=== PATIENT | female | born 1950 | race Caucasian/White ===

== ENCOUNTER 2018-02-05 07:21 | Day surgery (SDC) | payer OTHER ==
[2018-02-03 12:10] LABS: Absolute Lymphocytes (CBC) 3.3 K/uL (0.7-4.9); Absolute Monocytes 0.8 K/uL (0.1-1.3); Basophils % 0.8 % (0-1.3); Eosinophils % 2.4 % (0-4.4); Hematocrit 38.8 % (36.0-45.0); Lymphocytes % 28.8 % (15.3-44.8); MCH 29.3 pg (27.0-35.0); MCV 91.4 fL (80-100); MPV 8.3 fL (7.6-11.3); RBC Red Blood Cell Count 4.25 M/uL (3.86-4.86)
[2018-02-03 12:36] LABS: BUN Blood Urea Nitrogen 12 mg/dL (6-20); Bicarbonate 27 mEq/L (21-31); Glucose Level 182 mg/dL (65-120); Potassium 3.8 mEq/L (3.6-5.0); Sodium Level 139 mEq/L (135-145)
--- OUTSIDE RECORDS SUMMARY | 2018-02-05 07:23 | XMS REPORT | Clinical Summary ---
:1950 Author Organization [facility] Address [address] [place] [address] Care Team Providers Name Role Phone Darek Wilson MD Primary Care Provider Allergies Active Allergy Reactions Severity Noted Date Comments Codeine 01/20/2018 Current Medications No known medications Active Problems No known active problems Encounters Date Type Specialty Care Team Description 01/22/2018 Telephone General Surgery Beti Villa, BRADEN-C 01/20/2018 Office Visit General Surgery Benny Mclain, Malignant neoplasm of ascending colon (Primary Dx); Rectal polyp after 02/04/2017 Family History Medical History Relation Name Comments Diabetes Father Hypertension Father Stroke Father Diabetes Mother Hypertension Mother Relation Name Status Comments Father Mother Social History Tobacco Use Types Packs/Day Years Used Date Never Smoker Smokeless Tobacco: Never Used Alcohol Use Drinks/Week oz/Week Comments No Sex Assigned at Date Recorded Not on file Last Filed Vital Signs Vital Sign Reading Time Taken Blood Pressure 133/79 01/20/2018 1:41 PM CDT Pulse 75 01/20/2018 1:41 PM CDT Temperature - - Respiratory Rate - - Oxygen Saturation - - Inhaled Oxygen Concentration - - Weight 74.8 kg (165 lb) 01/20/2018 1:41 PM CDT Height 154.9 cm (5' 1") 01/20/2018 1:41 PM CDT Body Mass Index 31.18 01/20/2018 1:41 PM CDT Plan of Treatment Health Maintenance Due Date Last Done Comments COLONOSCOPY 2001 MAMMOGRAM 2001 SHINGRIX VACCINE (#1) 2001 ZOSTER VACCINE 2011 PNEUMOCOCCAL POLYSACCHARIDE VACCINE AGE 65 AND OVER 2016 PNEUMOCOCCAL-13 2016 INFLUENZA VACCINE 04/29/2018 Results Not on fileafter 02/04/2017 Insurance Payer Benefit Plan / Group Subscriber ID Type Phone Address MEDICARE MEDICARE PART A AND B xxxxxxxxxx Medicare [place], [place] ANDREW MORALES PPO OPEN CHOICE xxxxxxxxx PPO Home: [address] [place], [place] [phone] [place] [address]
[2018-02-05] MEDS ORDERED: Ringers Lactate 1,000 ML IV ONE (07:39)
[2018-02-05] MEDS ORDERED: LIDOCAINE 1% W/EPI 1:100,000 MDV 50 ML VIAL ONE (07:45)
[2018-02-05] MEDS ORDERED: PROPOFOL 200 MG/20 ML VIAL IV ONE (08:05)
[2018-02-05] MEDS ORDERED: FENTANYL CITR 100 MCG/2 ML ONE (08:05)
[2018-02-05] MEDS ORDERED: LIDOCAINE 2% MPF 5 ML VIAL ONE (08:06)
[2018-02-05] MEDS ORDERED: MIDAZOLAM HCL 2 MG/2 ML INJ ONE (08:07)
[2018-02-05] MEDS ORDERED: EPHEDRINE SULF 50 MG/5 ML SYR ONE (08:47)
[2018-02-05 11:30] VITALS: BP 112/68; TEMP 97; O2SAT 98
--- NOTE | 2018-02-05 20:04 | OP ---
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 The patient with history of colon c ancer. Postoperative Diagnosis: Cervical/vaginal tumor. 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 The patien t with history of colon cancer Procedures Performed: 1.Exam under anesthesia. 2.Cervical, vaginal, and vulvar colposcopy. 3.Biopsies of the cervix at 6 o'clock, 7 o'clock, and 12 o'clock position. 4.Cystourethroscopy. Anesthesia: MAC. Specimen: Cervical biopsy at 6 o'clock, 7 o'clock and 12 o'clock position. Estimated Blood Loss: 50. Complications: None. Drains: None. Condition: Stable. Findings: A 3 cm tumor on the cervix, which appeared to be circumferential. This tumor that I descr ibed as cervix has the appearance of it with an opening in the center that does not seem to be a necr otic area on the tumor. It does have vaginal extension as this is flushed with the vaginal canal all around. However, no gross vaginal tumor seen extending. From the anterior fornix to the external u rethral meatus, the length was only 3 cm, that was the distal-most part of the tumor. On cystoscopy, there was tumor underneath the trigone between the ureteric and both the ureteric orifices all the w ay down. However, there was no bladder mucosal involvement. Both ureters were patent. The right 1 had to be visualized with a 70 degree lens. There was no apparent pelvic sidewall involvement. Lomeli lili, it is very difficult to assess the involvement of the parametrium, due to the post hysterectomy status of the patient in, and due to the sacral colpopexy suspension. Description Of Procedure: After informed consent was verified, the patient was taken back to the OR. She was placed in supine fashion on the operating table. After MAC was given, she was placed in a dorsal lithotomy position using Gal stirrups. Pelvic exam was performed with a bivalve speculum pl aced in the cervix. Colposcopy attempted to be performed. However, once the patient started to blee d, I cleared up the blood with a sponge on a stick, then visualized the cervix quickly. This appeare d to be a circumferential anatomical structure consistent with the cervix; however, I am not positive due to the absence of a pathology report or an operative report from the 2010 surgery that she has h ad for uterine prolapse. After looking at the vaginal canal and vulva, no lesions were visualized here, and colposcope was set aside. We then proceeded with the rest of the procedure. Two Rodriguez speculums were placed, 1 anterio rly narrowing one, and the normal large 1 posteriorly. The width of the tumor on the cervix was jez ured from lvha-km-hbrd in the anterior-posterior diameter and was 3 cm. It was 3 cm from the distal part of this cervical lesion to the external urethral meatus. This measurement was 3 cm. The after visualizing and confirming the tumor, biopsies were taken at 12 o'clock, 6 o'clock, and 7 o 'clock, as this was where the tumor was obvious, and it was easier to take a biopsy with a cervical p unch biopsy forceps. Specimens were labeled and handed off for permanent pathology. Then, the vagina was packed with the help of a long gauze. Then, cystoscopy was performed with a 30-degree lens, to start with the bladder was distended only to 150 mL. This gave us a good opportunity to have good visualization. The entire mucosal wall was vi sualized, paying attention to the base and the trigone. There was an area on the trigone where the t umor appeared to be pretty pushing on it. However, there was no mucosal involvement. The left urete mook orifice was easily visualized with the scope. However, the right 1 was not visualized, so I firs t waited for the ureteral efflux on the left, and there was a strong normal stream of urine and the s cope was changed to 70 degree, and I was able to visualize the ureteric orifice on the right side, an d there was a strong jets of urine from here. The rest of the bladder was quickly looked at and then urethroscopy was performed on the way out with a 30-degree lens. No evidence of any tumors, diverti cula, or ulcerations. The entire trigone was well visualized as well. No evidence of any mucosal ab normalities. After the scope was removed, the bladder was drained through the 17-Welsh sheath and this was remove d. The patient is going to be kept on Bactrim. All the instruments, needles, and sponges were removed a nd counted. Then the vagina was repacked. The patient was recovered from anesthesia and taken to [facility] in stable condition. Ebl: Minimal, 50 mL. She has been given instructions to follow up with me in 1 week. She has an appointment, and then vag inal packing to come out in 2 hours. Restart Bactrim, since she has a bladder infection and then italia l p.r.n. with heavy bleeding. YELENA/KITTY Voice ID: [id number] Report ID: [id number]
== END 2018-02-05 10:24 | disposition home or self-care (01) ==
LOC: OR 07:21
PROVIDERS: ATTEND Obstetrics & Gynecology
PROC: 0UBC8ZX Excision of Cervix, Via Natural or Artificial Opening Endoscopic, Diagnostic (ICD-10-PCS; principal; 2018-02-05 08:30)
DX: C79.82 Secondary malignant neoplasm of genital organs (principal); C18.2 Malignant neoplasm of ascending colon; N30.00 Acute cystitis without hematuria
CPT/HCPCS: 36415; 57421; 80048; 85025; 88305; J2250; J3010

== ENCOUNTER 2018-03-16 09:09 | Day surgery (SDC) | payer OTHER ==
--- NOTE | 2018-03-13 11:27 | RAD REPORT ---
EXAM DESCRIPTION: Veronica Palmer And Renata (2 Views)03/13/2018 10:09 am CLINICAL HISTORY: Colon cancer COMPARISON: December 2017 FINDINGS: Two left upper lobe nodules measure about 7 millimeters. They appear mildly enlarged from the prior CAT scan. The right lung appears clear The heart is normal size
[2018-03-13 11:30] LABS: Absolute Lymphocytes (CBC) 2.4 K/uL (0.7-4.9); Absolute Monocytes 0.7 K/uL (0.1-1.3); Absolute Neutrophil 6.5 K/uL (1.8-8.0); Basophils % 1.2 % (0-1.3); Eosinophils % 3.6 % (0-4.4); Hematocrit 38.1 % (36.0-45.0); Lymphocytes % 24.1 % (15.3-44.8); MCV 90.9 fL (80-100); MPV 8.8 fL (7.6-11.3); Monocytes % 6.6 % (3.3-12.3); RBC Red Blood Cell Count 4.19 M/uL (3.86-4.86)
[2018-03-13 11:49] LABS: BUN Blood Urea Nitrogen 9 mg/dL (6-20); Bicarbonate 28 mEq/L (21-31); Glucose Level 189 mg/dL (65-120); Potassium 4.6 mEq/L (3.6-5.0); Sodium Level 139 mEq/L (135-145)
--- NOTE | 2018-03-13 14:07 | EKG ---
Test Date: 2018-03-13 Test Time: 09:55:31 Claim Approver: ELDA MEASUREMENT RESULTS: Intervals: Rate: 74 NV: 152 QRSD: 86 QT: 386 QTc: 428 Griffin: P: 63 NV: 152 QRS: -6 T: 51 INTERPRETIVE STATEMENTS: Normal sinus rhythm Normal ECG Compared to ECG 06/24/2017 15:32:31 No significant changes Electronically Signed On 03-13-18 14:06:03 CDT by Lance Castillo
--- OUTSIDE RECORDS SUMMARY | 2018-03-16 09:11 | XMS REPORT | Clinical Summary ---
:1950 Author Organization [facility] Address [address] [place] [address] Care Team Providers Name Role Phone Darek [...] ascending colon (Primary Dx); Rectal polyp after 03/15/2017 Family History Medical History Relation Name Comments [...] Health Maintenance Due Date Last Done Comments BREAST CANCER SCREENING 2001 COLON CANCER SCREENING 2001 SHINGRIX VACCINE (#1) 2001 ZOSTER VACCINE 2011 PNEUMOCOCCAL POLYSACCHARIDE VACCINE AGE 65 AND OVER 2016 PNEUMOCOCCAL-13 2016 INFLUENZA VACCINE 04/29/2018 Results Not on fileafter 03/15/2017 Insurance Payer Benefit Plan / Group Subscriber ID Type Phone Address MEDICARE MEDICARE PART A AND B xxxxxxxxxx Medicare [place], [place] ANDREW MORALES PPO OPEN CHOICE xxxxxxxxx PPO Home: [address] [place], [place] [phone] [place] [address]
[2018-03-16] MEDS ORDERED: Ringers Lactate 1,000 ML IV ONE (09:38)
[2018-03-16] MEDS ORDERED: CEFAZOLIN/SWI 1gm 1 GM/10 ML SYR ONE (09:39)
[2018-03-16] MEDS ORDERED: MIDAZOLAM HCL 2 MG/2 ML INJ ONE (10:13)
[2018-03-16] MEDS ORDERED: LIDOCAINE 1% 20 ML MDV ONE (10:16)
[2018-03-16] MEDS ORDERED: NS 0.9% VIAL 10 ML ONE ×2 (10:16→10:17)
[2018-03-16] MEDS ORDERED: PROPOFOL 200 MG/20 ML VIAL IV ONE (10:30)
[2018-03-16] MEDS ORDERED: LIDOCAINE 2% MPF 5 ML VIAL ONE (10:31)
[2018-03-16] MEDS ORDERED: FENTANYL CITR 100 MCG/2 ML ONE (10:31)
[2018-03-16] MEDS ORDERED: ONDANSETRON HCL 40 MG/20 ML VIAL ONE (10:48)
[2018-03-16] MEDS: HEPARIN 5000 UNIT/ML 1 ML VIAL ONE ×2 (11:07→11:25)
--- NOTE | 2018-03-16 11:24 | RAD REPORT ---
EXAM DESCRIPTION: RAD - Chest Single View - 03/16/2018 11:17 am CLINICAL HISTORY: Unsuccessful left-side line placement procedure COMPARISON: March 13 TECHNIQUE: AP portable chest image was obtained with the patient supine and in reverse Trendelenburg positioning . FINDINGS: Lungs are underinflated. Left lung base atelectasis present. No pneumothorax is present. T rachea is midline. Cardiomediastinal silhouette within normal limits for exam limitation. Heart size accentuated by technique and positioning. IMPRESSION: Limited portable intraoperative examination showing no pneumothorax.
--- NOTE | 2018-03-16 11:43 | P.BOP ---
Preoperative diagnosis: colon cancer Postoperative diagnosis: same Primary procedure: 1. Placement of portacath right Secondary procedure: 2. Interpretation of fluoroscopy Estimated blood loss: <10cc Specimen: none Findings: as above Anesthesia: General Complications: None Transferred to: Recovery Room Condition: Good
--- NOTE | 2018-03-16 12:08 | RAD REPORT ---
EXAM DESCRIPTION: RAD - Fluoroscopy <1 Hour - 03/16/2018 11:53 am CLINICAL HISTORY: Venous catheter insertion. PORT-A-CATH PLACEMENT COMPARISON: Fluoroscopy <1 Hour dated 07/12/2016 FINDINGS: Fluoroscopic imaging is submitted from placement of a venous catheter. Details of the pro cedure not available. Fluoroscopy time: 1.0 minutes.
--- NOTE | 2018-03-16 12:10 | RAD REPORT ---
EXAM DESCRIPTION: RAD - Chest Single View - 03/16/2018 12:02 pm CLINICAL HISTORY: s/p port-a-cath placement Chest pain. COMPARISON: Chest Single View dated 03/16/2018; Chest Pa And Lat (2 Views) dated 03/13/2018; Chest Pa And Lat (2 Views) dated 06/24/2017; Chest Pa And Lat (2 Views) dated 06/19/2017 FINDINGS: Portable technique limits examination quality. Right-sided venous catheter has been placed with its tip in the SVC. No postprocedure pneumothorax. M ild atelectasis in left lung base suspected. The heart is normal in size. No displaced fractures. IMPRESSION: No postprocedure pneumothorax.
[2018-03-16] MEDS ORDERED: TRAMADOL 37.5mg/APAP 325mg PER TAB ONE (12:38)
[2018-03-16 12:55] VITALS: BP 125/72; TEMP 97.3; O2SAT 98
--- NOTE | 2018-03-16 23:33 | OP ---
Surgeon: Miguel A Torre MD Car Dumper Operator Helper: None. Preoperative Diagnosis: Colon cancer. Postoperative Diagnosis: Colon cancer. Procedures: 1.Placement of a Port-A-Cath on the right subclavian vein. 2.Interpretation of fluoroscopy. Estimated Blood Loss: Less than 10 cc. Anesthesia: General. Indications: This is the case of a 68-year-old patient in need of chemotherapy, so Port-A-Cath was r equested. The patient had Port-A-Cath in the left and right sides for previous chemotherapies. The benefits, alternatives, and risks of Port-A-Cath placement were fully explained to the patient, which include but are not limited to infection, bleeding, damage to adjacent structures, anesthesia compli cation, pneumothorax, hemothorax, pulmonary emboli, deep vein thrombosis, breakage of the catheter, i nfections, endocarditis, pericarditis, CT, or even . She also understands this may not relieve any symptoms. She might need more than one surgical intervention. She understands the importance of as soon as she finished the chemotherapy and removing of this Port-A-Cath. She also understands if she does not receive chemotherapy within a month, she has to contact the primary doctor or contact us to get a Port-A-Cath ordered to be flushed once a month. She understood the importance of _. She signed a consent. Description Of Procedure: The patient was brought to the operating room, placed in supine position. Anesthesia was done without complication. Chest area was prepped and draped in a sterile fashion. We are going to start with the left side first. Both sides had scar tissues present. We were trying to locate the area that is a little more that we can put this on regardless of the size, so we saw i t on the left side. The patient was placed in Trendelenburg position. A time-out was called. An 18 -gauge needle was placed in the left subclavian vein. Guidewire was guided through under fluoroscopy , but does not pass into the innominate vessel. We did that for the second time. The catheter goes into the vein, but does not pass the innominate vessel. In that case, I just removed the needle, got an x-ray shows no pneumothorax, and then proceeded to the other side since the patient may have scar tissue over the area. The right side was prepped and draped already in the usual sterile fashion. We put an 18-gauge needle in that area. We found the vein at the first attempt only that they got worst pass through nice without assistance. Needle was removed. A small pocket was created in the right upper chest. We proceeded to put the introducer sheath through the guidewire under dir ect visualization of fluoroscopy, removed the guidewire, placed the catheter, removed the introducer sheath. Then, the catheter was tunneled underneath the skin to meet the new incision in the right up per chest, cut to proper size using fluoroscopy guidance. Port-A-Cath connected to the catheter usin g the learning services coordinator's specification and clip. The Port-A-Cath was then secured to the underlying subc utaneous tissue and then after that, was tested. Excellent backflow and inflow. The Port-A-Cath was flushed with heparin. The patient tolerated the procedure well. The subcutaneous tissue was closed with 3-0 chromic after putting local anesthetic and obtaining hemostasis and then Steri-Strips on to p. Sponge count and instrument counts were correct. The patient tolerated the procedure well. The patient was sent to Recovery in stable condition, and a chest x-ray was ordered stat. DELIA/KITTY Voice ID: [id number] Report ID: [id number]
--- NOTE | 2018-03-16 23:33 | DS ---
Date of Discharge: 03/16/2018 Diagnosis: Colon cancer. Procedure: Placement of a Port-A-Cath under fluoroscopy. Disposition: Home. Activity: As tolerated. No heavy lifting. Followup: Follow up in my office in 1 week. Call for appointment at [phone]. Keep area dry for 48 hours, then may shower. Keep Steri-Strips intact. The patient will be discharged after a chest x-r ay's review. Medications: Will include Bactrim DS b.i.d. and Ultracet q.4 hours p.r.n. pain. DELIA/KITTY Voice ID: [id number] Report ID: [id number]
== END 2018-03-16 13:15 | disposition home or self-care (01) ==
LOC: OR 09:09
PROVIDERS: ATTEND Surgery
PROC: 0JH60WZ Insertion of Totally Implantable Vascular Access Device into Chest Subcutaneous Tissue and Fascia, Open Approach (ICD-10-PCS; principal; 2018-03-16 10:45)
DX: C18.9 Malignant neoplasm of colon, unspecified (principal); I10 Essential (primary) hypertension; K21.9 Gastro-esophageal reflux disease without esophagitis; Z88.6 Allergy status to analgesic agent; Z90.49 Acquired absence of other specified parts of digestive tract; Z83.3 Family history of diabetes mellitus; Z82.49 Family history of ischemic heart disease and other diseases of the circulatory system
CPT/HCPCS: 36415; 36561; 71045 ×2; 71046; 80048; 85025; 93005; C1788 ×2; J0690; J1644; J2250; J2405; J3010; 76000

== ENCOUNTER 2018-10-08 11:16 | Inpatient (IN) | payer OTHER ==
--- OUTSIDE RECORDS SUMMARY | 2018-10-08 11:20 | XMS REPORT | Clinical Summary ---
:1950 Author Organization [facility] Address [address] [place] [address] Care Team Providers Name Role Phone Darek Wilson MD Primary Care Provider Allergies Active Allergy Reactions Severity Noted Date Comments Codeine 01/20/2018 Medications No known medications Active Problems No known active problems Encounters Date Type Specialty Care Team Description 01/22/2018 Telephone General Surgery Beti Villa, BRADEN-C 01/20/2018 Office Visit General Surgery Benny Mclain, Malignant neoplasm of ascending colon (Primary Dx); Rectal polyp after 10/07/2017 Family History Medical History Relation Name Comments Diabetes Father Hypertension Father Stroke Father Diabetes Mother Hypertension Mother Relation Name Status Comments Father Mother Social History Tobacco Use Types Packs/Day Years Used Date Never Smoker Smokeless Tobacco: Never Used Alcohol Use Drinks/Week oz/Week Comments No Sex Assigned at Date Recorded Not on file Job Start Date Occupation Industry Not on file Not on file Not on file Travel History Travel Start Travel End No recent travel history available. Last Filed Vital Signs Vital Sign Reading [...] CANCER SCREENING 2001 COLON CANCER SCREENING 2001 SHINGLES VACCINES (1 of 2) 2001 PNEUMOCOCCAL POLYSACCHARIDE VACCINE AGE 65 AND OVER 2016 PNEUMOCOCCAL-13 2016 INFLUENZA VACCINE 04/29/2018 Results Not on fileafter 10/07/2017 Insurance Payer Benefit Plan / Group Subscriber ID Type Phone Address MEDICARE MEDICARE PART A AND B xxxxxxxxxx Medicare [place], [place] [employer] PPO OPEN CHOICE xxxxxxxxx PPO Advance Directives Patient has advance care planning documents on file. For more information, please contact:Ryan Uriarte[address] [place] [address]
--- NOTE | 2018-10-08 12:02 | EKG ---
Test Date: 2018-10-08 Test Time: 11:33:29 Film And Video Graphics Designer: VLADIMIR MEASUREMENT RESULTS: Intervals: Rate: 116 FL: 138 QRSD: 80 QT: 310 QTc: 430 [place]: P: 63 FL: 138 QRS: -19 T: 57 INTERPRETIVE STATEMENTS: Sinus tachycardia ST & T wave abnormality, consider lateral ischemia Abnormal ECG Compared to ECG 06/15/2018 21:53:11 No significant changes Electronically Signed On 10-08-18 12:01:25 LEATHER GRADER by Lance Castillo
[2018-10-08 12:06] LABS: Protime INR 1.25
[2018-10-08 12:08] LABS: Absolute Lymphocytes (CBC) 2.1 K/uL (0.7-4.9); Absolute Monocytes 0.4 K/uL (0.1-1.3); Absolute Neutrophil 5.2 K/uL (1.8-8.0); Hematocrit 39.9 % (36.0-45.0); Lymphocytes % 26.7 % (15.3-44.8); MPV 7.4 fL (7.6-11.3); Monocytes % 4.5 % (3.3-12.3); RBC Red Blood Cell Count 3.88 M/uL (3.86-4.86)
[2018-10-08 12:26] LABS: ALT/SGPT 16 U/L (12-78); AST/SGOT 20 U/L (15-37); Albumin 3.3 g/dL (3.4-5.0); Alkaline Phosphatase 141 U/L (45-117); BUN Blood Urea Nitrogen 14 mg/dL (7-18); Bicarbonate 21 mmol/L (21-32); Bilirubin Direct 0.2 mg/dL (0-0.2); Bilirubin Total 0.6 mg/dL (0.2-1.0); Glucose Level 157 mg/dL (74-106); Magnesium 1.8 mg/dL (1.8-2.4); NT PRO-BNP 197 pg/mL (<125); Potassium 3.1 mmol/L (3.5-5.1); Protein, Total 6.5 g/dL (6.4-8.2); Sodium Level 143 mmol/L (136-145); Troponin (Emerg Dept Use Only) < 0.02 ng/mL (0.0-0.045)
--- NOTE | 2018-10-08 12:28 | RAD REPORT ---
EXAM DESCRIPTION: RAD - Chest Single View - 10/08/2018 12:20 pm CLINICAL HISTORY: DYSPNEA Chest pain. COMPARISON: Chest Single View dated 06/15/2018; Chest Single View dated 03/16/2018; Chest Single View dated 03/16/2018; Chest Pa And Lat (2 Views) dated 03/13/2018 FINDINGS: Portable technique limits examination quality. The lungs are grossly clear. Small left pleural effusion noted. The heart is normal in size. Right-si ded venous catheter has tip in the SVC. IMPRESSION: Small left pleural effusion.
[2018-10-08 12:49] LABS: Blood Morphology Comment NOT SEEN (NOT SEEN); Platelet Estimate ADEQ; Urine White Blood Cell Casts OK
--- NOTE | 2018-10-08 13:18 | RAD REPORT ---
EXAM DESCRIPTION: CT - Chest For Pe Angio - 10/08/2018 1:08 pm CLINICAL HISTORY: Chest pain. DYSPNEA COMPARISON: Chest Angio dated 04/05/2016; Chest Single View dated 10/08/2018; Chest Abdomen Pelvis W Co nt dated 08/25/2018 TECHNIQUE: CT angiogram of the pulmonary arteries was performed with MIP. All CT scans are performed using dose optimization technique as appropriate and may include automated exposure control or mA/KV adjustment according to patient size. FINDINGS: Bilateral pulmonary thromboembolism is present predominately involving the segmental branc hes. No RV strain pattern observed. No acute aortic finding demonstrated. Mild linear atelectasis is present left lung base. Small left pleural effusion is noted. Several pulmonary nodules are again noted, grossly unchanged since 08/25/2018 surveillance study. Pul monary nodule assessment is somewhat limited due to respiratory motion artifact. A collapsed left breast implant is seen. No pericardial fluid. Fatty liver. No lytic or blastic bone lesion. IMPRESSION: Positive for bilateral segmental branch pulmonary thromboemboli. Findings were discussed with BRYCE Pretty in the ER 1:10 p.m. 10/08/2018 by telephone.
[2018-10-08] MEDS ORDERED: HEPARIN 5000 UNIT/ML 1 ML VIAL ONE (13:33)
[2018-10-08] MEDS ORDERED: NA CHLORIDE 0.9% 1,000 ML ONE (13:33)
[2018-10-08] MEDS ORDERED: HEPARIN/D5W 25,000 UNIT/500 ML BAG IV ONE (13:33)
--- NOTE | 2018-10-08 13:46 | EDPHYS ---
Physician Documentation [facility] Name: Nesha Pringle Age: 68 yrs Sex: Female : 1950 Arrival Date: 10/08/2018 Time: 11:19 Bed 8 Private MD: Alina Wilson C ED Physician Benjamin Manzo HPI: 10/08 12:15 This 68 yrs old Female presents to ER via Wheelchair with complaints of jr8 Shortness Of Breath, Dehydration. 12:15 Severity of symptoms: At their worst the symptoms were moderate in the emergency jr8 department the symptoms are unchanged. The patient has experienced a previous episode. The patient has been recently seen by a physician:. Patient with history of PE in 2016 and cleared 6 months later with anticoagulation. Has recurrent metastatic colon cancer and is undergoing chemotherapy. Talked to her Oncologist this morning who is worried that she has another one. Tachypnea, dyspnea on exertion, and tachycardic for past couple of weeks now. One of the chemo drugs has known thromboembolism risks. Historical: - Allergies: 11:36 Codeine; iw 11:22 Codeine; aa5 - Home Meds: 11:36 amlodipine 5 mg tab 1 tab once daily [Active]; Folivane-F Oral [Active]; iw hydrochlorothiazide 12.5 mg Oral tab 1 tab once daily [Active]; levothyroxine 150 mcg tab 1 tab once daily [Active]; metoprolol tartrate 100 mg Oral tab 1 tab 2 times per day [Active]; Multiple Vitamins Oral tab [Active]; omeprazole 20 mg Oral cpDR 1 cap once daily [Active]; ondansetron HCl 8 mg Oral tab [Active]; Percogesic Oral [Active]; pravastatin 40 mg Oral tab 1 tab once daily [Active]; Sleep Aid (diphenhydramine) 25 mg Oral tab [Active]; tramadol-acetaminophen 37.5-325 mg Oral tab [Active]; - PMHx: 11:36 Aneurysm; Hypertension; iw 11:22 colon cancer; GERD; aa5 11:22 PE; aa5 - PSHx: 11:36 BRAIN; BLADDER SLING; Hysterectomy; Lithotripsy; Bowel resection; iw - Social history:: Smoking status: Patient/guardian denies using tobacco. - Ebola Screening: : Patient negative for fever greater than or equal to 101.5 degrees Fahrenheit, and additional compatible Ebola Virus Disease symptoms Patient denies exposure to infectious person Patient denies travel to an Ebola-affected area in the 21 days before illness onset No symptoms or risks identified at this time No symptoms or risks identified at this time. ROS: 12:15 Eyes: Negative for injury, pain, redness, and discharge, ENT: Negative for injury, jr8 pain, and discharge, Neck: Negative for injury, pain, and swelling, Abdomen/GI: Negative for abdominal pain, nausea, vomiting, diarrhea, and constipation, Back: Negative for injury and pain, MS/Extremity: Negative for injury and deformity, Skin: Negative for injury, rash, and discoloration, Neuro: Negative for headache, weakness, numbness, tingling, and seizure. 12:15 Cardiovascular: Negative for chest pain, edema, orthopnea, palpitations, paroxysmal nocturnal dyspnea. 12:15 Respiratory: Positive for dyspnea on exertion, shortness of breath. Exam: 12:15 Eyes: Pupils equal round and reactive to light, extra-ocular motions intact. Lids and jr8 lashes normal. Conjunctiva and sclera are non-icteric and not injected. Cornea within normal limits. Periorbital areas with no swelling, redness, or edema. ENT: Nares patent. No nasal discharge, no septal abnormalities noted. Tympanic membranes are normal and external auditory canals are clear. Oropharynx with no redness, swelling, or masses, exudates, or evidence of obstruction, uvula midline. Mucous membranes moist. Neck: Trachea midline, no thyromegaly or masses palpated, and no cervical lymphadenopathy. Supple, full range of motion without nuchal rigidity, or vertebral point tenderness. No Meningismus. Respiratory: Lungs have equal breath sounds bilaterally, clear to auscultation and percussion. No rales, rhonchi or wheezes noted. No increased work of breathing, no retractions or nasal flaring. Abdomen/GI: Soft, non-tender, with normal bowel sounds. No distension or tympany. No guarding or rebound. No evidence of tenderness throughout. Back: No spinal tenderness. No costovertebral tenderness. Full range of motion. Skin: Warm, dry with normal turgor. Normal color with no rashes, no lesions, and no evidence of cellulitis. MS/ Extremity: Pulses equal, no cyanosis. Neurovascular intact. Full, normal range of motion. Neuro: Awake and alert, GCS 15, oriented to person, place, time, and situation. Cranial nerves II-XII grossly intact. Motor strength 5/5 in all extremities. Sensory grossly intact. Cerebellar exam normal. Normal gait. 12:15 Cardiovascular: Rate: tachycardic, Rhythm: regular, Pulses: Pulses are 2+ in right radial artery and left radial artery. Heart sounds: normal, normal S1and S2, no S3 or S4, no murmur, no rub, no gallop, Edema: is not appreciated, JVD: is not appreciated. Vital Signs: 11:29 BP 124 / 79; Pulse 120; Resp 20 S; Temp 97.5(O); Pulse Ox 100% on R/A; Weight 61.23 kg aa5 (R); Height 5 ft. 1 in. (154.94 cm) (R); 12:00 BP 107 / 79; Pulse 112; Resp 18 S; Pulse Ox 100% on R/A; aa5 12:50 BP 103 / 76; Pulse 103; Resp 18 S; Pulse Ox 99% on R/A; Pain 0/10; aa5 14:30 BP 120 / 84; Pulse 84; Resp 16 S; Pulse Ox 100% on R/A; aa5 18:00 BP 110 / 75; Pulse 86; Resp 16 S; Temp 97.4(O); Pulse Ox 100% on R/A; aa5 11:29 Body Mass Index 25.51 (61.23 kg, 154.94 cm) aa5 MDM: 11:23 Patient medically screened. cp 11:23 Patient medically screened. [facility] 13:45 Data reviewed: vital signs, nurses notes, lab test result(s), EKG, radiologic studies, jr8 CT scan, plain films, ultrasound. Data interpreted: Pulse oximetry: on room air is 100 %. Interpretation: normal. Counseling: I had a detailed discussion with the patient and/or guardian regarding: the historical points, exam findings, and any diagnostic results supporting the discharge/admit diagnosis, lab results, radiology results, the need for further work-up and treatment in the hospital. Physician consultation: A Steve PARKER was called at 13:45, was contacted at 13:45, regarding admission, to the telemetry unit. consult, patient's condition, and will see patient. 10/08 11:24 Order name: Basic Metabolic Panel; Complete Time: 12:10/08 11:24 Order name: CBC with Diff; Complete Time: 12:10/08 11:24 Order name: LFT's; Complete Time: 12:10/08 11:24 Order name: Magnesium; Complete Time: 12:51 10/08 11:24 Order name: NT PRO-BNP; Complete Time: 12:10/08 11:24 Order name: PT-INR; Complete Time: 12:10/08 11:24 Order name: Troponin (emerg Dept Use Only); Complete Time: 12:10/08 11:24 Order name: XRAY Chest (1 view); Complete Time: 12:10/08 12:12 Order name: CBC Smear Scan; Complete Time: 12:51 EDNJ 10/08 12:52 Order name: CT Chest For PE Angio; Complete Time: 13:10/08 13:45 Order name: US Extremity Venous W Compression Valente; Complete Time: 14:42 10/08 11:24 Order name: EKG; Complete Time: 11:25 10/08 11:24 Order name: Cardiac monitoring; Complete Time: 11:40 10/08 11:24 Order name: EKG - Nurse/Tech; Complete Time: 11:40 10/08 11:24 Order name: IV Saline Lock; Complete Time: 11:10/08 11:24 Order name: Labs collected and sent; Complete Time: 11:10/08 11:24 Order name: O2 Per Protocol; Complete Time: 11:40 10/08 11:24 Order name: O2 Sat Monitoring; Complete Time: 11:40 Administered Medications: 13:15 Not Given (Physician Discretion): NS 0.9% 1000 ml IV at 1000 ml once iw 13:54 Drug: Heparin (DVT/PE- Bolus per protocol) - HEParin 80 units/kg {Co-Signature: aa5 iw (Yue Amin RN).} {Note: 5000 units IVP given.} Route: IVP; Site: Port-a-cath; 14:00 Follow up: Response: No adverse reaction aa5 13:55 Drug: Heparin (DVT/PE Drip) 18 units/kg/hr - (HEParin 57586 units, D5W 500 ml) {Co-Signature: aa5 (Yue Amin RN).} {Note: infusing at 1100 units/hr.} Route: IV; Rate: calculated rate; Site: Port-a-cath; 18:15 Follow up: Response: No adverse reaction; IV Status: Infusion continued upon admission aa5 14:00 Drug: NS 0.9% 1000 ml Route: IV; Rate: 100 ml/hr; Site: left antecubital; iw 18:15 Follow up: IV Status: Infusion continued upon admission aa5 15:40 Drug: Potassium Chloride 40 mEq Route: PO; aa5 16:30 Follow up: Response: No adverse reaction aa5 Disposition: 10/09 07:06 Co-signature as Attending Physician, Benjamin Manzo MD I agree with the assessment and kadeem plan of care. Disposition: 10/08/18 13:46 Hospitalization ordered by Alina Wilson for Inpatient Admission. Preliminary diagnosis is Pulmonary embolism. - Bed requested for Telemetry/MedSurg (Inpatient). - Status is Inpatient Admission. aa5 - Condition is Stable. - Problem is new. - Symptoms have improved. UTI on Admission? No Signatures: Dispatcher [employer] EDBenjamin Land MD MD cha Williams, Irene, RN RN iw Calderon, Audri, RN RN aa5 Adalberto Ortega PA PA jr8 Benjamin Eugene PA PA cp Fitzgerald, Diane, RN RN df Audri Calderon RN aa5 Corrections: (The following items were deleted from the chart) 10/08 11:39 11:36 PMHx: colon cancer; 1139 11:36 PMHx: GERD; 39 11:22 PMHx: Aneurysm; aa5 39 11:22 PMHx: Hypertension; aa39 11:22 PSHx: BRAIN; aa5 39 11:22 PSHx: BLADDER SLING; aa5 39 11:22 PSHx: Hysterectomy; aa5 39 11:22 PSHx: Lithotripsy; aa 11:22 PSHx: Bowel resection; aa5 aa5 17:09 13:46 Hospitalization Ordered by A Steve PARKER for Inpatient Admission. Preliminary df diagnosis is Pulmonary embolism. Bed requested for Telemetry/MedSurg (Inpatient). Status is Inpatient Admission. Condition is Stable. Problem is new. Symptoms have improved. UTI on Admission? No. jr8 18:30 17:09 10/08/2018 13:46 Hospitalization Ordered by A Steve PARKER for Inpatient Admission. aa5 Preliminary diagnosis is Pulmonary embolism. Bed requested for Telemetry/MedSurg (Inpatient). Status is Inpatient Admission. Condition is Stable. Problem is new. Symptoms have improved. UTI on Admission? No. df
--- NOTE | 2018-10-08 13:46 | ER ---
Nurse's Notes [facility] Name: Nesha Pringle Age: 68 yrs Sex: Female : 1950 Arrival Date: 10/08/2018 Time: 11:19 Bed 8 Private MD: Alina Wilson C Diagnosis: Pulmonary embolism Presentation: 10/08 11:33 Presenting complaint: Patient states: sent by Dr. Nettles to R/O PE, pt on chemo, iw tachycardic and SOB. Transition of care: patient was not received from another setting of care. Onset of symptoms was October 08, 2018. Risk Assessment: Do you want to hurt yourself or someone else? Patient reports no desire to harm self or others. Initial Sepsis Screen: Does the patient meet any 2 criteria? Does the patient have a suspected source of infection? No. Patient's initial sepsis screen is negative. Care prior to arrival: None. 11:33 Method Of Arrival: Wheelchair iw 11:33 Acuity: JAMES 2 iw Historical: - Allergies: 11:36 Codeine; iw 11:22 Codeine; aa5 - Home Meds: 11:36 amlodipine 5 mg tab 1 tab once daily [Active]; Folivane-F Oral [Active]; iw hydrochlorothiazide 12.5 mg Oral tab 1 tab once daily [Active]; levothyroxine 150 mcg tab 1 tab once daily [Active]; metoprolol tartrate 100 mg Oral tab 1 tab 2 times per day [Active]; Multiple Vitamins Oral tab [Active]; omeprazole 20 mg Oral cpDR 1 cap once daily [Active]; ondansetron HCl 8 mg Oral tab [Active]; Percogesic Oral [Active]; pravastatin 40 mg Oral tab 1 tab once daily [Active]; Sleep Aid (diphenhydramine) 25 mg Oral tab [Active]; tramadol-acetaminophen 37.5-325 mg Oral tab [Active]; - PMHx: 11:36 Aneurysm; Hypertension; iw 11:22 colon cancer; GERD; aa5 11:22 PE; aa5 - PSHx: 11:36 BRAIN; BLADDER SLING; Hysterectomy; Lithotripsy; Bowel resection; iw - Social history:: Smoking status: Patient/guardian denies using tobacco. - Ebola Screening: : Patient negative for fever greater than or equal to 101.5 degrees Fahrenheit, and additional compatible Ebola Virus Disease symptoms Patient denies exposure to infectious person Patient denies travel to an Ebola-affected area in the 21 days before illness onset No symptoms or risks identified at this time No symptoms or risks identified at this time. Screenin:50 Abuse screen: Denies threats or abuse. Nutritional screening: No deficits noted. aa5 Tuberculosis screening: No symptoms or risk factors identified. Fall Risk IV access (20 points). Total Toussaint Fall Scale indicates No Risk (0-24 pts). Assessment: 11:30 General: Appears comfortable. Pain: Complains of pain in left upper quadrant Pain aa5 currently is 0 out of 10 on a pain scale. Quality of pain is described as aching, Is intermittent. Neuro: Level of Consciousness is awake, alert, obeys commands, Oriented to person, place, time, situation. Cardiovascular: Heart tones S1 S2 present Rhythm is regular. Respiratory: Reports shortness of breath on exertion Airway is patent Respiratory effort is even, unlabored, Respiratory pattern is regular, symmetrical, Breath sounds are clear bilaterally. Denies cough. GI: Abdomen is non-distended, Bowel sounds present X 4 quads. Abd is soft and non tender X 4 quads. Patient currently denies nausea, vomiting. : No signs and/or symptoms were reported regarding the genitourinary system. EENT: No signs and/or symptoms were reported regarding the EENT system. Derm: Skin is pink, warm \T\ dry. Musculoskeletal: Range of motion: intact in all extremities. 11:35 Reassessment: Patient was notified of strict bedrest by BRYCE Collins . aa5 12:30 Reassessment: Patient and/or family updated on plan of care and expected duration. Pain aa5 level reassessed. Patient is alert, oriented x 3, equal unlabored respirations, skin warm/dry/pink. Patient denies pain at this time. 13:45 Reassessment: Patient is alert, oriented x 3, equal unlabored respirations, skin aa5 warm/dry/pink. Patient denies pain at this time. Patient was reminded about strict bedrest, pt verbalizes understanding. . 16:00 Reassessment: Patient is alert, oriented x 3, equal unlabored respirations, skin aa5 warm/dry/pink. Pt notified that I spoke to pump house operator about room assignment and she will be assigned to a room shortly per Property Insurance Claims Examiner. . 17:08 Reassessment: Pt assisted with bedpan, clear yellow urine noted, 10cc of urine. . aa5 17:08 Reassessment: Patient is alert, oriented x 3, equal unlabored respirations, skin aa5 warm/dry/pink. 18:15 Reassessment: Patient is alert, oriented x 3, equal unlabored respirations, skin aa5 warm/dry/pink. Vital Signs: 11:29 BP 124 / 79; Pulse 120; Resp 20 S; Temp 97.5(O); Pulse Ox 100% on R/A; Weight 61.23 kg aa5 (R); Height 5 ft. 1 in. (154.94 cm) (R); 12:00 BP 107 / 79; Pulse 112; Resp 18 S; Pulse Ox 100% on R/A; aa5 12:50 BP 103 / 76; Pulse 103; Resp 18 S; Pulse Ox 99% on R/A; Pain 0/10; aa5 14:30 BP 120 / 84; Pulse 84; Resp 16 S; Pulse Ox 100% on R/A; aa5 18:00 BP 110 / 75; Pulse 86; Resp 16 S; Temp 97.4(O); Pulse Ox 100% on R/A; aa5 11:29 Body Mass Index 25.51 (61.23 kg, 154.94 cm) aa5 ED Course: 11:19 Patient arrived in ED. mr 11:20 Alina Wilson MD is Private Physician. mr 11:22 Arm band placed on Patient placed in an exam room, on a stretcher. aa5 11:22 Patient has correct armband on for positive identification. Placed in gown. Bed in low aa5 position. Call light in reach. Side rails up X2. playground monitor on. Pulse ox on. NIBP on. 11:23 Benjamin Eugene PA is PHCP. cp 11:23 Benjamin Manzo MD is Attending Physician. cp 11:23 PHCP role handed off by Benjamin Eugene PA jr8 11:23 Adalberto Ortega PA is PHCP. jr8 11:26 Yue Amin, ANSELMO is Primary Nurse. aa5 11:34 Triage completed. iw 11:45 Initial lab(s) drawn, by me, sent to lab. Inserted saline lock: 20 gauge in left aa5 antecubital area, using aseptic technique. Blood collected. 11:52 EKG done, by missile tracking technician. reviewed by Adalberto WU. at1 12:19 X-ray completed. Portable x-ray completed in exam room. Patient tolerated procedure jb2 well. 12:20 XRAY Chest (1 view) In Process Unspecified. EDMS 13:06 CT completed. Patient tolerated procedure well. Patient moved to CT via stretcher. sj Patient moved back from CT. 13:08 CT Chest For PE Angio In Process Unspecified. EDMS 13:46 Alina Wilson MD is Hospitalizing Provider. jr8 13:53 Accessed Port-a-Cath. using accessed w/ # 20 Pinedo needle, ,sterile technique, per [facility] protocol. Clean \T\ dry. Good blood return. Flushes easily. 14:35 US Extremity Venous W Compression Valente In Process Unspecified. EDMS 18:15 No provider procedures requiring assistance completed. Patient admitted, IV remains in aa5 place. Administered Medications: 13:15 Not Given (Physician Discretion): NS 0.9% 1000 ml IV at 1000 ml once iw 13:54 Drug: Heparin (DVT/PE- Bolus per protocol) - HEParin 80 units/kg {Co-Signature: aa5 iw (Yue Amin RN).} {Note: 5000 units IVP given.} Route: IVP; Site: Port-a-cath; 14:00 Follow up: Response: No adverse reaction aa5 13:55 Drug: Heparin (DVT/PE Drip) 18 units/kg/hr - (HEParin 45098 units, D5W 500 ml) iw {Co-Signature: aa5 (Yue Amin RN).} {Note: infusing at 1100 units/hr.} Route: IV; Rate: calculated rate; Site: Port-a-cath; 18:15 Follow up: Response: No adverse reaction; IV Status: Infusion continued upon admission aa5 14:00 Drug: NS 0.9% 1000 ml Route: IV; Rate: 100 ml/hr; Site: left antecubital; iw 18:15 Follow up: IV Status: Infusion continued upon admission aa5 15:40 Drug: Potassium Chloride 40 mEq Route: PO; aa5 16:30 Follow up: Response: No adverse reaction aa5 Outcome: 13:46 Decision to Hospitalize by Provider. jr8 18:15 Admitted to Tele accompanied by tech, via stretcher, with chart, Report called to aa5 Alessandro Almeida RN 18:15 Condition: stable 18:15 Instructed on the need for admit, Demonstrated understanding of instructions. 18:25 Patient left the ED. aa5 Signatures: Dispatcher [employer] EDMD Nesha Pineda, ErikNancy Hicks Irene, RN RN iw Calderon, ANSELMO Turner RN aa5 Adalberto Ortega PA PA jr8 Radha Rodriguez, service establishment attendant EKG Tat1 Benjamin Eugene PA PA cp Audri Calderon RN aa5 Corrections: (The following items were deleted from the chart) 11:37 11:36 BP 124 / 79; Pulse 115bpm; Pulse Ox 100% RA; 5 11:39 11:36 PMHx: colon cancer; 5 39 11:36 PMHx: GERD; aa5 39 11:22 PMHx: Aneurysm; aa5 aa5 39 11:22 PMHx: Hypertension; aa5 aa5 11:22 PSHx: BRAIN; aa5 aa5 39 11:22 PSHx: BLADDER SLING; aa5 aa5 39 11:22 PSHx: Hysterectomy; aa5 aa5 39 11:22 PSHx: Lithotripsy; 5 aa5 39 11:22 PSHx: Bowel resection; aa5 aa5 18:38 18:30 Patient left the ED. aa5 aa5
--- NOTE | 2018-10-08 14:39 | RAD REPORT ---
EXAM DESCRIPTION: US - Extrem Venous W Compress Valente - 10/08/2018 2:35 pm CLINICAL HISTORY: PE Bilateral leg edema and swelling. COMPARISON: Extrem Venous W Compress Valente dated 09/20/2016 TECHNIQUE: Real-time sonographic interrogation of the left and right lower extremity deep venous sys tems was performed. FINDINGS: Noncompressibility is noted in the right popliteal and posterior tibial vein compatible wi th DVT. No left-sided DVT is present. IMPRESSION: Positive for right-sided DVT.
[2018-10-08] MEDS ORDERED: POTASSIUM CL SA 10 MEQ TAB PO ONE (15:32)
[2018-10-08] MEDS ORDERED: ONDANSETRON 4 MG/2 ML VIAL IV PRN (18:46)
[2018-10-08] MEDS ORDERED: MORPHINE 4 MG/ML SYR IV PRN (18:46)
[2018-10-08] MEDS: NA CHLORIDE 0.9% 1,000 ML IV SCH (19:19)
[2018-10-08] MEDS: HEPARIN/D5W 25,000 UNIT/500 ML BAG IV SCH (19:20)
[2018-10-08 20:32] VITALS: BMI 25.4
[2018-10-09 06:23] LABS: Absolute Lymphocytes (CBC) 2.6 K/uL (0.7-4.9); Absolute Monocytes 0.4 K/uL (0.1-1.3); Basophils % 1.2 % (0-1.3); Eosinophils % 5.2 % (0-4.4); Hematocrit 31.8 % (36.0-45.0); Lymphocytes % 40.6 % (15.3-44.8); MPV 7.3 fL (7.6-11.3); Monocytes % 6.2 % (3.3-12.3); Protime INR 1.5; RBC Red Blood Cell Count 3.08 M/uL (3.86-4.86)
[2018-10-09 06:59] LABS: Potassium 2.6 mmol/L (3.5-5.1)
[2018-10-09] MEDS: KCL 20 MEQ/100 mL IVPB 20 MEQ/100 ML BAG IV SCH ×3 (08:12→13:18)
[2018-10-09] MEDS: NA CHLORIDE 0.9% 1,000 ML IV SCH ×2 (08:12→21:27)
[2018-10-09] MEDS: HEPARIN/D5W 25,000 UNIT/500 ML BAG IV SCH (18:44)
[2018-10-09] MEDS ORDERED: POTASSIUM CL SA 10 MEQ TAB PO ONE (19:21)
[2018-10-09] MEDS: ENSURE CLEAR 200 ML CAN PO SCH (21:00)
[2018-10-10 04:24] LABS: BUN Blood Urea Nitrogen 7 mg/dL (7-18); Bicarbonate 20 mmol/L (21-32); Glucose Level 112 mg/dL (74-106); Sodium Level 146 mmol/L (136-145)
[2018-10-10 04:26] LABS: Potassium 2.8 mmol/L (3.5-5.1); Protime INR 1.28
[2018-10-10] MEDS: KCL 20 MEQ/100 mL IVPB 20 MEQ/100 ML BAG IV SCH ×5 (05:35→19:00)
[2018-10-10] MEDS: ENSURE CLEAR 200 ML CAN PO SCH ×3 (10:12→21:10)
[2018-10-10] MEDS: NA CHLORIDE 0.9% 1,000 ML IV SCH ×2 (10:18→21:15)
[2018-10-10] MEDS ORDERED: PANTOPRAZOLE 40MG TABLET PO ONE (11:18)
[2018-10-10] MEDS: LOPERAMIDE HCL 2 MG CAPSULE PO PRN ×3 (11:30→21:11)
[2018-10-10] MEDS: RIVAROXABAN 15 MG TABLET PO SCH ×2 (11:30→21:11)
[2018-10-10] MEDS: MAGNESIUM OXIDE 400 MG TAB PO SCH ×2 (12:03→21:12)
[2018-10-10] MEDS: POTASSIUM CL SA 10 MEQ TAB PO SCH (21:11)
[2018-10-10] MEDS: ACETAMINOPHEN 500 MG TAB PO PRN (21:11)
[2018-10-10] MEDS: ATORVASTATIN 10 MG TAB PO SCH (21:12)
[2018-10-11] MEDS: LEVOTHYROXINE SOD 0.112 MG TAB PO SCH (05:31)
[2018-10-11] MEDS: LEVOTHYROXINE SOD 0.025 MG TAB PO SCH (05:32)
[2018-10-11] MEDS: PANTOPRAZOLE 40MG TABLET PO SCH (05:32)
[2018-10-11] MEDS: NA CHLORIDE 0.9% 1,000 ML IV SCH (05:36)
[2018-10-11 06:29] LABS: BUN Blood Urea Nitrogen 4 mg/dL (7-18); Bicarbonate 17 mmol/L (21-32); Glucose Level 94 mg/dL (74-106); Potassium 3.4 mmol/L (3.5-5.1); Sodium Level 147 mmol/L (136-145)
[2018-10-11] MEDS ORDERED: LEVOTHYROXINE SOD 0.112 MG TAB PO SCH (06:30)
[2018-10-11] MEDS: KCL 20 MEQ/100 mL IVPB 20 MEQ/100 ML BAG IV SCH ×2 (07:29→09:33)
[2018-10-11] MEDS: LOPERAMIDE HCL 2 MG CAPSULE PO PRN (07:29)
[2018-10-11] MEDS: ENSURE CLEAR 200 ML CAN PO SCH ×3 (09:00→21:00)
[2018-10-11] MEDS: RIVAROXABAN 15 MG TABLET PO SCH ×2 (09:33→16:54)
[2018-10-11] MEDS: POTASSIUM CL SA 10 MEQ TAB PO SCH ×2 (09:33→21:08)
[2018-10-11] MEDS: MAGNESIUM OXIDE 400 MG TAB PO SCH ×2 (09:33→21:08)
[2018-10-11] MEDS: D5 0.45 NS 1,000 ML IV SCH ×2 (09:34→21:18)
[2018-10-11] MEDS ORDERED: KCL 20 MEQ/100 mL IVPB 20 MEQ/100 ML BAG IV SCH (20:00)
[2018-10-11] MEDS: ATORVASTATIN 10 MG TAB PO SCH (21:08)
--- NOTE | 2018-10-12 00:59 | PN ---
Date of Progress Note: 10/09/2018 Subjective: The was seen this morning for followup. No new complaints or problems reported by her. Denies any chest pain, shortness of breath is better today than yesterday. No hemoptysis. Objective: Vital signs: Reviewed. HEENT: Unremarkable. LUNGS: Clear to auscultation. HEART: Heart sounds normal. ABDOMEN: Soft. Bowel sounds normal. No guarding, rigidity, tenderness or distention. EXTREMITIES: No leg edema. Laboratory Data: White count 6.4, hemoglobin 10.8, platelets 259. Sodium 145, potassium 2.6, chlori de 112, bicarb 22, BUN 11, creatinine 0.7, glucose 126. Impression: 1.Pulmonary embolism. 2.Deep venous thrombosis, right leg. 3.Hypokalemia. 4.Anemia. Plan: We will continue current medications, which is heparin drip per protocol. Replace electrolyte , which is potassium per protocol. The patient is tolerating her heparin drip very well without any problem. We will start to ambulate her starting tomorrow. ROBERT/MODL Voice ID: [id number] Report ID: [id number]
--- NOTE | 2018-10-12 01:03 | PN ---
Date of Progress Note: 10/10/2018 Subjective: The patient was seen for followup in the morning. No new complaints or problems reporte d. She is having lot of diarrhea and requesting something for that. No nausea, no vomiting. No foster rtness of breath. Objective: VITAL SIGNS: Reviewed. HEENT: Unremarkable. LUNGS: Clear to auscultation. HEART: Heart sounds normal. ABDOMEN: Soft. Bowel sounds normal. No guarding, rigidity, tenderness or distention. EXTREMITIES: No leg edema. Laboratory Data: Sodium 146, potassium 2.8, chloride 116, bicarb 20, BUN 7, creatinine 0.48, glucose 112. Impression: 1.Pulmonary embolism. 2.Deep venous thrombosis, right leg. 3.Hypokalemia. 4.Diarrhea. 5.Anemia. 6.Colon cancer. Plan: We will discontinue heparin drip. Start the patient on Xarelto 15 mg 2 times a day. Stool fo r C diff and culture ordered. Home medications will be continued. We will continue to replace elect rolytes per protocol. Ambulation was encouraged. I will see her tomorrow for followup. ROBERT/MODL Voice ID: [id number] Report ID: [id number]
--- NOTE | 2018-10-12 01:03 | PN ---
Date of Progress Note: 10/11/2018 Subjective: The patient was seen this morning for followup. Her diarrhea is better. Denies any licha sea, vomiting. Ambulating well. No hemoptysis. No shortness of breath. Objective: VITAL SIGNS: Reviewed. HEENT: Unremarkable. LUNGS: Clear to auscultation. No rhonchi. No rales. HEART: Heart sounds normal. ABDOMEN: Soft. Bowel sounds normal. No guarding, rigidity, tenderness or distention. EXTREMITIES: No leg edema. Laboratory Data: Sodium 147, potassium 3.4, chloride 120, bicarb 17, BUN 4, creatinine 0.61, glucose 94. Her stool C. diff and culture pending. Impression: 1.Pulmonary embolism. 2.Deep venous thrombosis, right leg. 3.Anemia. 4.Hypokalemia. Plan: We will go ahead and change IV fluid from normal saline to D5 half normal saline. The patient has some volume depletion and some metabolic acidosis from excessive diarrhea. So, diarrhea is impr oving. We will give different IV fluid, repeat blood work tomorrow. Continue current anticoagulatio n therapy per order, which is Xarelto and we will repeat blood work tomorrow, replace electrolytes per protocol and possible discharge to go home tomorrow depending on patient's condition . ROBERT/MODL Voice ID: [id number] Report ID: [id number]
--- NOTE | 2018-10-12 04:37 | HP ---
Date of Admission: 10/08/2018 Chief Complaint: Shortness of breath. History Of Present Illness: This is a 68-year-old pleasant female patient who is on chemotherapy for her cancer with oncologist, Dr. Sheffield, came into the emergency room with 2 weeks history of shortness of breath. She was at her oncologist's office today and she was tachypneic, complaining of this shortness of breath, and she was sent to hospital from her office. Further evaluation revealed in emergency room that the patient has pulmonary embolism and deep vein thrombosis of leg. The patient was admitted to the hospital under my service. She denies any fever, chills, nausea or vomiting. She has some chronic diarrhea problem, which has remained unchanged. No hemoptysis. Allergies: TO CODEINE. Medications: Amlodipine 5 mg 2 times a day, levothyroxine 137 mcg p.o. daily, magnesium oxide 400 mg p.o. 2 times a day, metoprolol 100 mg p.o. 2 times a day , omeprazole 20 mg daily, potassium chloride 10 mEq p.o. 2 times a day, pravastatin 40 mg daily. Review of Systems: Respiratory: As mentioned above. All other systems reviewed and negative. Family History: Significant for hypertension, diabetes, coronary artery disease. Social History: Negative for smoking or alcohol use. Past Surgical History: Breast implant surgery, tubal ligation, hysterectomy, repair of cerebral aneurysm in 2008, cystocele surgery, clipping of cerebral aneurysm in 2003. Past Medical History: Hypertension, hyperlipidemia, hypothyroidism, impaired fasting glucose, colon cancer, gastroesophageal reflux disease, cerebral aneurysm, depression. Physical Examination: Vital Signs: Initial temperature 97.5, pulse 120, respiratory rate 20, blood pressure 124/79, oxygen saturation 100%, height 5 feet 1 inch, weight 135 pounds. General: Awake, alert, oriented, not in distress. HEENT: Head atraumatic, normocephalic. Conjunctivae nonerythematous. Sclerae white. Mouth, no thrush or edema noted. Ears/Nose, no mass, lesion, discharge noted. Neck: Supple. No JVD, lymph nodes, bruit, thyromegaly noted. Lungs: Bilateral good equal air entry. Clear to auscultation. No rhonchi. No rales. Heart: Normal heart sounds, no murmur or gallop. Abdomen: Soft, bowel sounds normal. No guarding, rigidity, tenderness, mass, hepatosplenomegaly, distention, or bruit noted. Extremities: No leg edema. No calf tenderness. Skin: No rash, ulcer, cellulitis. Lymphatics: No lymph node enlargement in neck, supraclavicular, infraclavicular region. Neuro: No focal neurological deficit. Chest: Unremarkable. External Genitalia: Deferred. Rectal: Deferred. Laboratory Data: White count 8, hemoglobin 13.4, platelets 287. INR 1.25. Sodium 143, potassium 3.1, chloride 109, bicarb 21, BUN 14, creatinine 0.97, glucose 157. Liver function tests unremarkable. Troponin less than 0.02. Chest x-ray, small left pleural effusion. EKG, sinus tachycardia, ST-T abnormality, consider lateral ischemia. CAT scan of the chest per PE protocol shows positive for bilateral segmental branch pulmonary thromboemboli. Venous Doppler of leg shows presence of DVT in right popliteal and posterior tibial vein. No DVT in the left leg. Impression: 1. Pulmonary embolism. 2. Deep venous thrombosis, right leg popliteal vein and posterior tibial with hypokalemia. 3. Colon cancer. 4. Hyperlipidemia. 5. Hypothyroidism. 6. Hypertension. 7. Gastroesophageal reflux disease, impaired fasting glucose. 8. Hypomagnesemia. Plan: Admit the patient to hospital for further evaluation and management of this problem. The patient is appropriate for inpatient and is expected to spend 2 midnights in hospital. The patient was started on heparin drip per protocol, we will continue that. For treatment of pulmonary embolism and DVT, home medications will be continued per order. We will monitor her electrolytes , blood count, etc. The patient should be at complete bedrest except she may get up to go to the bathroom, otherwise no ambulation at least for the next 24 hours or so. Details and plan of treatment discussed with her. I will see her tomorrow for followup. ROBERT/KITTY Voice ID: [id number] MTDD
[2018-10-12 06:24] LABS: Absolute Lymphocytes (CBC) 2.5 K/uL (0.7-4.9); Absolute Monocytes 0.5 K/uL (0.1-1.3); Absolute Neutrophil 2.7 K/uL (1.8-8.0); Eosinophils % 6.8 % (0-4.4); Hematocrit 31.2 % (36.0-45.0); Lymphocytes % 40.2 % (15.3-44.8); MPV 7.2 fL (7.6-11.3)
[2018-10-12] MEDS: LOPERAMIDE HCL 2 MG CAPSULE PO PRN ×3 (06:26→21:20)
[2018-10-12] MEDS: LEVOTHYROXINE SOD 0.025 MG TAB PO SCH (06:26)
[2018-10-12] MEDS: PANTOPRAZOLE 40MG TABLET PO SCH (06:27)
[2018-10-12] MEDS: ACETAMINOPHEN 500 MG TAB PO PRN (06:27)
[2018-10-12] MEDS: LEVOTHYROXINE SOD 0.112 MG TAB PO SCH (06:27)
[2018-10-12 06:31] LABS: Potassium 3.7 mmol/L (3.5-5.1)
[2018-10-12 06:39] LABS: Magnesium 1.2 mg/dL (1.8-2.4)
[2018-10-12] MEDS ORDERED: Magnesium Sulfate 2gm IVPB 2 G/50 ML BAG IV ONE (08:00)
[2018-10-12] MEDS ORDERED: KCL 20 MEQ/100 mL IVPB 20 MEQ/100 ML BAG IV SCH (08:30)
[2018-10-12] MEDS: ENSURE CLEAR 200 ML CAN PO SCH ×4 (09:00→21:00)
[2018-10-12] MEDS: POTASSIUM CL SA 10 MEQ TAB PO SCH ×2 (09:10→21:21)
[2018-10-12] MEDS: MAGNESIUM OXIDE 400 MG TAB PO SCH ×2 (09:10→21:21)
[2018-10-12] MEDS: RIVAROXABAN 15 MG TABLET PO SCH ×2 (09:10→21:21)
[2018-10-12] MEDS: D5 0.45 NS 1,000 ML IV SCH ×2 (12:10→21:22)
[2018-10-12] MEDS: CHOLESTYRAMINE/ASP 4 GM/PKT PO SCH (17:00)
[2018-10-12 18:26] LABS: Magnesium 2.5 mg/dL (1.8-2.4); Potassium 3.6 mmol/L (3.5-5.1)
[2018-10-12] MEDS ORDERED: POTASSIUM CL SA 10 MEQ TAB PO ONE (21:00)
[2018-10-12] MEDS: ATORVASTATIN 10 MG TAB PO SCH (21:22)
[2018-10-13] MEDS: D5 0.45 NS 1,000 ML IV SCH ×2 (00:57→14:06)
--- NOTE | 2018-10-13 01:56 | PN ---
Date of Progress Note: 10/12/2018 Subjective: The patient was seen this morning for followup. No abdominal pain, nausea, or vomiting, but she continues to have severe diarrhea. She probably had 10 loose watery bowel movement in the l ast 24 hours as she reported. Her appetite is good. Ambulating well. Objective: Vital Signs: Reviewed. HEENT: Unremarkable. Lungs: Clear to auscultation. Heart: Sounds normal. Abdomen: Soft. Bowel sounds normal. No guarding, rigidity, tenderness, or distention. Extremities: No leg edema. Laboratory Data: White count 6.1, hemoglobin 10.6, and a platelet count of 326. Sodium 149, potassi um 3.7, chloride 120, bicarb 21, BUN 3, creatinine 0.67, glucose 88, and magnesium 1.2. Impression: 1.Pulmonary embolism. 2.DVT, right leg. 3.Colon cancer. 4.Hypokalemia. 5.Hypomagnesemia. 6.Diarrhea. 7.Paroxysmal ventricular tachycardia. Plan: We will replace electrolytes per protocol. Continue IV fluid. The patient has some volume de pletion with excessive GI loss of fluid, and we will continue to monitor electrolytes and replace darcie ctrolytes as it becomes necessary. Continue current anticoagulation with Xarelto. This afternoon, t he patient had 1 episode of 10-beat runs of ventricular tachycardia. She was asymptomatic, hemodynam ically stable, and after nurse notified me, repeat blood work was ordered. Cardiology consult and echocardiogram were ordered. I will see her tomorrow for followup. ROBERT/MODL Voice ID: [id number] Report ID: [id number]
[2018-10-13 04:25] LABS: Potassium 3.6 mmol/L (3.5-5.1)
[2018-10-13] MEDS: ACETAMINOPHEN 500 MG TAB PO PRN ×2 (04:41→21:52)
[2018-10-13] MEDS: LOPERAMIDE HCL 2 MG CAPSULE PO PRN ×2 (04:41→14:08)
[2018-10-13] MEDS: LEVOTHYROXINE SOD 0.025 MG TAB PO SCH (06:14)
[2018-10-13] MEDS: PANTOPRAZOLE 40MG TABLET PO SCH (06:14)
[2018-10-13] MEDS: LEVOTHYROXINE SOD 0.112 MG TAB PO SCH (06:14)
[2018-10-13] MEDS: CHOLESTYRAMINE/ASP 4 GM/PKT PO SCH ×2 (09:00→17:10)
[2018-10-13] MEDS: ENSURE CLEAR 200 ML CAN PO SCH ×2 (09:00→14:00)
[2018-10-13] MEDS ORDERED: POTASSIUM 25 MEQ EFFERV TAB PO ONE (09:00)
[2018-10-13] MEDS: MAGNESIUM OXIDE 400 MG TAB PO SCH ×2 (09:40→21:52)
[2018-10-13] MEDS: POTASSIUM CL SA 10 MEQ TAB PO SCH ×2 (09:40→21:52)
[2018-10-13] MEDS: RIVAROXABAN 15 MG TABLET PO SCH ×2 (09:40→21:52)
--- NOTE | 2018-10-13 13:50 | CON ---
The patient admitted to Dr. Wilson on 10/08/2018. I am seeing the patient on 10/13/2018. Reason For Consultation: Ventricular tachycardia. History Of Present Illness: Ms. Pringle is a 68-year-old white woman without any previous cardiac h istory. She has a history of brain aneurysm status post hemorrhage in 2003, status post clipping of another aneurysm in the posterior brain circulation at that time. No issues in that regard since. H as a history of gastroesophageal reflux disease. Came in with pulmonary embolus. She is being treat ed for colon cancer. She also has a history of paroxysmal hypertension and dyslipidemia as well as h ypothyroidism at home. She takes metoprolol and Norvasc as needed. She takes Lipitor, Synthroid, an d Protonix. She came in with a pulmonary embolus and a right DVT and is being treated with Xarelto, but while she was here, she developed ventricular tachycardia. Was having diarrhea, which caused her to have low potassium. Her magnesium was 1.2. Her TSH was 28. She had an 8-beat run of ventricula r tachycardia without any hemodynamic compromise. An echocardiogram is pending. Past Medical History: As stated above. Allergies: SHE IS ALLERGIC TO CODEINE. Review of Systems: Negative. Social History: Negative. Family History: Negative. Medications: Listed earlier. Physical Examination: General: Ms. Pringle was in no acute distress. She was in sinus rhythm. Vital Signs: Stable. Afebrile. HEENT: Negative. Neck: Supple without any bruit, lymphadenopathy, JVD, or thyromegaly. Chest: Clear to auscultation and percussion. Cardiac: Revealed a regular rhythm and rate without any murmurs, gallops, or rubs. Abdomen: Obese, but benign. Extremities: Revealed no clubbing, cyanosis, or edema. Diagnostic Data: As stated earlier. Impression And Plan: 1.Ventricular tachycardia secondary to electrolyte abnormalities including low magnesium, low potass ium, and possibly elevated thyroid-stimulating hormone. These are probably secondary to diarrhea, wh ich may be secondary to her chemotherapy. I would attempt to treat her diarrhea. Obviously suppleme nt have been magnesium, potassium, may be increase her Synthroid dose. I agree with the echocardiogr am. We may want to restart her low-dose beta-jackie that she takes at home if she has tolerate it. I do not recommend any further cardiac workup. We will see what the echo shows. I will discuss the case further with Dr. Wilson. 2.Colon cancer, on chemotherapy, status post recent deep vein thrombosis and pulmonary embolism. We will continue Xarelto for now. 3.Gastroesophageal reflux disease. 4.History of brain aneurysm status post bleeding and clipping 2003. AURELIA/KITTY Voice ID: [id number] Report ID: [id number]
[2018-10-13] MEDS: ENSURE HIGH PROTEIN 237 ML CAN PO SCH (21:00)
[2018-10-13] MEDS: ATORVASTATIN 10 MG TAB PO SCH (21:52)
[2018-10-14 01:19] VITALS: O2SAT 96
--- NOTE | 2018-10-14 01:35 | PN ---
Date of Progress Note: 10/13/2018 Subjective: Patient was seen this morning for followup. No new complaints or problems reported by jasbir costello. Lying in bed, not in distress. She had 3 times diarrhea during nighttime. Objective: Vital Signs: Reviewed. HEENT: Unremarkable. Lungs: Clear to auscultation. Heart: Heart sounds normal. Abdomen: Soft. Bowel sounds normal. No guarding, rigidity, tenderness, or distention. Extremities: No leg edema. Laboratory Data: Sodium 149, potassium 3.6, chloride 117, bicarb 21, BUN 3, creatinine 0.68, glucose 132. Impression: 1.Diarrhea. 2.Pulmonary embolism. 3.Deep venous thrombosis, right leg. 4.Hypokalemia. 5.Hypomagnesemia. Plan: Details were discussed with Dr. Barbour from cardiology service and he has not suggested any f urther intervention necessary at this point except making sure to correct the patient's electrolyte p ricardom as that is the likely the reason for her underlying cardiac arrhythmia. Echocardiogram was or dered. We will follow up on it. We expect that to show normal ejection fraction, but we will defini tely wait for that result. Meanwhile, continue to replace electrolytes per protocol. Continue irvin styramine, and we will continue current anticoagulant therapy. Ambulation was encouraged. We will r epeat blood work tomorrow. Possible discharge to go home tomorrow depending on her overall condition. ROBERT/MODL Voice ID: [id number] Report ID: [id number]
[2018-10-14] MEDS: ACETAMINOPHEN 500 MG TAB PO PRN (03:16)
[2018-10-14] MEDS: D5 0.45 NS 1,000 ML IV SCH (03:16)
[2018-10-14] MEDS: PANTOPRAZOLE 40MG TABLET PO SCH (05:49)
[2018-10-14 06:26] LABS: Absolute Lymphocytes (CBC) 2.4 K/uL (0.7-4.9); Absolute Monocytes 0.8 K/uL (0.1-1.3); Absolute Neutrophil 2.6 K/uL (1.8-8.0); Basophils % 0.9 % (0-1.3); Eosinophils % 4.4 % (0-4.4); Hematocrit 30.8 % (36.0-45.0); Lymphocytes % 39.6 % (15.3-44.8); Monocytes % 12.6 % (3.3-12.3); RBC Red Blood Cell Count 2.93 M/uL (3.86-4.86)
[2018-10-14] MEDS ORDERED: LEVOTHYROXINE SOD 0.1 MG TAB PO SCH (06:30)
[2018-10-14] MEDS ORDERED: LEVOTHYROXINE SOD 0.05 MG TABLET PO SCH (06:30)
[2018-10-14 06:47] LABS: BUN Blood Urea Nitrogen 3 mg/dL (7-18); Bicarbonate 21 mmol/L (21-32); Glucose Level 112 mg/dL (74-106); Potassium 3.9 mmol/L (3.5-5.1); Sodium Level 149 mmol/L (136-145)
[2018-10-14 07:58] LABS: Anisocytosis 1+; Blood Morphology Comment NOTED (NOT SEEN); Platelet Estimate ADEQ; Urine White Blood Cell Casts OK
[2018-10-14 07:59] LABS: Macrocytosis 2+
--- NOTE | 2018-10-14 07:59 | ECHO ---
HEIGHT: 5 ft 1 in WEIGHT: 135 lb 0 oz DATE OF STUDY: 10/14/[address]: Darek Wilson MD 2-DIMENSIONAL: YES M.MODE: YES DOPPLER: YES COLOR FLOW: YES TDS: YES PORTABLE: NO DEFINITY: NO BUBBLE STUDY: NO DIAGNOSIS: VENTRICULAR TACHYCARDIA CARDIAC HISTORY: CATHERIZATION: NO SURGERY: NO PROSTHETIC VALVE: NO PACEMAKER: NO MEASUREMENTS (cm) DIASTOLIC (NORMALS) SYSTOLIC (NORMALS) IVSd 1.1 (0.6-1.2) LA Diam 2.4 (1.9-4.0) LVEF 56% LVIDd 3.1 (3.5-5.7) LVIDs 2.2 (2.0-3.5) %FS 28% LVPWd 1.1 (0.6-1.2) Ao Diam 3.4 (2.0-3.7) 2 DIMENSIONAL ASSESSMENT: RIGHT ATRIUM: NORMAL LEFT ATRIUM: NORMAL RIGHT VENTRICLE: NORMAL LEFT VENTRICLE: NORMAL TRICUSPID VALVE: NORMAL MITRAL VALVE: NORMAL PULMONIC VALVE: NORMAL AORTIC VALVE: NORMAL PERICARDIAL EFFUSION: NONE AORTIC ROOT: NORMAL LEFT VENTRICULAR WALL MOTION: NORMAL. DOPPLER/COLOR FLOW: NORMAL. COMMENTS: NORMAL 2D ECHO WITH DOPPLER. NO WALL MOTION ABNORMALITIES. NO EFFUSION. TECHNOLOGIST: IVANNA SAMAYOA RDCS
[2018-10-14] MEDS ORDERED: POTASSIUM CL SA 10 MEQ TAB PO ONE (08:18)
[2018-10-14] MEDS: ENSURE HIGH PROTEIN 237 ML CAN PO SCH (09:00)
[2018-10-14 09:07] VITALS: BP 129/71; TEMP 97
[2018-10-14] MEDS: CHOLESTYRAMINE/ASP 4 GM/PKT PO SCH (09:26)
[2018-10-14] MEDS: MAGNESIUM OXIDE 400 MG TAB PO SCH (09:26)
[2018-10-14] MEDS: POTASSIUM CL SA 10 MEQ TAB PO SCH (09:27)
[2018-10-14] MEDS: RIVAROXABAN 15 MG TABLET PO SCH (09:28)
[2018-10-14] MEDS ORDERED: HEPARIN 500 UNIT/5 ML SYR IV ONE (10:32)
--- NOTE | 2018-10-15 06:01 | DS ---
Date of Discharge: 10/14/2018 Disposition: Discharged to go home. Physical Examination: HEENT: Unremarkable. Lungs: Clear to auscultation. Heart: Sounds normal. Abdomen: Soft. Bowel sounds normal. No guarding, rigidity, tenderness, distention. Extremities: No leg edema. Laboratory Data: Last chemistry today, sodium 149, potassium 3.9, chloride 119 , bicarb 21, BUN 3, creatinine 0.55, glucose 112, magnesium 2. Her CBC from , white count 6.1, hemoglobin 10.6, and platelet count of 326. Hospital Course: A 68-year-old female patient admitted to the hospital after she came into emergency room with shortness of breath. Please see dictated H and P for more information. Evaluation by the Emergency Room revealed presence of bilateral pulmonary embolism in the subsegmental branches. The patient also had DVT of the right lower extremity involving posterior tibial and popliteal vein. The patient initially was started on IV heparin drip per protocol, and subsequently heparin drip was discontinued and was started on oral anticoagulant medication Xarelto. She tolerated anticoagulation medication very well. Initially, she was on complete bedrest except bathroom privileges and subsequently she was allowed to ambulate as tolerated. She had lot of problem with diarrhea. No vomiting, and stool test for C diff and stool culture came back negative. We started her on cholestyramine and she started to respond very well to this medication and her diarrhea has improved significantly, and instead of watery stool, it is well formed stool. She had only 2 bowel movements yesterday and reported that her stool was soft compared to 10-12 bowel movements watery stool before this medication was started. She had low potassium, low magnesium, and all those electrolytes were corrected using electrolyte replacement protocol. She had 10 beats run of paroxysmal ventricular tachycardia during this hospitalization and Cardiology consultation was requested. Dr. Barbour saw her. Echocardiogram showed normal ejection fraction and this cardiac arrhythmia was thought to be due to electrolyte problems, so no further cardiac intervention was recommended. The patient's condition was stable today for discharge, and upon discharge from the hospital, she came over to office and samples of Xarelto were given to her and I will see her at office in 1 week, and next week on Friday, she will get her blood work done in form of chem 7 and magnesium level. The patient will follow up with her own oncologist for her treatment of colon cancer. Final Diagnoses: 1. Pulmonary embolism. 2. Deep vein thrombosis, right leg popliteal vein and posterior tibial vein. 3. Hypokalemia. 4. Hypomagnesemia. 5. Colon cancer. 6. Hyperlipidemia. 7. Hypothyroidism. 8. Hypertension. 9. Gastroesophageal reflux disease. 10. Impaired fasting glucose. Discharge Medications And Instructions: 1. Continue all prior home medications. 2. Take Xarelto 15 mg p.o. b.i.d., and at appropriate time, we will exchange architect to 20 mg daily dose. 3. Cholestyramine 1 pack 2 times a day. ROBERT/MODL Voice ID: [id number] Report ID: [id number] MTDNimo
== END 2018-10-14 11:00 | disposition home or self-care (01) | DRG 176 ==
LOC: ER 11:16 → ERHOLD 14:44 → 4TH 18:24
PROVIDERS: ADMIT Internal Medicine; ATTEND Internal Medicine
DX: I26.99 Other pulmonary embolism without acute cor pulmonale (principal); I82.431 Acute embolism and thrombosis of right popliteal vein; I82.441 Acute embolism and thrombosis of right tibial vein; C18.9 Malignant neoplasm of colon, unspecified; E87.2 Acidosis; I47.2 Ventricular tachycardia; K52.1 Toxic gastroenteritis and colitis; E87.6 Hypokalemia; E83.42 Hypomagnesemia; E78.5 Hyperlipidemia, unspecified; E03.9 Hypothyroidism, unspecified; I10 Essential (primary) hypertension; K21.9 Gastro-esophageal reflux disease without esophagitis; Z88.5 Allergy status to narcotic agent; D64.9 Anemia, unspecified; E86.9 Volume depletion, unspecified; F32.9 Major depressive disorder, single episode, unspecified; R73.01 Impaired fasting glucose; T45.1X5A Adverse effect of antineoplastic and immunosuppressive drugs, initial encounter; Y92.019 Unspecified place in single-family (private) house as the place of occurrence of the external cause
CPT/HCPCS: 36415; 71045; 71275; 80048; 80053; 80076; 82274; 83735; 83880; 84132; 84439; 84443; 84484; 85025; 85610; 85730; 87045; 87046; 87493; 93005; 93306; 93970; 96365; 96366; 99285; J1642; J1644; J2405; J3475; J7030; Q9967

== ENCOUNTER 2018-10-21 15:44 | Inpatient (IN) | payer OTHER ==
--- OUTSIDE RECORDS SUMMARY | 2018-10-21 15:46 | XMS REPORT | Clinical Summary ---
:1950 Author Organization [facility] Address [address] [place] [id number] Care Team Providers Name Role Phone Darek Wilson MD Primary Care Provider Allergies Active Allergy Reactions Severity Noted Date Comments Codeine 01/20/2018 Medications No known medications Active Problems No known active problems Encounters Date Type Specialty Care Team Description 01/22/2018 Telephone General Surgery Beti Villa, BRADEN-C 01/20/2018 Office Visit General Surgery Benny Mclain, Malignant neoplasm of ascending colon (Primary Dx); Rectal polyp after 10/20/2017 Family History Medical History Relation Name Comments [...] INFLUENZA VACCINE 04/29/2018 Results Not on fileafter 10/20/2017 Insurance Payer Benefit Plan / Group Subscriber ID Type Phone Address MEDICARE MEDICARE PART A AND B xxxxxxxxxx Medicare [place], [place] [employer] PPO OPEN CHOICE xxxxxxxxx PPO Advance Directives Patient has advance care planning documents on file. For more information, please contact:Ryan Uriarte[address] [place] [address]
[2018-10-21] MEDS ORDERED: NA CHLORIDE 0.9% 2,000 ML ONE (16:27)
[2018-10-21 16:40] LABS: Absolute Lymphocytes (CBC) 4.3 K/uL (0.7-4.9); Absolute Neutrophil 5.5 K/uL (1.8-8.0); Basophils % 1.3 % (0-1.3); Hematocrit 29.3 % (36.0-45.0); Lymphocytes % 38.8 % (15.3-44.8); MPV 8.1 fL (7.6-11.3); Monocytes % 9.3 % (3.3-12.3)
[2018-10-21 16:42] LABS: Protime INR 3.25
[2018-10-21 17:06] LABS: Blood Morphology Comment NOTED (NOT SEEN); Platelet Estimate INCR; Platelets, Giant NOTED; Urine White Blood Cell Casts OK
[2018-10-21 17:07] LABS: Anisocytosis 1+; Macrocytosis 1+
[2018-10-21 17:09] LABS: ALT/SGPT 20 U/L (12-78); AST/SGOT 27 U/L (15-37); Albumin 2.8 g/dL (3.4-5.0); Alkaline Phosphatase 127 U/L (45-117); BUN Blood Urea Nitrogen 22 mg/dL (7-18); Bicarbonate 27 mmol/L (21-32); Bilirubin Direct 0.1 mg/dL (0-0.2); Bilirubin Total 0.5 mg/dL (0.2-1.0); Glucose Level 132 mg/dL (74-106); Magnesium 2.4 mg/dL (1.8-2.4); NT PRO-BNP 166 pg/mL (<125); Potassium 3.9 mmol/L (3.5-5.1); Protein, Total 5.8 g/dL (6.4-8.2); Sodium Level 145 mmol/L (136-145); Troponin (Emerg Dept Use Only) < 0.02 ng/mL (0.0-0.045)
[2018-10-21] MEDS ORDERED: DIPHENHYDRAMINE 50 MG/ML VIAL ONE (17:21)
[2018-10-21] MEDS ORDERED: PANTOPRAZOLE 40 MG INJ ONE (17:21)
[2018-10-21] MEDS ORDERED: ACETAMINOPHEN 325 MG TABLET ONE (17:21)
[2018-10-21] MEDS ORDERED: NA CHLORIDE 0.9% 500 ML ONE (17:21)
--- NOTE | 2018-10-21 17:23 | RAD REPORT ---
EXAM DESCRIPTION: RAD - Chest Single View - 10/21/2018 4:34 pm CLINICAL HISTORY: Abdominal pain, rectal bleeding COMPARISON: October 08 TECHNIQUE: AP portable chest image was obtained 1632 hours . FINDINGS: Lungs are clear. Heart and vasculature are normal. No measurable pleural effusion and no p neumothorax. No acute bony abnormality seen. No acute aortic findings suspected. Right-sided Port-A-C ath is in place. IMPRESSION: No acute cardiopulmonary process. No significant change from comparison.
--- NOTE | 2018-10-21 17:47 | RAD REPORT ---
EXAM DESCRIPTION: CT - Abdomen Pelvis W Contrast - 10/21/2018 5:34 pm CLINICAL HISTORY: Abdominal pain, rectal bleeding, bright red blood per rectum COMPARISON: CT study February 2016 TECHNIQUE: Biphasic, helical CT imaging of the abdomen and pelvis was performed following 100 ml non -ionic IV contrast. Oral contrast was given. All CT scans are performed using dose optimization technique as appropriate and may include automated exposure control or mA/KV adjustment according to patient size. FINDINGS: No suspicious findings in the lung bases. Minimal lateral left base scarring. No pericardi al effusion. Diffuse fatty infiltration of the liver is present without a focal liver lesion. Spleen and pancreas show no suspicious findings. No biliary tree dilatation. A large gallstone is present 2.7 cm in size. There is additional echogenic material in the fundus that is believed to be multiple packed gallston es. Echogenic sludge is possible. Mild edema of the gallbladder wall. No biliary tree dilatation. Renal function is symmetric. Both kidneys are lobulated. Left kidney volume loss is present and areas of cortical thinning are present. No pyelonephritis or acute parenchymal process. No bladder abnorma lities. No adrenal abnormalities. No gastric dilatation or wall thickening. No large or small bowel dilatation or acute finding. Right hemicolectomy final is not noted. No abnormality at the anastomotic site. No free air, free fluid or inflammatory stranding. No hernia, mass or bulky lymphadenopathy. Uterus is absent. Ovaries are absent or atrophic. No adnexal abnormality. Disc and bony degenerative changes are present. IMPRESSION: Multiple large gallstones filling much of the gallbladder. Mild gallbladder wall edema i s present. No duct stone or biliary tree dilatation. Diffuse fatty infiltration of the liver. Chronic renal changes matching prior imaging. No acute or GI process identified. No abnormality seen to explain active or acute rectal bleeding.
[2018-10-21] MEDS ORDERED: NA CHLORIDE 0.9% 1,000 ML ONE (18:50)
--- NOTE | 2018-10-21 19:12 | ER ---
Nurse's Notes [facility] Name: Nesha Pringle Age: 68 yrs Sex: Female : 1950 Arrival Date: 10/21/2018 Time: 15:46 Bed 7 Private MD: Alina Wilson C Diagnosis: Gastrointestinal hemorrhage, unspecified;Hypotension;Anemia in chronic diseases classified elsewhere Presentation: 10/21 15:50 Presenting complaint: Patient states: went to bathroom and pooped a bunch of bright red ca1 blood, that is gushy today. But yesterday, it was dark black stools. She is taking Xarelto twice daily for PE. Transition of care: patient was not received from another setting of care. Onset of symptoms was October 20, 2018. Risk Assessment: Do you want to hurt yourself or someone else? Patient reports no desire to harm self or others. Initial Sepsis Screen: Does the patient meet any 2 criteria? HR > 90 bpm. Does the patient have a suspected source of infection? No. Patient's initial sepsis screen is negative. Care prior to arrival: None. 15:50 Method Of Arrival: Wheelchair ca1 15:50 Method Of Arrival: Wheelchair ca1 15:50 Acuity: JAMES 3 ca1 16:09 Acuity: JAMES 2 iw Historical: - Allergies: 15:54 Codeine; ca1 - Home Meds: 17:03 tramadol-acetaminophen 37.5-325 mg Oral tab [Active]; metoprolol tartrate 100 mg Oral tw2 tab 1 tab 2 times per day [Active]; levothyroxine 137 mcg oral tab [Active]; amlodipine 5 mg tab 1 tab once daily [Active]; Multiple Vitamins Oral tab [Active]; omeprazole 20 mg Oral cpDR 1 cap once daily [Active]; Sleep Aid (diphenhydramine) 25 mg Oral tab [Active]; pravastatin 40 mg Oral tab 1 tab once daily [Active]; ondansetron HCl 8 mg Oral tab [Active]; Xarelto 15 mg oral tab 1 tab twice a day [Active]; Cholestyramine Light 4 gram oral pwpk 1 packet 2 times per day [Active]; potassium chloride 10 mEq Oral cpER 1 cap 2 times per day [Active]; valacyclovir 500 mg Oral tab 1 tab once daily [Active]; - PMHx: 15:54 PE; ca1 15:56 Hypertension; Thyroid problem; ca1 15:56 Colon Cancer; ca1 - PSHx: 15:54 BRAIN; BLADDER SLING; Hysterectomy; Lithotripsy; Bowel resection; ca1 - Immunization history:: Adult Immunizations not up to date. - Social history:: Smoking status: Patient/guardian denies using tobacco. - Ebola Screening: : No symptoms or risks identified at this time. Screenin:24 Abuse screen: Denies threats or abuse. Denies injuries from another. Nutritional aj screening: No deficits noted. Tuberculosis screening: No symptoms or risk factors identified. Fall Risk None identified. Assessment: 14:24 General: Appears in no apparent distress. comfortable, Behavior is calm, cooperative, aj appropriate for age. Pain: Denies pain. Neuro: Level of Consciousness is awake, alert, obeys commands, Oriented to person, place, time, situation, Appropriate for age. Neuro: Reports dizziness. Respiratory: Reports shortness of breath Airway is patent Respiratory effort is even, unlabored, Respiratory pattern is regular, symmetrical, Breath sounds are clear bilaterally. GI: Abdomen is flat, non-distended, Reports bloody stool. Derm: Skin is intact, is healthy with good turgor, Skin is pale. 16:49 Reassessment: Dr. Borjas at bedside at this time. tw2 16:55 Reassessment: Patient appears in no apparent distress at this time. Patient and/or tw2 family updated on plan of care and expected duration. Pain level reassessed. Patient is alert, oriented x 3, equal unlabored respirations, skin warm/dry/pink. Reassessment: pt has port o cath to upper right chest, it is not accessed at this time, it is used for chemo. Neuro: Level of Consciousness is awake, alert, obeys commands, Oriented to person, place, time, situation, Reports dizziness, "earlier but it is better now". Cardiovascular: Heart tones S1 S2 Patient's skin is warm and dry. Respiratory: Airway is patent Respiratory effort is even, unlabored, Respiratory pattern is regular, symmetrical, Breath sounds are clear bilaterally. GI: Abdomen is flat, non-distended, Bowel sounds present X 4 quads. Reports bloody stool, "dark tarry". : No signs and/or symptoms were reported regarding the genitourinary system. EENT: No signs and/or symptoms were reported regarding the EENT system. Derm: Skin is intact, is healthy with good turgor, Skin is pink, warm \\T\\ dry. Musculoskeletal: Range of motion: intact in all extremities. 17:51 Reassessment: Patient appears in no apparent distress at this time. No changes from tw2 previously documented assessment. Patient and/or family updated on plan of care and expected duration. Pain level reassessed. Patient is alert, oriented x 3, equal unlabored respirations, skin warm/dry/pink. 18:39 Reassessment: Patient appears in no apparent distress at this time. No changes from tw2 previously documented assessment. Patient and/or family updated on plan of care and expected duration. Pain level reassessed. Patient is alert, oriented x 3, equal unlabored respirations, skin warm/dry/pink. provider BRYCE Duran at bedside at this time. 19:36 Reassessment: Patient appears in no apparent distress at this time. Patient and/or aa1 family updated on plan of care and expected duration. Pain level reassessed. Patient is alert, oriented x 3, equal unlabored respirations, skin warm/dry/pink. 1st unit PRBCs initiated at this time. 20:33 Reassessment: Patient appears in no apparent distress at this time. Patient and/or aa1 family updated on plan of care and expected duration. Pain level reassessed. Patient is alert, oriented x 3, equal unlabored respirations, skin warm/dry/pink. Attempted to admit pt to ICU, nurse states that nurse who will be receiving pt has not arrived yet and will call as soon as she gets here Patient denies pain at this time. 21:15 Reassessment: Patient appears in no apparent distress at this time. Patient and/or aa1 family updated on plan of care and expected duration. Pain level reassessed. Patient is alert, oriented x 3, equal unlabored respirations, skin warm/dry/pink. Report given to ANSELMO Copeland. Vital Signs: 15:56 BP 90 / 64; Pulse 123; Resp 21; Temp 96.0(O); Pulse Ox 100% on R/A; Weight 61.23 kg; ca1 Height 5 ft. 1 in. (154.94 cm); Pain 0/10; 16:24 BP 81 / 60; Pulse 117; Resp 26; Pulse Ox 99% on R/A; aj 16:49 BP 98 / 53; Pulse 109; Resp 14; Pulse Ox 100% on R/A; tw2 16:52 BP 106 / 74; Pulse 106; Resp 20; Pulse Ox 100% on R/A; tw2 17:20 BP 91 / 79; Pulse 99; Resp 17; Pulse Ox 100% on R/A; tw2 17:50 BP 92 / 47; Pulse 95; Resp 20; Temp 97.8(O); Pulse Ox 100% on R/A; Pain 0/10; tw2 18:44 BP 93 / 62; Pulse 102; Resp 22; Pulse Ox 100% on R/A; tw2 19:38 BP 105 / 68; Pulse 103; Resp 18; Temp 98.1; Pulse Ox 100% on R/A; Pain 0/10; aa1 20:35 BP 95 / 62; Pulse 89; Resp 20; Temp 97.7; Pulse Ox 100% on R/A; Pain 0/10; aa1 21:15 BP 102 / 59; Pulse 89; Resp 18; Temp 98.4; Pulse Ox 100% on R/A; Pain 0/10; aa1 15:56 Body Mass Index 25.51 (61.23 kg, 154.94 cm) ca1 ED Course: 15:46 Patient arrived in ED. mr 15:46 Alina Wilson MD is Private Physician. mr 15:53 Triage completed. ca1 15:56 Arm band placed on right wrist. ca1 16:00 Benjamin Eugene PA is PHCP. cp 16:00 Meño Borjas MD is Attending Physician. cp 16:00 Served as a busgirl during rectal exam. 5 16:14 Radha Arteaga, RN is Primary Nurse. aj 16:24 Patient has correct armband on for positive identification. aj 16:24 Inserted saline lock: 22 gauge in right antecubital area, using aseptic technique. aj Blood collected. 16:34 XRAY Chest (1 view) In Process Unspecified. EDMS 16:42 Report given to Marley BRIONES, patient moved to ER bed 7. aj 16:44 Primary Nurse role handed off by Radha Arteaga, RN tw2 16:44 Marley Ng RN is Primary Nurse. tw2 16:44 EKG done, by technical buyer. reviewed by Benjamin WU. sm3 17:[address] via stretcher. nj 17:33 CT completed. Patient tolerated procedure well. nj 17:36 CT Abd/Pelvis - W/Contrast: no oral contrast In Process Unspecified. EDMS 17:50 Inserted saline lock: 22 gauge in left antecubital area, using aseptic technique. tw2 19:00 Report given to ANSELMO Glover. tw2 19:10 Alina Wilson MD is Hospitalizing Provider. cp 19:14 Primary Nurse role handed off by Marley Ng RN tw2 20:36 Patient admitted, IV remains in place. aa1 Administered Medications: 16:31 Drug: NS 0.9% 1000 ml Route: IV; Rate: 1 bolus; Site: right antecubital; aj 16:31 Drug: NS 0.9% 1000 ml Route: IV; Rate: 125 ml/hr; Site: right antecubital; aj 17:00 Follow up: Rate change bolus; bolus per BRYCE Duran tw2 18:37 Follow up: Response: No adverse reaction; IV Status: Completed infusion; IV Intake: tw2 1000ml 16:44 Drug: NS 0.9% 1000 ml Route: IV; Rate: 1 bolus; Site: right antecubital; tw2 18:37 Follow up: Response: No adverse reaction; IV Status: Completed infusion; IV Intake: tw2 1000ml 17:18 Drug: ProTONIX 40 mg Route: IVP; Site: right antecubital; tw2 17:29 Follow up: Response: No adverse reaction tw2 18:50 Drug: NS 0.9% 1000 ml Route: IV; Rate: 100 ml/hr; Site: right antecubital; tw2 19:05 Drug: Benadryl 12.5 mg Route: IVP; Site: right antecubital; tw2 19:09 Follow up: Response: No adverse reaction tw2 19:06 Drug: Tylenol 650 mg Route: PO; tw2 19:09 Follow up: Response: No adverse reaction tw2 19:36 Drug: NS 0.9% 500 ml Route: IV; Rate: bolus; Site: left antecubital; aa1 Intake: 18:37 IV: 1000ml; Total: 1000ml. tw2 18:37 IV: 1000ml; Total: 2000ml. tw2 Outcome: 19:11 Decision to Hospitalize by Provider. cp 21:23 Admitted to ICU accompanied by nurse, accompanied by tech, family with patient, via aa1 stretcher, room 6, on monitor, with chart, Report called to ANSELMO Copeland 21:23 Condition: stable 21:23 Discharge instructions given to patient, significant other, Instructed on the need for admit, Demonstrated understanding of instructions. 21:24 Patient left the ED. aa1 Signatures: Dispatcher [employer] EDMS Belen Rojas RN RN aa1 Radha Arteaga RN RN aj Rivera, Mary mr Williams, Irene RN Benjamin Reza, BRYCE PA cp Marley Ng RN RN tw2 Goivanni Roque [facility] Kylee Schrader 3 Sugar Almeida RN RN ca1 Corrections: (The following items were deleted from the chart) 15:55 15:50 Presenting complaint: Patient states: went to bathroom and pooped a bunch of ca1 bright red blood, that is gushy today. Bur yesterday, it was dark black stools. ca1 16:41 14:24 BP 81 / 60; Pulse 117bpm; Resp 26bpm; Pulse Ox 99% RA; peter green
--- NOTE | 2018-10-21 19:12 | EDPHYS ---
Physician Documentation [facility] Name: Nesha Pringle Age: 68 yrs Sex: Female : 1950 Arrival Date: 10/21/2018 Time: 15:46 Bed 7 Private MD: Alina Wilson C ED Physician Meño Borjas HPI: 10/21 16:03 This 68 yrs old Female presents to ER via Wheelchair with complaints of cp Rectal Bleeding. 16:03 The patient presents to the emergency department with bleeding from the rectum/anus, cp that is moderate. 16:03 Onset: The symptoms/episode began/occurred today. Associate signs and symptoms: cp Pertinent positives: lower GI bleeding, in toilet bowl. Historical: - Allergies: 15:54 Codeine; ca1 - Home Meds: 17:03 tramadol-acetaminophen 37.5-325 mg Oral tab [Active]; metoprolol tartrate 100 mg Oral tw2 tab 1 tab 2 times per day [Active]; levothyroxine 137 mcg oral tab [Active]; amlodipine 5 mg tab 1 tab once daily [Active]; Multiple Vitamins Oral tab [Active]; omeprazole 20 mg Oral cpDR 1 cap once daily [Active]; Sleep Aid (diphenhydramine) 25 mg Oral tab [Active]; pravastatin 40 mg Oral tab 1 tab once daily [Active]; ondansetron HCl 8 mg Oral tab [Active]; Xarelto 15 mg oral tab 1 tab twice a day [Active]; Cholestyramine Light 4 gram oral pwpk 1 packet 2 times per day [Active]; potassium chloride 10 mEq Oral cpER 1 cap 2 times per day [Active]; valacyclovir 500 mg Oral tab 1 tab once daily [Active]; - PMHx: 15:54 PE; ca1 15:56 Hypertension; Thyroid problem; ca1 15:56 Colon Cancer; ca1 - PSHx: 15:54 BRAIN; BLADDER SLING; Hysterectomy; Lithotripsy; Bowel resection; ca1 - Immunization history:: Adult Immunizations not up to date. - Social history:: Smoking status: Patient/guardian denies using tobacco. - Ebola Screening: : No symptoms or risks identified at this time. ROS: 16:10 Constitutional: Negative for body aches, chills, fever, poor PO intake. cp 16:10 Eyes: Negative for injury, pain, redness, and discharge. cp 16:10 ENT: Negative for drainage from ear(s), ear pain, sore throat, difficulty swallowing, difficulty handling secretions. 16:10 Cardiovascular: Negative for chest pain, edema, palpitations. 16:10 Respiratory: Negative for cough, shortness of breath, wheezing. 16:10 Abdomen/GI: Positive for rectal bleeding, Negative for abdominal pain, nausea, vomiting, and diarrhea. 16:10 : Negative for urinary symptoms. 16:10 Skin: Negative for cellulitis, rash. 16:10 Neuro: Positive for dizziness, Negative for altered mental status, headache, syncope, weakness. 16:10 All other systems are negative. Exam: 16:15 Constitutional: The patient appears in no acute distress, alert, awake, cp non-diaphoretic, non-toxic, well developed, well nourished. 16:15 Head/Face: Normocephalic, atraumatic. cp 16:15 Eyes: Periorbital structures: appear normal, Pupils: equal, round, and reactive to light and accomodation, Extraocular movements: intact throughout, Conjunctiva: normal, no exudate, no injection, Sclera: no appreciated abnormality, Lids and lashes: appear normal, bilaterally. 16:15 ENT: External ear(s): are unremarkable, Ear canal(s): are normal, clear, TM's: are normal, no evidence of bulging, no erythema, Nose: is normal, Mouth: Lips: moist, Oral mucosa: pink and intact, moist, Posterior pharynx: is normal, airway is patent, no erythema, no exudate, Voice: is normal. 16:15 Neck: ROM/movement: is normal, is supple, without pain, no range of motions limitations, no nuchal rigidity. 16:15 Chest/axilla: Inspection: normal, Palpation: is normal, no crepitus, no tenderness. 16:15 Cardiovascular: Rate: tachycardic, Rhythm: regular, Edema: is not appreciated, JVD: is not appreciated. 16:15 Respiratory: the patient does not display signs of respiratory distress, Respirations: normal, no use of accessory muscles, no retractions, no splinting, no tachypnea, labored breathing, is not present, Breath sounds: are clear throughout, no decreased breath sounds, no stridor, no wheezing. 16:15 Abdomen/GI: Inspection: abdomen appears normal, Bowel sounds: active, all quadrants, cp Palpation: abdomen is soft and non-tender, in all quadrants, rebound tenderness, is not appreciated, voluntary guarding, is not appreciated, involuntary guarding, is not appreciated. 16:15 Back: pain, is absent, ROM is normal. 16:15 : Rectal exam: Stool: maroon. 16:15 Skin: cellulitis, is not appreciated, no rash present. 16:15 Neuro: Orientation: to person, place \T\ time. Mentation: is normal, Cerebellar function: is grossly normal, Motor: moves all fours, strength is normal, Sensation: is normal. 16:56 ECG was reviewed by the Attending Physician. cp Vital Signs: 15:56 BP 90 / 64; Pulse 123; Resp 21; Temp 96.0(O); Pulse Ox 100% on R/A; Weight 61.23 kg; ca1 Height 5 ft. 1 in. (154.94 cm); Pain 0/10; 16:24 BP 81 / 60; Pulse 117; Resp 26; Pulse Ox 99% on R/A; aj 16:49 BP 98 / 53; Pulse 109; Resp 14; Pulse Ox 100% on R/A; tw2 16:52 BP 106 / 74; Pulse 106; Resp 20; Pulse Ox 100% on R/A; tw2 17:20 BP 91 / 79; Pulse 99; Resp 17; Pulse Ox 100% on R/A; tw2 17:50 BP 92 / 47; Pulse 95; Resp 20; Temp 97.8(O); Pulse Ox 100% on R/A; Pain 0/10; tw2 18:44 BP 93 / 62; Pulse 102; Resp 22; Pulse Ox 100% on R/A; tw2 19:38 BP 105 / 68; Pulse 103; Resp 18; Temp 98.1; Pulse Ox 100% on R/A; Pain 0/10; aa1 20:35 BP 95 / 62; Pulse 89; Resp 20; Temp 97.7; Pulse Ox 100% on R/A; Pain 0/10; aa1 21:15 BP 102 / 59; Pulse 89; Resp 18; Temp 98.4; Pulse Ox 100% on R/A; Pain 0/10; aa1 15:56 Body Mass Index 25.51 (61.23 kg, 154.94 cm) ca1 MDM: 16:00 Patient medically screened. 17:55 Data reviewed: vital signs, nurses notes, lab test result(s), EKG, radiologic studies, cp CT scan, plain films. 17:55 Test interpretation: by ED physician or midlevel provider: ECG, plain radiologic cp studies. Counseling: I had a detailed discussion with the patient and/or guardian regarding: the historical points, exam findings, and any diagnostic results supporting the discharge/admit diagnosis, lab results, radiology results, the need for further work-up and treatment in the hospital. Response to treatment: the patient's symptoms have markedly improved after treatment. 17:59 Physician consultation: Barry Dixon MD was called at 17:59, was contacted at 17:59, regarding admission, to the ICU, patient's condition. 18:00 Physician consultation: Alina Wilson MD was called at 18:00, was contacted at 18:01, will cp call back to discuss patient. 10/21 16:14 Order name: Basic Metabolic Panel; Complete Time: 17:27 cp 10/21 17:27 Interpretation: Normal except: CL 108; GLUC 132; BUN 22; GFR 71. 10/21 16:14 Order name: CBC with Diff; Complete Time: 17:27 10/21 16:58 Interpretation: Normal except: WBC 11.2; RBC 2.80; HGB 9.5; HCT 29.3; MCV 104.4; PLT cp 394; RDW 20.4; MPV 8.1. 10/21 16:14 Order name: LFT's; Complete Time: 17:27 cp 10/21 17:28 Interpretation: Normal except: ALK 127; TP 5.8; ALB 2.8; A/G 0.9. 10/21 16:14 Order name: Magnesium; Complete Time: 17:27 cp 10/21 16:14 Order name: NT PRO-BNP; Complete Time: 17:27 cp 10/21 16:14 Order name: PT-INR; Complete Time: 16:57 10/21 17:03 Interpretation: Abnormal: PT 38.8. 10/21 16:14 Order name: Troponin (emerg Dept Use Only); Complete Time: 17: 10/21 16:14 Order name: Type And Screen cp 10/21 16:42 Order name: CBC Smear Scan; Complete Time: 17:27 EDFL 10/21 18:36 Order name: Packed RBC Leukored -1 [facility] 10/21 20:12 Order name: Basic Metabolic Panel [facility] 10/21 20:12 Order name: Basic Metabolic Panel [facility] 10/21 20:12 Order name: CBC with Automated Diff [facility] 10/21 20:12 Order name: CBC with Automated Diff [facility] 10/21 16:14 Order name: XRAY Chest (1 view); Complete Time: 17:27 cp 10/21 17:02 Order name: CT Abd/Pelvis - W/Contrast: no oral contrast; Complete Time: 17:52 cp 10/21 20:12 Order name: Hematocrit [facility] 10/21 20:12 Order name: Hematocrit [facility] 10/21 20:12 Order name: Hematocrit [facility] 10/21 20:12 Order name: Hematocrit [facility] 10/21 20:12 Order name: Hemoglobin [facility] 10/21 20:12 Order name: Hemoglobin [facility] 10/21 20:12 Order name: Hemoglobin [facility] 10/21 20:12 Order name: Hemoglobin [facility] 10/21 16:14 Order name: EKG; Complete Time: 16:15 cp 10/21 16:14 Order name: Cardiac monitoring; Complete Time: 16:45 cp 10/21 16:14 Order name: EKG - Nurse/Tech; Complete Time: 16:45 cp 10/21 16:14 Order name: IV Saline Lock; Complete Time: 16:37 cp 10/21 16:14 Order name: Labs collected and sent; Complete Time: 17:27 cp 10/21 16:14 Order name: O2 Per Protocol; Complete Time: 17:28 cp 10/21 16:14 Order name: O2 Sat Monitoring; Complete Time: 17:28 cp 10/21 16:14 Order name: IV; Complete Time: 16:45 cp 10/21 17:02 Order name: Transfuse: 1 unit now PRBCs; Complete Time: 20:00 cp 10/21 20:12 Order name: CONS Physician Consult EDFL EC:56 Rate is 112 beats/min. Rhythm is regular. MA interval is normal. QRS interval is cp normal. QT interval is normal. Interpreted by me. Reviewed by me. Administered Medications: 16:31 Drug: NS 0.9% 1000 ml Route: IV; Rate: 1 bolus; Site: right antecubital; aj 16:31 Drug: NS 0.9% 1000 ml Route: IV; Rate: 125 ml/hr; Site: right antecubital; aj 17:00 Follow up: Rate change bolus; bolus per BRYCE Duran tw2 18:37 Follow up: Response: No adverse reaction; IV Status: Completed infusion; IV Intake: tw2 1000ml 16:44 Drug: NS 0.9% 1000 ml Route: IV; Rate: 1 bolus; Site: right antecubital; tw2 18:37 Follow up: Response: No adverse reaction; IV Status: Completed infusion; IV Intake: tw2 1000ml 17:18 Drug: ProTONIX 40 mg Route: IVP; Site: right antecubital; tw2 17:29 Follow up: Response: No adverse reaction tw2 18:50 Drug: NS 0.9% 1000 ml Route: IV; Rate: 100 ml/hr; Site: right antecubital; tw2 19:05 Drug: Benadryl 12.5 mg Route: IVP; Site: right antecubital; tw2 19:09 Follow up: Response: No adverse reaction tw2 19:06 Drug: Tylenol 650 mg Route: PO; tw2 19:09 Follow up: Response: No adverse reaction tw2 19:36 Drug: NS 0.9% 500 ml Route: IV; Rate: bolus; Site: left antecubital; aa1 Disposition: 10/21/18 19:11 Hospitalization ordered by Alina Wilson for Inpatient Admission. Preliminary diagnosis are Gastrointestinal hemorrhage, unspecified, Hypotension, Anemia in chronic diseases classified elsewhere. - Bed requested for Intensive Care Unit. - Status is Inpatient Admission. aa1 - Condition is Stable. - Problem is new. - Symptoms have improved. UTI on Admission? No Addendum: 10/24/2018 07:15 Co-signature as Attending Physician, Meño Borjas MD. r n Signatures: Dispatcher [employer] Belen Menezes RN RN aa1 Radha Arteaga RN Meño Ricks MD MD rn Page, Corey, PA PA cp Garcia, Cindy, RN RN Marley Ng RN RN tw2 Radha Huggins [facility] Sugar Almeida RN RN ca1 Corrections: (The following items were deleted from the chart) 10/21 20:20 19:11 Hospitalization Ordered by A Steve PARKER for Inpatient Admission. Preliminary cg diagnosis is Gastrointestinal hemorrhage, unspecified; Hypotension; Anemia in chronic diseases classified elsewhere. Bed requested for Intensive Care Unit. Status is Inpatient Admission. Condition is Stable. Problem is new. Symptoms have improved. UTI on Admission? No. cp 20:49 20:20 10/21/2018 19:11 Hospitalization Ordered by A Steve PARKER for Inpatient Admission. am2 Preliminary diagnosis is Gastrointestinal hemorrhage, unspecified; Hypotension; Anemia in chronic diseases classified elsewhere. Bed requested for Intensive Care Unit. Status is Inpatient Admission. Condition is Stable. Problem is new. Symptoms have improved. UTI on Admission? No. cg 21:24 20:49 10/21/2018 19:11 Hospitalization Ordered by A Steve PARKER for Inpatient Admission. aa1 Preliminary diagnosis is Gastrointestinal hemorrhage, unspecified; Hypotension; Anemia in chronic diseases classified elsewhere. Bed requested for Intensive Care Unit. Status is Inpatient Admission. Condition is Stable. Problem is new. Symptoms have improved. UTI on Admission? No. am2
--- NOTE | 2018-10-21 19:46 | EKG ---
Test Date: 2018-10-21 Test Time: 16:37:56 Driver License Technician: YAMIL MEASUREMENT RESULTS: Intervals: Rate: 112 CO: 130 QRSD: 74 QT: 334 QTc: 455 [place]: P: 74 CO: 130 QRS: 14 T: 78 INTERPRETIVE STATEMENTS: Sinus tachycardia Otherwise normal ECG Compared to ECG 10/08/2018 11:33:29 ST (T wave) deviation no longer present Possible ischemia no longer present Electronically Signed On 10-21-18 19:45:23 PROPERTY CLAIMS ADJUSTER by Dany Barbour
[2018-10-21] MEDS ORDERED: SODIUM CHLORIDE 0.9% 10ML INJ IV PRN (20:08)
[2018-10-21] MEDS ORDERED: NA CHLORIDE 0.9% 250 ML IV SCH (21:00)
[2018-10-21 23:25] LABS: Urine Appearance CLOUDY; Urine Bilirubin NEGATIVE (NEG); Urine Blood NEGATIVE (NEG); Urine Color YELLOW; Urine Glucose NEGATIVE (NEG); Urine Microscopic Reflex ORDER UMIC; Urine Protein NEGATIVE (NEG); Urine Specific Gravity >=1.030 (1.005-1.030); Urine Urobilinogen 0.2 mg/dL (0.2-1.0)
[2018-10-21 23:53] LABS: Urine Bacteria LOADED /HPF (<20); Urine RBC NONE SEEN /HPF (NONE SEEN)
[2018-10-21 23:54] LABS: Urine Culture Reflex Order REFLEXED
--- NOTE | 2018-10-22 05:23 | HP ---
Date of Admission: 10/21/2018 Chief Complaint: Blood in stool. History Of Present Illness: A 68-year-old female patient who was admitted to the hospital from 10/08 to 10/14/2018 and that particular admission was because of bilateral pulmonary embolism and DVT of right lower extremity. During that hospital admission, the patient was treated with IV heparin d rip in the beginning, and then subsequently, it was changed to Xarelto. The patient was discharged t o go home on 10/14/2018 with instruction to take Xarelto 15 mg 2 times a day that she was taking as p rescribed, and today, she contacted my office and informed us that she was having blood in stool and she was advised to come to emergency room. After she was evaluated in the ER, she was admitted to [facility] and I saw her in the emergency room. The patient reports that she started to have some bl ack-colored stool day before yesterday, and yesterday, she also had black stool. Today, she noted at she had bright red blood per rectum. She had some nausea, but no vomiting, no hematemesis, and no abdominal pain. No fever. No chills. I saw her in the emergency room. She was lying in bed, not in distress. She feels little weaker than usual. Allergies: TO CODEINE. Medications: Amlodipine 5 mg 2 times a day, levothyroxine 137 mcg daily, magnesium oxide 400 mg 2 ti mes a day, metoprolol 100 mg 2 times a day, omeprazole 20 mg daily, potassium chloride 10 mEq 2 times a day, pravastatin 40 mg daily, Xarelto 15 mg 2 times a day. Review of Systems: GI: As mentioned above. Constitutional: As mentioned above. All other systems reviewed and negative. Family History: Significant for hypertension, diabetes, coronary artery disease. Social History: Negative for smoking, alcohol use. Past Surgical History: Breast implant, tubal ligation, hysterectomy, repair of cerebral aneurysm in 2008, cystocele repair, and clipping of cerebral aneurysm in 2003. Past Medical History: Hypertension, hyperlipidemia, hypothyroidism, impaired fasting glucose, colon cancer, gastroesophageal reflux disease, cerebral aneurysm, depression, and recent problem with right leg DVT and bilateral pulmonary embolism diagnosed this month. Physical Examination: Vital Signs: When she first came into emergency room, blood pressure 90/64, pulse 123, respiratory r ate 21, temperature 96, pulse ox 100%, weight 61.23 kg, height 5 feet 1 inch. General: Awake, alert, oriented, not in distress. HEENT: Head atraumatic, normocephalic. Conjunctivae nonerythematous. Sclerae white. Mouth, no thr ush or edema noted. Ears/Nose, no mass, lesion, discharge noted. Neck: Supple. No JVD, lymph nodes, bruit, thyromegaly noted. Lungs: Bilateral good equal air entry. Clear to auscultation. No rhonchi. No rales. Heart: Normal heart sounds, no murmur or gallop. Abdomen: Soft, bowel sounds normal. No guarding, rigidity, tenderness, mass, hepatosplenomegaly, dis tention, or bruit noted. Extremities: No leg edema. No calf tenderness. Skin: No rash, ulcer, cellulitis. Lymphatics: No lymph node enlargement in neck, supraclavicular, infraclavicular region. Neuro: No focal neurological deficit. Chest: Unremarkable. External Genitalia: Deferred. Rectal: Deferred. Laboratory Data: CAT scan of abdomen shows multiple large gallstone feeling much of the gallbladder. Mild gallbladder wall edema present. No duct stone or biliary tree dilatation. Diffuse fatty infi ltration of the liver. Chest x-ray; no acute cardiopulmonary changes. EKG; normal sinus rhythm. No acute ST-T changes. White count 11.2, hemoglobin 9.5, platelets 394. INR 3.25. Sodium 145, potass ium 3.9, chloride 108, bicarb 27, BUN 22, creatinine 0.8, glucose 132. Liver function tests unremark able. Troponin less than 0.02. Impression: 1.Acute gastrointestinal bleeding. 2.Acute blood loss anemia. 3.Colon cancer. 4.Pulmonary embolism. 5.Right leg deep vein thrombosis. 6.Hyperlipidemia. 7.Hypothyroidism. 8.Hypertension. 9.Gastroesophageal reflux disease. 10.Impaired fasting glucose. 11.Hypokalemia. 12.Hypomagnesemia. Plan: Admit the patient to hospital for further evaluation and management of this problem. The danica ent is appropriate for inpatient and is expected to spend 2 midnights in hospital. When physician's patient services assistant from ER contacted, he informed me that the patient's last hemoglobin was 13.2 and today it is 9.5. Two units of PRBC blood transfusion were ordered. The patient was getting her blood transfu anushka when I saw her. I have reviewed her prior hospital records and her hemoglobin was 13.4 when she was admitted on 10/08/2018, but then she had 3 other hemoglobin checked during that particular hospi beni admission and they were ranging from 10.3 to 10.8. The patient has seen fibre cement moulder, Dr. Dixon, in the past and will consider consultation either as an inpatient or outpatient depending o n her condition. Use of anticoagulation therapy is contraindicated in view of this bleeding. After blood transfusion, we will monitor her blood count, and I will communicate with her oncologist regard ing further plan of treatment for this DVT and pulmonary embolism as we will need to consider IVC kayode ter placement, and I did already discuss this with the patient today about risks and benefit of IVC f ilter. I will see her tomorrow for followup. The patient was told that use of anticoagulation thera py is now contraindicated because of this GI bleeding problem. We will go ahead and give IV Protonix . ROBERT/MODL Voice ID: [id number]
[2018-10-22 05:28] LABS: Absolute Lymphocytes (CBC) 2.8 K/uL (0.7-4.9); Absolute Monocytes 0.6 K/uL (0.1-1.3); Absolute Neutrophil 3.8 K/uL (1.8-8.0); Basophils % 2.5 % (0-1.3); Eosinophils % 2.1 % (0-4.4); Hematocrit 30.2 % (36.0-45.0); Lymphocytes % 36.9 % (15.3-44.8); MPV 7.7 fL (7.6-11.3); Monocytes % 8.5 % (3.3-12.3); RBC Red Blood Cell Count 3.27 M/uL (3.86-4.86)
[2018-10-22 05:38] LABS: BUN Blood Urea Nitrogen 22 mg/dL (7-18); Bicarbonate 27 mmol/L (21-32); Glucose Level 94 mg/dL (74-106); Potassium 4.1 mmol/L (3.5-5.1); Sodium Level 148 mmol/L (136-145)
[2018-10-22] MEDS: D5W 1,000 ML IV SCH ×2 (07:19→12:07)
[2018-10-22] MEDS: ACETAMINOPHEN 500 MG TAB PO PRN ×2 (07:31→16:51)
[2018-10-22] MEDS ORDERED: PANTOPRAZOLE 40 MG INJ IVP SCH (09:00)
[2018-10-22] MEDS ORDERED: LIDOCAINE 1% MPF 5 ML VIAL ONE (09:19)
[2018-10-22] MEDS ORDERED: PROPOFOL 200 MG/20 ML VIAL IV ONE (09:19)
--- NOTE | 2018-10-22 10:44 | EKG ---
Test Date: 2018-10-21 Test Time: 21:04:02 Filter Cloth Maker: JOSEPH MEASUREMENT RESULTS: Intervals: Rate: 84 IN: 138 QRSD: 78 QT: 386 QTc: 456 [place]: P: 65 IN: 138 QRS: 10 T: 55 INTERPRETIVE STATEMENTS: Normal sinus rhythm Low voltage QRS Borderline ECG Compared to ECG 10/21/2018 16:37:56 Low QRS voltage now present Sinus tachycardia no longer present Electronically Signed On 10-22-18 10:42:51 MANAGER OF SCHOOL by Dany Barbour
[2018-10-22 11:42] LABS: Hematocrit 35.3 % (36.0-45.0)
[2018-10-22] MEDS: PANTOPRAZOLE INJ 80 MG in NA CHLORIDE 0.9% 250 ML IV SCH ×2 (12:06→20:32)
[2018-10-22] MEDS: SUCRALFATE 1 GM TABLET PO SCH ×3 (12:06→20:31)
[2018-10-22 17:13] LABS: Hematocrit 34.1 % (36.0-45.0)
[2018-10-22 23:33] LABS: Hematocrit 29.4 % (36.0-45.0)
--- NOTE | 2018-10-23 00:34 | PN ---
Date of Progress Note: 10/22/2018 Subjective: The patient was seen this morning for followup. She was lying in bed in ICU. She had 2 bowel movements after she came to ICU. One time, it was miguelangel color and next time it was brown c olor. Hemodynamically, she was stable. Denied any abdominal pain. No shortness of breath. Objective: Vital Signs: Reviewed. HEENT: Unremarkable. Lungs: Clear to auscultation. Heart: Sounds normal. Abdomen: Soft, bowel sounds normal. No guarding, rigidity, tenderness, or distention. Extremities: No leg edema. Laboratory Data: White count 7.5, hemoglobin 10.2 platelets 198. Sodium 148, potassium 4.1, chlorid e 114, bicarb 27, BUN 22, creatinine 0.59, glucose 94. Impression: 1.Acute upper gastrointestinal bleeding. 2.Acute blood loss anemia. 3.Pulmonary embolism. 4.Right leg deep vein thrombosis. 5.Colon cancer. Plan: This morning from ICU, I did talk to Dr. Dixon, sprinkler driver, and details were discus sed with him regarding the patient's recent hospital admission with DVT, pulmonary embolism, and on X arelto for this blood clot problem, and this admission. He did EGD on her and called and informed me about EGD findings, and the patient has multiple superficial gastric erosions with bleeding and he d id cauterize those areas. He has informed me that use of anticoagulation therapy in her case is rela tively contraindicated but not absolute contraindication. So, what we will do is, after EGD, the pat ient was brought back to floor. She is medically stable for medical floor instead of ICU and continu e IV fluid. We will go ahead and continue Protonix per order, monitor hemoglobin every 6 hours, and give 1 unit of PRBC blood transfusion if hemoglobin 9 or less, 2 units if hemoglobin 8 or less. I wi ll see her tomorrow for followup and I will communicate with her oncologist regarding further plan of treatment for this blood clot problem. Details were discussed with the patient. ROBERT/MODL Voice ID: [id number] Report ID: [id number]
[2018-10-23] MEDS: D5W 1,000 ML IV SCH ×2 (03:03→20:40)
[2018-10-23] MEDS: PANTOPRAZOLE INJ 80 MG in NA CHLORIDE 0.9% 250 ML IV SCH ×2 (06:20→17:06)
[2018-10-23 06:21] VITALS: BMI 21.6
[2018-10-23] MEDS: SUCRALFATE 1 GM TABLET PO SCH ×4 (08:45→20:39)
[2018-10-23] MEDS: ACETAMINOPHEN 500 MG TAB PO PRN ×2 (08:50→16:59)
[2018-10-23 11:26] LABS: Absolute Lymphocytes (CBC) 2.2 K/uL (0.7-4.9); Absolute Monocytes 0.6 K/uL (0.1-1.3); Absolute Neutrophil 6.3 K/uL (1.8-8.0); Basophils % 2.7 % (0-1.3); Eosinophils % 1.4 % (0-4.4); Hematocrit 33.5 % (36.0-45.0); Lymphocytes % 23.4 % (15.3-44.8); MPV 8.1 fL (7.6-11.3); Monocytes % 6.7 % (3.3-12.3); RBC Red Blood Cell Count 3.59 M/uL (3.86-4.86)
[2018-10-23 11:57] LABS: Magnesium 2.1 mg/dL (1.8-2.4); Potassium 3.7 mmol/L (3.5-5.1)
--- NOTE | 2018-10-23 22:53 | PN ---
Date of Progress Note: 10/23/2018 Subjective: The patient was seen for followup this morning. She was lying in bed, not in any distre ss. No bleeding problem reported. Was complaining of some upper abdominal pain in the right upper q uadrant area. No nausea. No vomiting. Objective: Vital Signs: Reviewed. HEENT: Examination unremarkable. Lungs: Clear to auscultation. Heart: Sounds normal. Abdomen: Soft. Bowel sounds normal. No guarding, rigidity, tenderness, or distention. Extremities: No leg edema. Laboratory Data: White count 9.6, hemoglobin 11.1, and platelets 229. Sodium 143, potassium 3.7, ch loride 112, bicarb 23, BUN 10, creatinine 0.81, and glucose 125. Impression: 1.Acute upper gastrointestinal bleeding. 2.Acute blood loss anemia. 3.Colon cancer. 4.Hypertension. Plan: We will go ahead and continue diet as per order from Dr. Dixon. Continue IV Protonix and I V fluid. The patient is also on sucralfate. Hemodynamically, she is stable. We will repeat blood w ork tomorrow morning. Ambulation was encouraged. I will see her tomorrow. Possible discharge to go home over the weekend. ROBERT/MODL Voice ID: [id number] Report ID: [id number]
[2018-10-24] MEDS: PANTOPRAZOLE INJ 80 MG in NA CHLORIDE 0.9% 250 ML IV SCH ×3 (03:32→23:04)
[2018-10-24] MEDS: SUCRALFATE 1 GM TABLET PO SCH ×4 (08:19→20:29)
[2018-10-24] MEDS: ACETAMINOPHEN 500 MG TAB PO PRN (08:21)
[2018-10-24] MEDS: AMOX/K CLAV 875 MG TAB PO SCH ×2 (10:14→20:29)
[2018-10-24 11:30] LABS: Hematocrit 32.8 % (36.0-45.0)
[2018-10-24] MEDS: D5W 1,000 ML IV SCH (19:00)
--- NOTE | 2018-10-24 22:52 | PN ---
Date of Progress Note: 10/24/2018 Subjective: The patient was seen this morning for followup. She was sitting at bedside. Her husban d was with her at bedside. Denies any abdominal pain, nausea, vomiting. Had 2 bowel movements and t hey were normal color. No blood in stool. No nausea or vomiting. She is tolerating diet very well. Objective: Vital Signs: Reviewed. HEENT: Unremarkable. Lungs: Clear to auscultation. Heart: Sounds normal. Abdomen: Soft, bowel sounds normal. No guarding, rigidity, tenderness, or distention. Extremities: No leg edema. Laboratory Data: Hemoglobin today 10.9, yesterday evening was 9.6, yesterday morning was 11.1. Impression: 1.Acute blood loss anemia. 2.Upper gastrointestinal bleeding. 3.Deep vein thrombosis, right leg. 4.Pulmonary embolism. 5.Colon cancer. Plan: We will go ahead and continue current medications. The patient has urinary tract infection, l ow-grade fever of 99.1. Urine culture grew E coli and we will start her on Augmentin. We will yonathan nue IV Protonix drip and oral sucralfate. We will repeat blood work tomorrow morning and I did talk to Dr. Sheffield, patient's clinical audiologist/oncologist, and details were discussed about the patient's hospital admission with this GI bleeding this time and last admission with pulmonary embolism and DVT , and she has recommended for patient to get temporary IVC filter placement since we will not be able to start oral anticoagulation therapy right away and she is at high risk of having DVT and pulmonary embolism, and at a later date, we will consider to restart her on anticoagulation therapy using Love nox as she recommends, and if she tolerates that, then will we can continue that, but obviously we wi ll continue to follow her recommendation for this on outpatient basis, but meanwhile depending on how her condition is tomorrow, we will decide if we can go ahead and initiate the arrangements for her t o go to [place] for temporary IVC filter placement as we cannot place such filter at our facility. ROBERT/MODL Voice ID: [id number] Report ID: [id number]
[2018-10-24 23:22] VITALS: O2SAT 96
[2018-10-24 23:42] LABS: Hematocrit 28.7 % (36.0-45.0)
[2018-10-25] MEDS: AMOX/K CLAV 875 MG TAB PO SCH (09:15)
[2018-10-25] MEDS: PANTOPRAZOLE INJ 80 MG in NA CHLORIDE 0.9% 250 ML IV SCH (09:15)
[2018-10-25] MEDS: SUCRALFATE 1 GM TABLET PO SCH ×3 (09:16→15:49)
[2018-10-25 11:34] LABS: Hematocrit 33.1 % (36.0-45.0)
[2018-10-25 13:17] VITALS: TEMP 97.9
[2018-10-25] MEDS: D5W 1,000 ML IV SCH (14:08)
[2018-10-25] MEDS ORDERED: PANTOPRAZOLE 40MG TABLET PO SCH (16:30)
[2018-10-25 17:11] VITALS: BP 130/65
--- NOTE | 2018-11-19 23:21 | OP ---
Surgeon: Barry Dixon MD Procedure To Be Performed: Esophagogastroduodenoscopy. Performing Physician: Barry Dixon MD. Indication For Procedure: Suspected upper GI bleed. Plan For Anesthesia: Monitored anesthesia care. Complexity: High due to patient's comorbidities. Technique: After obtaining informed consent from the patient, explaining risks and complications whi ch include but are not limited to bleeding, infection, perforation, anesthesia complications, patient was placed in the left lateral position and sedation was given. Subsequently, the scope was advance d into the mouth and carefully guided up till the second portion of the duodenum. There was evidence of active bleeding that was seen in the stomach. This was treated. After the completion of examina tion, scope and equipment were withdrawn and procedure terminated in a safe manner. Findings: Esophagus: No gross lesion seen in the entire esophagus. Stomach: In the body, mild patchy erythema seen. However, in the antrum, several sites of oozing w ere seen. Multiple washings were done to identify the underlying source. It appeared to be multiple erosions, possible mucositis related to chemotherapy along with the anticoagulation that may have be en the result of this bleeding. APC was used for ablation. Multiple spots were ablated with the ble eding being stopped. Duodenum: The bulb and second portion were normal. Complications: None. Tolerance To Anesthesia: Excellent. Postoperative Diagnoses: Gastric erosions with bleeding, possibly related to chemotherapy-related mu cositis and anticoagulation. Plan: Continue current management. IV PPI for now. We will advance diet from tomorrow. We will ne ed to re-evaluate after restarting anticoagulation in a few days to see if there is any further bleed ing. Also, will need oncology followup. US/MODL Voice ID: [id number] Report ID: [id number]
--- NOTE | 2018-11-23 03:29 | DS ---
Date of Discharge: 10/25/2018 Disposition: Discharged to go home. Discharge Medications And Instructions: See copy of discharge order for more details. Physical Examination: HEENT: Unremarkable. Lungs: Clear to auscultation. Heart: Sounds normal. Abdomen: Soft. Bowel sounds normal. No guarding, rigidity, tenderness, or distention. Extremities: No leg edema. Hospital Course: This is a 68-year-old very pleasant female patient, came into emergency room with c omplaints of blood in stool. Please see dictated H and P for more information. The patient was rece ntly in the hospital with bilateral pulmonary embolism and DVT of the right lower extremity, hence du ring that hospital admission, she was treated with IV heparin drip and then subsequently was changed to oral anticoagulation medication Xarelto and she was discharged to go home with Xarelto. She was t aking Xarelto 15 mg 2 times a day as prescribed and came into emergency room now with blood in stool. She was evaluated in the ER and admitted to hospital with acute GI bleeding and acute blood loss an emia. Her anticoagulation therapy was discontinued. CAT scan of the abdomen showed multiple large g allstones, mild gallbladder wall edema, no stone in the common bile duct, diffuse fatty infiltration of the liver. Chest x-ray was unremarkable. White count 11.2, hemoglobin 9.5, platelets 394. Blood transfusion was given to her per order. Last hemoglobin was 10.8. GI consultation was obtained fro angel Dixon and details were discussed with the patient's executive candidate developer/oncologist. EGD performed by Dr. Dixon showed multiple superficial gastric erosions with bleeding and he did cauterize those areas. Dr. Sheffield suggested temporary IVC filter placement for her considering this acute GI bl eeding problem with anticoagulation therapy, so we do not provide such kind of treatment at our [facility], so arrangements were completed for [facility] to [facility] [place] where she will moore ve temporary IVC filter placement and then she will come home and on an outpatient basis, Dr. Magdy yin will initiate anticoagulation therapy at appropriate time. The patient was discharged from our ospital to go to [place] in stable condition via ground ambulance. Final Diagnoses: 1.Acute gastrointestinal bleeding. 2.Acute blood loss anemia. 3.Colon cancer. 4.Pulmonary embolism. 5.Right leg deep venous thrombosis. 6.Hyperlipidemia. 7.Hypothyroidism. 8.Hypertension. 9.Gastroesophageal reflux disease. 10.Impaired fasting glucose. 11.Hypokalemia. 12.Hypomagnesemia. ROBERT/MODL Voice ID: [id number] Report ID: [id number]
== END 2018-10-25 17:23 | disposition short-term general hospital (02) | DRG 378 ==
LOC: ER 15:44 → ERHOLD 20:05 → 3RD-ICU 21:15 → 2ND 10-22 09:25
PROVIDERS: ADMIT Internal Medicine; ATTEND Internal Medicine
PROC: 30233N1 Transfusion of Nonautologous Red Blood Cells into Peripheral Vein, Percutaneous Approach (ICD-10-PCS; principal; 2018-10-21)
PROC: 0W3P8ZZ Control Bleeding in Gastrointestinal Tract, Via Natural or Artificial Opening Endoscopic (ICD-10-PCS; 2018-10-22)
DX: K92.2 Gastrointestinal hemorrhage, unspecified (principal); D62 Acute posthemorrhagic anemia; N39.0 Urinary tract infection, site not specified; K92.81 Gastrointestinal mucositis (ulcerative); Z88.5 Allergy status to narcotic agent; E03.9 Hypothyroidism, unspecified; E78.5 Hyperlipidemia, unspecified; R73.01 Impaired fasting glucose; Z85.038 Personal history of other malignant neoplasm of large intestine; K21.9 Gastro-esophageal reflux disease without esophagitis; F32.9 Major depressive disorder, single episode, unspecified; Z86.718 Personal history of other venous thrombosis and embolism; Z79.01 Long term (current) use of anticoagulants; Z86.711 Personal history of pulmonary embolism; I10 Essential (primary) hypertension; E87.6 Hypokalemia; E83.42 Hypomagnesemia; B96.20 Unspecified Escherichia coli [E. coli] as the cause of diseases classified elsewhere
CPT/HCPCS: 36415; 71045; 74177; 80048; 80076; 81003; 81015; 82274; 83735; 83880; 84484; 85014; 85018; 85025; 85610; 86850; 86900; 86901; 87077; 87086; 87088; 87186; 93005; 96361; 96374; 96375; 99285; C9113; J2704; J7030; P9016; Q9967

== ENCOUNTER 2019-08-09 11:12 | Inpatient (IN) | payer OTHER ==
--- OUTSIDE RECORDS SUMMARY | 2019-08-09 11:16 | XMS REPORT ---
:1950 Author Organization [facility] Address [address] [place] [address] [address]. [address] [place] [address] Care Team Providers Name Role Phone ROSETTA HEBER Dudley Unavailable Unavailable LOIDA QUESADA Unavailable Unavailable Problems This patient has no known problems. Allergies, Adverse Reactions, Alerts This patient has no known allergies or adverse reactions. Medications This patient has no known medications. Results Test Description Test Time Test Comments Text Results Atomic Results Result Comments FADY CAVAL FILTER 2019-01-18 18:03:00 Reason for FINAL REPORT PATIENT REMOVAL Exam:->[id number] ID: [id number] IVC filter removal. History: Filter no longer required Modality: Ultrasound and fluoroscopy. Sedation: Moderate sedation was administered. 3 mg of Versed and 200 mcg of fentanyl IV was used for moderate sedation monitored under my direction. Total intra-service time of sedation was 90 minutes. The patient's vital signs were monitored throughout the procedure and recorded in the patient's medical record by the nurse. Adoption Manager: Blake Bay MD. Malt House Kiln Operator: Jennifer Vines (fellow). Approach: Right internal jugular vein. Estimated blood loss: < 5 cc. Specimen: None. Fluoroscopy Time: 32.4 min.Reference Air Kerma (Ka, r): 641 mGy. Technique: Informed written consent was obtained. Discussion of risks, benefits, and alternatives were made with the patient. The patient expressed understanding and agreed to proceed. A universal timeout was performed prior to starting the procedure. All elements maximal sterile barrier technique was utilized for this procedure, including utilization of sterile scrub solution for skin prep, a large sterile sheet to cover the areas of the patient that were not prepped, and hand hygiene, mask, head covering, and sterile gown for performing radiologist and scrub technologist. The skin was anesthetized with 2 % lidocaine. The right internal jugular vein was accessed using a 21-gauge micropuncture needle and sheath. The needle was removed and a 5 Marshallese straight multi-sidehole catheter was advanced to the distal IVC for a DSA cavagram. A 10 Marshallese angled tip Flexor sheath was advanced into the suprarenal IVC. Attempts were made to snare the filter without success given documented within the caval wall. Subsequently, the 10 Marshallese sheath was exchanged for a 16 Marshallese sheath. Endobronchial forceps were then used to dislodge the filter from the caval wall. A 12 Marshallese sheath was placed through the 16 Marshallese sheath. A 15 mm Amplatz gooseneck snare was advanced through the sheath and used to capture the hook at the tip of the filter. The sheath was then advanced over the filter to collapse the legs of the filter, which was then removed intact. Post removal venogram demonstrates no evidence of extravasation. The sheath was removed and hemostasis was obtained with compression. Vital signs were monitored throughout the procedure by a nurse, and remained stable. The patient tolerated the procedure and left the department in the same condition. FINDINGS: Preremoval cavogram demonstrates leftward tilt of the filter with token dated within the left caval wall. The filter was successfully repositioned using endobronchial forceps and subsequently removed using a gooseneck smear. Post removal, the cava is patent without evidence of contrast extravasation. IMPRESSION: Cavagram and IVC filter removal performed without complication. Signed: Blake Bayeport Verified Date/Time: 01/18/2019 18:03:40 Reading Location: [place] [id number] Angio Body Reading Room W/PLT COUNT & AUTO DIFFERENTIAL 2019-01-18 15:00:00 Test Item Value Reference Range Comments WHITE BLOOD CELL COUNT (BEAKER) (test jbjh=233) 13.3 K/ L 3.5-10.5 RED BLOOD CELL COUNT (BEAKER) (test doem=717) 3.25 M/ L 3.93-5.22 HEMOGLOBIN (BEAKER) (test ltls=143) 10.2 GM/DL 11.2-15.7 HEMATOCRIT (BEAKER) (test stdc=434) 31.9 % 34.1-44.9 MEAN CORPUSCULAR VOLUME (BEAKER) (test xooy=954) 98.2 fL 79.4-94.8 MEAN CORPUSCULAR HEMOGLOBIN (BEAKER) (test tdmh=632) 31.4 pg 25.6-32.2 MEAN CORPUSCULAR HEMOGLOBIN CONC (BEAKER) (test nhoo=626) 32.0 GM/DL 32.2- 35.5 RED CELL DISTRIBUTION WIDTH (BEAKER) (test jgal=527) 17.0 % 11.7-14.4 PLATELET COUNT (BEAKER) (test zvtw=799) 79 K/CU MM 150-450 MEAN PLATELET VOLUME (BEAKER) (test yggt=703) 10.9 fL 9.4-12.3 NUCLEATED RED BLOOD CELLS (BEAKER) (test xdyw=363) 0 /100 WBC 0-0 (CELLAVISION MANUAL DIFF)2019-01-18 15:00:00 Test Item Value Reference Range Comments NEUTROPHILS - REL (CELLAVISION)(BEAKER) (test 77 % zhzl=9363) LYMPHOCYTES - REL (CELLAVISION)(BEAKER) (test 21 % dpfv=1614) BANDS - REL (CELLAVISION)(BEAKER) (test 2 % 0-10 gqhs=6429) NEUTROPHILS - ABS (CELLAVISION)(BEAKER) (test 10.24 K/ul 1.56-6.13 ifli=9111) LYMPHOCYTES - ABS (CELLAVISION)(BEAKER) (test 2.79 K/ul 1.18-3.74 rahg=4321) BANDS - ABS (CELLAVISION)(BEAKER) (test 0.27 K/uL 0.00-0.80 fxte=9237) TOTAL COUNTED (BEAKER) (test xykq=0034) 100 SMUDGE CELLS (BEAKER) (test fjmm=9008) Present GIANT PLATELETS (BEAKER) (test woie=395) Present ANISOCYTOSIS (BEAKER) (test naov=102) 1+ few MICROCYTES (BEAKER) (test ebns=520) 1+ few ARTIFACT (CELLAVISION)(BEAKER) (test uyop=4922) Present PLATELET CONCENTRATION (CELLAVISION)(BEAKER) Decreased (test emfw=8568) Received comment: User comments: Slide comments:BASIC METABOLIC [id number] 13:07:00 Test Item Value Reference Range Comments SODIUM (BEAKER) (test 143 meq/L 136-145 pcvy=049) POTASSIUM (BEAKER) (test 3.8 meq/L 3.5-5.1 yiob=199) CHLORIDE (BEAKER) (test 109 meq/L 98-107 ewes=895) CO2 (BEAKER) (test 25 meq/L 22-29 pbzc=766) BLOOD UREA NITROGEN 15 mg/dL 7-21 (BEAKER) (test opvc=130) CREATININE (BEAKER) (test 0.65 mg/dL 0.57-1.25 mxll=333) GLUCOSE RANDOM (BEAKER) 101 mg/dL 70-105 (test cfry=061) CALCIUM (BEAKER) (test 8.8 mg/dL 8.4-10.2 gpux=444) EGFR (BEAKER) (test 91 mL/min/1.73 sq m ESTIMATED GFR IS NOT qmey=4926) ACCURATE CREATININE CLEARANCE IN PREDICTING GLOMERULAR FILTRATION RATE. ESTIMATED GFR IS NOT APPLICABLE FOR DIALYSIS PATIENTS. PROTHROMBIN [id number] 13:01:00 Test Item Value Reference Range Comments PROTIME (BEAKER) (test tdny=821) 13.7 seconds 11.7-14.7 INR (BEAKER) (test yokd=813) 1.0 <=5.9 RECOMMENDED COUMADIN/WARFARIN INR THERAPY RANGESSTANDARD DOSE: 2.0 - 3.0 Includes: PROPHYLAXIS forvenous thrombosis, systemic embolization; TREATMENT for venous thrombosis and/or pulmonary embolus.HIGH RISK: Target INR is 2.5-3.5 for patients with mechanical heart valves.FADY CAVAL FILTER [id number] 13:44:00Reason for exam:->IVC filter placementFINAL REPORT Inferior Vena Cava Filter Placement: Pertinent clinical information: IVC filter placement Modality: Sonography and fluoroscopy Conscious Sedation and Physician patient face to face intraservice time: Versed 0.5 mg and fentanyl 25 mcg intravenously. Physician patient face to face to intraservice time measured 20 minutes During the procedure with conscious sedation,the patient was monitored continuously with pulse oximetry and electrocardiography by the attending physician and registered nurse. Anesthesia: Two percent Lidocaine injected subcutaneously at the insertion site. Fluoro time in minutes : 2.1 minutes.19 images. Approach: Right common femoral vein Formaximum sterile barrier protection a mask, cap, sterile gloves, sterile drape, sterile gown, and a cutaneous antiseptic was utilized. Technique: After informed written consent was obtained, the patient was prepped and draped in the usual sterile manner. Access was obtained using sonographic guidance. Ultrasound was utilized to decrease the risk of hematoma and the number of punctures. The right common femoral vein was catheterized. A guide wire was advanced centrally. A 4 Marshallese catheter was advanced to evaluate the inferior vena cava. Once the inferior vena cava was evaluated a retrievable inferior vena cava filter was placed below the level of the renal veins. Vital signs were monitored throughout the procedure by a nurse, and remained stable. The patient tolerated the procedure well and left the department in the same condition. Results: An inferior vena cavagram documentedthe inferior vena cava to measure 2.1 cm. There was no evidence of thrombus within the cava. Therewas no evidence of tate cava or congenital anomaly. The renal veins were identified. Spot radiograph of the abdomen demonstrates the new vena cava filter at the L2-L3 level Impression: Successful, uncomplicated placement of a retrievable inferior vena cava filter below the renal veins. Signed: Lorna Quintanilla MDReport Verified Date/Time: 10/26/2018 13:44:07 Reading Location: [facility] [address] Angio BodyReading Room [facility] METABOLIC [id number] 21:43:00 Test Item Value Reference Range Comments SODIUM (BEAKER) (test 143 meq/L 136-145 aaln=777) POTASSIUM (BEAKER) (test 3.1 meq/L 3.5-5.1 ybhw=361) CHLORIDE (BEAKER) (test 112 meq/L 98-107 ejjb=516) CO2 (BEAKER) (test 21 meq/L 22-29 yxdp=067) BLOOD UREA NITROGEN 5 mg/dL 7-21 (BEAKER) (test ipye=666) CREATININE (BEAKER) (test 0.86 mg/dL 0.57-1.25 vfdt=102) GLUCOSE RANDOM (BEAKER) 97 mg/dL 70-105 (test dzta=598) CALCIUM (BEAKER) (test 8.8 mg/dL 8.4-10.2 dkvz=642) EGFR (BEAKER) (test 66 mL/min/1.73 sq m ESTIMATED GFR IS NOT vhhi=9768) ACCURATE CREATININE CLEARANCE IN PREDICTING GLOMERULAR FILTRATION RATE. ESTIMATED GFR IS NOT APPLICABLE FOR DIALYSIS PATIENTS. [id number] 21:41:00 Test Item Value Reference Range Comments PROTIME (BEAKER) (test zref=030) 14.3 seconds 11.7-14.7 INR (BEAKER) (test dnle=855) 1.1 <=5.9 PARTIAL THROMBOPLASTIN TIME (BEAKER) (test 23.7 seconds 22.5-36.0 vyhi=749) RECOMMENDED COUMADIN/WARFARIN INR THERAPY RANGESSTANDARD DOSE: 2.0 - 3.0 Includes: PROPHYLAXIS forvenous thrombosis, systemic embolization; TREATMENT for venous thrombosis and/or pulmonary embolus.HIGH RISK: Target INR is 2.5-3.5 for patients with mechanical heart valves.CBC W/PLT COUNT & AUTO [id number] 21:30:00 Test Item Value Reference Range Comments WHITE BLOOD CELL COUNT (BEAKER) (test gftf=929) 10.0 K/ L 3.5-10.5 RED BLOOD CELL COUNT (BEAKER) (test btps=505) 2.98 M/ L 3.93-5.22 HEMOGLOBIN (BEAKER) (test wimq=902) 9.4 GM/DL 11.2-15.7 HEMATOCRIT (BEAKER) (test uhnq=262) 29.9 % 34.1-44.9 MEAN CORPUSCULAR VOLUME (BEAKER) (test qvku=870) 100.3 fL 79.4-94.8 MEAN CORPUSCULAR HEMOGLOBIN (BEAKER) (test 31.5 pg 25.6-32.2 hajv=339) MEAN CORPUSCULAR HEMOGLOBIN CONC (BEAKER) (test 31.4 GM/DL 32.2-35.5 gowh=703) RED CELL DISTRIBUTION WIDTH (BEAKER) (test 21.6 % 11.7-14.4 ozxy=117) PLATELET COUNT (BEAKER) (test amoo=394) 181 K/CU MM 150-450 MEAN PLATELET VOLUME (BEAKER) (test zjld=374) 10.1 fL 9.4-12.3 NUCLEATED RED BLOOD CELLS (BEAKER) (test 0 /100 WBC 0-0 pjqt=821) NEUTROPHILS RELATIVE PERCENT (BEAKER) (test 64 % mpxk=379) LYMPHOCYTES RELATIVE PERCENT (BEAKER) (test 24 % kbwx=020) MONOCYTES RELATIVE PERCENT (BEAKER) (test 8 % dayq=080) EOSINOPHILS RELATIVE PERCENT (BEAKER) (test 3 % yrqk=492) BASOPHILS RELATIVE PERCENT (BEAKER) (test 1 % glnu=654) NEUTROPHILS ABSOLUTE COUNT (BEAKER) (test 6.37 K/ L 1.56-6.13 qfyx=324) LYMPHOCYTES ABSOLUTE COUNT (BEAKER) (test 2.42 K/ L 1.18-3.74 yrvz=119) MONOCYTES ABSOLUTE COUNT (BEAKER) (test 0.76 K/ L 0.24-0.36 tfgh=961) EOSINOPHILS ABSOLUTE COUNT (BEAKER) (test 0.27 K/ L 0.04-0.36 bana=363) BASOPHILS ABSOLUTE COUNT (BEAKER) (test 0.10 K/ L 0.01-0.08 hrxy=667) IMMATURE GRANULOCYTES-RELATIVE PERCENT (BEAKER) 1 % 0-1 (test wtaw=5701)
[2019-08-09] MEDS ORDERED: NA CHLORIDE 0.9% 1,000 ML ONE (12:01)
[2019-08-09] MEDS ORDERED: Ringers Lactate 1,000 ML IV ONE (12:01)
[2019-08-09] MEDS ORDERED: ONDANSETRON 4 MG/2 ML VIAL ONE (12:01)
[2019-08-09 12:48] LABS: Absolute Lymphocytes (CBC) 0.6 K/uL (0.7-4.9); Basophils % 0.2 % (0-1.3); Hematocrit 24.7 % (36.0-45.0); Lymphocytes % 9.8 % (15.3-44.8); MPV 9.5 fL (7.6-11.3); RBC Red Blood Cell Count 2.46 M/uL (3.86-4.86)
[2019-08-09 13:08] LABS: Bilirubin Direct 0.2 mg/dL (0-0.2); Bilirubin Total 0.7 mg/dL (0.2-1.0); Potassium 4.4 mmol/L (3.5-5.1); Protein, Total 5.5 g/dL (6.4-8.2)
[2019-08-09 13:34] LABS: Anisocytosis 1+; Blood Morphology Comment NOTED (NOT SEEN); Macrocytosis 1+; Platelet Estimate DECR; Urine White Blood Cell Casts OK
--- NOTE | 2019-08-09 13:55 | RAD REPORT ---
EXAM DESCRIPTION: CTAbdomen Pelvis W Contrast - 08/09/2019 1:36 pm CLINICAL HISTORY: Abdominal pain. hypotension, diarrhea, colon cancer COMPARISON: Abdomen Pelvis W Contrast dated 10/21/2018; Abdomen Pelvis W Contrast dated 03/25/2016 ; CT ABD PELVIS W CONTRAST dated 06/30/2013; Chest Abdomen Pelvis W Cont dated 07/12/2019; Chest Abdom en Pelvis W Cont dated 04/12/2019; Chest For Pe Angio dated 04/29/2019 TECHNIQUE: Biphasic CT imaging of the abdomen and pelvis was performed with 100 ml non-ionic IV cont rast. All CT scans are performed using dose optimization technique as appropriate and may include automated exposure control or mA/KV adjustment according to patient size. FINDINGS: The lung bases are clear. Mild fatty liver. Several gallstones are present in the gallbladder. The spleen, pancreas, adrenal gl ands are normal. Small stones are present in the inferior calyx left kidney. Multiple defects in the cortex of both kidneys is compatible with scarring. No hydronephrosis. Rectosigmoid mucosal thickening and mild distention with fluid is seen suggesting rectosigmoid coliti s. Air is also present in the urinary bladder pain in the inferior fat shoulder planes of the pelvis. Pelvic adenopathy is again seen along the left iliac chain and left para-aortic region, unchanged s yue recent study dated 07/12/2019. No lytic or blastic bone lesion. IMPRESSION: Mild to moderate rectosigmoid colitis. Air in the urinary bladder is seen which may be related to cystitis or recent instrumentation. Mild a ir is also seen in the fascia planes of the inferior pelvis of unclear etiology. Cholelithiasis.
[2019-08-09] MEDS ORDERED: CIPROFLOXACIN 400mg IV 0 MG/0 ML BAG IV ONE (14:21)
[2019-08-09] MEDS ORDERED: METRONIDAZOLE 500mg IVPB 500 MG/100 ML BAG IV ONE (14:21)
--- NOTE | 2019-08-09 14:35 | EDPHYS ---
Physician Documentation [facility] Name: Nesha Pringle Age: 69 yrs Sex: Female : 1950 Arrival Date: 08/09/2019 Time: 11:15 Bed 18 Private MD: Alina Wilson C ED Physician Meño Borjas HPI: 08/09 11:52 This 69 yrs old Female presents to ER via Ambulatory with complaints of rn Dehydration. 11:52 The patient presents to the emergency department with nausea, diarrhea. Onset: The rn symptoms/episode began/occurred 3 day(s) ago. Possible causes: unknown. Severity of symptoms: At their worst the symptoms were moderate in the emergency department the symptoms are unchanged. The patient has experienced similar episodes in the past. Reports last chemo last week, since Friday, a lot of diarrhea, non-bloody, + nausea, no vomiting. Reports last time chemo increased this happened and got dehydrated. Reports abd cramping, but not severe pain. Feels like has UTI. . Historical: - Allergies: 11:20 Codeine; aa5 - PMHx: 11:20 colon cancer; Hypertension; PE; Thyroid problem; aa5 - PSHx: 11:20 BRAIN; Hysterectomy; BLADDER SLING; Lithotripsy; Bowel resection; aa5 - Immunization history:: Adult Immunizations up to date. - Social history:: Smoking status: Patient/guardian denies using tobacco. - Ebola Screening: : No symptoms or risks identified at this time. - Family history:: not pertinent. - Hospitalizations: : No recent hospitalization is reported. ROS: 11:52 Constitutional: Negative for fever, chills, and weight loss, Eyes: Negative for injury, rn pain, redness, and discharge, Neck: Negative for injury, pain, and swelling, Cardiovascular: Negative for chest pain, palpitations, and edema, Respiratory: Negative for shortness of breath, cough, wheezing, and pleuritic chest pain, Abdomen/GI: + nausea and diarrhea MS/Extremity: Negative for injury and deformity, Skin: Negative for injury, rash, and discoloration, Neuro: Negative for headache, numbness, tingling, and seizure. Exam: 11:53 Constitutional: This is a well developed, well nourished patient who is awake, alert, rn seems fatigued. Head/Face: Normocephalic, atraumatic. ENT: dry MM Cardiovascular: Tachycardic, regular, no murmur Respiratory: No increased work of breathing, no retractions or nasal flaring. Abdomen/GI: soft, mild diffuse tenderness, no rebound or masses MS/ Extremity: Pulses equal, no cyanosis. Neurovascular intact. Full, normal range of motion. Equal circumference. Neuro: Awake and alert, GCS 15, oriented to person, place, time, and situation. Vital Signs: 11:21 BP 95 / 60; Pulse 107; Resp 16 S; Temp 97.3(TE); Pulse Ox 100% on R/A; Weight 58.97 kg aa5 (R); Height 5 ft. 1 in. (154.94 cm) (R); 12:30 BP 100 / 64; Pulse 90; Resp 16; Pulse Ox 100% ; bp 13:46 BP 117 / 39; Pulse 81; Resp 16; Pulse Ox 100% ; bp 15:42 BP 101 / 63; Pulse 78; Resp 16; Pulse Ox 98% ; bp 16:33 BP 92 / 67; Pulse 77; Resp 16; Pulse Ox 100% ; bp 11:21 Body Mass Index 24.56 (58.97 kg, 154.94 cm) aa5 MDM: 11:30 Patient medically screened. rn 14:33 Differential diagnosis: Nonspecific abd pain, gastritis, pancreatitis, viral rn gastroenteritis, gastroenteritis, colitis. Data reviewed: vital signs, nurses notes, lab test result(s), radiologic studies, CT scan, and as a result, I will admit patient. Counseling: I had a detailed discussion with the patient and/or guardian regarding: the historical points, exam findings, and any diagnostic results supporting the discharge/admit diagnosis, lab results, radiology results, the need for further work-up and treatment in the hospital. Response to treatment: the patient's symptoms have mildly improved after treatment, and as a result, I will admit patient. Admission orders: after a detailed discussion of the patient's condition and case, the admit orders are written by me. ED course: Will admit to Dr. Wilson for weakness, dehydration, colitis. . 08/09 11:39 Order name: Basic Metabolic Panel; Complete Time: 13:24 rn 08/09 11:39 Order name: CBC with Diff; Complete Time: 14:13 rn 08/09 11:39 Order name: Hepatic Function; Complete Time: 13:24 rn 08/09 11:39 Order name: Lipase; Complete Time: 13:24 rn 08/09 12:57 Order name: CBC Smear Scan; Complete Time: 14:13 EDMS 08/09 14:14 Order name: Urine Microscopic Only; Complete Time: 16:33 rn 08/09 11:41 Order name: CT Abd/Pelvis - IV Contrast Only; Complete Time: 14:13 rn 08/09 14:14 Order name: Urine Culture rn 08/09 14:58 Order name: Urine Dipstick--Ancillary (enter results); Complete Time: 16:33 iw 08/09 11:39 Order name: IV Saline Lock; Complete Time: 12:38 rn 08/09 11:39 Order name: Labs collected and sent; Complete Time: 12:38 rn 08/09 14:14 Order name: Urine Dipstick-Ancillary (obtain specimen); Complete Time: 14:58 rn Administered Medications: 12:00 Drug: NS 0.9% 1000 ml Route: IV; Rate: 1000 ml; Site: Port-a-cath; bp 16:31 Follow up: IV Status: Completed infusion; IV Intake: 1000ml bp 12:00 Drug: Lactated Ringers Solution 1000 ml Route: IV; Rate: 150 ml/hr; Site: Port-a-cath; bp 16:31 Follow up: IV Status: Completed infusion; IV Intake: 700ml bp 12:00 Drug: Zofran 4 mg Route: IVP; Site: Port-a-cath; bp 16:30 Follow up: Response: No adverse reaction; Nausea is decreased bp 15:00 Drug: Rocephin - (cefTRIAXone) 1 grams Route: IVPB; Infused Over: 30 mins; Site: right bp antecubital; 16:30 Follow up: IV Status: Completed infusion; IV Intake: 50ml bp 15:00 Drug: Flagyl 500 mg Volume: 100 ml; Route: IVPB; Rate: 200 ml/hr; Infused Over: 30 bp mins; Site: right antecubital; 16:29 Follow up: IV Status: Completed infusion; IV Intake: 100ml bp Disposition: 08/09/19 14:34 Hospitalization ordered by Alina Wilson for Inpatient Admission. Preliminary diagnosis are Dehydration, Left sided colitis, Weakness, Urinary tract infection, site not specified. - Bed requested for Telemetry/MedSurg (Inpatient). - Status is Inpatient Admission. bp - Condition is Stable. - Problem is new. - Symptoms have improved. UTI on Admission? Yes Signatures: Dispatcher [employer] EDMonserrat Knowles, RN RN dw Meño Borjas MD MD rn Calderon, Audri, RN RN aa5 Bhanu Irvin, RN RN bp Corrections: (The following items were deleted from the chart) 15:05 14:34 Hospitalization Ordered by A Steve PARKER for Inpatient Admission. Preliminary rn diagnosis is Dehydration; Left sided colitis; Weakness. Bed requested for Telemetry/MedSurg (Inpatient). Status is Inpatient Admission. Condition is Stable. Problem is new. Symptoms have improved. UTI on Admission? No. rn 16:00 15:05 08/09/2019 14:34 Hospitalization Ordered by A Steve PARKER for Inpatient Admission. dw Preliminary diagnosis is Dehydration; Left sided colitis; Weakness; Urinary tract infection, site not specified. Bed requested for Telemetry/MedSurg (Inpatient). Status is Inpatient Admission. Condition is Stable. Problem is new. Symptoms have improved. UTI on Admission? Yes. rn 16:54 16:00 08/09/2019 14:34 Hospitalization Ordered by A Steve PARKER for Inpatient Admission. bp Preliminary diagnosis is Dehydration; Left sided colitis; Weakness; Urinary tract infection, site not specified. Bed requested for Telemetry/MedSurg (Inpatient). Status is Inpatient Admission. Condition is Stable. Problem is new. Symptoms have improved. UTI on Admission? Yes. dw
--- NOTE | 2019-08-09 14:35 | ER ---
Nurse's Notes [facility] Name: Nesha Pringle Age: 69 yrs Sex: Female : 1950 Arrival Date: 08/09/2019 Time: 11:15 Bed 18 Private MD: Alina Wilson C Diagnosis: Dehydration;Left sided colitis;Weakness;Urinary tract infection, site not specified Presentation: 08/09 11:19 Presenting complaint: Significant other states: "they increased her chemo dosage and it aa5 gave her diarrhea bad". Pt reports diarrhea, denies vomiting. Pt reports last chemo was last Friday. Transition of care: patient was not received from another setting of care. Onset of symptoms was July 2019. Risk Assessment: Do you want to hurt yourself or someone else? Patient reports no desire to harm self or others. Initial Sepsis Screen: Does the patient meet any 2 criteria? No. Patient's initial sepsis screen is negative. Does the patient have a suspected source of infection? No. Patient's initial sepsis screen is negative. Care prior to arrival: None. 11:19 Acuity: JAMES 3 aa5 11:19 Method Of Arrival: Ambulatory aa5 Triage Assessment: 11:20 General: Appears in no apparent distress. comfortable, Behavior is cooperative, bp appropriate for age. Pain: Denies pain. EENT: No deficits noted. Neuro: No deficits noted. Cardiovascular: No deficits noted. Respiratory: No deficits noted. GI: Reports diarrhea. : No signs and/or symptoms were reported regarding the genitourinary system. Derm: No deficits noted. Musculoskeletal: No deficits noted. Historical: - Allergies: 11:20 Codeine; aa5 - PMHx: 11:20 colon cancer; Hypertension; PE; Thyroid problem; aa5 - PSHx: 11:20 BRAIN; Hysterectomy; BLADDER SLING; Lithotripsy; Bowel resection; aa5 - Immunization history:: Adult Immunizations up to date. - Social history:: Smoking status: Patient/guardian denies using tobacco. - Ebola Screening: : No symptoms or risks identified at this time. - Family history:: not pertinent. - Hospitalizations: : No recent hospitalization is reported. Screenin:27 Abuse screen: Denies threats or abuse. Denies injuries from another. Nutritional bp screening: No deficits noted. Tuberculosis screening: No symptoms or risk factors identified. Fall Risk None identified. Assessment: 11:20 General: SEE TRIAGE NOTE. bp 12:30 Reassessment: PORT ACCESSED, PER MD. CT PENDING. bp 13:45 Reassessment: PT RETURNED FROM CT. bp 15:41 Reassessment: ADMIT IN PROCESS. bp Vital Signs: 11:21 BP 95 / 60; Pulse 107; Resp 16 S; Temp 97.3(TE); Pulse Ox 100% on R/A; Weight 58.97 kg aa5 (R); Height 5 ft. 1 in. (154.94 cm) (R); 12:30 BP 100 / 64; Pulse 90; Resp 16; Pulse Ox 100% ; bp 13:46 BP 117 / 39; Pulse 81; Resp 16; Pulse Ox 100% ; bp 15:42 BP 101 / 63; Pulse 78; Resp 16; Pulse Ox 98% ; bp 16:33 BP 92 / 67; Pulse 77; Resp 16; Pulse Ox 100% ; bp 11:21 Body Mass Index 24.56 (58.97 kg, 154.94 cm) aa5 ED Course: 11:15 Patient arrived in ED. rg4 11:16 Alina Wilson MD is Private Physician. rg4 11:19 Arm band placed on. aa5 11:20 Triage completed. aa5 11:26 Bhanu Irvin, RN is Primary Nurse. bp 11:27 Patient has correct armband on for positive identification. Bed in low position. Call bp light in reach. Side rails up X2. Adult w/ patient. 11:30 Meño Borjas MD is Attending Physician. rn 12:00 Accessed Port-a-Cath. using accessed w/ #19 Pinedo needle, ,sterile technique, per hospital protocol. Clean \\T\\ dry. Dressing intact. Good blood return. Flushes easily. 13:[address] via wheelchair. md1 13:37 CT Abd/Pelvis - IV Contrast Only In Process Unspecified. EDMS 14:34 Alina Wilson MD is Hospitalizing Provider. rn 16:32 No provider procedures requiring assistance completed. Patient admitted, IV remains in bp place. Administered Medications: 12:00 Drug: NS 0.9% 1000 ml Route: IV; Rate: 1000 ml; Site: Port-a-cath; bp 16:31 Follow up: IV Status: Completed infusion; IV Intake: 1000ml bp 12:00 Drug: Lactated Ringers Solution 1000 ml Route: IV; Rate: 150 ml/hr; Site: Port-a-cath; bp 16:31 Follow up: IV Status: Completed infusion; IV Intake: 700ml bp 12:00 Drug: Zofran 4 mg Route: IVP; Site: Port-a-cath; bp 16:30 Follow up: Response: No adverse reaction; Nausea is decreased bp 15:00 Drug: Rocephin - (cefTRIAXone) 1 grams Route: IVPB; Infused Over: 30 mins; Site: right bp antecubital; 16:30 Follow up: IV Status: Completed infusion; IV Intake: 50ml bp 15:00 Drug: Flagyl 500 mg Volume: 100 ml; Route: IVPB; Rate: 200 ml/hr; Infused Over: 30 bp mins; Site: right antecubital; 16:29 Follow up: IV Status: Completed infusion; IV Intake: 100ml bp Intake: 16:29 IV: 100ml; Total: 100ml. bp 16:30 IV: 50ml; Total: 150ml. bp 16:31 IV: 700ml; Total: 850ml. bp 16:31 IV: 1000ml; Total: 1850ml. bp Outcome: 14:34 Decision to Hospitalize by Provider. rn 16:32 Admitted to Med/surg accompanied by tech, family with patient, via wheelchair, room bp 228, with chart, Report called to FABBY BRIONES 16:32 Condition: stable 16:32 Instructed on the need for admit. 16:54 Patient left the ED. bp Signatures: Dispatcher [employer] EDMS Meño Borjas MD MD rn Calderon, Audri, RN RN [id number] Maureen Ames4 Bhanu Irvin RN RN bp [place], Mikaela md1
[2019-08-09] MEDS ORDERED: CEFTRIAXONE/SWI 1gm 1 GM/10 ML SYR ONE (15:36)
[2019-08-09 15:45] LABS: Urine Bacteria 20-50 /HPF (<20); Urine Culture Reflex Order NOT NEEDED; Urine Mucus 2+ /HPF (NONE SEEN)
[2019-08-09 15:45] LABS: Urine Blood TRACE (NEG); Urine Glucose NEGATIVE (NEG); Urine Protein 1+ (NEG); Urine pH 5.5 (5.0-7.0)
[2019-08-09] MEDS ORDERED: ONDANSETRON 4 MG/2 ML VIAL IV PRN (16:44)
[2019-08-09] MEDS ORDERED: CEFTRIAXONE/SWI 1gm 1 GM/10 ML SYR IVP SCH (17:00)
[2019-08-09] MEDS: METRONIDAZOLE 500mg IVPB 500 MG/100 ML BAG IV SCH (17:00)
[2019-08-09 17:32] VITALS: BMI 24.1
[2019-08-09] MEDS: NA CHLORIDE 0.9% 1,000 ML IV SCH (17:44)
[2019-08-09] MEDS ORDERED: CEFTRIAXONE 1 GM/NS 50 ML 1 GM/50 ML BAG IV SCH (23:00)
[2019-08-10] MEDS: METRONIDAZOLE 500mg IVPB 500 MG/100 ML BAG IV SCH ×4 (01:09→17:54)
[2019-08-10] MEDS: NA CHLORIDE 0.9% 1,000 ML IV SCH ×2 (04:39→12:16)
--- NOTE | 2019-08-10 05:32 | HP ---
Date of Admission: 08/09/2019 Chief Complaint: Diarrhea. History Of Present Illness: This is a 69-year-old female patient, who is undergoing chemotherapy for her colon cancer and sees Dr. Sheffield regularly. Her last chemotherapy was 1 week ago. As of Fr vasile of last week, she started to have diarrhea. She has diarrhea from time to time, but this time h er diarrhea was lot worse than usual and in 24 hours her diarrhea frequency is about 15 times a day a s she reported. Her symptoms did not improve, so today she came into the emergency room and after sh alicia was evaluated she was admitted to the hospital. Patient denies any blood in stool. No nausea. No vomiting. No fever, chills. No abdominal pain. Allergies: CODEINE. Medications: List reviewed. Review of Systems: GI: As mentioned above. All other systems reviewed and negative. Social History: Negative for smoking, alcohol use. Family History: Significant for hypertension, diabetes, coronary artery disease. Social History: Negative for smoking or alcohol use. Past Surgical History: Breast implant, tubal ligation, hysterectomy, repair of cerebral aneurysm in 2008, cystocele repair, clipping of cerebral aneurysm in 2003. 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 Physical Examination: Vital Signs: Temperature 97.9, pulse 82, respiratory rate 18, blood pressure 112/76, oxygen saturati on 100%. Height 5 feet, 11.5 inches, weight 130 pounds. General: Awake, alert, oriented, not in distress. HEENT: Head atraumatic, normocephalic. Conjunctivae nonerythematous. Sclerae white. Mouth, no thr ush or edema noted. Ears/Nose, no mass, lesion, discharge noted. Neck: Supple. No JVD, lymph nodes, bruit, thyromegaly noted. Lungs: Bilateral good equal air entry. Clear to auscultation. No rhonchi. No rales. Heart: Normal heart sounds, no murmur or gallop. Abdomen: Soft, bowel sounds normal. No guarding, rigidity, tenderness, mass, hepatosplenomegaly, dis tention, or bruit noted. Extremities: No leg edema. No calf tenderness. Skin: No rash, ulcer, cellulitis. Lymphatics: No lymph node enlargement in neck, supraclavicular, infraclavicular region. Neuro: No focal neurological deficit. Chest: Unremarkable. External Genitalia: Deferred. Rectal: Deferred. Laboratory Data: White count 6.3, hemoglobin 8.3, platelets 33. Sodium 146, potassium 4.4, chloride 117, bicarb 22, BUN 16, creatinine 0.66, BUN 16, creatinine 0.66, glucose 138, SGOT 40. Rest of the liver function test normal. Alkaline phosphatase 244, lipase 74. Urinalysis positive for nitrite, esterase, trace. WBC 10-20, bacteria 20-50. CAT scan of abdomen shows presence of gallstone and mil [id number] rectosigmoid colitis and urinary bladder may be due to recent instrumentation or cystit is. Impression: 1.Colitis, infectious. 2.Thrombocytopenia. 3.Anemia. 4.Colon cancer. 5.History of pulmonary embolism. 6.History of deep vein thrombosis of leg. 7.Chronic anticoagulation therapy. 8.Hypertension. 9.Hyperlipidemia. 10.Hypothyroidism. 11.Gastroesophageal reflux disease. 12.Impaired fasting glucose. Plan: Admit the patient to hospital for further evaluation and management of this problem. We will go ahead patient is appropriate for inpatient and is expected to spend 2 midnights in hosp ital. Home medications will be continued per order, but we will not give any anticoagulation therapy at this point and we will consult oncologist Dr. Sheffield for this thrombocytopenia pro blem. We will go ahead and give her IV fluid . Details and plan of treatment discussed wi th the patient. ROBERT/MODL Voice ID: [id number]
[2019-08-10 07:14] LABS: Absolute Lymphocytes (CBC) 0.8 K/uL (0.7-4.9); Basophils % 0.8 % (0-1.3); Hematocrit 19.4 % (36.0-45.0); Lymphocytes % 27.9 % (15.3-44.8)
[2019-08-10 07:19] LABS: BUN Blood Urea Nitrogen 10 mg/dL (7-18); Bicarbonate 21 mmol/L (21-32); Glucose Level 97 mg/dL (74-106); Potassium 3.5 mmol/L (3.5-5.1); Sodium Level 146 mmol/L (136-145)
[2019-08-10 08:58] LABS: RBC Red Blood Cell Count 2.09 M/uL (3.86-4.86)
[2019-08-10 09:05] LABS: Protime INR 1.26
[2019-08-10] MEDS: CIPROFLOXACIN 400mg IV 400 MG/200 ML BAG IV SCH ×2 (09:28→23:03)
[2019-08-10 09:32] LABS: Ferritin 1955.7 ng/mL (8-388)
[2019-08-10 10:06] LABS: Anisocytosis 1+; Blood Morphology Comment NOTED (NOT SEEN); Platelet Estimate DECR; Teardrop Cell 1+
[2019-08-10] MEDS ORDERED: NA CHLORIDE 0.9% 250 ML ONE ×3 (10:13→22:29)
[2019-08-11] MEDS: METRONIDAZOLE 500mg IVPB 500 MG/100 ML BAG IV SCH ×4 (00:07→17:35)
[2019-08-11 00:19] LABS: Absolute Lymphocytes (CBC) 0.9 K/uL (0.7-4.9); Hematocrit 32.1 % (36.0-45.0); Lymphocytes % 32.6 % (15.3-44.8); MPV 10.7 fL (7.6-11.3); RBC Red Blood Cell Count 3.48 M/uL (3.86-4.86)
--- NOTE | 2019-08-11 00:34 | PN ---
Date of Progress Note: 08/10/2019 Subjective: Patient was seen this morning for followup. She was lying in bed, not in any distress. No new complaints or problems reported by her. Denies any hemoptysis, nosebleed. No blood in urine . No blood in stool. She does have some bruises on her skin. She has been getting those bruises la tely. Objective: Vital Signs: Reviewed. HEENT: Unremarkable. Lungs: Clear to auscultation. Heart: Sounds normal. Abdomen: Soft. Bowel sounds normal. No guarding, rigidity, tenderness, or distention. Extremities: No leg edema. Laboratory Data: White count 2.8, hemoglobin 6.4, platelets 19. Sodium 146, potassium 3.5, chloride 118, bicarb 21, BUN 10, creatinine 0.46, glucose 97. Impression: 1.Colitis, infectious. 2.Thrombocytopenia secondary to chemotherapy. 3.Anemia secondary to chemotherapy. 4.Colon cancer. Plan: We will go ahead and continue antibiotic, which is Cipro, metronidazole. Follow up with hemat ologist/oncologist. We will give 3 units of PRBC blood transfusion and 1 unit of single donor platel et, and follow up on CBC after the blood transfusion is completed. I will see her tomorrow for suyapa lim. ROBERT/MODL Voice ID: [id number] Report ID: [id number]
[2019-08-11] MEDS: NA CHLORIDE 0.9% 1,000 ML IV SCH ×2 (05:43→08:00)
[2019-08-11] MEDS: CIPROFLOXACIN 400mg IV 400 MG/200 ML BAG IV SCH ×2 (08:35→21:16)
[2019-08-11] MEDS: MAGNESIUM OXIDE 400 MG TAB PO SCH ×2 (08:36→21:00)
[2019-08-11] MEDS: PANTOPRAZOLE 40MG TABLET PO SCH (08:36)
[2019-08-11 09:08] LABS: Basophils % 0.7 % (0-1.3); Hematocrit 38.2 % (36.0-45.0); MPV 9.9 fL (7.6-11.3)
[2019-08-11 09:18] LABS: BUN Blood Urea Nitrogen 4 mg/dL (7-18); Bicarbonate 22 mmol/L (21-32); Glucose Level 113 mg/dL (74-106); Sodium Level 145 mmol/L (136-145)
[2019-08-11 13:49] LABS: C.diff Antigen/Toxin Ag neg : Tox neg (NEG : NEG)
[2019-08-11] MEDS ORDERED: POTASSIUM CL SA 10 MEQ TAB PO ONE ×2 (17:00→23:44)
[2019-08-11] MEDS: ACETAMINOPHEN 500 MG TAB PO PRN (17:34)
[2019-08-11] MEDS: ATORVASTATIN 10 MG TAB PO SCH (21:13)
[2019-08-11] MEDS: ENSURE HIGH PROTEIN 237 ML CAN PO SCH (21:20)
--- NOTE | 2019-08-12 00:12 | PN ---
Date of Progress Note: 08/11/2019 Subjective: Patient was seen this morning for followup. No new complaints or problems reported by h er. Lying in bed, not in distress. Her diarrhea is a little bit better compared to what it was when she first came in. Denies nausea, vomiting. Objective: Vital Signs: Reviewed. HEENT: Unremarkable. Lungs: Clear to auscultation. Heart: Sounds normal. Abdomen: Soft. Bowel sounds normal. No guarding, rigidity, tenderness, distention. Extremities: No leg edema. Laboratory Data: Today's blood work results reviewed. Impression: 1.Colitis. 2.Anemia. 3.Thrombocytopenia. 4.Colon cancer. 5.Hypokalemia. Plan: We will replace potassium per protocol. No need for any blood transfusion or platelet transfu anushka. Details were discussed with Dr. Sheffield and she suggested to restart her anticoagulation th erapy once platelet count gets higher than 50,000. We will repeat blood work tomorrow. I will see h er tomorrow for followup. Depending on her condition, we will make a decision about possible dischar ge in the next day or 2 days. Stool test result pending. ROBERT/MODL Voice ID: [id number] Report ID: [id number]
[2019-08-12] MEDS: METRONIDAZOLE 500mg IVPB 500 MG/100 ML BAG IV SCH ×4 (00:15→17:41)
[2019-08-12] MEDS: NA CHLORIDE 0.9% 1,000 ML IV SCH (04:06)
[2019-08-12] MEDS: LEVOTHYROXINE SOD 0.075 MG TAB PO SCH (05:50)
[2019-08-12 06:10] LABS: Absolute Lymphocytes (CBC) 1.4 K/uL (0.7-4.9); Hematocrit 37.4 % (36.0-45.0); Lymphocytes % 56.8 % (15.3-44.8); MPV 9.2 fL (7.6-11.3); RBC Red Blood Cell Count 4.06 M/uL (3.86-4.86)
[2019-08-12 06:26] LABS: BUN Blood Urea Nitrogen 3 mg/dL (7-18); Bicarbonate 23 mmol/L (21-32); Glucose Level 102 mg/dL (74-106); Magnesium 1.7 mg/dL (1.8-2.4); Potassium 3.7 mmol/L (3.5-5.1); Sodium Level 147 mmol/L (136-145)
[2019-08-12] MEDS: PANTOPRAZOLE 40MG TABLET PO SCH (08:55)
[2019-08-12] MEDS: CIPROFLOXACIN 400mg IV 400 MG/200 ML BAG IV SCH ×2 (08:55→20:56)
[2019-08-12] MEDS: MAGNESIUM OXIDE 400 MG TAB PO SCH ×2 (08:57→20:55)
[2019-08-12] MEDS ORDERED: MAGNESIUM SULFATE 1 gm IVPB 1 GM/100 ML BAG IV ONE (09:00)
[2019-08-12] MEDS ORDERED: POTASSIUM CL SA 10 MEQ TAB PO ONE (09:00)
[2019-08-12] MEDS: ENSURE HIGH PROTEIN 237 ML CAN PO SCH ×2 (09:02→20:57)
[2019-08-12] MEDS: ATORVASTATIN 10 MG TAB PO SCH (20:56)
--- NOTE | 2019-08-12 22:37 | PN ---
Date of Progress Note: 08/12/2019 Subjective: Patient was seen this morning for followup. No new complaints or problems reported by jasbir costello. Lying in bed, not in distress. She continues to have diarrhea and frequency, got little bit better, but reports about 7 bowel movements during daytime and some more during night. Her stool is still loose to watery. No abdominal pain. No nausea. No vomiting. Objective: Vital Signs: Reviewed. HEENT: Unremarkable. Lungs: Clear to auscultation. Heart: Sounds normal. Abdomen: Soft. Bowel sounds normal. No guarding, rigidity, tenderness, or distention. Extremities: No leg edema. Laboratory Data: White count 2.4, hemoglobin 12.8, platelets 46. Sodium 147, potassium 3.7, chlorid e 117, bicarb 23, BUN 3, creatinine 0.63, glucose 102, magnesium 1.7. Impression: 1.Colitis. 2.Anemia. 3.Thrombocytopenia. 4.Hypokalemia. 5.Hypomagnesemia. Plan: We will go ahead and continue current antibiotics. Follow up on stool test once the result is available. No need for blood product transfusion anymore. We will continue to monitor electrolytes , renal function, and blood count; and at appropriate time, we will resume her anticoagulation therapy. Details and plan of treatment discussed with her. ROBERT/MODL Voice ID: [id number] Report ID: [id number]
[2019-08-13] MEDS: NA CHLORIDE 0.9% 1,000 ML IV SCH (00:19)
[2019-08-13] MEDS: METRONIDAZOLE 500mg IVPB 500 MG/100 ML BAG IV SCH ×4 (00:20→17:51)
[2019-08-13] MEDS: ACETAMINOPHEN 500 MG TAB PO PRN (00:21)
[2019-08-13 05:29] LABS: BUN Blood Urea Nitrogen 2 mg/dL (7-18); Bicarbonate 19 mmol/L (21-32); Glucose Level 106 mg/dL (74-106); Magnesium 1.9 mg/dL (1.8-2.4); Potassium 2.7 mmol/L (3.5-5.1); Sodium Level 145 mmol/L (136-145)
[2019-08-13] MEDS: LEVOTHYROXINE SOD 0.075 MG TAB PO SCH (05:45)
[2019-08-13 06:09] LABS: Absolute Lymphocytes (CBC) 1.5 K/uL (0.7-4.9); Basophils % 1.2 % (0-1.3); Hematocrit 37.9 % (36.0-45.0); MPV 9.1 fL (7.6-11.3); RBC Red Blood Cell Count 4.07 M/uL (3.86-4.86)
[2019-08-13] MEDS: KCL 20 MEQ/100 mL IVPB 20 MEQ/100 ML BAG IV SCH ×3 (06:54→11:21)
[2019-08-13] MEDS: MAGNESIUM OXIDE 400 MG TAB PO SCH ×2 (09:00→20:34)
[2019-08-13] MEDS: CIPROFLOXACIN 400mg IV 400 MG/200 ML BAG IV SCH ×2 (09:17→20:32)
[2019-08-13] MEDS: PANTOPRAZOLE 40MG TABLET PO SCH (09:20)
[2019-08-13] MEDS: ENSURE HIGH PROTEIN 237 ML CAN PO SCH ×2 (09:21→20:34)
[2019-08-13 14:17] LABS: C.diff Antigen/Toxin Ag neg : Tox neg (NEG : NEG)
--- NOTE | 2019-08-13 16:38 | PN ---
Date of Progress Note: 08/13/2019 Subjective: Patient was seen this morning for followup. No new complaints or problems reported by jasbir costello. She was sitting at bedside, eating breakfast. Her appetite is improving. Diarrhea is vance r. She probably had about 6 to 7 times diarrhea stool in last 24 hours, which is better than previou s 24 hours. No nausea, no vomiting. No abdominal pain. Objective: Vital Signs: Reviewed. HEENT: Unremarkable. Lungs: Clear to auscultation. Heart: Sounds normal. Abdomen: Soft. Bowel sounds normal. No guarding, rigidity, tenderness, or distention. Extremities: No leg edema. Laboratory Data: White count 3.1, hemoglobin 12.9, platelets 46. Sodium 145, potassium 2.7, chlorid e 115, bicarb 19, BUN 2, creatinine 0.59, glucose 106. Impression: 1.Colitis. 2.Hypokalemia. 3.Thrombocytopenia. 4.Colon cancer. 5.Hypomagnesemia. Plan: Patient's cortisol level today was 21.47. We will replace electrolytes per protocol. Continu e current antibiotics and we will go ahead and continue to hold her anticoagulant medication consider ing thrombocytopenia at this point. I will see her tomorrow for followup. Stool test is pending. ROBERT/MODL Voice ID: [id number] Report ID: [id number]
[2019-08-13] MEDS ORDERED: POTASSIUM CL SA 10 MEQ TAB PO ONE (17:38)
[2019-08-13] MEDS: ATORVASTATIN 10 MG TAB PO SCH (20:32)
[2019-08-14] MEDS: METRONIDAZOLE 500mg IVPB 500 MG/100 ML BAG IV SCH ×4 (01:28→17:12)
[2019-08-14] MEDS ORDERED: POTASSIUM CL SA 10 MEQ TAB PO ONE ×2 (06:22→18:37)
[2019-08-14] MEDS: LEVOTHYROXINE SOD 0.075 MG TAB PO SCH (06:41)
[2019-08-14] MEDS: NA CHLORIDE 0.9% 1,000 ML IV SCH ×2 (06:45→16:00)
[2019-08-14] MEDS: CIPROFLOXACIN 400mg IV 400 MG/200 ML BAG IV SCH ×2 (08:29→20:50)
[2019-08-14] MEDS: ENSURE HIGH PROTEIN 237 ML CAN PO SCH ×2 (08:29→20:50)
[2019-08-14] MEDS: PANTOPRAZOLE 40MG TABLET PO SCH (08:30)
[2019-08-14] MEDS: MAGNESIUM OXIDE 400 MG TAB PO SCH ×2 (08:36→20:51)
[2019-08-14] MEDS: CHOLESTYRAMINE/ASP 4 GM/PKT PO SCH ×2 (11:37→17:12)
--- NOTE | 2019-08-14 18:21 | PN ---
Date of Progress Note: 08/14/2019 Subjective: Patient was seen this morning for followup. No new complaints or problems reported by jasbir costello. She was lying in bed, not in distress. Diarrhea still continues. She has about 3-4 bowel m ovements during daytime and about 4 bowel movements during nighttime. No nausea or vomiting. No abd ominal pain. Objective: HEENT: Unremarkable. Lungs: Clear to auscultation. Cardiac: Heart sounds normal. Abdomen: Soft. Bowel sounds normal. No guarding, rigidity, tenderness, or distention. Extremities: No leg edema. Laboratory Data: Potassium 3.3. Impression: 1.Colitis. 2.Hypokalemia. 3.Hypomagnesemia. 4.Anemia. 5.Thrombocytopenia. 6.Colon cancer. Plan: We will go ahead and replace electrolytes per protocol. Continue current antibiotics. Stool C diff negative. Stool culture result pending. We will start the patient on cholestyramine that she was prescribed in the past, and it actually did help her diarrhea in the past. She has diarrhea fro m time to time, which is nothing new for her. I will see her tomorrow for followup and we will repea t blood work tomorrow. Possible discharge tomorrow depending on her condition. ROBERT/MODL Voice ID: [id number] Report ID: [id number]
[2019-08-14] MEDS: ATORVASTATIN 10 MG TAB PO SCH (20:49)
[2019-08-15] MEDS: METRONIDAZOLE 500mg IVPB 500 MG/100 ML BAG IV SCH ×2 (00:19→06:20)
[2019-08-15] MEDS ORDERED: POTASSIUM CL SA 10 MEQ TAB PO ONE ×4 (01:33→23:56)
[2019-08-15 05:36] LABS: Basophils % 0.7 % (0-1.3); Hematocrit 35.7 % (36.0-45.0); Lymphocytes % 25.2 % (15.3-44.8); MPV 8.6 fL (7.6-11.3)
[2019-08-15 05:46] LABS: BUN Blood Urea Nitrogen 2 mg/dL (7-18); Bicarbonate 19 mmol/L (21-32); Glucose Level 120 mg/dL (74-106); Magnesium 1.5 mg/dL (1.8-2.4); Potassium 3.3 mmol/L (3.5-5.1); Sodium Level 148 mmol/L (136-145)
[2019-08-15] MEDS: LEVOTHYROXINE SOD 0.075 MG TAB PO SCH (06:21)
[2019-08-15] MEDS: NA CHLORIDE 0.9% 1,000 ML IV SCH (07:10)
[2019-08-15] MEDS: PANTOPRAZOLE 40MG TABLET PO SCH (08:28)
[2019-08-15] MEDS: ENSURE HIGH PROTEIN 237 ML CAN PO SCH ×2 (08:29→21:29)
[2019-08-15] MEDS: MAGNESIUM OXIDE 400 MG TAB PO SCH ×2 (08:29→21:00)
[2019-08-15] MEDS: CHOLESTYRAMINE/ASP 4 GM/PKT PO SCH ×2 (08:29→16:29)
[2019-08-15] MEDS: CIPROFLOXACIN 400mg IV 400 MG/200 ML BAG IV SCH ×2 (08:30→21:28)
[2019-08-15] MEDS ORDERED: MAGNESIUM SULFATE 1 gm IVPB 1 GM/100 ML BAG IV ONE (09:00)
[2019-08-15] MEDS ORDERED: VANCOMYCIN/NS 1 gm 1 GM/250 ML BAG IVPB SCH (09:00)
[2019-08-15] MEDS: D5W 1,000 ML IV SCH ×2 (09:22→21:30)
[2019-08-15] MEDS: VANCOMYCIN/NS 1 gm 1 GM/250 ML BAG IVPB SCH (09:23)
[2019-08-15 09:39] LABS: Anisocytosis 1+; Blood Morphology Comment NOTED (NOT SEEN); Platelet Estimate DECR; Teardrop Cell 1+
--- NOTE | 2019-08-15 14:43 | PN ---
Date of Progress Note: 08/15/2019 Subjective: Patient was seen this morning for followup. She was sitting at bedside, overall reporte d that she is feeling much better. Had only 2 to 3 bowel movements during nighttime and 2 to 3 times during day yesterday. No nausea. No vomiting. Appetite is better. Objective: Vital Signs: Reviewed. HEENT: Unremarkable. Lungs: Clear to auscultation. Heart: Sounds normal. Abdomen: Soft. . No guarding, rigidity, tenderness, or distention. Extremities: No leg edema. Laboratory Data: White count 7.9, hemoglobin 12.1, platelets 69. Sodium 148, potassium 3.3, chlorid e 121, bicarb 19, BUN 2, creatinine 0.57, glucose 120, magnesium 1.5. Stool C diff came back negativ e. Stool culture growing MRSA. Urine culture growing klebsiella. Impression: 1.Colitis, organism methicillin-resistant Staphylococcus aureus. 2.Urinary tract infection, organism klebsiella. 3.Hypokalemia. 4.Hypomagnesemia. 5.Anemia. 6.Thrombocytopenia. 7.Hypotension. 8.Patient's systolic blood pressure was 87, diastolic 52 this morning vital signs taken b y nurse's aide and nurse actually checked manual blood pressure after I saw the vital signs this morn ing and it was 102 systolic. We will go ahead and change her IV fluid to D5W at 100 cc/hour. Discon tinue metronidazole and we will start her on vancomycin per order. Replace electrolyte per protocol. We will repeat blood work tomorrow morning. Her platelet count is more than 50 and if we see anoth er blood work tomorrow also showing similar results of platelet count more than 50, then we will star t her Eliquis starting tomorrow. Depending on how she does, overall, our plan is to discharge her po tentially to go home on Friday or Friday of this coming week with oral antibiotics. We will cont inue current Cipro for urinary tract infection. Upon discharge, plan is to discharge her to go home with oral Bactrim. ROBERT/MODL Voice ID: [id number] Report ID: [id number]
[2019-08-15] MEDS: ATORVASTATIN 10 MG TAB PO SCH (21:29)
[2019-08-15] MEDS: POTASSIUM 25 MEQ EFFERV TAB PO ONE ×2 (23:29→23:53)
[2019-08-16] MEDS: VANCOMYCIN/NS 1 gm 1 GM/250 ML BAG IVPB SCH ×2 (02:18→21:08)
[2019-08-16 05:12] LABS: Absolute Lymphocytes (CBC) 2.5 K/uL (0.7-4.9); Basophils % 1.4 % (0-1.3); Hematocrit 34.3 % (36.0-45.0); Lymphocytes % 22.6 % (15.3-44.8); MPV 8.5 fL (7.6-11.3); RBC Red Blood Cell Count 3.65 M/uL (3.86-4.86)
[2019-08-16 05:32] LABS: BUN Blood Urea Nitrogen 2 mg/dL (7-18); Bicarbonate 20 mmol/L (21-32); Glucose Level 143 mg/dL (74-106); Magnesium 1.9 mg/dL (1.8-2.4); Potassium 3.8 mmol/L (3.5-5.1); Sodium Level 146 mmol/L (136-145)
[2019-08-16] MEDS: LEVOTHYROXINE SOD 0.075 MG TAB PO SCH (06:15)
[2019-08-16] MEDS: D5W 1,000 ML IV SCH ×2 (06:16→17:02)
[2019-08-16 06:43] LABS: Blood Morphology Comment NOT SEEN (NOT SEEN); Platelet Estimate DECR
[2019-08-16] MEDS ORDERED: POTASSIUM CL SA 10 MEQ TAB PO ONE (09:00)
[2019-08-16] MEDS: MAGNESIUM OXIDE 400 MG TAB PO SCH ×2 (09:00→21:10)
[2019-08-16] MEDS: CIPROFLOXACIN 400mg IV 400 MG/200 ML BAG IV SCH ×2 (09:09→21:09)
[2019-08-16] MEDS: APIXABAN 5 MG TABLET PO SCH ×2 (09:10→21:10)
[2019-08-16] MEDS: CHOLESTYRAMINE/ASP 4 GM/PKT PO SCH ×2 (09:10→17:00)
[2019-08-16] MEDS: PANTOPRAZOLE 40MG TABLET PO SCH (09:11)
[2019-08-16] MEDS: ENSURE HIGH PROTEIN 237 ML CAN PO SCH ×2 (09:12→21:14)
[2019-08-16] MEDS: ACETAMINOPHEN 500 MG TAB PO PRN (17:03)
[2019-08-16] MEDS: ATORVASTATIN 10 MG TAB PO SCH (21:10)
--- NOTE | 2019-08-17 01:15 | PN ---
Date of Progress Note: 08/16/2019 Subjective: Patient was seen this morning for followup. Overall, she feels better compared to befor e. Diarrhea is better. She had 2 to 3 bowel movements during daytime and nighttime. No nausea, no vomiting. Objective: Vital Signs: Reviewed. HEENT: Unremarkable. Lungs: Clear to auscultation. Heart: Sounds normal. Abdomen: Soft. Bowel sounds normal. No guarding, rigidity, tenderness, or distention. Extremities: No leg edema. Laboratory Data: White count 11.1, hemoglobin 11.9, platelets 85. Sodium 146, potassium 3.8, chlori de 119, bicarb 20, BUN 2, creatinine 0.60, glucose 143, magnesium 1.9. Impression: 1.Colitis, organism methicillin-resistant Staphylococcus aureus. 2.Thrombocytopenia. 3.Anemia. 4.Hypokalemia. 5.Volume depletion. Plan: We will go ahead and continue current IV fluid to D5W and continue current antibiotics per ord er. We will see her tomorrow for followup. WBC count has slightly gone up. We will repeat blood wo rk tomorrow morning. Depending on her blood work and overall condition, we will decide if she is sta ble for discharge tomorrow or not with oral antibiotics. I will see her tomorrow morning for followu p. As of today, we will restart her Eliquis since platelet count is stable and more than 50,000 for 2 days in a row. ROBERT/MODL Voice ID: [id number] Report ID: [id number]
[2019-08-17] MEDS: D5W 1,000 ML IV SCH (03:30)
[2019-08-17 05:17] LABS: Absolute Lymphocytes (CBC) 3.2 K/uL (0.7-4.9); Basophils % 0.5 % (0-1.3); Hematocrit 36.6 % (36.0-45.0); Lymphocytes % 26.7 % (15.3-44.8); MPV 8.5 fL (7.6-11.3); RBC Red Blood Cell Count 3.88 M/uL (3.86-4.86)
[2019-08-17] MEDS: LEVOTHYROXINE SOD 0.075 MG TAB PO SCH (05:27)
[2019-08-17 05:45] LABS: BUN Blood Urea Nitrogen 3 mg/dL (7-18); Bicarbonate 22 mmol/L (21-32); Glucose Level 112 mg/dL (74-106); Magnesium 1.9 mg/dL (1.8-2.4); Potassium 3.7 mmol/L (3.5-5.1); Sodium Level 145 mmol/L (136-145)
[2019-08-17] MEDS ORDERED: POTASSIUM CL SA 10 MEQ TAB PO ONE (05:57)
[2019-08-17] MEDS: CHOLESTYRAMINE/ASP 4 GM/PKT PO SCH (08:32)
[2019-08-17] MEDS: PANTOPRAZOLE 40MG TABLET PO SCH (08:33)
[2019-08-17] MEDS: MAGNESIUM OXIDE 400 MG TAB PO SCH (08:33)
[2019-08-17] MEDS: APIXABAN 5 MG TABLET PO SCH (08:33)
[2019-08-17] MEDS: ENSURE HIGH PROTEIN 237 ML CAN PO SCH (08:34)
[2019-08-17] MEDS: CIPROFLOXACIN 400mg IV 400 MG/200 ML BAG IV SCH (08:36)
[2019-08-17 08:40] VITALS: BP 113/62; TEMP 97.6
[2019-08-17] MEDS ORDERED: HEPARIN 500 UNIT/5 ML SYR IV PRN (08:49)
[2019-08-17 09:50] VITALS: O2SAT 95
== END 2019-08-17 09:56 | disposition home or self-care (01) | DRG 372 ==
LOC: ER 11:12 → ERHOLD 15:02 → 2ND 16:31
PROVIDERS: ADMIT Internal Medicine; ATTEND Internal Medicine
PROC: 30233R1 Transfusion of Nonautologous Platelets into Peripheral Vein, Percutaneous Approach (ICD-10-PCS; principal; 2019-08-10)
PROC: 30233N1 Transfusion of Nonautologous Red Blood Cells into Peripheral Vein, Percutaneous Approach (ICD-10-PCS; 2019-08-10)
PROC: 30233N1 Transfusion of Nonautologous Red Blood Cells into Peripheral Vein, Percutaneous Approach (ICD-10-PCS; 2019-08-10)
PROC: 30233N1 Transfusion of Nonautologous Red Blood Cells into Peripheral Vein, Percutaneous Approach (ICD-10-PCS; 2019-08-10)
DX: A04.8 Other specified bacterial intestinal infections (principal); N39.0 Urinary tract infection, site not specified; C18.9 Malignant neoplasm of colon, unspecified; D69.6 Thrombocytopenia, unspecified; D64.9 Anemia, unspecified; I10 Essential (primary) hypertension; E78.5 Hyperlipidemia, unspecified; E03.9 Hypothyroidism, unspecified; K21.9 Gastro-esophageal reflux disease without esophagitis; E87.6 Hypokalemia; E83.42 Hypomagnesemia; R73.01 Impaired fasting glucose; B95.62 Methicillin resistant Staphylococcus aureus infection as the cause of diseases classified elsewhere; B96.1 Klebsiella pneumoniae [K. pneumoniae] as the cause of diseases classified elsewhere; Z86.711 Personal history of pulmonary embolism; Z86.718 Personal history of other venous thrombosis and embolism; Z79.01 Long term (current) use of anticoagulants
CPT/HCPCS: 36415; 36430; 74177; 80048; 80076; 81003; 81015; 82533; 82728; 83540; 83615; 83690; 83735; 84132; 85025; 85044; 85610; 85730; 86850; 86900; 86901; 87045; 87046; 87077; 87086; 87088; 87186; 87324; 87449; 96361; 96365; 96368; 96375; 97116; 97161; 99285; J0696; J0744; J1642; J2405; J3370; J3475; J7030; J7120; P9016; P9035; Q9967

== ENCOUNTER 2019-12-20 10:27 | Inpatient (IN) | payer OTHER ==
--- OUTSIDE RECORDS SUMMARY | 2019-12-20 10:29 | XMS REPORT ---
:1950 [facility] [address] [place] [address] Care Team Providers Name Role Phone HEBER SARGENT Octavia Unavailable Unavailable LOIDA QUESADA Unavailable Unavailable Problems This patient has no known problems. Allergies, Adverse Reactions, Alerts This patient has no known allergies or adverse reactions. Medications This patient has no known medications. Results Test Description Test Time Test Comments Text Results Atomic Results Result Comments PRAVIN SHRESTHAL FILTER 2019-01-18 18:03:00 Reason for FINAL REPORT PATIENT REMOVAL Exam:->[id number] ID: [id number] IVC filter removal. History: Filter no longer required Modality: Ultrasound and fluoroscopy. Sedation: Moderate sedation was administered. 3 mg of Versed and 200 mcg of fentanyl IV was used for moderate sedation monitored under my direction. Total intra-service time of sedation was 90 minutes. The patient's vital signs were monitored throughout the procedure and recorded in the patient's medical record by the nurse. Grocery Cashier: Blake Bay MD. Applications Processor: Jennifer Vines (fellow). Approach: Right internal jugular [...] The needle was removed and a 5 Kuwaiti straight multi-sidehole catheter was advanced to the distal IVC for a DSA cavagram. A 10 Kuwaiti angled tip Flexor sheath was advanced into the suprarenal IVC. Attempts were made to snare the filter without success given documented within the caval wall. Subsequently, the 10 Kuwaiti sheath was exchanged for a 16 Kuwaiti sheath. Endobronchial forceps were then used to dislodge the filter from the caval wall. A 12 Kuwaiti sheath was placed through the 16 Kuwaiti sheath. A 15 mm Amplatz gooseneck snare [...] filter removal performed without complication. Signed: Blake Bay MDReport Verified Date/Time: 01/18/2019 18:03:40 Reading Location: [place] [address] Angio Body Reading Room W/PLT COUNT & AUTO DIFFERENTIAL 2019-01-18 15:00:00 Test Item Value Reference Range Comments WHITE BLOOD CELL COUNT (BEAKER) (test naba=105) 13.3 K/ L 3.5-10.5 RED BLOOD CELL COUNT (BEAKER) (test dvfp=971) 3.25 M/ L 3.93-5.22 HEMOGLOBIN (BEAKER) (test ecop=932) 10.2 GM/DL 11.2-15.7 HEMATOCRIT (BEAKER) (test onbg=028) 31.9 % 34.1-44.9 MEAN CORPUSCULAR VOLUME (BEAKER) (test nikw=751) 98.2 fL 79.4-94.8 MEAN CORPUSCULAR HEMOGLOBIN (BEAKER) (test qkjf=828) 31.4 pg 25.6-32.2 MEAN CORPUSCULAR HEMOGLOBIN CONC (BEAKER) (test elju=106) 32.0 GM/DL 32.2- 35.5 RED CELL DISTRIBUTION WIDTH (BEAKER) (test knwv=771) 17.0 % 11.7-14.4 PLATELET COUNT (BEAKER) (test sntw=971) 79 K/CU MM 150-450 MEAN PLATELET VOLUME (BEAKER) (test eacr=762) 10.9 fL 9.4-12.3 NUCLEATED RED BLOOD CELLS (BEAKER) (test jqua=710) 0 /100 WBC 0-0 (CELLAVISION MANUAL DIFF)2019-01-18 15:00:00 Test Item Value Reference Range Comments NEUTROPHILS - REL (CELLAVISION)(BEAKER) (test 77 % mzlz=5061) LYMPHOCYTES - REL (CELLAVISION)(BEAKER) (test 21 % xaep=4511) BANDS - REL (CELLAVISION)(BEAKER) (test 2 % 0-10 vwau=4484) NEUTROPHILS - ABS (CELLAVISION)(BEAKER) (test 10.24 K/ul 1.56-6.13 ejaa=9909) LYMPHOCYTES - ABS (CELLAVISION)(BEAKER) (test 2.79 K/ul 1.18-3.74 ubtr=9617) BANDS - ABS (CELLAVISION)(BEAKER) (test 0.27 K/uL 0.00-0.80 hidl=5126) TOTAL COUNTED (BEAKER) (test filf=6225) 100 SMUDGE CELLS (BEAKER) (test souo=1280) Present GIANT PLATELETS (BEAKER) (test fvtn=665) Present ANISOCYTOSIS (BEAKER) (test lecm=999) 1+ few MICROCYTES (BEAKER) (test cqxx=726) 1+ few ARTIFACT (CELLAVISION)(BEAKER) (test ealp=6128) Present PLATELET CONCENTRATION (CELLAVISION)(BEAKER) Decreased (test gctk=8796) Received comment: User comments: Slide comments:BASIC METABOLIC [id number] 13:07:00 Test Item Value Reference Range Comments SODIUM (BEAKER) (test 143 meq/L 136-145 wwie=054) POTASSIUM (BEAKER) (test 3.8 meq/L 3.5-5.1 psnw=297) CHLORIDE (BEAKER) (test 109 meq/L 98-107 norh=757) CO2 (BEAKER) (test 25 meq/L 22-29 tuuh=303) BLOOD UREA NITROGEN 15 mg/dL 7-21 (BEAKER) (test tpae=860) CREATININE (BEAKER) (test 0.65 mg/dL 0.57-1.25 tucu=749) GLUCOSE RANDOM (BEAKER) 101 mg/dL 70-105 (test xluc=840) CALCIUM (BEAKER) (test 8.8 mg/dL 8.4-10.2 cozd=508) EGFR (BEAKER) (test 91 mL/min/1.73 sq m ESTIMATED GFR IS NOT hjax=7426) ACCURATE CREATININE CLEARANCE IN PREDICTING GLOMERULAR FILTRATION RATE. ESTIMATED GFR IS NOT APPLICABLE FOR DIALYSIS PATIENTS. PROTHROMBIN [id number] 13:01:00 Test Item Value Reference Range Comments PROTIME (BEAKER) (test rlvb=207) 13.7 seconds 11.7-14.7 INR (BEAKER) (test tbvr=082) 1.0 <=5.9 RECOMMENDED COUMADIN/WARFARIN INR THERAPY RANGESSTANDARD DOSE: 2.0 - 3.0 Includes: PROPHYLAXIS forvenous thrombosis, systemic embolization; TREATMENT for venous thrombosis and/or pulmonary embolus.HIGH RISK: Target INR is 2.5-3.5 for patients with mechanical heart valves.FADY, CAVAL FILTER [id number] 13:44:00Reason for exam:->IVC filter placementFINAL REPORT Inferior [...] guide wire was advanced centrally. A 4 Kuwaiti catheter was advanced to evaluate the inferior [...] MDReport Verified Date/Time: 10/26/2018 13:44:07 Reading Location: [facility] [address] Angio BodyReading Room BASI METABOLIC [id number] 21:43:00 Test Item Value Reference Range Comments SODIUM (BEAKER) (test 143 meq/L 136-145 xzxt=835) POTASSIUM (BEAKER) (test 3.1 meq/L 3.5-5.1 unsd=567) CHLORIDE (BEAKER) (test 112 meq/L 98-107 zkmb=702) CO2 (BEAKER) (test 21 meq/L 22-29 dovf=841) BLOOD UREA NITROGEN 5 mg/dL 7-21 (BEAKER) (test modz=243) CREATININE (BEAKER) (test 0.86 mg/dL 0.57-1.25 bzki=252) GLUCOSE RANDOM (BEAKER) 97 mg/dL 70-105 (test iato=860) CALCIUM (BEAKER) (test 8.8 mg/dL 8.4-10.2 byov=464) EGFR (BEAKER) (test 66 mL/min/1.73 sq m ESTIMATED GFR IS NOT ieki=3171) ACCURATE CREATININE CLEARANCE IN PREDICTING GLOMERULAR FILTRATION RATE. ESTIMATED GFR IS NOT APPLICABLE FOR DIALYSIS PATIENTS. [id number] 21:41:00 Test Item Value Reference Range Comments PROTIME (BEAKER) (test yusw=642) 14.3 seconds 11.7-14.7 INR (BEAKER) (test itrn=843) 1.1 <=5.9 PARTIAL THROMBOPLASTIN TIME (BEAKER) (test 23.7 seconds 22.5-36.0 otii=621) RECOMMENDED COUMADIN/WARFARIN INR THERAPY RANGESSTANDARD DOSE: 2.0 - 3.0 Includes: PROPHYLAXIS forvenous thrombosis, systemic embolization; TREATMENT for venous thrombosis and/or pulmonary embolus.HIGH RISK: Target INR is 2.5-3.5 for patients with mechanical heart valves.CBC W/PLT COUNT & AUTO [id number] 21:30:00 Test Item Value Reference Range Comments WHITE BLOOD CELL COUNT (BEAKER) (test ydtu=541) 10.0 K/ L 3.5-10.5 RED BLOOD CELL COUNT (BEAKER) (test asih=743) 2.98 M/ L 3.93-5.22 HEMOGLOBIN (BEAKER) (test ucqu=283) 9.4 GM/DL 11.2-15.7 HEMATOCRIT (BEAKER) (test dpdp=314) 29.9 % 34.1-44.9 MEAN CORPUSCULAR VOLUME (BEAKER) (test qbgg=232) 100.3 fL 79.4-94.8 MEAN CORPUSCULAR HEMOGLOBIN (BEAKER) (test 31.5 pg 25.6-32.2 aioa=665) MEAN CORPUSCULAR HEMOGLOBIN CONC (BEAKER) (test 31.4 GM/DL 32.2-35.5 trim=410) RED CELL DISTRIBUTION WIDTH (BEAKER) (test 21.6 % 11.7-14.4 dcrw=800) PLATELET COUNT (BEAKER) (test mxtl=573) 181 K/CU MM 150-450 MEAN PLATELET VOLUME (BEAKER) (test ayat=360) 10.1 fL 9.4-12.3 NUCLEATED RED BLOOD CELLS (BEAKER) (test 0 /100 WBC 0-0 hdyy=735) NEUTROPHILS RELATIVE PERCENT (BEAKER) (test 64 % fjol=209) LYMPHOCYTES RELATIVE PERCENT (BEAKER) (test 24 % zdwl=896) MONOCYTES RELATIVE PERCENT (BEAKER) (test 8 % gksu=237) EOSINOPHILS RELATIVE PERCENT (BEAKER) (test 3 % htpv=982) BASOPHILS RELATIVE PERCENT (BEAKER) (test 1 % ifwy=853) NEUTROPHILS ABSOLUTE COUNT (BEAKER) (test 6.37 K/ L 1.56-6.13 loun=648) LYMPHOCYTES ABSOLUTE COUNT (BEAKER) (test 2.42 K/ L 1.18-3.74 qmfj=265) MONOCYTES ABSOLUTE COUNT (BEAKER) (test 0.76 K/ L 0.24-0.36 ccpo=185) EOSINOPHILS ABSOLUTE COUNT (BEAKER) (test 0.27 K/ L 0.04-0.36 shtq=317) BASOPHILS ABSOLUTE COUNT (BEAKER) (test 0.10 K/ L 0.01-0.08 jufz=538) IMMATURE GRANULOCYTES-RELATIVE PERCENT (BEAKER) 1 % 0-1 (test fyyf=8426)
[2019-12-20] MEDS ORDERED: NA CHLORIDE 0.9% 1,000 ML ONE ×2 (11:09→14:33)
[2019-12-20] MEDS ORDERED: MEPERIDINE HCL 25 MG/0.5 ML ONE (11:15)
[2019-12-20 11:21] LABS: Absolute Lymphocytes (CBC) 1.2 K/uL (0.7-4.9); Basophils % 0.2 % (0-1.3); Hematocrit 32.2 % (36.0-45.0); Lymphocytes % 7.9 % (15.3-44.8); MPV 7.9 fL (7.6-11.3); RBC Red Blood Cell Count 3.24 M/uL (3.86-4.86)
[2019-12-20 11:36] LABS: Albumin 3.4 g/dL (3.4-5.0); Bilirubin Direct 0.4 mg/dL (0-0.2); Bilirubin Total 1.1 mg/dL (0.2-1.0); Potassium 4.1 mmol/L (3.5-5.1)
[2019-12-20] MEDS ORDERED: ACETAMINOPHEN 325 MG TABLET ONE (11:49)
[2019-12-20 11:53] LABS: Anisocytosis 1+; Blood Morphology Comment NOTED (NOT SEEN); Platelet Estimate ADEQ; Toxic Granulation NOTED
[2019-12-20] MEDS ORDERED: CEFTRIAXONE/SWI 1gm 1 GM/10 ML SYR ONE (12:23)
[2019-12-20 13:13] LABS: Urine Bacteria 20-50 /HPF (<20)
[2019-12-20 13:14] LABS: Urine Culture Reflex Order NOT NEEDED
--- NOTE | 2019-12-20 13:53 | RAD REPORT ---
EXAM DESCRIPTION: CT - Abdomen Pelvis W Contrast - 12/20/2019 1:25 pm CLINICAL HISTORY: ABD PAIN, lower back and lower abdominal pain, dysuria, history of colon cancer un dergoing chemotherapy, prior hysterectomy, lithotripsy, bowel resection and bladder sling COMPARISON: Abdomen Pelvis W Contrast dated 08/09/2019; Chest Abdomen Pelvis W Cont dated 0 TECHNIQUE: Biphasic, helical CT imaging of the abdomen and pelvis was performed following 100 ml non -ionic IV contrast. Oral contrast was given. All CT scans are performed using dose optimization technique as appropriate and may include automated exposure control or mA/KV adjustment according to patient size. FINDINGS: No suspicious findings in the lung bases. Liver is fatty infiltrated with no focal liver lesions identifiable. No biliary tree dilatation. Gall bladder is distended by multiple large gallstones. No wall thickening or edema identifiable. No bilia ry tree dilatation. Pancreas and spleen show no suspicious findings. Renal function is symmetric. No pyelonephritis. Both kidneys show a lobulated capsular contour. There are volume loss changes in the left kidney matching comparison. No active renal process identifiable . No pyelonephritis or acute parenchymal process. Urinary bladder is mostly contracted limiting asses sment. Uterus is absent. Ovaries are absent or atrophic. No adrenal abnormalities. No gastric dilatation or wall thickening. No dilated large or small bowel loops. No acute colon findi ng seen. Right hemicolectomy surgical changes are noted. The colon small bowel anastomosis in the lef t mid abdomen shows no acute process. No free air, free fluid or pneumatosis. Right periaortic lymph node at the renal vascular level (image 32/88) measures 2.2 cm AP x 2.6 cm TR. This is a decrease from the July study. Large left periaortic lymphadenopathy (image 45/88) jez ures 3.7 cm AP x 3.3 cm TR. This is an increased over comparison. At the left common iliac chain lymp hadenopathy is present measuring 3.8 cm AP x 3.5 cm TR (image 52/88). Left external iliac chain lymph adenopathy (image 63/80) measures 2.8 cm AP x 2.6 cm TR. The aortic and left common iliac lymphadenop athy shows congestion and edema in the surrounding fat. Lymphadenopathy is more heterogeneous with ar eas of diminished attenuation within the lymphadenopathy. No omental thickening. No suspicious bony findings. IMPRESSION: No bowel obstruction, free air or surgically emergent findings identifiable. The left periaortic and left common iliac lymphadenopathy has enlarged since September CT imaging. The heterogeneity of the tissue and adjacent edema could indicate that the growth is due to the blooming affects seen with chemotherapy and subsequent tumor necrosis. Correlation is needed with the timing of the treatment protocol. The upper abdominal periaortic lymphadenopathy measures smaller than September and the left external il iac lymphadenopathy has not changed. Fatty infiltration of the liver. No focal liver lesion. No omental thickening, ascites or other findi ngs of carcinomatosis. Additional findings detailed in the report are stable from September.
--- NOTE | 2019-12-20 14:25 | ER ---
[facility] Name: Nesha Pringle Age: 69 yrs Sex: Female : 1950 Arrival Date: 12/20/2019 Time: 10:29 Bed 17 Private MD: Alina Wilson C Diagnosis: Urinary tract infection, site not specified;Sepsis, unspecified organism;Dehydration Presentation: 12/19 10:32 Chief complaint: Patient states: Lower back and lower abdominal pain since midnight. ca1 Reports urinary urgency and frequency, urinary incontinence. Denies fever, N/V, diarrhea. Pt has colon cancer and undergoing chemotherapy. Last session was 2 weeks ago. Coronavirus screen: Patient denies fever greater than 100.4F, cough, shortness of breath, or difficulty breathing. Proceed with normal triage process. Ebola Screen: Patient negative for fever greater than or equal to 101.5 degrees Fahrenheit, and additional compatible Ebola Virus Disease symptoms Patient denies exposure to infectious person. Patient denies travel to an Ebola-affected area in the 21 days before illness onset. No symptoms or risks identified at this time. Risk Assessment: Do you want to hurt yourself or someone else? Patient reports no desire to harm self or others. 10:32 Method Of Arrival: Wheelchair ca1 10:32 Acuity: [place]AMES 2 ca1 10:50 Initial Sepsis Screen: Does the patient meet any 2 criteria? RR > 20 per min. Systolic aa5 BP < 90 mmHg. Yes Does the patient have a suspected source of infection? Yes: Acute abdominal pain If YES to both, name of provider notified: Meño Borjas MD. Historical: - Allergies: 10:37 Codeine; ca1 - Home Meds: 11:00 amlodipine 5 mg tab 1 tab twice a day if needed [Active]; metoprolol tartrate 100 mg aa5 Oral tab 1 tab 2 times per day [Active]; levothyroxine 137 mcg tab once daily [Active]; pantoprazole 40 mg oral TbEC once daily [Active]; pravastatin 40 mg oral tab 1 tab once daily [Active]; Integra oral oral once daily [Active]; potassium chloride 10 mEq Oral cpER 1 cap 2 times per day [Active]; magnesium oxide 400 mg Oral cap daily [Active]; Eliquis 5 mg oral tab 2 times per day [Active]; cholestyramine (bulk) miscellaneous [Active]; gabapentin 300 mg oral cap twice a day [Active]; oxybutynin chloride 5 mg Oral tr24 three times a day [Active]; valacyclovir 500 mg Oral tab once daily [Active]; nitrofurantoin macrocrystal 100 mg Oral cap once daily for to prevent UTI [Active]; - PMHx: 10:37 colon cancer; Hypertension; PE; Thyroid problem; ca1 - PSHx: 10:37 BRAIN; Hysterectomy; BLADDER SLING; Lithotripsy; Bowel resection; ca1 - Immunization history:: Adult Immunizations up to date, Pneumococcal vaccine is not up to date, Flu vaccine is not up to date. - Social history:: Smoking status: Patient denies any tobacco usage or history of. - Family history:: not pertinent. Screenin:00 Abuse screen: Denies threats or abuse. Nutritional screening: No deficits noted. aa5 Tuberculosis screening: No symptoms or risk factors identified. Fall Risk IV access (20 points). Assessment: 10:40 General: Appears uncomfortable, Behavior is calm, cooperative. Pain: Complains of pain aa5 in right lower quadrant and left lower quadrant and low back Pain does not radiate. Pain currently is 7 out of 10 on a pain scale. Quality of pain is described as crampy, Is continuous. Neuro: Level of Consciousness is awake, alert, obeys commands, Oriented to person, place, time, situation. Cardiovascular: Heart tones S1 S2 present Rhythm is regular. Respiratory: Airway is patent Respiratory effort is even, unlabored, Respiratory pattern is regular, symmetrical, Breath sounds are clear bilaterally. Denies cough, shortness of breath. GI: Abdomen is round non-distended, Bowel sounds present X 4 quads. Abd is soft and non tender X 4 quads. Reports lower abdominal pain, Patient currently denies nausea, vomiting. : Reports urinary incontinence. EENT: No signs and/or symptoms were reported regarding the EENT system. Derm: Skin is pink, warm \\T\\ dry. Musculoskeletal: Range of motion: intact in all extremities. 11:13 Reassessment: Patient is alert, oriented x 3, equal unlabored respirations, skin aa5 warm/dry/pink. 11:47 Reassessment: Patient is alert, oriented x 3, equal unlabored respirations, skin aa5 warm/dry/pink. Patient states feeling better. Patient states symptoms have improved. 12:15 Reassessment: Patient is alert, oriented x 3, equal unlabored respirations, skin aa5 warm/dry/pink. PT states "the pain is okay". Pt sitting up in bed using cellphone. . 13:30 Reassessment: Patient is alert, oriented x 3, equal unlabored respirations, skin aa5 warm/dry/pink. Pt back from CT scan. 13:30 Pain: Pain currently is 2 out of 10 on a pain scale. aa5 15:01 Reassessment: Patient is alert, oriented x 3, equal unlabored respirations, skin aa5 warm/dry/pink. Repeat lactate drawn and sent to lab. Awaiting room assignment, pt notified of wait time. . 16:00 Reassessment: Unsuccessful attempts to call report to admitting nurse. . aa5 16:30 Reassessment: Report given to ANSELMO drew (2nd floor). Pt currently eating and will aa5 transfer pt to Room 207 when finished, viki notified. . 16:30 Reassessment: Patient is alert, oriented x 3, equal unlabored respirations, skin aa5 warm/dry/pink. 17:20 Reassessment: Patient is alert, oriented x 3, equal unlabored respirations, skin aa5 warm/dry/pink. Vital Signs: 10:32 BP 87 / 54; Pulse 96; Resp 19 S; Temp 98(O); Pulse Ox 96% on R/A; Weight 59.87 kg (R); ca1 Height 5 ft. 1 in. (154.94 cm) (R); Pain 2/10; 10:45 BP 111 / 64; Pulse 91; Resp 24 S; Pulse Ox 99% on R/A; aa5 11:15 BP 109 / 61; Pulse 87; Resp 22 S; Pulse Ox 98% on R/A; aa5 11:30 BP 118 / 64; Pulse 95; Resp 22 S; Pulse Ox 98% on R/A; aa5 11:45 BP 121 / 59; Pulse 87; Resp 20 S; Pulse Ox 98% on R/A; aa5 11:46 Temp 99.1(O); aa5 12:00 BP 124 / 69; Pulse 89; Resp 18 S; Pulse Ox 97% on R/A; aa5 13:30 BP 105 / 69; Pulse 85; Resp 16 S; Temp 99.2(O); Pulse Ox 95% on R/A; aa5 14:15 BP 98 / 58; Pulse 89; Resp 18 S; Pulse Ox 96% on R/A; aa5 14:45 BP 114 / 61; Pulse 82; Resp 20 S; Pulse Ox 96% on R/A; aa5 15:05 BP 103 / 63; Pulse 84; Resp 16 S; Temp 98.4(O); Pulse Ox 99% on R/A; aa5 10:32 Body Mass Index 24.94 (59.87 kg, 154.94 cm) ca1 11:46 Dr. Borjas notified aa5 ED Course: 10:29 Patient arrived in ED. mr 10:30 Alina Wilson MD is Private Physician. mr 10:36 Triage completed. ca1 10:37 Arm band placed on right wrist. ca1 10:40 Meño Borjas MD is Attending Physician. rn 10:40 Patient has correct armband on for positive identification. Placed in gown. Bed in low aa5 position. Call light in reach. Side rails up X2. quality assurance monitor on. Pulse ox on. NIBP on. 10:42 Yue Amin, ANSELMO is Primary Nurse. aa5 10:55 Initial lab(s) drawn, by agriculture laboratory technician, sent to lab. First set of blood cultures drawn by ga.aa5 10:58 Inserted saline lock: 20 gauge in left antecubital area, using aseptic technique. Blood aa5 collected. 10:58 Second set of blood cultures drawn by ga. aa5 11:40 Lab(s) recollected, by ga, sent to lab. aa5 11:55 Urine collected: clean catch specimen. aa5 13:29 CT Abd/Pelvis - IV Contrast Only In Process Unspecified. EDMS 14:23 Alina Wilson MD is Hospitalizing Provider. rn 16:35 Diet tray given. jp3 17:19 No provider procedures requiring assistance completed. Patient admitted, IV remains in aa5 place. Administered Medications: 11:00 Drug: NS 0.9% 1000 ml Route: IV; Rate: 1000 ml; Site: left antecubital; aa5 11:45 Follow up: IV Intake: 600ml aa5 12:15 Follow up: IV Status: Completed infusion; IV Intake: 400ml aa5 11:13 Drug: Demerol - Meperidine 12.5 mg Route: IVP; Site: left antecubital; aa5 11:47 Follow up: Response: No adverse reaction; Marked relief of symptoms; Pain is decreased aa5 11:47 Drug: Tylenol 650 mg Route: PO; aa5 15:12 Follow up: Response: No adverse reaction; Temperature is decreased aa5 12:15 Drug: Rocephin 1 grams Route: IV; Rate: calculated rate; Site: left antecubital; aa5 12:20 Follow up: Response: No adverse reaction aa5 14:33 Drug: NS 0.9% 1000 ml Route: IV; Rate: 1000 ml; Site: left antecubital; aa5 15:12 Follow up: IV Status: Completed infusion; IV Intake: 1000ml aa5 Intake: 11:45 IV: 600ml; Total: 600ml. aa5 12:15 IV: 400ml; Total: 1000ml. aa5 15:12 IV: 1000ml; Total: 2000ml. aa5 Outcome: 14:23 Decision to Hospitalize by Provider. rn 17:20 Admitted to Med/surg accompanied by tech, via wheelchair, with chart, Other with mask aa5 Report called to ANSELMO Drew 17:20 Condition: stable 17:20 Instructed on the need for admit, Demonstrated understanding of instructions. 17:21 Patient left the ED. aa5 Signatures: Dispatcher [employer] [facility] Edwin Nesha SuadMeño MD MD rn Calderon, Audri, RN RN aa5 Emanuel Millan jp3 Sugar Almeida RN RN ca1 Corrections: (The following items were deleted from the chart) 12:13 10:45 BP 111 / 64; Pulse 91bpm; Resp 20bpm; Spontaneous; Pulse Ox 99% RA; aa5 aa5 13:50 13:30 Pulse 85bpm; Resp 16bpm; Spontaneous; Pulse Ox 95% RA; Temp 99.2F Oral; aa5 aa5 17:23 16:00 Reassessment: Unsuccessful attempt to call report to admitting nurse. . aa5 aa5
--- NOTE | 2019-12-20 14:25 | EDPHYS ---
Physician Documentation [facility] Name: Nesha Pringle Age: 69 yrs Sex: Female : 1950 Arrival Date: 12/20/2019 Time: 10:29 Bed 17 Private MD: Alina Wilson C ED Physician Meño Borjas HPI: 12/19 10:50 This 69 yrs old Female presents to ER via Wheelchair with complaints of rn Abdominal Pain, Back Pain. 10:50 The patient presents with pain that is acute, with no known mechanism of injury. The rn symptoms are located in the low back. 10:50 Onset: The symptoms/episode began/occurred last night. The pain does not radiate. rn Associated signs and symptoms: Pertinent positives: abdominal pain, Pertinent negatives: constipation, dysuria, fever, vomiting. Modifying factors: The patient symptoms are alleviated by nothing, the patient symptoms are aggravated by any movement. Severity of symptoms: At their worst the symptoms were mild, in the emergency department the symptoms are unchanged. The patient has experienced similar episodes in the past. Reports feels like may have urine infection, reports low back pain and lower abd pain, constant since last night, no fever, last chemo 2 weeks ago per patient, no trauma, no blood in stool. . Historical: - Allergies: 10:37 Codeine; ca1 - Home Meds: 11:00 amlodipine 5 mg tab 1 tab twice a day if needed [Active]; metoprolol tartrate 100 mg aa5 Oral tab 1 tab 2 times per day [Active]; levothyroxine 137 mcg tab once daily [Active]; pantoprazole 40 mg oral TbEC once daily [Active]; pravastatin 40 mg oral tab 1 tab once daily [Active]; Integra oral oral once daily [Active]; potassium chloride 10 mEq Oral cpER 1 cap 2 times per day [Active]; magnesium oxide 400 mg Oral cap daily [Active]; Eliquis 5 mg oral tab 2 times per day [Active]; cholestyramine (bulk) miscellaneous [Active]; gabapentin 300 mg oral cap twice a day [Active]; oxybutynin chloride 5 mg Oral tr24 three times a day [Active]; valacyclovir 500 mg Oral tab once daily [Active]; nitrofurantoin macrocrystal 100 mg Oral cap once daily for to prevent UTI [Active]; - PMHx: 10:37 colon cancer; Hypertension; PE; Thyroid problem; ca1 - PSHx: 10:37 BRAIN; Hysterectomy; BLADDER SLING; Lithotripsy; Bowel resection; ca1 - Immunization history:: Adult Immunizations up to date, Pneumococcal vaccine is not up to date, Flu vaccine is not up to date. - Social history:: Smoking status: Patient denies any tobacco usage or history of. - Family history:: not pertinent. ROS: 10:50 Constitutional: Negative for fever, chills, and weight loss, Eyes: Negative for injury, rn pain, redness, and discharge, Neck: Negative for injury, pain, and swelling, Cardiovascular: Negative for chest pain, palpitations, and edema, Respiratory: Negative for shortness of breath, cough, wheezing, and pleuritic chest pain, Abdomen/GI: + abdominal pain Back: + lower back pain MS/Extremity: Negative for injury and deformity, Skin: Negative for injury, rash, and discoloration, Neuro: Negative for headache, numbness, tingling, and seizure. Exam: 10:50 Constitutional: This is a well developed, well nourished patient who is awake, alert rn Head/Face: Normocephalic, atraumatic. ENT: dry MM Cardiovascular: Regular rate and rhythm. No pulse deficits. Respiratory: Mild tachypnea, speaking full sentences Abdomen/GI: soft, mild suprapubic tenderness, no rebound or masses Skin: Warm, dry MS/ Extremity: Pulses equal, no cyanosis. Neuro: Awake and alert, GCS 15, oriented to person, place, time, and situation. Cranial nerves II-XII grossly intact. Motor strength 5/5 in all extremities. Sensory grossly intact. Vital Signs: 10:32 BP 87 / 54; Pulse 96; Resp 19 S; Temp 98(O); Pulse Ox 96% on R/A; Weight 59.87 kg (R); ca1 Height 5 ft. 1 in. (154.94 cm) (R); Pain 2/10; 10:45 BP 111 / 64; Pulse 91; Resp 24 S; Pulse Ox 99% on R/A; aa5 11:15 BP 109 / 61; Pulse 87; Resp 22 S; Pulse Ox 98% on R/A; aa5 11:30 BP 118 / 64; Pulse 95; Resp 22 S; Pulse Ox 98% on R/A; aa5 11:45 BP 121 / 59; Pulse 87; Resp 20 S; Pulse Ox 98% on R/A; aa5 11:46 Temp 99.1(O); aa5 12:00 BP 124 / 69; Pulse 89; Resp 18 S; Pulse Ox 97% on R/A; aa5 13:30 BP 105 / 69; Pulse 85; Resp 16 S; Temp 99.2(O); Pulse Ox 95% on R/A; aa5 14:15 BP 98 / 58; Pulse 89; Resp 18 S; Pulse Ox 96% on R/A; aa5 14:45 BP 114 / 61; Pulse 82; Resp 20 S; Pulse Ox 96% on R/A; aa5 15:05 BP 103 / 63; Pulse 84; Resp 16 S; Temp 98.4(O); Pulse Ox 99% on R/A; aa5 10:32 Body Mass Index 24.94 (59.87 kg, 154.94 cm) ca1 11:46 Dr. Borjas notified aa5 MDM: 10:40 Patient medically screened. rn 14:21 Differential diagnosis: UTI, viral syndrome, dehydration, pyelonephritis. Data rn reviewed: vital signs, nurses notes, lab test result(s), EKG, radiologic studies, CT scan, and as a result, I will admit patient. Counseling: I had a detailed discussion with the patient and/or guardian regarding: the historical points, exam findings, and any diagnostic results supporting the discharge/admit diagnosis, lab results, radiology results, the need for further work-up and treatment in the hospital. Response to treatment: the patient's symptoms have mildly improved after treatment, and as a result, I will admit patient. Admission orders: after a detailed discussion of the patient's condition and case, the admit orders are written by me. ED course: Pt with most likely UTI, but elevated procal and lactate, will admit for UTI and possible early sepsis. + hypotensive upon presentation and has improved with fluids. . 12/19 10:50 Order name: Hepatic Function; Complete Time: 12:03 rn 12/19 10:50 Order name: Basic Metabolic Panel; Complete Time: 12:03 rn 12/19 10:50 Order name: CBC with Diff; Complete Time: 12:03 rn 12/19 10:50 Order name: Creatinine for Radiology; Complete Time: 12:03 rn 12/19 10:50 Order name: Lipase; Complete Time: 12:03 rn 12/19 10:50 Order name: Blood Culture Adult (2) rn 12/19 10:50 Order name: Procalcitonin; Complete Time: 12:12 rn 12/19 10:50 Order name: Lactate; Complete Time: 12:41 rn 12/19 10:50 Order name: Urine Culture rn 12/19 10:50 Order name: Urine Microscopic Only; Complete Time: 13:20 rn 12/19 11:54 Order name: Manual Differential; Complete Time: 12:03 EDND 12/19 12:46 Order name: CT Abd/Pelvis - IV Contrast Only rn 12/19 15:30 Order name: Lactate Sepsis 2 HR Follow-up EDND 12/19 10:50 Order name: IV Saline Lock; Complete Time: 11:54 rn 12/19 10:50 Order name: Labs collected and sent; Complete Time: 11:54 rn 12/19 10:50 Order name: Urine Dipstick-Ancillary (obtain specimen); Complete Time: 11:54 rn 12/19 11:14 Order name: Labs - recollect needed: recollect lactate (specimen to old); Complete bd Time: 11:45 12/19 15:16 Order name: Diet Regular; Complete Time: 15:16 aa5 Administered Medications: 11:00 Drug: NS 0.9% 1000 ml Route: IV; Rate: 1000 ml; Site: left antecubital; aa5 11:45 Follow up: IV Intake: 600ml aa5 12:15 Follow up: IV Status: Completed infusion; IV Intake: 400ml aa5 11:13 Drug: Demerol - Meperidine 12.5 mg Route: IVP; Site: left antecubital; aa5 11:47 Follow up: Response: No adverse reaction; Marked relief of symptoms; Pain is decreased aa5 11:47 Drug: Tylenol 650 mg Route: PO; aa5 15:12 Follow up: Response: No adverse reaction; Temperature is decreased aa5 12:15 Drug: Rocephin 1 grams Route: IV; Rate: calculated rate; Site: left antecubital; aa5 12:20 Follow up: Response: No adverse reaction aa5 14:33 Drug: NS 0.9% 1000 ml Route: IV; Rate: 1000 ml; Site: left antecubital; aa5 15:12 Follow up: IV Status: Completed infusion; IV Intake: 1000ml aa5 Disposition: 12/20/19 14:23 Hospitalization ordered by Alina Wilson for Inpatient Admission. Preliminary diagnosis are Urinary tract infection, site not specified, Sepsis, unspecified organism, Dehydration. - Bed requested for Telemetry/MedSurg (Inpatient). - Status is Inpatient Admission. aa5 - Condition is Stable. - Problem is new. - Symptoms have improved. Signatures: Dispatcher [employer] EDMS Corina Mccray Roman, MD MD rn Calderon, Audri, RN RN aa5 Sugar Almeida RN RN ca1 Corrections: (The following items were deleted from the chart) 15:12 14:23 Hospitalization Ordered by A Steve PARKER for Inpatient Admission. Preliminary bd diagnosis is Urinary tract infection, site not specified; Sepsis, unspecified organism; Dehydration. Bed requested for Telemetry/MedSurg (Inpatient). Status is Inpatient Admission. Condition is Stable. Problem is new. Symptoms have improved. rn 17:21 15:12 12/20/2019 14:23 Hospitalization Ordered by A Steve PARKER for Inpatient Admission. aa5 Preliminary diagnosis is Urinary tract infection, site not specified; Sepsis, unspecified organism; Dehydration. Bed requested for Telemetry/MedSurg (Inpatient). Status is Inpatient Admission. Condition is Stable. Problem is new. Symptoms have improved. bd
[2019-12-20] MEDS ORDERED: ONDANSETRON 4 MG/2 ML VIAL IV PRN ×2 (17:32→20:55)
[2019-12-20] MEDS: NA CHLORIDE 0.9% 1,000 ML IV SCH (18:10)
[2019-12-20] MEDS ORDERED: ENOXAPARIN 40 MG/0.4 ML SQ ONE (18:30)
[2019-12-20 19:30] VITALS: BMI 24.9
[2019-12-20] MEDS: CEFTRIAXONE/SWI 1gm 1 GM/10 ML SYR IVP SCH (20:10)
--- NOTE | 2019-12-20 20:29 | HP ---
Date of Admission: 12/20/2019 Chief Complaint: Back pain and stomach pain. History Of Present Illness: This is a 69-year-old female patient who started to have bilateral poste rior flank pain and lower abdominal pain and anterior flank pain. This started yesterday. Pain has been more or less continuous and she was having chills with this. No nausea, vomiting, diarrhea. Efraín vargas did not have any fever at home, but when she came into emergency room, she was noted to have low-gr codey fever of 99 degrees Fahrenheit. When she first arrived to emergency room, her blood pressure was low 87/54 and appropriate test was done in the emergency room. 1 L of IV fluid bolus was given and subsequently IV fluid continued and she was diagnosed as having urinary tract infection and I was con tacted by ER physician with all these details and patient was admitted to the hospital. Patient rece ived ceftriaxone. I saw her this evening and she was hemodynamically stable. Blood pressure was bet ter than before. She was not in any respiratory distress. No confusion. No recent travel out of to . No exposure to any known case of COVID-19. Allergies: TO CODEINE. Medications: List reviewed. Review of Systems: GI: As mentioned above. Constitutional: As mentioned above. All other systems reviewed and negativ e. Social History: Negative for smoking, alcohol use. Family History: Significant for hypertension, diabetes mellitus, coronary artery disease. Past Surgical History: Breast implant, tubal ligation, hysterectomy, repair of cerebral aneurysm in 2008, cystocele repair, clipping of cerebral aneurysm in 2003. Past Medical History: Significant for hypertension, hyperlipidemia, hypothyroidism, hypokalemia, hyp omagnesemia, impaired fasting glucose, colon cancer, gastroesophageal reflux disease, aneurysm, depre ssion, DVT of right leg with bilateral pulmonary embolism diagnosed in September of 2018. Physical Examination: Vital Signs: When she first came into emergency room, temperature 98, pulse 96, respiratory rate 19, blood pressure 87/54, oxygen saturation 96%, height 5 feet 1 inch, weight 132 pounds. General: Awake, alert, oriented, not in distress. HEENT: Head atraumatic, normocephalic. Conjunctivae nonerythematous. Sclerae white. Mouth, no thr ush or edema noted. Ears/Nose, no mass, lesion, discharge noted. Neck: Supple. No JVD, lymph nodes, bruit, thyromegaly noted. Lungs: Bilateral good equal air entry. Clear to auscultation. No rhonchi. No rales. Heart: Normal heart sounds, no murmur or gallop. Abdomen: Bilateral posterior flank tenderness, otherwise abdomen soft. Bowel sounds normoactive. N o guarding, rigidity. No hepatosplenomegaly. No bruit. Extremities: No leg edema. No calf tenderness. Skin: No rash, ulcer, cellulitis. Lymphatics: No lymph node enlargement in neck, supraclavicular, infraclavicular region. Neuro: No focal neurological deficit. Chest: Unremarkable. External Genitalia: Deferred. Rectal: Deferred. Laboratory Data: White count 14.7, hemoglobin 10.7, platelets 132. Sodium 138, potassium 4.1, chlor marlon 101, bicarb 27, BUN 21, creatinine 0.89, glucose 151, total bilirubin 1.1, SGOT 52, SGPT 58, proc alcitonin 1.04. Initial serum lactate 5.1, and repeat serum lactate 2.5. Urinalysis; 20-50 bacteria , 5-10 rbc's, 5-10 wbc's. CAT scan of abdomen and pelvis with contrast done in emergency room shows no evidence of bowel obstruction or free air or surgically emergent finding. Left periaortic and lef t common iliac lymphadenopathy has enlarged since September CAT scan findings. Upper abdominal periaor tic lymphadenopathy measures smaller than Marie and left external iliac lymphadenopathy has not kadeem nged. Fatty infiltration of liver. No focal liver mass. Impression: 1.Acute pyelonephritis. 2.Anemia. 3.Thrombocytopenia. 4.Colon cancer. 5.Hypothyroidism. 6.Hypertension. 7.Hyperlipidemia. 8.Impaired fasting glucose. 9.Gastroesophageal reflux disease. Plan: Admit the patient to hospital for further evaluation of this problem. Patient is appropriate for inpatient and is expected to spend 2 midnights in hospital. We will go ahead and continue home m edications per order. We will give 1 dose of Lovenox 40 mg subcu x1 tonight. IV fluid will be yonathan nued, IV antibiotic ceftriaxone will be continued. We will follow up on urine culture results. Depe nding on the final culture results, we will decide about culture specific antibiotic that she can go home with. Details and plan of treatment discussed with patient. Possible discharge to go home day after tomorrow depending on her condition. I will see her tomorrow for followup. ROBERT/KITTY Voice ID: [id number]
[2019-12-20] MEDS ORDERED: MEPERIDINE HCL 25 MG/0.5 ML IV PRN (20:55)
[2019-12-21] MEDS: NA CHLORIDE 0.9% 1,000 ML IV SCH ×4 (02:55→23:32)
[2019-12-21 05:36] LABS: Absolute Lymphocytes (CBC) 1.4 K/uL (0.7-4.9); Basophils % 0.1 % (0-1.3); Hematocrit 24.1 % (36.0-45.0); Lymphocytes % 10.6 % (15.3-44.8); MPV 7.7 fL (7.6-11.3); RBC Red Blood Cell Count 2.48 M/uL (3.86-4.86)
[2019-12-21 05:46] LABS: BUN Blood Urea Nitrogen 12 mg/dL (7-18); Bicarbonate 25 mmol/L (21-32); Glucose Level 130 mg/dL (74-106); Potassium 3.7 mmol/L (3.5-5.1); Sodium Level 143 mmol/L (136-145)
[2019-12-21] MEDS ORDERED: DIPHENHYDRAMINE 25 MG TAB/CAP PO PRN (07:26)
[2019-12-21] MEDS: POTASSIUM CL SA 10 MEQ TAB PO SCH ×3 (08:34→21:10)
[2019-12-21] MEDS: OXYBUTYNIN CHLORIDE 5 MG TAB PO SCH ×3 (08:34→21:09)
[2019-12-21] MEDS: CEFTRIAXONE/SWI 1gm 1 GM/10 ML SYR IVP SCH ×2 (08:34→21:11)
[2019-12-21] MEDS: PANTOPRAZOLE 40MG TABLET PO SCH (08:34)
[2019-12-21] MEDS: VALACYCLOVIR 500 MG TAB PO SCH (08:35)
[2019-12-21] MEDS: APIXABAN 5 MG TABLET PO SCH ×2 (08:35→21:09)
[2019-12-21] MEDS: GABAPENTIN 300 MG CAP PO SCH ×2 (08:35→21:10)
[2019-12-21] MEDS: FE SULF/FA/VIT B COMP & C TAB PO SCH (08:35)
[2019-12-21] MEDS: ACETAMINOPHEN 500 MG TAB PO PRN ×2 (09:05→21:15)
[2019-12-21] MEDS: MAGNESIUM OXIDE 400 MG TAB PO SCH ×2 (09:06→21:11)
[2019-12-21] MEDS: LEVOTHYROXINE SOD 0.112 MG TAB PO SCH (09:06)
[2019-12-21] MEDS: LEVOTHYROXINE SOD 0.025 MG TAB PO SCH (09:06)
[2019-12-21] MEDS ORDERED: CHOLESTYRAMINE/ASP 4 GM/PKT PO PRN ×2 (09:07→10:00)
[2019-12-21] MEDS ORDERED: ENOXAPARIN 40 MG/0.4 ML SQ SCH (17:00)
--- NOTE | 2019-12-21 18:45 | PN ---
Date of Progress Note: 12/21/2019 Subjective: Patient was seen this morning for followup. No new complaints or problems reported. Objective: General: Lying in bed, not in any distress. Vital Signs: Reviewed. Abdomen: Abdominal and flank pain is better. HEENT: Unremarkable. Lungs: Clear to auscultation. Heart: Sounds normal. Abdomen: Soft. No guarding, rigidity, tenderness, or distention. Mild tenderness in the posterior flank region, better today than yesterday. Bowel sounds normal. Extremities: No leg edema. Laboratory Data: White count 13.4, hemoglobin 7.9, platelets 99. Sodium 143, potassium 3.7, chlorid e 111, bicarb 25, BUN 12, creatinine 0.53, glucose 136. Urine culture result pending. Impression: 1.Acute pyelonephritis. 2.Anemia. 3.Thrombocytopenia. 4.Colon cancer. Plan: We will continue current medications. Continue current antibiotic, IV fluids. Culture result is pending. I will see her tomorrow for followup. Once culture result is available, then we will p ari to discharge her. We will repeat blood work tomorrow. No need for blood transfusion at this time. We will make that decision tomorrow depending on blood work. ROBERT/MODL Voice ID: [id number] Report ID: [id number]
[2019-12-21] MEDS ORDERED: ATORVASTATIN 10 MG TAB PO SCH (21:00)
[2019-12-22 01:02] VITALS: BP 111/54
[2019-12-22] MEDS: LEVOTHYROXINE SOD 0.112 MG TAB PO SCH (05:46)
[2019-12-22] MEDS: LEVOTHYROXINE SOD 0.025 MG TAB PO SCH (05:46)
[2019-12-22] MEDS: NA CHLORIDE 0.9% 1,000 ML IV SCH (05:48)
[2019-12-22 05:59] LABS: Absolute Lymphocytes (CBC) 1.5 K/uL (0.7-4.9); Basophils % 0.2 % (0-1.3); Hematocrit 23.8 % (36.0-45.0); Lymphocytes % 10.9 % (15.3-44.8); MPV 8.1 fL (7.6-11.3)
[2019-12-22] MEDS ORDERED: HOME MED 1 EA UNK (Levothyroxine Sodium [Levothyroxine Sodium] 137 MCG) PO SCH (06:00)
[2019-12-22 06:10] LABS: BUN Blood Urea Nitrogen 8 mg/dL (7-18); Bicarbonate 25 mmol/L (21-32); Glucose Level 113 mg/dL (74-106); Potassium 3.9 mmol/L (3.5-5.1); Sodium Level 146 mmol/L (136-145)
[2019-12-22 06:21] VITALS: TEMP 98
[2019-12-22] MEDS: CEFTRIAXONE/SWI 1gm 1 GM/10 ML SYR IVP SCH (07:58)
[2019-12-22] MEDS: FE SULF/FA/VIT B COMP & C TAB PO SCH (07:58)
[2019-12-22] MEDS: PANTOPRAZOLE 40MG TABLET PO SCH (07:59)
[2019-12-22] MEDS: VALACYCLOVIR 500 MG TAB PO SCH (07:59)
[2019-12-22] MEDS: POTASSIUM CL SA 10 MEQ TAB PO SCH (07:59)
[2019-12-22] MEDS: OXYBUTYNIN CHLORIDE 5 MG TAB PO SCH (07:59)
[2019-12-22] MEDS: APIXABAN 5 MG TABLET PO SCH (07:59)
[2019-12-22] MEDS: MAGNESIUM OXIDE 400 MG TAB PO SCH (07:59)
[2019-12-22] MEDS: GABAPENTIN 300 MG CAP PO SCH (08:00)
[2019-12-22 08:47] VITALS: O2SAT 96
--- NOTE | 2019-12-22 22:07 | DS ---
Date of Discharge: 12/22/2019 Subjective: Patient was seen this morning for followup. No new complaints or problems reported by jasbir costello. She was sitting at bedside. Denied any complaints. No flank pain. No abdominal pain, naus ea, vomiting. Overall, feels a lot better. Objective: Vital Signs: Reviewed. HEENT: Unremarkable. Lungs: Clear to auscultation. Heart: Sounds normal. Abdomen: Soft. Bowel sounds are normal. No guarding, rigidity, tenderness, or distention. Extremities: No leg edema. Laboratory Data: Initial white count 14.7, hemoglobin 10.7, platelets 132. Last white count today 1 3.8, hemoglobin 7.6, platelets 116. Yesterday, white count 13.4, hemoglobin 7.9, platelets 99. Chem istry today; sodium 146, potassium 3.9, chloride 116, bicarb 25, BUN 8, creatinine 0.62, glucose 113. Urine culture growing E coli and Klebsiella and it is sensitive to multiple different antibiotics i ncluding Bactrim. Both of this bacteria are sensitive to ceftriaxone, which patient received during this hospitalization. Hospital Course: This is a 69-year-old pleasant female patient, admitted to the hospital with back p ain and abdominal pain. Please see dictated H and P for more information. After patient was evaluat ed in the ER, she was admitted to the hospital with acute pyelonephritis and she was started on IV fl uid, IV antibiotics. DVT prophylaxis was given using Lovenox and her home medication and subsequentl y was started, which was Eliquis and Lovenox was discontinued at that time. She has chronic anemia p roblem. She takes iron supplement once a day and upon discharge, I have advised her to take iron sup plement twice a day. There was no evidence of any acute blood loss. Her abdominal pain and flank pa in have completely resolved. Overall, she is feeling much better, has good appetite, ambulating well and today, she was discharged to go home in stable condition. Discharge Diagnoses: 1.Acute pyelonephritis. 2.Anemia. 3.Thrombocytopenia. 4.Colon cancer. 5.Hypothyroidism. 6.Hypertension. 7.Hyperlipidemia. 8.Impaired fasting glucose. 9.Gastroesophageal reflux disease. Discharge Medications And Instructions: 1.Continue all prior home medications. 2.Bactrim DS 1 tablet by mouth 2 times a day for 10 days. 3.Follow up at my office next week. ROBERT/MODL Voice ID: [id number] Report ID: [id number]
== END 2019-12-22 09:20 | disposition home or self-care (01) | DRG 690 ==
LOC: ER 10:27 → ERHOLD 14:47 → 2ND 16:33
PROVIDERS: ADMIT Internal Medicine; ATTEND Internal Medicine
DX: N10 Acute pyelonephritis (principal); C18.9 Malignant neoplasm of colon, unspecified; E03.9 Hypothyroidism, unspecified; K21.9 Gastro-esophageal reflux disease without esophagitis; D69.6 Thrombocytopenia, unspecified; I10 Essential (primary) hypertension; E78.5 Hyperlipidemia, unspecified; R73.01 Impaired fasting glucose; D64.9 Anemia, unspecified; B96.20 Unspecified Escherichia coli [E. coli] as the cause of diseases classified elsewhere; B96.1 Klebsiella pneumoniae [K. pneumoniae] as the cause of diseases classified elsewhere; Z79.899 Other long term (current) drug therapy; Z79.890 Hormone replacement therapy; Z86.711 Personal history of pulmonary embolism; Z90.710 Acquired absence of both cervix and uterus; Z86.718 Personal history of other venous thrombosis and embolism; Z88.5 Allergy status to narcotic agent; Z98.51 Tubal ligation status; Z79.01 Long term (current) use of anticoagulants
CPT/HCPCS: 36415; 74177; 80048; 80076; 81015; 83605; 83690; 83735; 84145; 85025; 87040; 87077; 87086; 87088; 87186; 96361; 96374; 96375; 99285; J0696; J1650; J2175; J7030; Q9967

== ENCOUNTER 2020-03-14 16:52 | Inpatient (IN) | payer OTHER ==
--- OUTSIDE RECORDS SUMMARY | 2020-03-14 17:27 | XMS REPORT | Clinical Summary ---
:1950 Author Organization [facility] Address [address] [place] [id number] Care Team Providers Name Role Phone Unavailable Primary Care Provider Unavailable Allergies Active Allergy Reactions Severity Noted Date Comments Codeine 10/25/2018 Medications Medication Sig Dispensed Refills Start Date End Date Status cholestyramine Take 4 g by 0 10/14/2018 Ac tive (QUESTRAN) 4 gram PwPk mouth 2 (two) packet times daily. levothyroxine Take 137 mcg by 0 10/05/2018 Active (SYNTHROID, LEVOTHROID) mouth daily. 137 MCG tablet potassium chloride SA Take 10 mEq by 0 10/05/2018 Active (K-DUR,KLOR-CON) 10 MEQ mouth daily. tablet pravastatin (PRAVACHOL) Take 40 mg by 0 10/01/2018 Active 40 MG tablet mouth daily. omeprazole (PRILOSEC) 20 Take 20 mg by 0 Active MG capsule mouth daily. metoprolol (LOPRESSOR) Take 100 mg by 0 Active 100 MG tablet mouth 2 (two) times daily as needed (hypertension). amLODIPine (NORVASC) 5 Take 5 mg by 0 Active MG tablet mouth 2 (two) times daily as needed (hypertension). valACYclovir (VALTREX) Take 500 mg by 0 Active 500 MG tablet mouth daily. magnesium oxide (MAG-OX) Take 400 mg by 0 Active 400 mg (241.3 mg mouth 2 (two) magnesium) tablet times daily. Active Problems Problem Noted Date Pulmonary embolism 10/25/2018 Family History Medical History Relation Name Comments Cancer Brother Stroke Father Stroke Sister Relation Name Status Comments Brother Father Sister Social History Tobacco Use Types Packs/Day Years Used Date Former Smoker Quit: 2003 Smokeless Tobacco: Never Used Alcohol Use Drinks/Week oz/Week Comments Yes social use Sex Assigned at Date Recorded Not on file Job Start Date Occupation Industry Not on file Not on file Not on file Travel History Travel Start Travel End No recent travel history available. Last Filed Vital Signs Not on file Plan of Treatment Not on file Results Not on fileafter 03/14/2019 Insurance Payer Benefit Plan / Group Subscriber ID Type Phone A ddress MEDICARE MEDICARE A B xxxxxxxxxxx Medicare AETNA - MGD CARE AETNA INDEMNITY NON CONTR xxxxxxxxx Comm Advance Directives For more information, please contact:[place] [id number] [place] [place], [place] [phone] Code Status Date Activated Date Inactivated Comments Full Code 01/18/2019 5:45 PM 01/18/2019 11:41 PM This code status was determined by: Patient Full Code 10/25/2018 7:49 PM 01/18/2019 7:33 AM This code status was determined by: Patient
--- OUTSIDE RECORDS SUMMARY | 2020-03-14 17:27 | XMS REPORT | Clinical Summary ---
:1950 Author Organization [facility] Address [address] [place] [address] Care Team Providers Name Role Phone Octavia Wilson MD Primary Care Provider Allergies Active Allergy Reactions Severity Noted Date Comments Codeine 01/20/2018 Medications No known medications Active Problems No known active problems Family History Medical History Relation Name Comments [...] Signs Not on file Plan of Treatment Health Maintenance Due Date Last Done Comments BREAST CANCER SCREENING 2001 COLONOSCOPY SCREENING 2001 SHINGLES VACCINES (#1) 2001 65+ PNEUMOCOCCAL VACCINE (1 of 2 - PCV13) 2016 INFLUENZA VACCINE 04/29/2020 Results Not on fileafter 03/14/2019 Insurance Payer Benefit Plan / Subscriber ID Effective Dates Phone Addre ss Type Group MEDICARE MEDICARE PART A xxxxxxxxxx 2008-Present [place], [place] Medicare AND B AETNA AETNA PPO OPEN xxxxxxxxx 2000-Present PPO CHOICE Advance Directives For more information, please contact: [phone] Type Date Recorded Patient [employer] Explanati on Advance Directives, Living Will and Medical Power 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
--- OUTSIDE RECORDS SUMMARY | 2020-03-14 17:27 | XMS REPORT | Continuity of Care Document ---
:1950 Author Organization [facility] Address [address] [place] [address] Care Team Providers Name Role Phone Octavia Sargent MD Primary Care Physician Octavia SARGENT Attending Clinician Unavailable SANGITA Attending Clinician Unavailable RAMONA QUINTANILLA Admitting Clinician Unavailable SANGITA Admitting Clinician Unavailable Problems Condition Condition Condition Status Onset Resolution Last Treating Co mments Source Name Details Category Date Date Treatment Clinician Date Pulmonary Pulmonary Disease Active [facility] St embolism embolism 10-25 [facility]: [facility] 00 Center Allergies, Adverse Reactions, Alerts Allergy Allergy Status Severity Reaction(s) Onset Inactive Treating Comm ents Source Name Type Date Date Clinician Codeine Propensi Active [facility] St ty to 10-25 [facility] - adverse 00:00: Medical reaction 00 Center s Codeine Propensi Active [facility] ty to 01-20 [facility] adverse 00:[facility]: st reaction 00 s to drug Family History Family Member Diagnosis Comments Start Date Stop Date Source Natural father Diabetes [facility] Natural father Hypertension [facility] Natural father Stroke [facility] Natural father Stroke [facility] Natural mother Diabetes [facility] Natural mother Hypertension [facility] Natural brother Cancer [facility] Natural sister Stroke [facility] Social History Social Habit Start Date Stop Date Quantity Comments Source History of Current smoker [facility] use [facility] r Sex Assigned At [facility] Alcohol Comment 2018-10-25 2018-10-[address] [facility] - 00:[facility]00 00:00:00 [facility] Center Alcohol intake 2018-01-20 2018-01-20 Current [facility] 00:00:00 00:00:00 non-drinker of alcohol (finding) Smoking Status Start Date Stop Date Source Former smoker 2019-01-18 00:00:00 2019-01-18 00:00:[address] [facility] Never smoker [facility] Medications Ordered Filled Start Stop Current Ordering Indication Dosage Frequency Signature Comments Components Source Medication Medication Date Date Medication? Clinician (SIG) Name Name magnesium Yes 400mg Q.5D Take [address] oxide 1-27 mg by [facility] - (MAG-OX) 21:18: mouth 2 Medica l 400 mg 56 (two) Center (241.3 mg times magnesium) daily. tablet omeprazole Yes 20mg QD Take [address] (PRILOSEC) 1-27 by mouth [facility] - 20 MG 19:44: daily. Medical capsule 36 Center metoprolol Yes 100mg Take [address] (LOPRESSOR) 1-27 mg by [facility] - 100 MG 19:44: mouth 2 Medical tablet 36 (two) Center times daily as needed (hypertens ion). amLODIPine Yes 5mg Take [address] [facility] [address] [facility] (NORVASC) 5 1-27 by mouth [facility] - MG tablet 19:44: (two) Medical 36 times Center daily as needed (hypertens ion). valACYclovi Yes 500mg QD Take [address] (VALTREX) 1-27 mg by [facility] - 500 MG 19:44: mouth Medical tablet 36 daily. Center cholestyram Yes 4g Q.5D Take [address] ine 1-16 by mouth 2 [facility] - (QUESTRAN) 00:00: (two) Medica l 4 gram PwPk 00 times Center packet daily. levothyroxi Yes 137ug QD Take [address] ne 1-07 mcg by [facility] - (SYNTHROID, 00:00: mouth Medic al LEVOTHROID) 00 daily. [place] 137 MCG tablet potassium 2018- Yes 10meq QD Take [address] chloride SA 1-07 mEq by [facility] - (K-DUR,KLOR 00:00: mouth Medic al -CON) 10 00 daily. [place] MEQ tablet pravastatin 2019- Yes 40mg QD Take [address] (PRAVACHOL) 1-03 by mouth [facility] - 40 MG 00:00: daily. Medical tablet 00 Center Procedures This patient has no known procedures. Plan of Care Planned Activity Planned Date Details Comments Source Future Scheduled 2020-04-29 INFLUENZA VACCINE [facility] 00:00:00 [code = INFLUENZA VACCINE] Future Scheduled 2016 65+ PNEUMOCOCCAL [facility] 00:00:00 VACCINE (1 of 2 - PCV13) [code = 65+ PNEUMOCOCCAL VACCINE (1 of 2 - PCV13)] Future Scheduled 2001 BREAST CANCER [facility] Test 00:00:00 SCREENING [code = BREAST CANCER SCREENING] Future Scheduled 2001 COLONOSCOPY SCREENING [facility] 00:00:00 [code = COLONOSCOPY SCREENING] Future Scheduled 2001 SHINGLES VACCINES (#1) [facility] Test 00:00:00 [code = SHINGLES VACCINES (#1)] Results Test Description Test Time Test Comments Results Result [facility] e Comments ANG, CAVAL FILTER 2019-01-18 Reason for FINAL REPORT PATIENT REMOVAL 18:03:00 Exam:->[id number] ID: [id number] IVC filter removal. History: Filter no longer required Modality: Ultrasound and fluoroscopy. Sedation: Moderate sedation was administered. 3 mg of Versed and 200 mcg of fentanyl IV was used for moderate sedation monitored under my direction. Total intra-service time of sedation was 90 minutes. The patient's vital signs were monitored throughout the procedure and recorded in the patient's medical record by the nurse. Polygraph Technician: Blake Bay MD. Vision Therapist: Jennifer Vines (fellow). Approach: Right internal jugular [...] The needle was removed and a 5 Swiss straight multi-sidehole catheter was advanced to the distal IVC for a DSA cavagram. A 10 Swiss angled tip Flexor sheath was advanced into the suprarenal IVC. Attempts were made to snare the filter without success given documented within the caval wall. Subsequently, the 10 Swiss sheath was exchanged for a 16 Swiss sheath. Endobronchial forceps were then used to dislodge the filter from the caval wall. A 12 Swiss sheath was placed through the 16 Swiss sheath. A 15 mm Amplatz gooseneck snare [...] MDReport Verified Date/Time: 01/18/2019 18:03:40 Reading Location: [place] [address] Angio Body Reading Room W/PLT COUNT & AUTO DIFFERENTIAL 2019-01-18 15:00:00 Test Item Value Reference Range Interpretation Comme nts WHITE BLOOD CELL COUNT (BEAKER) (test code = 775) 13.3 K/ L 3.5- 10.5 H RED BLOOD CELL COUNT (BEAKER) (test code = 761) 3.25 M/ L 3.93-5 .22 L HEMOGLOBIN (BEAKER) (test code = 410) 10.2 GM/DL 11.2-15.7 L HEMATOCRIT (BEAKER) (test code = 411) 31.9 % 34.1-44.9 L MEAN CORPUSCULAR VOLUME (BEAKER) (test code = 753) 98.2 fL 79. 4-94.8 H MEAN CORPUSCULAR HEMOGLOBIN (BEAKER) (test code = 751) 31.4 pg 25.6-32.2 MEAN CORPUSCULAR HEMOGLOBIN CONC (BEAKER) (test code = 752) 32.0 GM/DL 32.2-35.5 L RED CELL DISTRIBUTION WIDTH (BEAKER) (test code = 412) 17.0 % 11.7-14.4 H PLATELET COUNT (BEAKER) (test code = 756) 79 K/CU MM 150-450 L MEAN PLATELET VOLUME (BEAKER) (test code = 754) 10.9 fL 9.4-12 .3 NUCLEATED RED BLOOD CELLS (BEAKER) (test code = 413) 0 /100 WBC 0 -0 (CELLAVISION MANUAL DIFF)2019-01-18 15:00:00 Test Item Value Reference Range Interpretation Comments NEUTROPHILS - REL 77 % (CELLAVISION)(BEAKER) (test code = 2816) LYMPHOCYTES - REL 21 % (CELLAVISION)(BEAKER) (test code = 2817) BANDS - REL (CELLAVISION)(BEAKER) 2 % 0-10 (test code = 2826) NEUTROPHILS - ABS 10.24 K/ul 1.56-6.13 H (CELLAVISION)(BEAKER) (test code = 2830) LYMPHOCYTES - ABS 2.79 K/ul 1.18-3.74 (CELLAVISION)(BEAKER) (test code = 2831) BANDS - ABS (CELLAVISION)(BEAKER) 0.27 K/uL 0.00-0.80 (test code = 2840) TOTAL COUNTED (BEAKER) (test code 100 = 1351) SMUDGE CELLS (BEAKER) (test code = Present 1371) GIANT PLATELETS (BEAKER) (test Present code = 313) ANISOCYTOSIS (BEAKER) (test code = 1+ few 961) MICROCYTES (BEAKER) (test code = 1+ few 965) ARTIFACT (CELLAVISION)(BEAKER) Present (test code = 6712) PLATELET CONCENTRATION Decreased (CELLAVISION)(BEAKER) (test code = 3438) Received comment: User comments: Slide comments:BASIC METABOLIC [id number] 13:07:00 Test Item Value Reference Range Interpretation Comments SODIUM (BEAKER) 143 meq/L 136-145 (test code = 381) POTASSIUM (BEAKER) 3.8 meq/L 3.5-5.1 (test code = 379) CHLORIDE (BEAKER) 109 meq/L 98-107 H (test code = 382) CO2 (BEAKER) (test 25 meq/L 22-29 code = 355) BLOOD UREA NITROGEN 15 mg/dL 7-21 (BEAKER) (test code = 354) CREATININE (BEAKER) 0.65 mg/dL 0.57-1.25 (test code = 358) GLUCOSE RANDOM 101 mg/dL 70-105 (BEAKER) (test code = 652) CALCIUM (BEAKER) 8.8 mg/dL 8.4-10.2 (test code = 697) EGFR (BEAKER) (test 91 mL/min/1.73 ESTIMA ELISA GFR IS code = 1092) sq m NOT ACCURATE CREATININE CLEARANCE IN PREDICTING GLOMERULAR FILTRATION RATE . ESTIMATED GFR I S NOT APPLICABLE FOR DIALYSIS PATIEN TS. PROTHROMBIN [id number] 13:01:00 Test Item Value Reference Range Interpretation Comments PROTIME (BEAKER) (test code = 13.7 seconds 11.7-14.7 759) INR (BEAKER) (test code = 370) 1.0 <=5.9 RECOMMENDED COUMADIN/WARFARIN INR THERAPY RANGESSTANDARD DOSE: 2.0 - 3.0 Includes: PROPHYLAXIS forvenous thrombosis, systemic embolization; TREATMENT for venous thrombosis and/or pulmonary embolus.HIGH RISK: Target INR is 2.5-3.5 for patients with mechanical heart valves.FADY, CAVAL FILTER [id number] 13:44:00Reason for exam:->IVC filter placementFINAL REPORT Inferior [...] at the insertion site. Fluoro time in minutes: 2.1 minutes.19 images. Approach: Right common femoral [...] guide wire was advanced centrally. A 4 Swiss catheter was advanced to evaluate the inferior [...] filter below the renal veins. Signed: [facility] Verified Date/Time: 10/26/2018 13:44:07 Reading Location: [place] [id number] Angio BodyReading Room C METABOLIC [id number] 21:43:00 Test Item Value Reference Range Interpretation Comments SODIUM (BEAKER) 143 meq/L 136-145 (test code = 381) POTASSIUM (BEAKER) 3.1 meq/L 3.5-5.1 L (test code = 379) CHLORIDE (BEAKER) 112 meq/L 98-107 H (test code = 382) CO2 (BEAKER) (test 21 meq/L 22-29 L code = 355) BLOOD UREA NITROGEN 5 mg/dL 7-21 L (BEAKER) (test code = 354) CREATININE (BEAKER) 0.86 mg/dL 0.57-1.25 (test code = 358) GLUCOSE RANDOM 97 mg/dL 70-105 (BEAKER) (test code = 652) CALCIUM (BEAKER) 8.8 mg/dL 8.4-10.2 (test code = 697) EGFR (BEAKER) (test 66 mL/min/1.73 ESTIMA ELISA GFR IS code = 1092) sq m NOT ACCURATE CREATININE CLEARANCE IN PREDICTING GLOMERULAR FILTRATION RATE . ESTIMATED GFR I S NOT APPLICABLE FOR DIALYSIS PATIEN TS. PT/[id number] 21:41:00 Test Item Value Reference Range Interpretation Comments PROTIME (BEAKER) (test code = 14.3 seconds 11.7-14.7 759) INR (BEAKER) (test code = 370) 1.1 <=5.9 PARTIAL THROMBOPLASTIN TIME 23.7 seconds 22.5-36.0 (BEAKER) (test code = 760) RECOMMENDED COUMADIN/WARFARIN INR THERAPY RANGESSTANDARD DOSE: 2.0 - 3.0 Includes: PROPHYLAXIS forvenous thrombosis, systemic embolization; TREATMENT for venous thrombosis and/or pulmonary embolus.HIGH RISK: Target INR is 2.5-3.5 for patients with mechanical heart valves.CBC W/PLT COUNT & AUTO DIFFERENTIAL 2018-10-25 21:30:00 Test Item Value Reference Range Interpretation Comments WHITE BLOOD CELL COUNT (BEAKER) 10.0 K/ L 3.5-10.5 (test code = 775) RED BLOOD CELL COUNT (BEAKER) 2.98 M/ L 3.93-5.22 L (test code = 761) HEMOGLOBIN (BEAKER) (test code = 9.4 GM/DL 11.2-15.7 L 410) HEMATOCRIT (BEAKER) (test code = 29.9 % 34.1-44.9 L 411) MEAN CORPUSCULAR VOLUME (BEAKER) 100.3 fL 79.4-94.8 H (test code = 753) MEAN CORPUSCULAR HEMOGLOBIN 31.5 pg 25.6-32.2 (BEAKER) (test code = 751) MEAN CORPUSCULAR HEMOGLOBIN CONC 31.4 GM/DL 32.2-35.5 L (BEAKER) (test code = 752) RED CELL DISTRIBUTION WIDTH 21.6 % 11.7-14.4 H (BEAKER) (test code = 412) PLATELET COUNT (BEAKER) (test 181 K/CU MM 150-450 code = 756) MEAN PLATELET VOLUME (BEAKER) 10.1 fL 9.4-12.3 (test code = 754) NUCLEATED RED BLOOD CELLS 0 /100 WBC 0-0 (BEAKER) (test code = 413) NEUTROPHILS RELATIVE PERCENT 64 % (BEAKER) (test code = 429) LYMPHOCYTES RELATIVE PERCENT 24 % (BEAKER) (test code = 430) MONOCYTES RELATIVE PERCENT 8 % (BEAKER) (test code = 431) EOSINOPHILS RELATIVE PERCENT 3 % (BEAKER) (test code = 432) BASOPHILS RELATIVE PERCENT 1 % (BEAKER) (test code = 437) NEUTROPHILS ABSOLUTE COUNT 6.37 K/ L 1.56-6.13 H (BEAKER) (test code = 670) LYMPHOCYTES ABSOLUTE COUNT 2.42 K/ L 1.18-3.74 (BEAKER) (test code = 414) MONOCYTES ABSOLUTE COUNT (BEAKER) 0.76 K/ L 0.24-0.36 H (test code = 415) EOSINOPHILS ABSOLUTE COUNT 0.27 K/ L 0.04-0.36 (BEAKER) (test code = 416) BASOPHILS ABSOLUTE COUNT (BEAKER) 0.10 K/ L 0.01-0.08 H (test code = 417) IMMATURE GRANULOCYTES-RELATIVE 1 % 0-1 PERCENT (BEAKER) (test code = 1850)
[2020-03-14 17:42] LABS: Absolute Lymphocytes (CBC) 1.8 K/uL (0.7-4.9); Basophils % 0.2 % (0-1.3); Hematocrit 30.5 % (36.0-45.0); Lymphocytes % 13.2 % (15.3-44.8); RBC Red Blood Cell Count 2.98 M/uL (3.86-4.86)
[2020-03-14 18:01] LABS: ALT/SGPT 19 U/L (12-78); AST/SGOT 19 U/L (15-37); Albumin 3.1 g/dL (3.4-5.0); Alkaline Phosphatase 248 U/L (45-117); BUN Blood Urea Nitrogen 13 mg/dL (7-18); Bicarbonate 28 mmol/L (21-32); Bilirubin Direct 0.1 mg/dL (0-0.2); Bilirubin Total 0.4 mg/dL (0.2-1.0); Glucose Level 121 mg/dL (74-106); Lipase 101 U/L (73-393); Potassium 3.3 mmol/L (3.5-5.1); Protein, Total 6.1 g/dL (6.4-8.2); Sodium Level 142 mmol/L (136-145)
[2020-03-14] MEDS ORDERED: MORPHINE 2 MG/ML SYR ONE (18:49)
[2020-03-14] MEDS ORDERED: CIPROFLOXACIN 400mg IV 400 MG/200 ML BAG IV ONE (18:49)
[2020-03-14] MEDS ORDERED: NS KCL 20MEQ 1,000 ML IV ONE (18:49)
[2020-03-14] MEDS ORDERED: ONDANSETRON 4 MG/2 ML VIAL ONE ×2 (18:49→20:50)
[2020-03-14] MEDS ORDERED: METRONIDAZOLE 500mg IVPB 500 MG/100 ML BAG IV ONE (18:50)
[2020-03-14] MEDS ORDERED: NA CHLORIDE 0.9% 1,000 ML ONE (18:50)
[2020-03-14 19:11] LABS: Urine Blood 3+ (NEG); Urine Glucose NEGATIVE (NEG); Urine Protein 2+ (NEG)
--- NOTE | 2020-03-14 19:20 | ER ---
Nurse's Notes [facility] Name: Nesha Pringle Age: 70 yrs Sex: Female : 1950 Arrival Date: 03/14/2020 Time: 16:54 Bed 17 Private MD: Alina Wilson C Diagnosis: Abdominal tenderness;Elevated white blood cell count;Diarrhea, unspecified;Anemia, unspecified;Hypokalemia Presentation: 03/14 17:02 Chief complaint: Patient states: Lower abdominal pain with diarrhea for 2 days. ll1 Coronavirus screen: Proceed with normal triage. Patient denies a cough. Patient denies shortness of breath or difficulty breathing. Patient denies measured and/or subjective temperature greater than 100.4F prior to today's visit. Patient denies travel on a cruise ship or to a country the [facility] currently lists as an affected area. Patient denies contact with known and/or suspected case of COVID-19. Ebola Screen: Patient denies travel to an Ebola-affected area in the 21 days before illness onset. Initial Sepsis Screen: Does the patient meet any 2 criteria? HR > 90 bpm. Onset of symptoms was March 13, 2020. 17:02 Method Of Arrival: Wheelchair ll1 17:02 Acuity: JAMES 3 ll1 17:36 Initial Sepsis Screen: Does the patient have a suspected source of infection? No. ph Patient's initial sepsis screen is negative. Risk Assessment: Do you want to hurt yourself or someone else? Patient reports no desire to harm self or others. Historical: - Allergies: 17:04 Codeine; ll1 - PMHx: 17:04 Thyroid problem; Hypertension; PE; colon cancer; ll1 - PSHx: 17:04 BLADDER SLING; Hysterectomy; Lithotripsy; Bowel resection; BRAIN; ll1 - Immunization history:: Adult Immunizations up to date. - Social history:: Smoking status: Patient denies any tobacco usage or history of. Patient/guardian denies using alcohol, street drugs, tobacco products. - Family history:: not pertinent. Screenin:36 Abuse screen: Denies threats or abuse. Denies injuries from another. Nutritional ph screening: No deficits noted. Tuberculosis screening: No symptoms or risk factors identified. Fall Risk None identified. Assessment: 17:35 General: Appears in no apparent distress. comfortable, well groomed, Behavior is calm, ph cooperative, appropriate for age, Denies fever. Pain: Complains of pain in right lower quadrant and left lower quadrant. Neuro: Level of Consciousness is awake, alert, obeys commands, Oriented to person, place, time, situation. Cardiovascular: Capillary refill < 3 seconds in bilateral fingers Patient's skin is warm and dry. Respiratory: Airway is patent Respiratory effort is even, unlabored, Respiratory pattern is regular, symmetrical, Denies shortness of breath. GI: Abdomen is round non-distended, Bowel sounds present X 4 quads. Reports lower abdominal pain, cramping, diarrhea. Derm: Skin is intact, is healthy with good turgor, Skin is pink, warm \T\ dry. Musculoskeletal: Circulation, motion, and sensation intact. Range of motion: intact in all extremities. 18:46 Reassessment: Patient appears in no apparent distress at this time. Patient and/or ph family updated on plan of care and expected duration. Pain level reassessed. Patient is alert, oriented x 3, equal unlabored respirations, skin warm/dry/pink. Pt completed PO contrast, CT notified. 19:02 Reassessment: Patient appears in no apparent distress at this time. Patient and/or ph family updated on plan of care and expected duration. Pain level reassessed. Patient is alert, oriented x 3, equal unlabored respirations, skin warm/dry/pink. 19:30 General: Appears in no apparent distress. comfortable, Behavior is calm, cooperative, jd3 appropriate for age. Pain: Denies pain. Neuro: Level of Consciousness is awake, alert, obeys commands, Oriented to person, place, time, situation. Cardiovascular: Capillary refill < 3 seconds Patient's skin is warm and dry. Respiratory: Airway is patent Respiratory effort is even, unlabored, Respiratory pattern is regular, symmetrical. GI: Abdomen is round non-distended, Reports lower abdominal pain, diarrhea. : No signs and/or symptoms were reported regarding the genitourinary system. EENT: No signs and/or symptoms were reported regarding the EENT system. Derm: Skin is intact, Skin is dry, Skin is normal, Skin temperature is warm. Musculoskeletal: Circulation, motion, and sensation intact. Range of motion: intact in all extremities. 20:39 Reassessment: Patient appears in no apparent distress at this time. Patient and/or jd3 family updated on plan of care and expected duration. Pain level reassessed. Patient is alert, oriented x 3, equal unlabored respirations, skin warm/dry/pink. reporting nausea, provider notified. 21:21 Reassessment: Patient appears in no apparent distress at this time. Patient and/or jd3 family updated on plan of care and expected duration. Pain level reassessed. Patient is alert, oriented x 3, equal unlabored respirations, skin warm/dry/pink. charting continued in [facility]. Vital Signs: 17:02 BP 144 / 116; Pulse 101; Resp 18; Temp 97.8; Pulse Ox 98% ; Pain 3/10; ll1 19:02 BP 119 / 67; Pulse 87; Resp 18; Pulse Ox 98% on R/A; ph 20:38 BP 104 / 67; Pulse 92; Resp 17 S; Pulse Ox 98% on R/A; jd3 21:22 BP 100 / 61; Pulse 82; Resp 16 S; Pulse Ox 95% on R/A; jd3 ED Course: 16:54 Patient arrived in ED. ag5 16:54 Alina Wilson MD is Private Physician. ag5 17:00 Adore Pacheco, ANSELMO is Primary Nurse. ph 17:03 Benjamin Manzo MD is Attending Physician. kadeem 17:03 Triage completed. ll1 17:04 Arm band placed on Patient placed in an exam room, on a stretcher. ll1 17:36 Patient has correct armband on for positive identification. Bed in low position. Call ph light in reach. Side rails up X 1. Pulse ox on. NIBP on. Door closed. Noise minimized. Warm blanket given. 19:17 Alina Wilson MD is Referral Physician. kadeem 19:18 Alina Wilson MD is Hospitalizing Provider. kadeem 19:29 Chest Single View XRAY In Process Unspecified. EDMS 21:22 No provider procedures requiring assistance completed. Patient admitted, IV remains in jd3 place. 23:30 Report given to Krysta for ER-Hold. j Administered Medications: 18:55 Drug: NS 0.9% 1000 ml Route: IV; Rate: 1 bolus; Site: right antecubital; ph 21:21 Follow up: Response: No adverse reaction; IV Status: Infusion continued upon admission j 18:56 Drug: Zofran (Ondansetron) 4 mg Route: IVP; Site: right antecubital; ph 19:11 Follow up: Response: No adverse reaction ph 18:58 Drug: morphine 2 mg Route: IVP; Site: right antecubital; ph 19:11 Follow up: Response: No adverse reaction ph 19:01 Drug: NS 0.9% with KCl 20 mEq/L 1000 ml Route: IV; Rate: 125 ml/min; Site: right ph antecubital; 21:20 Follow up: Response: No adverse reaction; IV Status: Infusion continued upon admission jd3 19:02 Drug: Cipro 400 mg Volume: 200 ml; Route: IVPB; Infused Over: 60 mins; Site: right ph antecubital; 20:20 Follow up: Response: No adverse reaction; IV Status: Completed infusion jd3 20:49 Drug: Zofran (Ondansetron) 4 mg Route: IVP; Site: right antecubital; jd3 21:21 Follow up: Response: No adverse reaction jd3 20:51 Drug: Flagyl 500 mg Volume: 100 ml; Route: IVPB; Rate: 200 ml/hr; Infused Over: 30 jd3 mins; Site: right antecubital; 21:21 Follow up: Response: No adverse reaction; IV Status: Infusion continued upon admission jd3 Outcome: 19:17 Discharge ordered by . [facility] 19:19 Decision to Hospitalize by Provider. [facility] 21:22 Admitted to ER Hold. Please see [facility] for further documentation. jd3 21:22 Condition: stable 21:22 Instructed on the need for admit, Demonstrated understanding of instructions. 03/15 00:28 Patient left the ED. sg Signatures: Dispatcher [employer] Joseph ph D, RN RN sg Anderson, Corey, MD MD cha Hall, Patricia, RN RNavies, Jonathon, RN RN jd3 Gaskin, Ajare ag5 Lewis, Lynsay, RN RN ll1
--- NOTE | 2020-03-14 19:20 | EDPHYS ---
Physician Documentation [facility] Name: Nesha Pringle Age: 70 yrs Sex: Female : 1950 Arrival Date: 03/14/2020 Time: 16:54 Bed 17 Private MD: Alina Wilson C ED Physician Benjamin Manzo HPI: 03/14 18:32 This 70 yrs old Female presents to ER via Wheelchair with complaints of kadeem Abdominal Pain, Diarrhea. 18:32 The patient presents to the emergency department with nausea, diarrhea, abdominal pain, kadeem of the right lower quadrant. Onset: The symptoms/episode began/occurred 3 day(s) ago. Possible causes: unknown. The symptoms are aggravated by nothing. The symptoms are alleviated by nothing. Associated signs and symptoms: The patient has no apparent associated signs or symptoms. Severity of symptoms: At their worst the symptoms were moderate in the emergency department the symptoms are unchanged. The patient has experienced similar episodes in the past, several times. Historical: - Allergies: 17:04 Codeine; ll1 - PMHx: 17:04 Thyroid problem; Hypertension; PE; colon cancer; ll1 - PSHx: 17:04 BLADDER SLING; Hysterectomy; Lithotripsy; Bowel resection; BRAIN; ll1 - Immunization history:: Adult Immunizations up to date. - Social history:: Smoking status: Patient denies any tobacco usage or history of. Patient/guardian denies using alcohol, street drugs, tobacco products. - Family history:: not pertinent. ROS: 18:32 Constitutional: Negative for fever, chills, and weight loss, Eyes: Negative for injury, kadeem pain, redness, and discharge, ENT: Negative for injury, pain, and discharge, Neck: Negative for injury, pain, and swelling, Cardiovascular: Negative for chest pain, palpitations, and edema, Respiratory: Negative for shortness of breath, cough, wheezing, and pleuritic chest pain, Back: Negative for injury and pain, : Negative for injury, bleeding, discharge, and swelling, MS/Extremity: Negative for injury and deformity, Skin: Negative for injury, rash, and discoloration, Neuro: Negative for headache, weakness, numbness, tingling, and seizure, Psych: Negative for depression, anxiety, suicide ideation, homicidal ideation, and hallucinations, Allergy/Immunology: Negative for hives, rash, and allergies, Endocrine: Negative for neck swelling, polydipsia, polyuria, polyphagia, and marked weight changes, Hematologic/Lymphatic: Negative for swollen nodes, abnormal bleeding, and unusual bruising. 18:32 Abdomen/GI: Positive for abdominal pain, of the right lower quadrant. Exam: 18:32 Constitutional: This is a well developed, well nourished patient who is awake, alert, kadeem and in no acute distress. Head/Face: Normocephalic, atraumatic. Eyes: Pupils equal round and reactive to light, extra-ocular motions intact. Lids and lashes normal. Conjunctiva and sclera are non-icteric and not injected. Cornea within normal limits. Periorbital areas with no swelling, redness, or edema. ENT: Nares patent. No nasal discharge, no septal abnormalities noted. Tympanic membranes are normal and external auditory canals are clear. Oropharynx with no redness, swelling, or masses, exudates, or evidence of obstruction, uvula midline. Mucous membranes moist. Neck: Trachea midline, no thyromegaly or masses palpated, and no cervical lymphadenopathy. Supple, full range of motion without nuchal rigidity, or vertebral point tenderness. No Meningismus. Chest/axilla: Normal chest wall appearance and motion. Nontender with no deformity. No lesions are appreciated. Cardiovascular: Regular rate and rhythm with a normal S1 and S2. No gallops, murmurs, or rubs. Normal PMI, no JVD. No pulse deficits. Respiratory: Lungs have equal breath sounds bilaterally, clear to auscultation and percussion. No rales, rhonchi or wheezes noted. No increased work of breathing, no retractions or nasal flaring. Back: No spinal tenderness. No costovertebral tenderness. Full range of motion. Female : Normal external genitalia. Skin: Warm, dry with normal turgor. Normal color with no rashes, no lesions, and no evidence of cellulitis. MS/ Extremity: Pulses equal, no cyanosis. Neurovascular intact. Full, normal range of motion. Neuro: Awake and alert, GCS 15, oriented to person, place, time, and situation. Cranial nerves II-XII grossly intact. Motor strength 5/5 in all extremities. Sensory grossly intact. Cerebellar exam normal. Normal gait. Psych: Awake, alert, with orientation to person, place and time. Behavior, mood, and affect are within normal limits. 18:32 Abdomen/GI: Inspection: distension, Bowel sounds: hyperactive, Palpation: mild abdominal tenderness, moderate abdominal tenderness, in the right lower quadrant and left lower quadrant, Liver: no appreciated palpable abnormalities, Hernia: not appreciated. Vital Signs: 17:02 BP 144 / 116; Pulse 101; Resp 18; Temp 97.8; Pulse Ox 98% ; Pain 3/10; ll1 19:02 BP 119 / 67; Pulse 87; Resp 18; Pulse Ox 98% on R/A; ph 20:38 BP 104 / 67; Pulse 92; Resp 17 S; Pulse Ox 98% on R/A; jd3 21:22 BP 100 / 61; Pulse 82; Resp 16 S; Pulse Ox 95% on R/A; jd3 MDM: 17:03 Patient medically screened. [facility] 18:35 Data reviewed: vital signs, nurses notes, lab test result(s), CBC, electrolytes, [facility] hepatic panel, EKG, radiologic studies, CT scan, plain films. 19:06 Differential diagnosis: Nonspecific abd pain, pancreatitis, appendicitis, kadeem diverticulitis, viral gastroenteritis, gastroenteritis. Data interpreted: ekg monitor tech: rate is 87 beats/min, rhythm is normal sinus rhythm, Pulse oximetry: on room air is 98 %. Test interpretation: by ED physician or midlevel provider: ECG, plain radiologic studies. Counseling: I had a detailed discussion with the patient and/or guardian regarding: the historical points, exam findings, and any diagnostic results supporting the discharge/admit diagnosis, the presence of at least one elevated blood pressure reading (>120/80) during this emergency department visit, lab results, radiology results, the need for further work-up and treatment in the hospital. Medication response: Zofran partially relieved the patient's nausea. 03/14 17:23 Order name: Basic Metabolic Panel; Complete Time: 18:28 ph 03/14 17:23 Order name: CBC with Diff; Complete Time: 18:28 ph 03/14 17:23 Order name: Hepatic Function; Complete Time: 18:28 ph 03/14 17:23 Order name: Lipase; Complete Time: 18:28 ph 03/14 17:46 Order name: Urine Dipstick--Ancillary (enter results); Complete Time: 21:11 eb 03/14 19:16 Order name: Stool Culture [facility] 03/14 18:28 Order name: CT Abd/Pelvis - PO and IV Contrast [facility] 03/14 18:37 Order name: Chest Single View XRAY; Complete Time: 21:11 [facility] 03/14 19:16 Order name: Fecal Leukocyte Stain [facility] 03/14 19:16 Order name: CDIFF [facility] 03/14 20:52 Order name: CT; Complete Time: 21:11 EDMS 03/14 17:23 Order name: IV Saline Lock; Complete Time: 17:35 ph 03/14 17:23 Order name: Labs collected and sent; Complete Time: 17:35 03/14 18:37 Order name: EKG; Complete Time: 18:37 [facility] 03/14 18:37 Order name: EKG - Nurse/Tech; Complete Time: 19:00 [facility] Administered Medications: 18:55 Drug: NS 0.9% 1000 ml Route: IV; Rate: 1 bolus; Site: right antecubital; ph 21:21 Follow up: Response: No adverse reaction; IV Status: Infusion continued upon admission jd3 18:56 Drug: Zofran (Ondansetron) 4 mg Route: IVP; Site: right antecubital; ph 19:11 Follow up: Response: No adverse reaction ph 18:58 Drug: morphine 2 mg Route: IVP; Site: right antecubital; ph 19:11 Follow up: Response: No adverse reaction ph 19:01 Drug: NS 0.9% with KCl 20 mEq/L 1000 ml Route: IV; Rate: 125 ml/min; Site: right ph antecubital; 21:20 Follow up: Response: No adverse reaction; IV Status: Infusion continued upon admission jd3 19:02 Drug: Cipro 400 mg Volume: 200 ml; Route: IVPB; Infused Over: 60 mins; Site: right ph antecubital; 20:20 Follow up: Response: No adverse reaction; IV Status: Completed infusion jd3 20:49 Drug: Zofran (Ondansetron) 4 mg Route: IVP; Site: right antecubital; jd3 21:21 Follow up: Response: No adverse reaction jd3 20:51 Drug: Flagyl 500 mg Volume: 100 ml; Route: IVPB; Rate: 200 ml/hr; Infused Over: 30 jd3 mins; Site: right antecubital; 21:21 Follow up: Response: No adverse reaction; IV Status: Infusion continued upon admission jd3 Disposition: 03/14/20 19:19 Hospitalization ordered by Alina Wilson for Inpatient Admission. Preliminary diagnosis are Abdominal tenderness, Elevated white blood cell count, Diarrhea, unspecified, Anemia, unspecified, Hypokalemia. - Bed requested for Telemetry/MedSurg (Inpatient). - Status is Inpatient Admission. sg - Condition is Fair. - Problem is new. - Symptoms have improved. Signatures: Dispatcher [employer] EDMS Grupo Conti RN Benjamin Le MD MD cha Lasagna, Tonya RN RN tl1 Adore Pacheco RN RN Higinio Davis, ROD MACHINE OPERATOR ROD MACHINE OPERATOR pm1 Josse Vega RN RN jd3 Mickey Cano RN RN ll1 Corrections: (The following items were deleted from the chart) 19:18 19:17 03/14/2020 19:17 Discharged to Home. Impression: Abdominal tenderness; Diarrhea, kadeem unspecified; Elevated white blood cell count. Condition is Stable. Forms are Medication Reconciliation Form, Thank You Letter, Antibiotic Education, Prescription Opioid Use. Follow up: Alina Wilson; When: 2 - 3 days; Reason: Recheck today's complaints, Continuance of care, Re-evaluation by your physician. Problem is new. Symptoms have improved. [facility] 19:28 19:19 Hospitalization Ordered by A Steve PARKER for Inpatient Admission. Preliminary [facility] diagnosis is Abdominal tenderness; Elevated white blood cell count; Diarrhea, unspecified. Bed requested for Telemetry/MedSurg (Inpatient). Status is Inpatient Admission. Condition is Fair. Problem is new. Symptoms have improved. [facility] 20:58 19:28 03/14/2020 19:19 Hospitalization Ordered by A Steve PARKER for Inpatient Admission. tl1 Preliminary diagnosis is Abdominal tenderness; Elevated white blood cell count; Diarrhea, unspecified; Anemia, unspecified; Hypokalemia. Bed requested for Telemetry/MedSurg (Inpatient). Status is Inpatient Admission. Condition is Fair. Problem is new. Symptoms have improved. [facility] 03/15 00:05 03/14 20:58 03/14/2020 19:19 Hospitalization Ordered by Alina Wilson MD for Inpatient tl1 Admission. Preliminary diagnosis is Abdominal tenderness; Elevated white blood cell count; Diarrhea, unspecified; Anemia, unspecified; Hypokalemia. Bed requested for [facility] ER HOLD. Status is Inpatient Admission. Condition is Fair. Problem is new. Symptoms have improved. tl1 03/15 00:28 00:05 03/14/2020 19:19 Hospitalization Ordered by A Steve PARKER for Inpatient Admission. sg Preliminary diagnosis is Abdominal tenderness; Elevated white blood cell count; Diarrhea, unspecified; Anemia, unspecified; Hypokalemia. Bed requested for Telemetry/MedSurg (Inpatient). Status is Inpatient Admission. Condition is Fair. Problem is new. Symptoms have improved. tl1
--- NOTE | 2020-03-14 19:36 | RAD REPORT ---
EXAM DESCRIPTION: RAD - Chest Single View - 03/14/2020 7:29 pm CLINICAL HISTORY: ABDOMINAL DISTENTION Chest pain. COMPARISON: Chest Pa And Lat (2 Views) dated 03/17/2019; Chest Pa And Lat (2 Views) dated 01/21/2019; Chest Single View dated 10/21/2018; Chest Single View dated 10/08/2018; Chest Abdomen Pelvis W Cont chela ed 02/15/2020 FINDINGS: Portable technique limits examination quality. The lungs are grossly clear. The heart is normal in size. Right-sided venous catheter tip in the SVC. IMPRESSION: No acute intrathoracic process suspected.
--- NOTE | 2020-03-14 20:50 | RAD REPORT ---
EXAM DESCRIPTION: CTAbdomen Pelvis W Contrast - 03/14/2020 8:31 pm CLINICAL HISTORY: Abdominal pain. ABD PAIN COMPARISON: Abdomen Pelvis W Contrast dated 12/20/2019; Abdomen Pelvis W Contrast dated 9; Abdomen Pelvis W Contrast dated 10/21/2018; Abdomen Pelvis W Contrast dated 03/25/2016; Chest Ab domen Pelvis W Cont dated 02/15/2020 TECHNIQUE: Biphasic CT imaging of the abdomen and pelvis was performed with 100 ml non-ionic IV cont rast. All CT scans are performed using dose optimization technique as appropriate and may include automated exposure control or mA/KV adjustment according to patient size. FINDINGS: Linear atelectasis is present in both lung bases. Mild diffuse fatty liver. Cholelithiasis. The spleen, pancreas, adrenal glands are normal. Significan t atrophy of the left kidney is seen with small stones in the inferior calyx left kidney. Several are as of scarring are present in the right kidney without hydronephrosis. Postsurgical changes of a hemicolectomy. No bowel obstruction, free air or abscess. Adenopathy is pr esent anterior to the aorta measuring 16 mm, left para-aortic region measuring 3.5 x 3.1 cm, adjacent to the left common iliac artery measures 3.6 x 2.2 cm, left hemipelvis measuring 3.2 x 3.0 cm. This appears stable to fractionally larger than on the comparative study. No lytic or blastic bone lesion. Asymmetric thickening of the sigmoid colon is seen measuring up to 1 3 mm. IMPRESSION: Asymmetric thickening of the sigmoid colon is seen up to 13 mm. Suggest followup colonos copy if not recently performed. Bulky retroperitoneal adenopathy again noted, stable or fractionally enlarged since comparative study . Cholelithiasis.
[2020-03-14] MEDS: FAMOTIDINE 20 MG/2 ML VIAL IV SCH (21:18)
[2020-03-14] MEDS ORDERED: MORPHINE 4 MG/ML SYR IV PRN (21:18)
[2020-03-14] MEDS: NS KCL 20MEQ 20 MEQ/1,000 ML BAG IV SCH (21:18)
[2020-03-14] MEDS: CIPROFLOXACIN 400mg IV 400 MG/200 ML BAG IV SCH (21:18)
[2020-03-14 21:42] VITALS: BMI 24.9
[2020-03-15] MEDS: METRONIDAZOLE 500mg IVPB 500 MG/100 ML BAG IV SCH ×3 (00:45→16:58)
[2020-03-15] MEDS: ONDANSETRON 4 MG/2 ML VIAL IV PRN ×3 (01:00→14:11)
[2020-03-15 04:15] LABS: Basophils % 0.4 % (0-1.3); Hematocrit 25.4 % (36.0-45.0); Lymphocytes % 10.6 % (15.3-44.8); MPV 8.9 fL (7.6-11.3); RBC Red Blood Cell Count 2.45 M/uL (3.86-4.86)
[2020-03-15 04:33] LABS: ALT/SGPT 16 U/L (12-78); AST/SGOT 16 U/L (15-37); Albumin 2.6 g/dL (3.4-5.0); Alkaline Phosphatase 204 U/L (45-117); BUN Blood Urea Nitrogen 10 mg/dL (7-18); Bicarbonate 24 mmol/L (21-32); Bilirubin Direct < 0.1 mg/dL (0-0.2); Bilirubin Total 0.3 mg/dL (0.2-1.0); Glucose Level 154 mg/dL (74-106); Lipase 35 U/L (73-393); Potassium 4.4 mmol/L (3.5-5.1); Protein, Total 5.2 g/dL (6.4-8.2); Sodium Level 141 mmol/L (136-145)
[2020-03-15] MEDS: NS KCL 20MEQ 20 MEQ/1,000 ML BAG IV SCH (05:09)
[2020-03-15 05:23] LABS: Blood Morphology Comment NOT SEEN (NOT SEEN); Platelet Estimate DECR
[2020-03-15] MEDS: CIPROFLOXACIN 400mg IV 400 MG/200 ML BAG IV SCH ×2 (08:31→21:00)
[2020-03-15] MEDS: FAMOTIDINE 20 MG/2 ML VIAL IV SCH ×2 (08:31→21:56)
--- NOTE | 2020-03-15 10:56 | EKG ---
Test Date: 2020-03-14 Test Time: 18:57:50 Lead Man Over All Dies In [employer]: [facility]ANA MEASUREMENT RESULTS: Intervals: Rate: 81 NH: 148 QRSD: 84 QT: 380 QTc: 441 [place]: P: 72 NH: 148 QRS: 8 T: 96 INTERPRETIVE STATEMENTS: Normal sinus rhythm Low voltage QRS RSR' or QR pattern in V1 suggests right ventricular conduction delay Abnormal QRS-T angle, consider primary T wave abnormality Abnormal ECG Compared to ECG 10/21/2018 21:04:02 RSR' in V1 or V2 now present T-wave abnormality now present Electronically Signed On 03-15-20 10:55:58 CDT by Dany Barbour
[2020-03-15] MEDS ORDERED: ALPRAZOLAM 0.25 MG TABLET PO PRN (11:52)
[2020-03-15] MEDS ORDERED: CHOLESTYRAMINE/ASP 4 GM/PKT PO PRN (11:52)
[2020-03-15 11:58] LABS: C.diff Antigen/Toxin Ag pos : Tox neg (NEG : NEG)
[2020-03-15] MEDS: OXYBUTYNIN CHLORIDE 5 MG TAB PO SCH ×2 (14:08→21:56)
[2020-03-15] MEDS: NA CHLORIDE 0.9% 1,000 ML IV SCH (14:08)
[2020-03-15] MEDS: POTASSIUM CL SA 10 MEQ TAB PO SCH ×2 (14:08→21:56)
[2020-03-15] MEDS ORDERED: HOME MED 1 EA UNK (Pravastatin Sodium [Pravastatin Sodium] 40 MG) PO SCH (21:00)
[2020-03-15] MEDS ORDERED: ATORVASTATIN 10 MG TAB PO SCH (21:00)
[2020-03-15] MEDS: MAGNESIUM OXIDE 400 MG TAB PO SCH (21:00)
[2020-03-15] MEDS: GABAPENTIN 300 MG CAP PO SCH (21:56)
[2020-03-15] MEDS: APIXABAN 5 MG TABLET PO SCH (21:57)
[2020-03-15] MEDS: ACETAMINOPHEN 325 MG TABLET PO PRN (22:02)
[2020-03-16] MEDS: METRONIDAZOLE 500mg IVPB 500 MG/100 ML BAG IV SCH ×2 (00:40→09:21)
--- NOTE | 2020-03-16 04:46 | HP ---
Date of Admission: 03/15/2020 Chief Complaint: Diarrhea and pain. History Of Present Illness: This is 70-year-old female patient, who called my office yesterday with above-mentioned complaints and she was advised to come to the emergency room. Patient denies any blood in stool. Denies any vomiting except had some nausea after she came to emergency room. She describes her diarrhea as watery stool. Denies any recent travel and she lives at home with her , who does not have any such complaints. Denies any exposure to COVID-19 patient. Patient came into emergency room, she was admitted to the hospital. Allergies: TO CODEINE. Medications: List reviewed. Review of Systems: GI: As mentioned above. All other systems reviewed and negative. Social History: Negative for smoking, alcohol use. Family History: Significant for hypertension, diabetes mellitus, coronary artery disease. Past Surgical History: Breast implant, tubal ligation, hysterectomy, repair of cerebral aneurysm in 2008, cystocele repair, clipping of cerebral aneurysm in 2003. Past Medical History: Significant for hypertension, hyperlipidemia, hypothyroidism, hypokalemia, hypomagnesemia, impaired fasting glucose, colon cancer, gastroesophageal reflux disease, aneurysm, depression, DVT of right leg with bilateral pulmonary embolism diagnosed in September of 2018. Physical Examination: Vital Signs: Height 5 feet 1 inch, weight 132 pounds, temperature 97.2, pulse 73, respiratory rate 19, blood pressure 99/54, oxygen saturation 97%. General: Awake, alert, oriented, not in distress. HEENT: Head atraumatic, normocephalic. Conjunctivae nonerythematous. Sclerae white. Mouth, no thrush or edema noted. Ears/Nose, no mass, lesion, discharge noted. Neck: Supple. No JVD, lymph nodes, bruit, thyromegaly noted. Lungs: Bilateral good equal air entry. Clear to auscultation. No rhonchi. No rales. Heart: Normal heart sounds, no murmur or gallop. Abdomen: Patient has significant tenderness in the right lower quadrant and suprapubic region. No rebound tenderness. There is some tenderness in left lower quadrant as well. Abdomen is not distended. Bowel sounds normoactive. No hepatosplenomegaly. Extremities: No leg edema. No calf tenderness. Skin: No rash, ulcer, cellulitis. Lymphatics: No lymph node enlargement in neck, supraclavicular, infraclavicular region. Neuro: No focal neurological deficit. Chest: Unremarkable. External Genitalia: Deferred. Rectal: Deferred. Laboratory Data: Yesterday, white count 13.3, hemoglobin 9.8, platelets 129. This morning, white count 9.3, hemoglobin 8.3, platelets 99, and 17% bands. Yesterday, sodium 142, potassium 3.3, chloride 106, bicarb 28, BUN 13, creatinine 0.63, glucose 121. Liver function tests unremarkable. Lipase 101. Today, sodium 141, potassium 4.4, chloride 110, bicarb 24, BUN 10, creatinine 0.57, . Liver function tests unremarkable. Urinalysis: 3+ blood, 2+ leuko. CAT scan of abdomen shows asymmetric thickening of sigmoid colon. Chest x-ray, no acute cardiopulmonary changes. Impression: 1. Acute colitis. 2. Anemia. 3. Thrombocytopenia. 4. Hypokalemia. 5. Hypomagnesemia. 6. Hypertension. 7. Hyperlipidemia. 8. Impaired fasting glucose. 9. Hypothyroidism. 10. Colon cancer. 11. Gastroesophageal reflux disease. Plan: Admit patient to hospital for further evaluation management of this problem. Patient is appropriate for inpatient and is expected to spend 2 midnights in hospital. We will start her on clear liquid diet today. We will continue home medications per order. We will go ahead and give empiric antibiotics per order. IV fluid will be continued per order. I will see her tomorrow for followup. Depending on her condition tomorrow, we will decide if we can advance diet or not. I will also communicate with her about colonoscopy depending on when her last colonoscopy was. We will have to make a decision whether she needs repeat colonoscopy or not, but obviously not at present time, but if she does it will be on an elective basis 6-8 weeks later on. I will see her tomorrow for followup. ROBERT/KITTY Voice ID: [id number] MTDD
[2020-03-16] MEDS: NA CHLORIDE 0.9% 1,000 ML IV SCH (06:14)
[2020-03-16] MEDS: ACETAMINOPHEN 325 MG TABLET PO PRN ×2 (06:19→13:29)
[2020-03-16] MEDS ORDERED: LEVOTHYROXINE SOD 0.075 MG TAB PO SCH (06:30)
[2020-03-16] MEDS ORDERED: SERTRALINE HCL 50 MG TAB PO SCH (09:00)
[2020-03-16] MEDS ORDERED: PANTOPRAZOLE 40MG TABLET PO SCH (09:00)
[2020-03-16] MEDS: APIXABAN 5 MG TABLET PO SCH (09:20)
[2020-03-16] MEDS: FAMOTIDINE 20 MG/2 ML VIAL IV SCH (09:20)
[2020-03-16] MEDS: GABAPENTIN 300 MG CAP PO SCH (09:21)
[2020-03-16] MEDS: POTASSIUM CL SA 10 MEQ TAB PO SCH ×2 (09:21→13:30)
[2020-03-16] MEDS: OXYBUTYNIN CHLORIDE 5 MG TAB PO SCH ×2 (09:21→13:30)
[2020-03-16] MEDS: CIPROFLOXACIN 400mg IV 400 MG/200 ML BAG IV SCH (09:22)
[2020-03-16] MEDS: MAGNESIUM OXIDE 400 MG TAB PO SCH (10:09)
[2020-03-16 11:12] VITALS: O2SAT 99
[2020-03-16] MEDS ORDERED: metroNIDAZOLE 500 MG TABLET PO SCH (14:00)
[2020-03-16 15:35] VITALS: BP 117/77; TEMP 97.5
--- NOTE | 2020-03-16 22:55 | DS ---
Date of Discharge: 03/16/2020 Disposition: Discharged to go home. Physical Examination: HEENT: Unremarkable. Lungs: Clear to auscultation. Cardiac: Heart sounds normal. Abdomen: Soft, bowel sounds normal. No guarding, rigidity, tenderness, or distention. Extremities: No leg edema. Discharge Medications And Instructions: 1. Metronidazole 500 mg p.o. 3 times a day for 10 days. 2. Follow up at my office in 1 week. Discharge Diagnoses: 1. Clostridium difficile colitis. 2. Anemia. 3. Thrombocytopenia. 4. Hypokalemia. 5. Hypomagnesemia. 6. Hypertension. 7. Hyperlipidemia. 8. Impaired fasting glucose. 9. Hypothyroidism. 10. Colon cancer. 11. Gastroesophageal reflux disease. 12. Volume depletion. Hospital Course: Ms. Pringle is a pleasant 70-year-old female patient who came into emergency room with complaints of diarrhea and abdominal pain. Please see dictated H and P for more information. After patient was evaluated in the emergency room, she was admitted to the hospital. Her CAT scan had shown evidence of colitis involving sigmoid colon. Denies any blood in stool. Her diarrhea problem resolved after her admission to the hospital. She was started on empiric antibiotic which was Cipro and Flagyl. Stool for C diff was added and today her stool C diff test came back positive, so we discontinued Cipro and Flagyl was continued. Initially, she was kept n.p.o., subsequently we started her on diet and her abdominal pain problem has completely resolved. Patient is feeling much better and she is anxious to go home medically. She is stable for discharge. ROBERT/MODL Voice ID: [id number] Report ID: [id number] TROY
== END 2020-03-16 15:36 | disposition home or self-care (01) | DRG 373 ==
LOC: ER 16:52 → ERHOLD 19:20 → 2ND 03-15 00:13
PROVIDERS: ADMIT Internal Medicine; ATTEND Internal Medicine
DX: A04.72 Enterocolitis due to Clostridium difficile, not specified as recurrent (principal); E78.5 Hyperlipidemia, unspecified; D64.9 Anemia, unspecified; E03.9 Hypothyroidism, unspecified; E83.42 Hypomagnesemia; E87.6 Hypokalemia; D69.6 Thrombocytopenia, unspecified; K21.9 Gastro-esophageal reflux disease without esophagitis; I10 Essential (primary) hypertension; R73.01 Impaired fasting glucose; Z98.51 Tubal ligation status; Z90.710 Acquired absence of both cervix and uterus; Z98.82 Breast implant status; Z85.038 Personal history of other malignant neoplasm of large intestine; Z86.711 Personal history of pulmonary embolism; Z20.828 Contact with and (suspected) exposure to other viral communicable diseases; Z86.718 Personal history of other venous thrombosis and embolism; Z88.5 Allergy status to narcotic agent
CPT/HCPCS: 36415; 71045; 74177; 80048; 80076; 81003; 83690; 85025; 87045; 87046; 87324; 87449; 87493; 89055; 93005; 96361; 96365; 96367; 96375; 99285; J0744; J2270; J2405; J7030; Q9967; U0002

== ENCOUNTER 2020-04-11 11:21 | Emergency (ER) | payer OTHER ==
[2020-04-11 14:21] LABS: Absolute Lymphocytes (CBC) 1.6 K/uL (0.7-4.9); Basophils % 1.2 % (0-1.3); Hematocrit 36.2 % (36.0-45.0); Lymphocytes % 19.4 % (15.3-44.8); RBC Red Blood Cell Count 3.52 M/uL (3.86-4.86)
[2020-04-11 14:33] LABS: Potassium 5.1 mmol/L (3.5-5.1)
[2020-04-11 14:47] LABS: Urine Bacteria LOADED /HPF (<20); Urine Culture Reflex Order REFLEXED; Urine RBC LOADED /HPF (NONE SEEN)
--- NOTE | 2020-04-11 14:52 | RAD REPORT ---
EXAM DESCRIPTION: CT - Abdomen Pelvis W Contrast - 04/11/2020 2:24 pm CLINICAL HISTORY: Abdominal pain COMPARISON: February 2020 TECHNIQUE: Computed axial tomography of the abdomen pelvis was obtained. 100 cc Isovue-300 was admin istered intravenously. Oral contrast was not requested which limits evaluation of bowel. All CT scans are performed using dose optimization technique as appropriate and may include automated exposure control or mA/KV adjustment according to patient size. FINDINGS: Fatty liver Spleen, pancreas and adrenals unremarkable. Bilateral renal cortical thinning. Left kidney is small. Nonobstructing bilateral renal calculi. Cholelithiasis. Mild gallbladder distention Ectatic abdominal aorta Right linda colectomy. No diverticulitis. Progression para-aortic/left iliac lymphadenopathy. The largest conglomerate of lymph nodes measures 4.4 centimeters. No ascites IMPRESSION: Progression in the para-aortic/ left iliac lymphadenopathy. Right hemicolectomy without obstruction. Cholelithiasis. Mild gallbladder distention
[2020-04-11] MEDS ORDERED: CEFTRIAXONE/SWI 1gm 1 GM/10 ML SYR ONE (15:27)
--- OUTSIDE RECORDS SUMMARY | 2020-04-11 15:50 | XMS REPORT | Clinical Summary ---
:1950 Author Organization [facility] Address [address] [place] [id number] Care Team Providers Name Role Phone Unavailable [...] Not on file Results Not on fileafter 04/11/2019 Insurance Payer Benefit Plan / Group Subscriber ID Type Phone A ddress MEDICARE MEDICARE A B xxxxxxxxxxx Medicare AETNA - MGD CARE AETNA INDEMNITY NON CONTR xxxxxxxxx Comm Advance Directives For more information, please contact:[place] [id number] [place], [place] [phone] Code Status Date Activated Date Inactivated Comments Full Code 01/18/2019 5:45 PM 01/18/2019 11:41 PM This code status was determined by: Patient Full Code 10/25/2018 7:49 PM 01/18/2019 7:33 AM This code status was determined by: Patient
--- OUTSIDE RECORDS SUMMARY | 2020-04-11 15:50 | XMS REPORT | Continuity of Care Document ---
:1950 Author Organization [facility] t Address [address] [place] [address] Care Team Providers Name Role Phone Octavia Sargent MD Primary Care Physician Octavia SARGENT Attending Clinician Unavailable SANGITA Attending Clinician Unavailable RAMONA QUINTANILLA Admitting Clinician Unavailable SANGITA Admitting Clinician Unavailable Problems Condition Condition Condition Status Onset Resolution Last Treating Co mments Source Name Details Category Date Date Treatment Clinician Date Pulmonary Pulmonary Disease Active [facility] St embolism embolism 10-25 [facility] Allergies, Adverse Reactions, Alerts Allergy Allergy Status Severity Reaction(s) Onset Inactive Treating Comm ents Source Name Type Date Date Clinician Codeine Propensi Active [facility] St ty to 10-25 [facility] - adverse 00:00: Medical reaction 00 Center s Codeine Propensi Active [facility] ty to 01-20 [facility] adverse 00:00: st reaction 00 s to drug Family History Family Member Diagnosis Comments Start Date Stop Date Source Natural father Diabetes [facility] Natural father Hypertension [facility] Natural father Stroke [facility] Natural father Stroke [facility] Natural mother Diabetes [facility] Natural [facility] Natural brother Cancer [facility] Natural sister Stroke [facility] Social History Social Habit Start Date Stop Date Quantity Comments Source History of Current smoker [facility] tobacco use Medical Cent[facility] r Sex Assigned At [facility] Alcohol Comment 2018-10-25 2018-10-[address] [facility] - 00:[facility]:00 00:[facility]:00 Medical Center Alcohol intake 2018-01-20 2018-01-20 Current [facility]odist 00:00:00 00:00:00 non-drinker of alcohol (finding) Smoking Status Start Date Stop Date Source Former smoker 2019-01-18 00:00:00 2019-01-18 00:00:[address] [facility] Never smoker [facility] Medications Ordered Filled Start Stop [...] 00:00: mouth Medic al LEVOTHROID) 00 daily. Center 137 MCG tablet potassium 2018- Yes 10meq QD Take [address] [facility] [address] chloride SA 1-07 mEq by [facility] - (K-DUR,KLOR 00:00: mouth Medic al -CON) 10 00 daily. Center MEQ tablet pravastatin 2018 Yes 40mg QD Take [address] [facility] [address] (PRAVACHOL) 1-03 by mouth [facility] s - 40 MG 00:00: daily. Medical tablet 00 Center Procedures This patient has no known procedures. Plan of Care Planned Activity Planned Date Details Comments Source Future Scheduled 2020-04-29 INFLUENZA VACCINE [facility] Test 00:00:00 [code = INFLUENZA VACCINE] Future Scheduled 2016 65+ PNEUMOCOCCAL [facility] Test 00:00:00 VACCINE (1 of 2 - PCV13) [code = 65+ PNEUMOCOCCAL VACCINE (1 of 2 - PCV13)] Future Scheduled 2001 BREAST CANCER [facility] Test 00:00:00 SCREENING [code = BREAST CANCER SCREENING] Future Scheduled 2001 COLONOSCOPY SCREENING Ho olayinka Mandaen Test 00:00:00 [code = COLONOSCOPY SCREENING] Future Scheduled 2001 SHINGLES VACCINES (#1) H marilu Mandaen Test 00:00:00 [code = SHINGLES VACCINES (#1)] Results Test Description Test Time Test Comments Results Result [facility] e Comments ANG, CAVAL FILTER 2019-01-18 Reason for FINAL REPORT PATIENT REMOVAL 18:03:00 Exam:->[id number] ID: [id number] IVC filter removal. History: Filter no longer required Modality: Ultrasound and fluoroscopy. Sedation: Moderate sedation was administered. 3 mg of Versed and 200 mcg of fentanyl IV was used for moderate sedation monitored under my direction. Total intra-service time of sedation was 90 minutes. The patient's vital signs were monitored throughout the procedure and recorded in the patient's medical record by the nurse. Ink Jet Operator: Blake Bay MD. Seaming Machine Operator: Jennifer Vines (fellow). Approach: Right internal [...] The needle was removed and a 5 Bulgarian straight multi-sidehole catheter was advanced to the distal IVC for a DSA cavagram. A 10 Bulgarian angled tip Flexor sheath was advanced into the suprarenal IVC. Attempts were made to snare the filter without success given documented within the caval wall. Subsequently, the 10 Bulgarian sheath was exchanged for a 16 Bulgarian sheath. Endobronchial forceps were then used to dislodge the filter from the caval wall. A 12 Bulgarian sheath was placed through the 16 Bulgarian sheath. A 15 mm Amplatz gooseneck snare [...] MDReport Verified Date/Time: 01/18/2019 18:03:40 Reading Location: [place] [address] Angio Body Reading Room W/PLT COUNT & [...] 965) ARTIFACT (CELLAVISION)(BEAKER) Present (test code = 3432) PLATELET CONCENTRATION Decreased (CELLAVISION)(BEAKER) (test code = 3438) Received comment: User comments: Slide comments:BASIC METABOLIC [id number] 13:07:00 Test Item Value Reference Range Interpretation [...] NOT APPLICABLE FOR DIALYSIS PATIEN TS. PROTHROMBIN [id number] 13:01:00 Test Item Value Reference Range Interpretation Comments PROTIME (BEAKER) (test code = 13.7 seconds 11.7-14.7 759) INR (BEAKER) (test code = 370) 1.0 <=5.9 RECOMMENDED COUMADIN/WARFARIN INR THERAPY RANGESSTANDARD DOSE: 2.0 - 3.0 Includes: PROPHYLAXIS forvenous thrombosis, systemic embolization; TREATMENT for venous thrombosis and/or pulmonary embolus.HIGH RISK: Target INR is 2.5-3.5 for patients with mechanical heart valves.FADY, CAVAL FILTER [id number] 13:44:00Reason for exam:->IVC filter placementFINAL REPORT Inferior [...] guide wire was advanced centrally. A 4 Bulgarian catheter was advanced to evaluate the inferior [...] filter below the renal veins. Signed: L[facility] Verified Date/Time: 10/26/2018 13:44:07 Reading Location: [facility] P048 Angio BodyReading Room C METABOLIC [id number] 21:43:00 Test Item Value Reference Range Interpretation [...] S NOT APPLICABLE FOR DIALYSIS PATIEN TS. [id number] 21:41:00 Test Item Value Reference Range Interpretation [...] % 0-1 PERCENT (BEAKER) (test code = 1585)
--- OUTSIDE RECORDS SUMMARY | 2020-04-11 15:50 | XMS REPORT | Clinical Summary ---
:1950 Author Organization [facility] Address [address] [place] [address] Care Team Providers Name Role Phone Octavia [...] INFLUENZA VACCINE 04/29/2020 Results Not on fileafter 04/11/2019 Insurance Payer Benefit Plan / Subscriber ID Effective Dates Phone Addre ss Type Group MEDICARE MEDICARE PART A xxxxxxxxxx 2008-Present [place], [place] Medicare AND B AETNA AETNA PPO OPEN xxxxxxxxx 2000-Present PPO CHOICE Advance Directives For more information, please contact: [phone] Type Date Recorded Patient [place] Explanati on Advance Directives, Living Will and Medical Power of Tape Librarian
--- NOTE | 2020-04-11 15:52 | ER ---
Nurse's Notes [facility] Name: Nesha Pringle Age: 70 yrs Sex: Female : 1950 Arrival Date: 04/11/2020 Time: 11:25 Bed 15 Private MD: Alina Wilson C Diagnosis: Hematuria, unspecified;Urinary tract infection, site not specified Presentation: 04/11 11:54 Chief complaint: Patient states: Lower abd pain for a couple days. Noticed blood in ll1 urine this morning. No fever. Coronavirus screen: Proceed with normal triage. Patient denies a cough. Patient denies shortness of breath or difficulty breathing. Patient denies measured and/or subjective temperature greater than 100.4F prior to today's visit. Patient denies travel on a cruise ship or to a country the [facility] currently lists as an affected area. Patient denies contact with known and/or suspected case of COVID-19. Ebola Screen: Patient denies travel to an Ebola-affected area in the 21 days before illness onset. Initial Sepsis Screen: Does the patient meet any 2 criteria? HR > 90 bpm. Risk Assessment: Do you want to hurt yourself or someone else? Patient reports no desire to harm self or others. Onset of symptoms was April 09, 2020. 11:54 Method Of Arrival: Ambulatory 1 11:54 Acuity: JAMES 3 ll1 Historical: - Allergies: 11:54 Codeine; ll1 - PMHx: 11:54 Hypertension; colon cancer; Thyroid problem; PE; ll1 - PSHx: 11:54 Bowel resection; BLADDER SLING; Hysterectomy; Lithotripsy; BRAIN; ll1 - Immunization history:: Adult Immunizations up to date. - Social history:: Smoking status: Patient denies any tobacco usage or history of. Patient/guardian denies using alcohol, street drugs. Screenin:58 Abuse screen: Denies threats or abuse. Denies injuries from another. Nutritional ph screening: No deficits noted. Tuberculosis screening: No symptoms or risk factors identified. Fall Risk None identified. Assessment: 14:56 General: Appears in no apparent distress. comfortable, slender, well groomed, Behavior ph is calm, cooperative, appropriate for age, Denies fever. Pain: Complains of pain in suprapubic area. Neuro: Level of Consciousness is awake, alert, obeys commands, Oriented to person, place, time, situation. Cardiovascular: Capillary refill < 3 seconds in bilateral fingers Patient's skin is warm and dry. Respiratory: Airway is patent Respiratory effort is even, unlabored, Respiratory pattern is regular, symmetrical. GI: Abdomen is flat, non-distended, Bowel sounds present X 4 quads. Abd is soft and non tender X 4 quads. Reports lower abdominal pain. 14:57 : Reports pain in suprapubic area hematuria. Derm: Skin is intact, Skin is pink, warm ph \T\ dry. Musculoskeletal: Circulation, motion, and sensation intact. Range of motion: intact in all extremities. 16:23 Reassessment: Patient appears in no apparent distress at this time. Patient and/or ph family updated on plan of care and expected duration. Pain level reassessed. Patient is alert, oriented x 3, equal unlabored respirations, skin warm/dry/pink. D/C papers signd by pt, awaiting ride home. Vital Signs: 11:54 BP 129 / 69; Pulse 100; Resp 17; Temp 98.3; Pulse Ox 98% ; Pain 2/10; ll1 14:00 BP 119 / 85; Pulse 91; Resp 18; Pulse Ox 98% on R/A; ph 15:00 BP 134 / 74; Pulse 97; Resp 18; Temp 98.0; Pulse Ox 99% on R/A; ph 16:20 BP 127 / 80; Pulse 91; Resp 16; Temp 97.8; Pulse Ox 99% on R/A; ph ED Course: 11:25 Patient arrived in ED. am2 11:26 Alina Wilson MD is Private Physician. am2 11:56 Triage completed. ll1 11:56 Arm band placed on Patient notified of wait time. ll1 13:28 Adore Pacheco RN is Primary Nurse. ph 13:30 Idania Randall FNP-C is PHCP. kb 13:31 Benjamin Manzo MD is Attending Physician. kb 14:26 CT Abd/Pelvis - IV Contrast Only In Process Unspecified. EDMS 14:58 Patient has correct armband on for positive identification. Bed in low position. Call ph light in reach. Side rails up X 1. Pulse ox on. NIBP on. Door closed. Noise minimized. Warm blanket given. 15:51 Alina Wilson MD is Referral Physician. 15:51 Jarrell Merida MD is Referral Physician. kb 16:21 No provider procedures requiring assistance completed. IV discontinued, intact, ph bleeding controlled, No redness/swelling at site. Pressure dressing applied. Administered Medications: 15:46 Drug: Rocephin 1 grams Route: IV; Rate: calculated rate; Infused Over: 3 mins; Site: ph right antecubital; 16:21 Follow up: Response: No adverse reaction; IV Status: Completed infusion ph Outcome: 15:52 Discharge ordered by MD. kb 16:21 Discharged to home ambulatory, with family. ph 16:21 Condition: good 16:21 Discharge instructions given to patient, Instructed on discharge instructions, follow up and referral plans. medication usage, Demonstrated understanding of instructions, follow-up care, medications, Prescriptions given X 1. 16:39 Patient left the ED. ph Signatures: Dispatcher [employer] EDMS Idania Randall, JOHANNA-Octavia SPENCER-Adore Ray RN RN aRdha Huggins 2 Mickey Cano RN RN ll1 Corrections: (The following items were deleted from the chart) 14:58 14:56 GI: Abdomen is flat, non-distended, Bowel sounds present X 4 quads. Abd is soft ph and non tender X 4 quads. Reports ph
--- NOTE | 2020-04-11 15:52 | EDPHYS ---
Physician Documentation [facility] Name: Nesha Pringle Age: 70 yrs Sex: Female : 1950 Arrival Date: 04/11/2020 Time: 11:25 Bed 15 Private MD: Alina Wilson C ED Physician Benjamin Manzo HPI: 04/11 15:50 This 70 yrs old Female presents to ER via Ambulatory with complaints of kb Abdominal Pain, blood in urine. 15:50 The patient presents with abdominal pain suprapubic. Onset: The symptoms/episode kb began/occurred last night. The symptoms do not radiate. Associated signs and symptoms: Pertinent positives: hematuria. The symptoms are described as constant. Modifying factors: The symptoms are alleviated by nothing, the symptoms are aggravated by nothing. Severity of pain: At its worst the pain was moderate in the emergency department the pain is unchanged. The patient has not experienced similar symptoms in the past. The patient has not recently seen a physician. Pt reports some suprapubic pain prior to arrival and hematuria that started this morning. . Historical: - Allergies: 11:54 Codeine; ll1 - PMHx: 11:54 Hypertension; colon cancer; Thyroid problem; PE; ll1 - PSHx: 11:54 Bowel resection; BLADDER SLING; Hysterectomy; Lithotripsy; BRAIN; ll1 - Immunization history:: Adult Immunizations up to date. - Social history:: Smoking status: Patient denies any tobacco usage or history of. Patient/guardian denies using alcohol, street drugs. ROS: 15:48 Constitutional: Negative for fever, chills, and weight loss, Cardiovascular: Negative kb for chest pain, palpitations, and edema, Respiratory: Negative for shortness of breath, cough, wheezing, and pleuritic chest pain, Back: Negative for injury and pain, MS/Extremity: Negative for injury and deformity, Skin: Negative for injury, rash, and discoloration, Neuro: Negative for headache, weakness, numbness, tingling, and seizure. 15:48 Abdomen/GI: Positive for abdominal pain, of the suprapubic area. 15:48 : Positive for hematuria. Exam: 15:50 Constitutional: This is a well developed, well nourished patient who is awake, alert, kb and in no acute distress. Head/Face: Normocephalic, atraumatic. Chest/axilla: Normal chest wall appearance and motion. Nontender with no deformity. No lesions are appreciated. Cardiovascular: Regular rate and rhythm with a normal S1 and S2. No gallops, murmurs, or rubs. Normal PMI, no JVD. No pulse deficits. Respiratory: Lungs have equal breath sounds bilaterally, clear to auscultation and percussion. No rales, rhonchi or wheezes noted. No increased work of breathing, no retractions or nasal flaring. Abdomen/GI: Soft, non-tender, with normal bowel sounds. No distension or tympany. No guarding or rebound. No evidence of tenderness throughout. Back: No spinal tenderness. No costovertebral tenderness. Full range of motion. Skin: Warm, dry with normal turgor. Normal color with no rashes, no lesions, and no evidence of cellulitis. MS/ Extremity: Pulses equal, no cyanosis. Neurovascular intact. Full, normal range of motion. Neuro: Awake and alert, GCS 15, oriented to person, place, time, and situation. Cranial nerves II-XII grossly intact. Motor strength 5/5 in all extremities. Sensory grossly intact. Cerebellar exam normal. Normal gait. Vital Signs: 11:54 BP 129 / 69; Pulse 100; Resp 17; Temp 98.3; Pulse Ox 98% ; Pain 2/10; ll1 14:00 BP 119 / 85; Pulse 91; Resp 18; Pulse Ox 98% on R/A; ph 15:00 BP 134 / 74; Pulse 97; Resp 18; Temp 98.0; Pulse Ox 99% on R/A; ph 16:20 BP 127 / 80; Pulse 91; Resp 16; Temp 97.8; Pulse Ox 99% on R/A; ph MDM: 13:31 Patient medically screened. kb 15:49 Data reviewed: vital signs, nurses notes. Data interpreted: Pulse oximetry: on room air kb is 98 %. Interpretation: normal. Counseling: I had a detailed discussion with the patient and/or guardian regarding: the historical points, exam findings, and any diagnostic results supporting the discharge/admit diagnosis, lab results, radiology results, the need for outpatient follow up, a urologist, to return to the emergency department if symptoms worsen or persist or if there are any questions or concerns that arise at home. ED course: Pt will make a follow up appt with Yecenia Mckeon, whom she has seen before. 04/11 13:53 Order name: Basic Metabolic Panel; Complete Time: 14:41 kb 04/11 13:53 Order name: CBC with Diff; Complete Time: 14:24 kb 04/11 13:53 Order name: Urine Microscopic Only; Complete Time: 14:50 kb 04/11 14:30 Order name: Urine Dipstick--Ancillary (enter results) em1 04/11 14:44 Order name: CREATININE WHOLE BLOOD; Complete Time: 14:50 EDMS 04/11 14:48 Order name: Urine Culture EDMS 04/11 11:59 Order name: Urine Dipstick-Ancillary (obtain specimen); Complete Time: 14:29 kb 04/11 13:53 Order name: IV Saline Lock; Complete Time: 14:53 kb 04/11 13:53 Order name: Labs collected and sent; Complete Time: 14:53 kb 04/11 13:53 Order name: CT Abd/Pelvis - IV Contrast Only; Complete Time: 14:54 kb Administered Medications: 15:46 Drug: Rocephin 1 grams Route: IV; Rate: calculated rate; Infused Over: 3 mins; Site: ph right antecubital; 16:21 Follow up: Response: No adverse reaction; IV Status: Completed infusion ph Disposition: 20:35 Co-signature as Attending Physician, Benjamin Manzo MD I agree with the assessment and kadeem plan of care. Disposition: 04/11/20 15:52 Discharged to Home. Impression: Hematuria, unspecified, Urinary tract infection, site not specified. - Condition is Stable. - Discharge Instructions: Hematuria, Adult, Urinary Tract Infection, Adult, [id number]. - Prescriptions for Cipro 500 mg Oral Tablet - take 1 tablet by ORAL route every 12 hours for 10 days; 20 tablet. - Medication Reconciliation Form, Thank You Letter, Antibiotic Education, Prescription Opioid Use form. - Follow up: Emergency Department; When: As needed; Reason: Worsening of condition. Follow up: Alina Wilson MD; When: 2 - 3 days; Reason: Recheck today's complaints, Continuance of care, Re-evaluation by your physician. Follow up: Jarrell Merida MD; When: 1 - 2 days; Reason: Recheck today's complaints. Signatures: Dispatcher [employer] EDMS Idania Randall, SUBSTITUTE TEACHER-C SUBSTITUTE TEACHER-Ckb Benjamin Manzo MD MD cha Hall, Patricia, RN RN Mickey Dale RN RN ll1 Corrections: (The following items were deleted from the chart) 16:39 15:52 04/11/2020 15:52 Discharged to Home. Impression: Hematuria, unspecified; Urinary ph tract infection, site not specified. Condition is Stable. Forms are Medication Reconciliation Form, Thank You Letter, Antibiotic Education, Prescription Opioid Use. Follow up: Emergency Department; When: As needed; Reason: Worsening of condition. Follow up: Alina Wilson; When: 2 - 3 days; Reason: Recheck today's complaints, Continuance of care, Re-evaluation by your physician. Follow up: Jarrell Merida; When: 1 - 2 days; Reason: Recheck today's complaints. kb
[2020-04-11 16:48] VITALS: O2SAT 99
[2020-04-11 16:50] VITALS: BP 127/80; TEMP 97.8
[2020-04-11 20:32] LABS: Urine Blood 3+ (NEG); Urine Glucose TRACE (NEG); Urine Protein 3+ (NEG); Urine Specific Gravity 1.025 (1.005-1.030); Urine pH 5.5 (5.0-7.0)
== END 2020-04-11 16:39 | disposition home or self-care (01) ==
LOC: ER 11:21
DX: N39.0 Urinary tract infection, site not specified (principal); I10 Essential (primary) hypertension; Z85.038 Personal history of other malignant neoplasm of large intestine; Z88.5 Allergy status to narcotic agent
CPT/HCPCS: 96365; 87088; 85025; 87086; 80048; 36415; 82565; 74177; 99284; Q9967; J0696; 81003; 81015

== ENCOUNTER 2020-05-16 06:55 | Day surgery (SDC) | payer OTHER ==
[2020-05-11 14:02] LABS: Protime INR 1.44
[2020-05-11 14:03] LABS: Basophils % 0.7 % (0-1.3); Hematocrit 26.2 % (36.0-45.0); Lymphocytes % 18.9 % (15.3-44.8); MPV 7.4 fL (7.6-11.3); RBC Red Blood Cell Count 2.65 M/uL (3.86-4.86)
[2020-05-11 14:17] LABS: Albumin 3.9 g/dL (3.4-5.0); Bilirubin Total 0.4 mg/dL (0.2-1.0); Potassium 4.2 mmol/L (3.5-5.1); Protein, Total 9.2 g/dL (6.4-8.2)
--- OUTSIDE RECORDS SUMMARY | 2020-05-16 06:58 | XMS REPORT | Clinical Summary ---
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
--- OUTSIDE RECORDS SUMMARY | 2020-05-16 06:58 | XMS REPORT | Clinical Summary ---
:1950 Author Organization [facility] Address [address] [place] [id number] Care Team Providers Name Role Phone Unavailable [...] Not on file Results Not on fileafter 05/16/2019 Insurance Payer Benefit Plan / Group Subscriber ID Type Phone A ddress MEDICARE MEDICARE A B xxxxxxxxxxx Medicare AETNA - [place] CARE AETNA INDEMNITY NON CONTR xxxxxxxxx Comm Advance Directives For more information, please contact:[place] [id number] [place], [place] [phone] Code Status Date Activated Date Inactivated Comments Full Code 01/18/2019 5:45 PM 01/18/2019 11:41 PM This code status was determined by: Patient Full Code 10/25/2018 7:49 PM 01/18/2019 7:33 AM This code status was determined by: Patient
--- OUTSIDE RECORDS SUMMARY | 2020-05-16 06:58 | XMS REPORT | Continuity of Care Document ---
:1950 Author Organization [facility] Address [address] [place] [address] Care Team Providers Name Role Phone Octavia Sargent MD Primary Care Physician Octavia SARGENT Attending Clinician Unavailable SANGITA Attending Clinician Unavailable RAMONA QUINTANILLA Admitting Clinician Unavailable SANGITA Admitting Clinician Unavailable Problems Condition Condition Condition Status Onset Resolution Last Treating Co mments Source Name Details Category Date Date Treatment Clinician Date Pulmonary Pulmonary Disease Active [facility] St embolism embolism 10-25 [facility] Center Allergies, Adverse Reactions, Alerts Allergy Allergy Status Severity Reaction(s) Onset Inactive Treating Comm ents Source Name Type Date Date Clinician Codeine Propensi Active [facility] St ty to 10-25 [facility] - adverse 00:00: Medical reaction 00 Center s Codeine Propensi Active [facility] ty to 01-20 [facility] adverse 00:00: st reaction 00 s to drug Family History Family Member Diagnosis Comments Start Date Stop Date Source Natural father [facility] Natural father Hypertension [facility] Natural father Stroke [facility] Natural father Stroke [facility] Natural mother Diabetes [facility] Natural mother Hypertension [facility] Natural brother [facility] Natural sister Stroke [facility] Social History Social Habit Start Date Stop Date Quantity Comments Source History of Current smoker [facility] tobacco use Medical Cente r Sex Assigned At [facility] Alcohol Comment 2018-10-25 2018-10-[address] [facility] Center Alcohol intake 2018-01-20 2018-01-20 Current [facility] 00:00:00 00:00:00 non-drinker of alcohol (finding) Smoking Status Start Date Stop Date Source Former smoker 2019-01-18 00:00:00 2019-01-18 00:00:[address] [facility] Never smoker [facility] Medications Ordered Filled Start Stop [...] 00:00: mouth Medic al LEVOTHROID) 00 daily. Dana 137 MCG tablet potassium 2018- Yes 10meq QD Take [address] chloride SA 1-07 mEq by [facility] - (K-DUR,KLOR 00:00: mouth Medic al -CON) 10 00 daily. [facility] MEQ tablet pravastatin 2019- Yes 40mg QD Take [address] (PRAVACHOL) 1-03 by mouth Luke s - 40 MG 00:00: daily. Medical tablet 00 Center Procedures This patient has no known procedures. Plan of Care Planned Activity Planned Date Details Comments Source Future Scheduled 2020-05-30 INFLUENZA VACCINE [facility] Test 00:00:00 [code = INFLUENZA VACCINE] Future Scheduled 2016 65+ PNEUMOCOCCAL [facility] Test 00:00:00 VACCINE (1 of 2 - PCV13) [code = 65+ PNEUMOCOCCAL VACCINE (1 of 2 - PCV13)] Future Scheduled 2001 BREAST CANCER [facility]ist Test 00:00:00 SCREENING [code = BREAST CANCER SCREENING] Future Scheduled 2001 COLONOSCOPY SCREENING [facility] Test 00:00:00 [code = COLONOSCOPY SCREENING] Future Scheduled 2001 SHINGLES VACCINES (#1) H [facility] Test 00:00:00 [code = SHINGLES VACCINES (#1)] Results Test Description Test Time Test Comments Results Result [facility] e Comments ANG, CAVAL FILTER 2019-01-18 Reason for FINAL REPORT PATIENT REMOVAL 18:03:00 Exam:->i26.99 ID: [id number] IVC filter removal. History: Filter no longer required Modality: Ultrasound and fluoroscopy. Sedation: Moderate sedation was administered. 3 mg of Versed and 200 mcg of fentanyl IV was used for moderate sedation monitored under my direction. Total intra-service time of sedation was 90 minutes. The patient's vital signs were monitored throughout the procedure and recorded in the patient's medical record by the nurse. Sandstone Inspector Repairer: Blake Bay MD. Gas Operations Analyst: Jennifer Vines (fellow). Approach: Right internal jugular [...] The needle was removed and a 5 Yemeni straight multi-sidehole catheter was advanced to the distal IVC for a DSA cavagram. A 10 Yemeni angled tip Flexor sheath was advanced into the suprarenal IVC. Attempts were made to snare the filter without success given documented within the caval wall. Subsequently, the 10 Yemeni sheath was exchanged for a 16 Yemeni sheath. Endobronchial forceps were then used to dislodge the filter from the caval wall. A 12 Yemeni sheath was placed through the 16 Yemeni sheath. A 15 mm Amplatz gooseneck snare [...] MDReport Verified Date/Time: 01/18/2019 18:03:40 Reading Location: [place] [address] Angio Body Reading Room W/PLT COUNT & [...] 965) ARTIFACT (CELLAVISION)(BEAKER) Present (test code = 5002) PLATELET CONCENTRATION Decreased (CELLAVISION)(BEAKER) (test code = 3438) Received comment: User comments: Slide comments:BASIC METABOLIC [id number] 13:07:00 Test Item Value Reference Range Interpretation [...] NOT APPLICABLE FOR DIALYSIS PATIEN TS. PROTHROMBIN [id number] 13:01:00 Test Item Value Reference Range Interpretation Comments PROTIME (BEAKER) (test code = 13.7 seconds 11.7-14.7 759) INR (BEAKER) (test code = 370) 1.0 <=5.9 RECOMMENDED COUMADIN/WARFARIN INR THERAPY RANGESSTANDARD DOSE: 2.0 - 3.0 Includes: PROPHYLAXIS forvenous thrombosis, systemic embolization; TREATMENT for venous thrombosis and/or pulmonary embolus.HIGH RISK: Target INR is 2.5-3.5 for patients with mechanical heart valves.FADY, CAVAL FILTER [id number] 13:44:00Reason for exam:->IVC filter placementFINAL REPORT Inferior [...] guide wire was advanced centrally. A 4 Yemeni catheter was advanced to evaluate the inferior [...] filter below the renal veins. Signed: [facility] Verified Date/Time: 10/26/2018 13:44:07 Reading Location: [place] [id number] Angio BodyReading Room C METABOLIC [id number] 21:43:00 Test Item Value Reference Range Interpretation [...] S NOT APPLICABLE FOR DIALYSIS PATIEN TS. PT/[id number] 21:41:00 Test Item Value Reference Range Interpretation [...] % 0-1 PERCENT (BEAKER) (test code = 1665)
[2020-05-16] MEDS ORDERED: Ringers Lactate 1,000 ML IV ONE (07:24)
[2020-05-16] MEDS ORDERED: propofoL 200 MG/20 ML VIAL IV ONE (07:30)
[2020-05-16] MEDS ORDERED: CEFTRIAXONE/SWI 1gm 1 GM/10 ML SYR IV ONE (07:30)
[2020-05-16] MEDS ORDERED: dexAMETHasone 10 MG/ML VIAL ONE (07:30)
[2020-05-16] MEDS ORDERED: ONDANSETRON 4 MG/2 ML VIAL ONE (07:30)
[2020-05-16] MEDS ORDERED: LIDOCAINE 1% MPF 5 ML VIAL ONE (07:30)
[2020-05-16] MEDS ORDERED: KETOROLAC 30 MG/ML INJ ONE (07:30)
[2020-05-16] MEDS ORDERED: MIDAZOLAM HCL 2 MG/2 ML INJ ONE (07:30)
[2020-05-16] MEDS ORDERED: FENTANYL CITR 100 MCG/2 ML ONE (07:30)
[2020-05-16] MEDS ORDERED: LIDOCAINE 1% MPF 30 ML VIAL ONE (07:48)
[2020-05-16] MEDS ORDERED: BUPIVACAINE 0.25% PF 30 ML VIAL ONE (07:48)
[2020-05-16] MEDS ORDERED: LIDOCAINE 1% W/EPI 1:100,000 MDV 20 ML VIAL ONE (07:59)
[2020-05-16] MEDS ORDERED: NS 0.9% VIAL 10 ML ONE (08:59)
--- NOTE | 2020-05-16 09:34 | OP ---
Date of Procedure: 05/16/2020 Surgeon: Carol Humphrey MD Deputy Insurance Commissioner: No assistants. Preoperative Diagnoses: Recurrent colon cancer, vaginal mass, gross hematuria and vaginal bleeding. Postoperative Diagnoses: Recurrent colon cancer, vaginal mass, gross hematuria and vaginal bleeding. Procedures Performed: By me exam under anesthesia and vaginal tumor biopsies using a cervical punch. Anesthesia: General with LMA. Complications: No complications. Drains: No drains. After my procedure, vaginal packing was placed. Specimens: Vaginal mass biopsy. Condition: Still intubated and still anesthetized on the operating table as I turned the case over t o Dr. Jarrell Merida to proceed with his cystoscopy and cystoscopic biopsies. Description Of Procedure: After informed consent was verified, patient was taken back to OR, placed in a supine fashion on the operating table. General anesthesia was given, placed in a dorsal lithoto my position. Then, a speculum was placed to expose the vaginal tumor. This was very difficult as th ere was tumor in the anterior wall. Rectovaginal exam was performed and confirmed that there was no tumor in the rectum. So, after changing the gloves and getting sterile gloves, the vaginal mass was biopsied using a small Rodriguez speculum in the posterior wall and then anteriorly with a cervical punch through the vaginal canal into the trunk of the tumor. Once all the biopsies were retrieved that wer e done by the cervical punch and placed in a specimen cup. This would be sent in formalin to Patholo gy. The vagina was hemostatic. Vaginal packing was placed. This would be replaced at the end of Dr. Brooklyn swan's case so that it can be left in place to prevent bleeding for at least 24 hours before we remove it. The patient will be given instructions to remove her packing in 24 hours. She has a followup a ppointment with our office and she will make an appointment for followup with us in the office in 1 w [place]. The goal is to study the pathology to differentiate the current vaginal tumor, which also has b een biopsied in the past whether this is a recurrent colon cancer or vaginal bladder tumor. Estimated Blood Loss: Minimal. SK/MODL Voice ID: [id number] Report ID: [id number]
[2020-05-16 09:36] VITALS: O2SAT 100
[2020-05-16 10:54] VITALS: BP 123/54; TEMP 96.7
--- NOTE | 2020-07-11 08:58 | OP ---
Date of Procedure: 05/16/2020 Surgeon: ALETA HUDSON Occupational Health Manager: Nurse practitioner, Mike. Preoperative Diagnosis: Pelvic mass with bladder base mass. Postoperative Diagnosis: Pelvic mass with bladder base mass. Procedures Performed: Examination under anesthesia, cystoscopy, bladder mass biopsy, evacuation of c lots, transurethral resection of bladder tumor with fulguration, Martin catheter insertion. Anesthesia: General. Procedure In Detail: With the patient in modified dorsal lithotomy position on the cystoscopy table after the induction of anesthesia, the lower abdomen and genitalia were prepped and draped in the usu al sterile fashion. Bimanual examination revealed a firm fixed mass involving the upper vaginal johanna l and other pelvic structures. The cystoscope was inserted revealing a large ulcerated mass of the b ladder base in the trigonal area. The cystoscope was exchanged for the resectoscope and used to perf orm bladder biopsies, evacuation of clots, and transurethral resection of the bladder mass with fulgu ration to a degree sufficient to provide viable tumor. There was no effort made to resect the entire tumor as this would have involved resecting down into the vagina and potentially into the pelvic cav ity, and this was felt to be unnecessary and unsafe. Our goal was to establish a tissue diagnosis an d control the bleeding. The area was thoroughly fulgurated and tissue fragments were removed and sen t to pathology. Hemostasis was complete at the end of the procedure. A Martin catheter was inserted and attached to a drainage bag yielding light pink efflux and then the patient was returned to the burns pine position where she was awakened and extubated, and transferred by stretcher to the recovery room in satisfactory condition. There were no complications. Blood loss was less than 20 cc. Counts we re correct. She tolerated the procedure well. Specimen was as noted above. ANNIA/KITTY Voice ID: [id number] Report ID: [id number]
== END 2020-05-16 10:35 | disposition home or self-care (01) ==
LOC: OR 06:55
PROVIDERS: ATTEND Obstetrics & Gynecology
PROC: 0TCB8ZZ Extirpation of Matter from Bladder, Via Natural or Artificial Opening Endoscopic (ICD-10-PCS; 2020-05-16)
PROC: 0UBG7ZX Excision of Vagina, Via Natural or Artificial Opening, Diagnostic (ICD-10-PCS; principal; 2020-05-16 07:30)
PROC: 0TBB8ZX Excision of Bladder, Via Natural or Artificial Opening Endoscopic, Diagnostic (ICD-10-PCS; 2020-05-16 07:30)
DX: C79.82 Secondary malignant neoplasm of genital organs (principal); C79.11 Secondary malignant neoplasm of bladder; C18.4 Malignant neoplasm of transverse colon; N39.3 Stress incontinence (female) (male); I10 Essential (primary) hypertension; E03.9 Hypothyroidism, unspecified; E78.00 Pure hypercholesterolemia, unspecified; K21.9 Gastro-esophageal reflux disease without esophagitis; Z79.899 Other long term (current) drug therapy; Z86.73 Personal history of transient ischemic attack (TIA), and cerebral infarction without residual deficits; Z20.828 Contact with and (suspected) exposure to other viral communicable diseases
CPT/HCPCS: 57100; 85025; 36415; 86900; 86850; 85610; 86901; 88305 ×2; 80053; 52204; 52001; 52235; U0002; J2704; J2250; J3010; J1100; J0696; J7120; J2405; 88304

== ENCOUNTER 2020-06-23 11:09 | Emergency (ER) | payer OTHER ==
--- OUTSIDE RECORDS SUMMARY | 2020-06-23 11:11 | XMS REPORT | Clinical Summary ---
:1950 Author Organization [facility] Address [address] [place] [id number] Care Team Providers Name Role Phone Octavia [...] Not on file Last Filed Vital Signs Not on file Plan of Treatment Health Maintenance Due Date Last Done Comments BREAST CANCER SCREENING 2001 COLONOSCOPY SCREENING 2001 SHINGLES VACCINES (#1) 2001 65+ PNEUMOCOCCAL VACCINE (1 of 1 - PPSV23) 2016 INFLUENZA VACCINE 04/29/2020 Results Not on fileafter 06/23/2019 Insurance Payer Benefit Plan / Subscriber ID Effective Dates Phone Addre ss Type Group MEDICARE MEDICARE PART A [id number] 2008-Present [facility] [place] [place] [facility] AND B AETNA AETNA PPO OPEN [id number] 2000-Present PPO CHOICE Advance Directives For more information, please contact: [phone] Type Date Recorded Patient 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
--- OUTSIDE RECORDS SUMMARY | 2020-06-23 11:11 | XMS REPORT | Clinical Summary ---
:1950 Author Organization [facility] Address [address] [place] [id number] Care Team Providers Name Role Phone Unavailable [...] Not on file Results Not on fileafter 06/23/2019 Insurance Payer Benefit Plan / Group Subscriber ID Type Phone A ddress MEDICARE MEDICARE A B xxxxxxxxxxx Medicare AETNA - MGD CARE AETNA INDEMNITY NON CONTR xxxxxxxxx Comm Advance Directives For more information, please contact:[place] [id number] [place], [place] [phone] Code Status Date Activated Date Inactivated Comments Full Code 01/18/2019 5:45 PM 01/18/2019 11:41 PM This code status was determined by: Patient Full Code 10/25/2018 7:49 PM 01/18/2019 7:33 AM This code status was determined by: Patient
--- OUTSIDE RECORDS SUMMARY | 2020-06-23 11:12 | XMS REPORT | Continuity of Care Document ---
:1950 Author Organization [facility] Address [address] [place] [address] Care Team Providers Name Role Phone Octavia Sargent MD Primary Care Physician Octavia SARGENT Attending Clinician Unavailable SANGITA Attending Clinician Unavailable RAMONA QUINTANILLA Admitting Clinician Unavailable SANGITA Admitting Clinician Unavailable Problems Condition Condition Condition Status Onset Resolution Last Treating Co mments Source Name Details Category Date Date Treatment Clinician Date Pulmonary Pulmonary Disease Active [facility] St embolism embolism 10-25 [facility] 00 Center Allergies, Adverse Reactions, Alerts Allergy Allergy Status Severity Reaction(s) Onset Inactive Treating Comm ents Source Name Type Date Date Clinician Codeine Propensi Active [facility] St ty to 1 [facility] - adverse 00:00: Medical reaction 00 Center s Codeine Propensi Active [facility] ty to 01-20 [facility] adverse 00:00: st reaction 00 s to drug Family History Family Member Diagnosis Comments Start Date Stop Date Source Natural father Diabetes [facility] Natural father Hypertension [place] [facility] Natural father Stroke [facility] Natural father Stroke [facility] Natural mother Diabetes [facility] Natural mother Hypertension [place] [facility] Natural brother Cancer [facility] Natural sister Stroke [facility] Social History Social Habit Start Date Stop Date Quantity Comments Source History of Current smoker [facility] tobacco use Medical Cente r Sex Assigned At [facility] Alcohol Comment 2018-10-25 2018-10-[address] [facility] - 00[facility]00 [facility]00 Medical Center Tobacco use and 2018-01-20 2018-01-20 Never used [facility] Alfaro ethodist exposure 00:00:00 00:00:00 Alcohol intake 2018-01-20 2018-01-20 Current [facility] 00:00:00 00:00:00 non-drinker of alcohol (finding) Smoking Status Start Date Stop Date Source Former smoker 2019-01-18 00:00:00 2019-01-18 00:00:[address] [facility] Never smoker [place] [facility] Medications Ordered Filled Start Stop [...] mouth Medical tablet 36 daily. Center cholestyram 2018-0 Yes 4g Q.5D Take [address] ine 1-16 by mouth 2 [facility] - (QUESTRAN) 00:00: (two) Medica l 4 gram PwPk 00 times Center packet daily. levothyroxi Yes 137ug QD Take [address] ne 1-07 mcg by [facility] - (SYNTHROID, 00:00: mouth Medic al LEVOTHROID) 00 daily. Center 137 MCG tablet potassium 2018-0 Yes 10meq QD Take [address] chloride SA 1-07 mEq by [facility] - (K-DUR,KLOR 00:00: mouth Medic al -CON) 10 00 daily. Center MEQ tablet pravastatin Yes 40mg QD Take [address] (PRAVACHOL) 1-03 by mouth Luke s - 40 MG 00:00: daily. Medical tablet 00 Center Procedures This patient has no known procedures. Plan of Care Planned Activity Planned Date Details Comments Source Future Scheduled 2020-04-29 INFLUENZA VACCINE [place] [facility] Test 00:00:00 [code = INFLUENZA VACCINE] Future Scheduled 2016 65+ PNEUMOCOCCAL [facility] Test 00:00:00 VACCINE (1 of 1 - PPSV23) [code = 65+ PNEUMOCOCCAL VACCINE (1 of 1 - PPSV23)] Future Scheduled 2001 BREAST CANCER [facility] thodist Test 00:00:00 SCREENING [code = BREAST CANCER SCREENING] Future Scheduled 2001 COLONOSCOPY SCREENING [facility] Test 00:00:00 [code = COLONOSCOPY SCREENING] Future Scheduled 2001 SHINGLES VACCINES (#1) [place] [facility] Test 00:00:00 [code = SHINGLES VACCINES (#1)] Results Test Description Test Time Test Comments Results Result [facility] e Comments FADY, CAVAL FILTER 2019-01-18 Reason for FINAL REPORT PATIENT REMOVAL 18:03:00 Exam:->i26.99 ID: [id number] IVC filter removal. History: Filter no longer required Modality: Ultrasound and fluoroscopy. Sedation: Moderate sedation was administered. 3 mg of Versed and 200 mcg of fentanyl IV was used for moderate sedation monitored under my direction. Total intra-service time of sedation was 90 minutes. The patient's vital signs were monitored throughout the procedure and recorded in the patient's medical record by the nurse. Senior Credit Officer: Blake Bay MD. Char Conveyor Tender Cellar: Jennifer Viens (fellow). Approach: Right internal jugular vein. Estimated [...] MDReport Verified Date/Time: 01/18/2019 18:03:40 Reading Location: [place] [address] Angio Body Reading Room W/PLT COUNT & [...] Received comment: User comments: Slide comments:BASIC METABOLIC [id number] 13:07:00 Test Item Value Reference Range Interpretation [...] NOT APPLICABLE FOR DIALYSIS PATIEN TS. PROTHROMBIN [id number] 13:01:00 Test Item Value Reference Range Interpretation Comments PROTIME (BEAKER) (test code = 13.7 seconds 11.7-14.7 759) INR (BEAKER) (test code = 370) 1.0 <=5.9 RECOMMENDED COUMADIN/WARFARIN INR THERAPY RANGESSTANDARD DOSE: 2.0 - 3.0 Includes: PROPHYLAXIS forvenous thrombosis, systemic embolization; TREATMENT for venous thrombosis and/or pulmonary embolus.HIGH RISK: Target INR is 2.5-3.5 for patients with mechanical heart valves.FADY, CAVAL FILTER [id number] 13:44:00Reason for exam:->IVC filter placementFINAL REPORT Inferior [...] MDReport Verified Date/Time: 10/26/2018 13:44:07 Reading Location: [place] [address] Angio BodyReading Room C METABOLIC [id number] 21:43:00 Test Item Value Reference Range Interpretation [...] S NOT APPLICABLE FOR DIALYSIS PATIEN TS. [id number] 21:41:00 Test Item Value Reference Range Interpretation [...] % 0-1 PERCENT (BEAKER) (test code = 0742)
[2020-06-23] MEDS ORDERED: FAMOTIDINE 20 MG/2 ML VIAL IV ONE (11:57)
[2020-06-23] MEDS ORDERED: ONDANSETRON 4 MG/2 ML VIAL ONE (11:57)
[2020-06-23] MEDS ORDERED: NA CHLORIDE 0.9% 1,000 ML ONE (11:57)
[2020-06-23] MEDS ORDERED: KETOROLAC 30 MG/ML INJ ONE (11:57)
[2020-06-23 12:03] LABS: Absolute Lymphocytes (CBC) 1.2 K/uL (0.7-4.9); Basophils % 0.7 % (0-1.3); Hematocrit 35.6 % (36.0-45.0); Lymphocytes % 11.9 % (15.3-44.8); MPV 7.6 fL (7.6-11.3); RBC Red Blood Cell Count 3.95 M/uL (3.86-4.86)
[2020-06-23 12:27] LABS: Albumin 3.8 g/dL (3.4-5.0); Bilirubin Direct 0.1 mg/dL (0-0.2); Bilirubin Total 0.4 mg/dL (0.2-1.0); Potassium 3.4 mmol/L (3.5-5.1); Protein, Total 9.3 g/dL (6.4-8.2)
--- NOTE | 2020-06-23 12:54 | RAD REPORT ---
EXAM DESCRIPTION: CT - Abdomen Pelvis W Contrast - 06/23/2020 12:15 pm CLINICAL HISTORY: Abdominal pain COMPARISON: none. TECHNIQUE: Computed axial tomography of the abdomen pelvis was obtained. 100 cc Isovue-300 was admin istered intravenously. Oral contrast was not requested which limits evaluation of bowel. All CT scans are performed using dose optimization technique as appropriate and may include automated exposure control or mA/KV adjustment according to patient size. FINDINGS: Fatty liver Spleen, pancreas and adrenals unremarkable. Moderate to marked right hydronephrosis has developed. The right ureter is dilated. The vaginal mass has increased in size measuring 5.5 centimeters. It extends into the posterior aspect of the bladder obstructing the right UVJ. An air bubble is present within the bladder. Bilateral renal cortical thinning. Left kidney is small. Nonobstructing bilateral renal calculi. Cholelithiasis. Mild gallbladder distention Ectatic abdominal aorta Right linda colectomy. No diverticulitis. 4.6 x 2.7 centimeter lymph nodes anterior to the aorta at the level of the kidneys has increased in s ize. This previously measured 3 x 1.5 centimeters Left iliac chain lymphadenopathy without significant change. . IMPRESSION: Mild enlargement of a vaginal mass. The mass invades the bladder and obstructs the right UVJ resulting in moderate to marked right hydronephrosis Air bubble within the bladder may indicate a vesicovaginal fistula or be related to recent instrument ation. Enlargement of conglomerate of lymph nodes within the mid abdomen. Additional lymphadenopathy without significant change
--- NOTE | 2020-06-23 15:47 | ER ---
Nurse's Notes [facility] Name: Nesha Pringle Age: 70 yrs Sex: Female : 1950 Arrival Date: 06/23/2020 Time: 11:14 Bed 15 Private MD: Diagnosis: Abdominal and pelvic pain;Hydroureter;Hydronephrosis with ureteral stricture, not elsewhere classified Presentation: 06/23 11:25 Chief complaint: Patient states: diffuse abd pain, vomiting, back pain, feels sv dehydrated after radiation yesterday. Report radiation is for Colon cancer. Coronavirus screen: Client denies travel out of the [place] in the last 14 days. The client reports previous COVID testing was negative. Date of collection: May 2020. Ebola Screen: No symptoms or risks identified at this time. Initial Sepsis Screen: Does the patient meet any 2 criteria? HR > 90 bpm. No. Patient's initial sepsis screen is negative. Does the patient have a suspected source of infection? No. Patient's initial sepsis screen is negative. Risk Assessment: Do you want to hurt yourself or someone else? Patient reports no desire to harm self or others. Onset of symptoms was June 22, 2020. 11:25 Method Of Arrival: Wheelchair sv 11:25 Acuity: JAMES 2 sv Triage Assessment: 14:00 General: Behavior is calm, cooperative. iw 15:00 General: Appears in no apparent distress. iw Historical: - Allergies: 11:28 Codeine; sv - PMHx: 11:28 colon cancer; Thyroid problem; Hypertension; PE; sv - PSHx: 11:28 Hysterectomy; Bowel resection; BLADDER SLING; Lithotripsy; BRAIN; sv - Immunization history:: Adult Immunizations unknown. - Social history:: Smoking status: Patient denies any tobacco usage or history of. Screenin:00 Fall Risk None identified. iw 13:05 Abuse screen: Denies threats or abuse. Denies injuries from another. Nutritional iw screening: No deficits noted. Tuberculosis screening: No symptoms or risk factors identified. Assessment: 12:00 General: Appears in no apparent distress. Behavior is calm, cooperative. Pain: iw Complains of pain in right lower quadrant and left lower quadrant. Neuro: Level of Consciousness is awake, alert, obeys commands, Oriented to person, place, time, situation, Moves all extremities. Full function. Cardiovascular: Patient's skin is warm and dry. Respiratory: Respiratory effort is even, unlabored, Respiratory pattern is regular, symmetrical. GI: Bowel sounds present X 4 quads. Abd is soft X 4 quads Abdomen is tender to palpation in right lower quadrant and left lower quadrant. Derm: Skin is intact, is healthy with good turgor. Musculoskeletal: Range of motion: intact in all extremities. 13:05 Reassessment: Patient appears in no apparent distress at this time. Patient and/or iw family updated on plan of care and expected duration. Pain level reassessed. Patient is alert, oriented x 3, equal unlabored respirations, skin warm/dry/pink. Patient states feeling better. Patient states symptoms have improved. 14:17 Reassessment: Patient appears in no apparent distress at this time. Patient and/or iw family updated on plan of care and expected duration. Pain level reassessed. Patient is alert, oriented x 3, equal unlabored respirations, skin warm/dry/pink. 15:09 Reassessment: Patient appears in no apparent distress at this time. Patient and/or iw family updated on plan of care and expected duration. Pain level reassessed. Patient is alert, oriented x 3, equal unlabored respirations, skin warm/dry/pink. pt feeling better, up to bathroom with assistance, a little dizzy upon standing. Vital Signs: 11:25 BP 87 / 45; Pulse 63; Resp 18; Temp 97; Pulse Ox 100% ; Weight 54.88 kg; Height 5 ft. 1 sv in. (154.94 cm); 13:05 BP 110 / 64; Pulse 81; Resp 16; Pulse Ox 100% on R/A; Pain 5/10; iw 13:22 BP 107 / 65; Pulse 76; Resp 16; Pulse Ox 99% on R/A; iw 14:17 BP 127 / 73; Pulse 81; Resp 16; Pulse Ox 100% on R/A; iw 11:25 Body Mass Index 22.86 (54.88 kg, 154.94 cm) sv ED Course: 11:14 Patient arrived in ED. ds1 11:23 Nimesh Cano MD is Attending Physician. kdr 11:26 Silvana Green, ANSELMO is Primary Nurse. iw 11:27 Triage completed. sv 11:27 Arm band placed on. sv 11:30 Inserted saline lock: 22 gauge in left antecubital area, using aseptic technique. iw 12:00 Warm blanket given. mt 12:00 Patient has correct armband on for positive identification. iw 12:14 CT Abd/Pelvis - IV Contrast Only In Process Unspecified. EDMS 15:46 Jarrell Merida MD is Referral Physician. kdr 15:59 No provider procedures requiring assistance completed. IV discontinued, intact, iw bleeding controlled, No redness/swelling at site. Pressure dressing applied. Administered Medications: 11:55 Drug: Zofran (Ondansetron) 4 mg Route: IVP; Site: left antecubital; iw 11:55 Drug: TORadol - Ketorolac 15 mg Route: IVP; Site: left antecubital; iw 11:55 Drug: Pepcid 20 mg Route: IVP; Site: left antecubital; iw 11:56 Drug: NS 0.9% 1000 ml Route: IV; Rate: 1 bolus; Site: left antecubital; iw Outcome: 15:46 Discharge ordered by MD. kdr 15:59 Discharged to home ambulatory, with family. iw 15:59 Condition: good 15:59 Discharge instructions given to patient, family, Instructed on discharge instructions, follow up and referral plans. medication usage, Demonstrated understanding of instructions, follow-up care, medications, Prescriptions given X 2. 16:00 Patient left the ED. iw Signatures: Dispatcher [employer] EDKeely Leon, Nimesh Pastrana RN, MD MD [facility] Kimmie Almodovar ds1 Silvana Green RN RN Kimberly Sanchez az Corrections: (The following items were deleted from the chart) 15:10 13:00 Inserted saline lock: 22 gauge in left antecubital area, using aseptic technique. iw iw
--- NOTE | 2020-06-23 15:47 | EDPHYS ---
Physician Documentation [facility] Name: Nesha Pringle Age: 70 yrs Sex: Female : 1950 Arrival Date: 06/23/2020 Time: 11:14 Bed 15 Private MD: ED Physician Nimesh Cano HPI: 06/23 17:41 This 70 yrs old Female presents to ER via Wheelchair with complaints of kdr Abdominal Pain, Back Pain. 17:41 The patient presents with abdominal pain in the upper abdomen, in the right upper kdr quadrant, that is diffuse. Onset: The symptoms/episode began/occurred gradually, yesterday. The symptoms radiate to the right flank. Associated signs and symptoms: Pertinent positives: nausea and vomiting. The symptoms are described as achy, constant, steady, vague. Severity of pain: At its worst the pain was moderate severe just prior to arrival, in the emergency department the pain is unchanged. The patient has not experienced similar symptoms in the past. The patient has been recently seen by a physician: the patient's primary care provider. Historical: - Allergies: 11:28 Codeine; sv - PMHx: 11:28 colon cancer; Thyroid problem; Hypertension; PE; sv - PSHx: 11:28 Hysterectomy; Bowel resection; BLADDER SLING; Lithotripsy; BRAIN; sv - Immunization history:: Adult Immunizations unknown. - Social history:: Smoking status: Patient denies any tobacco usage or history of. ROS: 17:41 Constitutional: Negative for fever, chills, and weight loss, Eyes: Negative for injury, kdr pain, redness, and discharge, Neck: Negative for injury, pain, and swelling, Cardiovascular: Negative for chest pain, palpitations, and edema, Respiratory: Negative for shortness of breath, cough, wheezing, and pleuritic chest pain, Back: Negative for injury and pain, : Negative for injury, bleeding, discharge, and swelling, MS/Extremity: Negative for injury and deformity, Skin: Negative for injury, rash, and discoloration, Neuro: Negative for headache, weakness, numbness, tingling, and seizure activity. Psych: Negative for depression, anxiety, suicide ideation, homicidal ideation, and hallucinations, Allergy/Immunology: Negative for hives, rash, and allergies, Endocrine: Negative for neck swelling, polydipsia, polyuria, polyphagia, and marked weight changes, Hematologic/Lymphatic: Negative for swollen nodes, abnormal bleeding, and unusual bruising. 17:41 Abdomen/GI: Positive for abdominal pain, nausea and vomiting, Negative for black/tarry stool, rectal pain, rectal bleeding. Exam: 17:41 Constitutional: This is a well developed, well nourished patient who is awake, alert, kdr and in no acute distress. Head/Face: Normocephalic, atraumatic. Eyes: Pupils equal round and reactive to light, extra-ocular motions intact. Lids and lashes normal. Conjunctiva and sclera are non-icteric and not injected. Cornea within normal limits. Periorbital areas with no swelling, redness, or edema. Neck: Trachea midline, no thyromegaly or masses palpated, and no cervical lymphadenopathy. Supple, full range of motion without nuchal rigidity, or vertebral point tenderness. No Meningismus. Chest/axilla: Normal chest wall appearance and motion. Nontender with no deformity. No lesions are appreciated. Cardiovascular: Regular rate and rhythm with a normal S1 and S2. No gallops, murmurs, or rubs. Normal PMI, no JVD. No pulse deficits. Respiratory: Lungs have equal breath sounds bilaterally, clear to auscultation and percussion. No rales, rhonchi or wheezes noted. No increased work of breathing, no retractions or nasal flaring. Back: No spinal tenderness. No costovertebral tenderness. Full range of motion. Skin: Warm, dry with normal turgor. Normal color with no rashes, no lesions, and no evidence of cellulitis. MS/ Extremity: Pulses equal, no cyanosis. Neurovascular intact. Full, normal range of motion. Neuro: Awake and alert, GCS 15, oriented to person, place, time, and situation. Cranial nerves II-XII grossly intact. Motor strength 5/5 in all extremities. Sensory grossly intact. Cerebellar exam normal. Normal gait. Psych: Awake, alert, with orientation to person, place and time. Behavior, mood, and affect are within normal limits. 17:41 Abdomen/GI: Inspection: Bowel sounds: active, diminished, in all quadrants, Palpation: soft, mild abdominal tenderness, in all quadrants. 17:41 Back: pain, CVA tenderness, that is mild, is noted on the right. Vital Signs: 11:25 BP 87 / 45; Pulse 63; Resp 18; Temp 97; Pulse Ox 100% ; Weight 54.88 kg; Height 5 ft. 1 sv in. (154.94 cm); 13:05 BP 110 / 64; Pulse 81; Resp 16; Pulse Ox 100% on R/A; Pain 5/10; iw 13:22 BP 107 / 65; Pulse 76; Resp 16; Pulse Ox 99% on R/A; iw 14:17 BP 127 / 73; Pulse 81; Resp 16; Pulse Ox 100% on R/A; iw 11:25 Body Mass Index 22.86 (54.88 kg, 154.94 cm) sv MDM: 15:46 Patient medically screened. kdr 17:41 Data reviewed: vital signs, nurses notes, lab test result(s), radiologic studies. ED kdr course: I discussed the patient presentation with Dr. Car, Simone, Yecenia Mckeon, Dr. Merida. Dr. Merida felt that the patient could follow-up next week on Friday . 06/23 11:35 Order name: Basic Metabolic Panel; Complete Time: 14: kdr 06/23 11:35 Order name: CBC with Diff; Complete Time: 14: kdr 06/23 11:35 Order name: Hepatic Function; Complete Time: 14: [facility] 06/23 11:35 Order name: Lipase; Complete Time: 14: kdr 06/23 11:37 Order name: CT Abd/Pelvis - IV Contrast Only; Complete Time: 14: [facility] 06/23 12:07 Order name: CREATININE WHOLE BLOOD; Complete Time: 14: [facility] 06/23 11:35 Order name: IV Saline Lock; Complete Time: 11:56 kdr 06/23 11:35 Order name: Labs collected and sent; Complete Time: 11:56 kdr Administered Medications: 11:55 Drug: Zofran (Ondansetron) 4 mg Route: IVP; Site: left antecubital; iw 11:55 Drug: TORadol - Ketorolac 15 mg Route: IVP; Site: left antecubital; iw 11:55 Drug: Pepcid 20 mg Route: IVP; Site: left antecubital; iw 11:56 Drug: NS 0.9% 1000 ml Route: IV; Rate: 1 bolus; Site: left antecubital; iw Disposition: 06/23/20 15:46 Discharged to Home. Impression: Abdominal and pelvic pain, Hydroureter, Hydronephrosis with ureteral stricture, not elsewhere classified. - Condition is Fair. - Discharge Instructions: Nausea and Vomiting, Adult, [id number], Abdominal Pain, Adult, [id number], Hydronephrosis. - Prescriptions for Tramadol 50 mg Oral Tablet - take 1 tablet by ORAL route every 8 hours You may take one or two tabs every six hours as needed for pain; 20 tablet. promethazine 25 mg Oral Tablet - take 1 tablet by ORAL route every 6 hours As needed; 20 tablet. - Medication Reconciliation Form, Thank You Letter, Prescription Opioid Use form. - Follow up: Private Physician; When: 2 - 3 days; Reason: If symptoms return, Further diagnostic work-up, Recheck today's complaints, Continuance of care, Re-evaluation by your physician. Follow up: Jarrell Merida MD; When: 2 - 3 days; Reason: If symptoms return, Further diagnostic work-up, Recheck today's complaints, Continuance of care, Re-evaluation by your physician. - Problem is new. - Symptoms are resolved. Signatures: Dispatcher [employer] EDKeely Leon RN RN sv Nimesh Cano MD MD [facility] Silvana Green RN RN iw Corrections: (The following items were deleted from the chart) 16:00 15:46 06/23/2020 15:46 Discharged to Home. Impression: Abdominal and pelvic pain; iw Hydroureter; Hydronephrosis with ureteral stricture, not elsewhere classified. Condition is Fair. Forms are Medication Reconciliation Form, Thank You Letter, Antibiotic Education, Prescription Opioid Use. Follow up: Private Physician; When: 2 - 3 days; Reason: If symptoms return, Further diagnostic work-up, Recheck today's complaints, Continuance of care, Re-evaluation by your physician. Follow up: Jarrell Merida; When: 2 - 3 days; Reason: If symptoms return, Further diagnostic work-up, Recheck today's complaints, Continuance of care, Re-evaluation by your physician. Problem is new. Symptoms are resolved. kdr
[2020-06-23 16:10] VITALS: TEMP 97
[2020-06-23 16:13] VITALS: BP 127/73; O2SAT 100
== END 2020-06-23 16:00 | disposition home or self-care (01) ==
LOC: ER 11:09
DX: N13.1 Hydronephrosis with ureteral stricture, not elsewhere classified (principal); N13.4 Hydroureter; I10 Essential (primary) hypertension; Z88.5 Allergy status to narcotic agent; Z85.038 Personal history of other malignant neoplasm of large intestine
CPT/HCPCS: 85025; 80048; 36415; 82565; 80076; 83690; 74177; 96375; 96374; 99284; Q9967; J7030; J2405

== ENCOUNTER 2020-07-26 17:53 | Observation (INO) | payer OTHER ==
--- OUTSIDE RECORDS SUMMARY | 2020-07-26 17:54 | XMS REPORT | Clinical Summary ---
:1950 Author Organization [facility] Address [address] [place] [id number] Care Team Providers Name Role Phone Unavailable [...] Not on file Results Not on fileafter 07/26/2019 Insurance Payer Benefit Plan / Subscriber ID Effective Dates Phone Addre ss Type Group MEDICARE MEDICARE A B [id number] 2008-Presen Medicare t AETNA - MGD CARE AETNA INDEMNITY [id number] 2013-Present Comm NON CONTR Advance Directives For more information, please contact: [phone] Code Status Date Activated Date Inactivated Comments Full Code 01/18/2019 5:45 PM 01/18/2019 11:41 PM This code status was determined by: Patient Full Code 10/25/2018 7:49 PM 01/18/2019 7:33 AM This code status was determined by: Patient
--- OUTSIDE RECORDS SUMMARY | 2020-07-26 17:54 | XMS REPORT | Continuity of Care Document ---
:[address] [facility] Information [place] Care Team Providers Name Role Phone [facility] [place] Unavailable Un available Problems Problem Status Onset Classification Date Comments Sourc e Date Reported BLADDER Active [facility] CARCINOMA 0 [place] MALIGNANT Active [facility] NEOPLASM OF [place] COLON, UNSPECIFIED Medications Medication Details Route Status Patient Ordering Order Source Instructions Provider Date Senokot 8.6 mg =, Active [facility] PO, 020 [place] Bedtime, 0 Refill(s) apixaban 2.5 MG 2.5 mg = 1 Active Oral Tablet tab, PO, 020 [place] [Eliquis] BID, 0 Refill(s) tramadol 50 mg = 1 Active hydrochloride 50 tab, PO, 0[address] [place] Oral Tablet Q6H, 0 Refill(s) Allergies, Adverse Reactions, Alerts Substance Category Reaction Severity Reaction Status Date Comments S ource type Reported codeine Assertion Drug Active allergy [place] Immunizations Immunization Date Site Status Last Comments Source Given Updated influenza virus Left completed Elder P earland vaccine, 9 deltoid inactivated Results Order Name Results Value Reference Date Interpretation Comments Sanna rce Range HEMATOLOGY PT 14.1 12.0 - 14.7 2019 [place] HEMATOLOGY INR 1.09 0.85 - 1.17 2019 [place] Pathology Reports No Data Provided for This Section Diagnostic Reports Report Value Date Source Nephrostomy drain perc PROCEDURE INFORMATION: 06/30/2020 Id morial [place]ivo unilateral VR Exam: IR Right Nephroureteral Procedure Exam date and time: 06/30/2020 11:44 AM Age: 70 years old Clinical indication: Maligna nt neoplasm of colon, unspecified; Additional info: /neoplasm of bladder PROCEDURE: 1. Ultrasound and fluoroscopic-guided percutaneo us placement of a right nephrostomy tube 2. Antegrade right nephrostogram 3. Moderate sedation CLINICAL INDICATION: Obstructive right hydroneph rosis COMPARISON: Outside CT CONSENT: The procedure, risks, benefits, and alt ernatives were discussed with the patient and written informed consent was obt ained. A 'timeout' performed per protocol prior to the procedure. TECHNIQUE: burring machine operator: Dr. Hannah Preoperative diagnosis: Obstructive right hydron ephrosis Postoperative diagnosis: same Fluoroscopy time: 188.6 2nd Reference air kerma: 24.84 mGy Estimated blood loss: Less than 10 cc Moderate sedation: I supervised moderate sedatio n during this procedure. Patient was continuously monitored by a nurse us ing automated blood pressure, electrocardiogram, and pulse oximetry. The moder ate sedation record is permanently stored in the hospital [facility] system. The personal supervised moderate sedation time was 3 7 minutes. Medications administered: Versed 3 mg IV and Fentanyl 150 mcg IV. The patient was placed in a prone position on th e fluoroscopy table. Preprocedure ultrasound demonstrated moderate to severe right hydronephrosis and an image stored in the patient's permanent m edical record. The patient's right flank region was prepped and draped using maximal sterile barrier technique. All elements of maximal sterile barri er technique were utilized including: cap, mask, sterile gown, sterile glov es, large sterile sheet, hand hygiene, sterile ultrasound probe cover, sterile ultrasound gel, and 2% chlorhexidine for cutaneous antisepsis. The over lying skin was anesthetized with 1% lidocaine. Under sterile ultrasound guidance, a 21 gauge Ac custick needle was advanced into the inferior calyx of the kidney. A 0.018 in wire was advanced into the kidney followed by placement of a 6 [place] sheath. Small amount of contrast was administered confirming location within the clinton l collecting system. Subsequently, a 0.035 in wire was advanced into the renal collecting system followed by serial dilatation. An 8 [place]ian multi purpose catheter was advanced over the wire into the renal collecting system. The pigtail was formed within the renal pelvis. Antegrade nephrostogram was pe rformed through the catheter confirming adequate position within the renal collecting system and no evidence of flow to the bladder. The catheter was sutured to the skin and connected to a drainage bag. Sterile dressings were applied. The patient tolerated the procedure well without immediate complication. IMPRESSION: Successful percutaneous placement of a right nep hrostomy tube. Estefania Hannah MD On 06/30/2020 16:28:06; [id number] Consultation Notes No Data Provided for This Section Discharge Summaries No Data Provided for This Section History and Physicals No Data Provided for This Section Vital Signs Vital Sign Value Date Comments Source Height 156.21 cm 06/29/2020 [facility] Weight 54.545 06/29/2020 [facility] BMI Calculated 22.35 06/29/2020 [facility] Encounters Location Location Encounter Encounter Reason Attending ADM DC Stat us Source Details Type Number For Provider Date Date Visit [facility] Outpatient [id number] Shabnam 06/30 07/01 Chivo Sheffield /2019 [facility] Procedures No Data Provided for This Section Assessment and Plan No Data Provided for This Section Plan of Care No Data Provided for This Section Social History Social History Date Source Social History TypeResponse 06/29/2020 [facility] Smoking Status Former smoker; Type: Cigarettes; Exposur e to Tobacco Smoke None; Cigarette Smoking Last 365 Days No; Reg Smoking Cessation Counseling No entered on: 06/29/20 Family History No Data Provided for This Section Advance Directives No Data Provided for This Section Functional Status No Data Provided for This Section
--- OUTSIDE RECORDS SUMMARY | 2020-07-26 17:54 | XMS REPORT | Summary of Care ---
:1950 Author Organization [facility] Address [address] [place] [id number]- Encounter [facility](SHALINI) [id number] Date(s): 06/30/20 - 06/30/[address] [phone] Discharge Disposition: Home or Self Care Attending Physician: Shabnam Sheffield MD Admitting Physician: Shabnam Sheffield MD Referring Physician: Shabnam Sheffield MD Vital Signs Most recent to oldest [Reference Range]: 1 Height 156.21 cm (06/29/20 3:44 PM) Weight 54.545 kg (06/29/20 3:44 PM) Body Mass Index 22.35 m2 (06/29/20 3:44 PM) Problem List No data available for this section Allergies, Adverse Reactions, Alerts Substance Reaction Severity Status codeine Active Medications Eliquis 2.5 mg oral tablet 2.5 mg = 1 tab, PO, BID, 0 Refill(s) Start Date: 06/29/20 Status: OrderedSenokot 8.6 mg =, PO, Bedtime, 0 Refill(s) Start Date: 06/29/20 Status: Orderedtramadol 50 mg oral tablet 50 mg = 1 tab, PO, Q6H, 0 Refill(s) Start Date: 06/29/20 Status: Ordered Results Most recent to oldest [Reference Range]: 1 INR [0.85-1.17] 1.09 (06/30/20 10:43 AM) PT [12.0-14.7 seconds] 14.1 seconds (06/30/20 10:43 AM) Immunizations Given and Recorded Vaccine Date Status Refusal Reason influenza virus vaccine, inactivated 06/28/09 Given Procedures No data available for this section Social History Social History Type Response Smoking Status Former smoker; Type: Cigaret lien; Exposure to Tobacco Smoke None; Cigarette Smoking Last 365 Days No; Reg Smoking Cessation Counseling No entered on: 06/29/20 Assessment and Plan No data available for this section
--- OUTSIDE RECORDS SUMMARY | 2020-07-26 17:54 | XMS REPORT | Clinical Summary ---
:1950 Author Organization [facility] Address [address] [place] [address] Care Team Providers Name Role Phone Octavia Wilson MD Primary Care Provider Allergies Active Allergy Reactions Severity Noted Date Comments Codeine 01/20/2018 Medications No known medications Active Problems No known active problems Surgical History Surgery Date Site/Laterality Comments CEREBRAL ANEURYSM REPAIR HYSTERECTOMY COLON SURGERY Medical History Medical History Date Comments Cancer (HCC) GERD (gastroesophageal reflux disease) Family History Medical History Relation Name Comments [...] INFLUENZA VACCINE 04/29/2020 Results Not on fileafter 07/26/2019 Insurance Payer Benefit Plan / Subscriber ID Effective Dates Phone Addre ss Type Group MEDICARE MEDICARE PART A [id number] 2008-Present [place], [place] Medicare AND B AETNA AETNA PPO OPEN [id number] 2000-Present PPO CHOICE Advance Directives For more information, please contact: [phone] Type Date Recorded Patient Blueprint Reproducer Explanati on Advance Directives, Living Will and Medical Power of Manager Retention
--- OUTSIDE RECORDS SUMMARY | 2020-07-26 17:55 | XMS REPORT | Continuity of Care Document ---
:1950 Author Organization [facility] t Address [address] [place] [address] Care Team Providers Name Role Phone Octavia Sargent MD Primary Care Physician Meena Sheffield Attending Clinician Unavailable Octavia SARGENT Attending Clinician Unavailable SANGITA Attending Clinician Unavailable Meena Sheffield Admitting Clinician Unavailable RAMONA QUINTANILLA Admitting Clinician Unavailable SANGITA Admitting Clinician Unavailable Problems Condition Condition Condition Status Onset Resolution Last Treating Co mments Source Name Details Category Date Date Treatment Clinician Date BLADDER Diagnosis Active 2019-092020-06-30 Me moria CARCINOMA 10:04:00 l BLADDER 00:00: Chivo CARCINOMA 00 Active 06/29/2020 [facility] Pulmonary Pulmonary Disease Active [facility] MALIGNANT Diagnosis Active 2020-06-30 Memoria NEOPLASM 10:04:00 l OF COLON, Chivo UNSPECIFIE MALIGNANT D NEOPLASM OF COLON, UNSPECIFIE D Active [facility] Allergies, Adverse Reactions, Alerts Allergy Allergy Status Severity Reaction(s) Onset Inactive Treating Comm ents Source Name Type Date Date Clinician Codeine Propensi Active [facility]25 [facility] - adverse 00:00: Medical reaction 00 Center s Codeine Propensi Active [facility] to 01-20 [facility] adverse 00:00: st reaction 00 s to drug codeine codeine Active [facility] Family History Family Member Diagnosis Comments Start Date Stop Date Source Natural father Diabetes [facility] Natural father Hypertension [place] [facility] Natural father Stroke [facility] Natural father Stroke [facility] Natural mother Diabetes [facility] Natural mother Hypertension [place] [facility] Natural brother Cancer [facility] Natural sister Stroke [facility] Social History Social Habit Start Date Stop Date Quantity Comments Source History of Current smoker [facility] tobacco use [facility] Sex Assigned At [facility] Tobacco use and 2019-01-18 2019-01-18 Never used [facility] - exposure 00:00:00 00:00:00 [facility] Alcohol intake 2019-01-18 2019-01-18 Current drinker [facility] cesilia kes - 00:00:00 00:00:00 of alcohol [facility] Center (finding) Alcohol Comment 2018-10-25 2018-10-25 social use [facility] - 00:00:00 00:00:00 [facility] Smoking Status Start Date Stop Date Source Former smoker 2019-01-18 00:00:00 2019-01-18 00:00:00 [facility] Never smoker [facility] Medications Ordered Filled Start Stop Current Ordering Indication Dosage Frequency Signature Comments Components Source Medication Medication Date Date Medication? Clinician (SIG) Name Name Senokot 2019-09 Yes 8.6 mg =, Memor ia 0-01 PO, l 20:51: Bedtime, 0 Helena 00 Refill(s) apixaban 2019-09 Yes 2.5 mg = 1 Mem oria 2.5 MG Oral 0-01 tab, PO, l Tablet 20:50: BID, 0 Chivo [Eliquis] 00 Refill(s) tramadol 2019-09 Yes 50 mg = 1 Nikko chikis hydrochlori 0-01 tab, PO, l de 50 MG 20:50: Q6H, 0 [place]ena Oral Tablet 00 Refill(s) omeprazole Yes 20mg QD Take [address] (PRILOSEC) 4-22 by mouth [facility] - 20 MG 21:41: daily. Medical capsule 17 Center metoprolol Yes 100mg Take [address] (LOPRESSOR) 4-22 mg by [facility] - 100 MG 21:41: mouth 2 Medical tablet 17 (two) Center times daily as needed (hypertens ion). amLODIPine 2019-0 Yes 5mg Take [address] (NORVASC) 5 4-22 by mouth 2 Phoebe kes - MG tablet 21:41: (two) Medical 17 times Center daily as needed (hypertens ion). valACYclovi 2019-0 Yes 500mg QD Take [address] (VALTREX) 4-22 mg by [facility] - 500 MG 21:41: mouth Medical tablet 17 daily. Center magnesium 2019-0 Yes 400mg Q.5D Take [address] oxide 4-22 mg by [facility] - (MAG-OX) 21:41: mouth 2 Medica l 400 mg 17 (two) Center (241.3 mg times magnesium) daily. tablet cholestyram 2019-0 Yes 4g Q.5D Take [address] ine 1-16 by mouth 2 [facility] - (QUESTRAN) 00:00: (two) Medica l 4 gram PwPk 00 times Center packet daily. levothyroxi 2019-0 Yes 137ug QD Take 137 [facility] [...] MG 00:00: daily. Medical tablet 00 Center Vital Signs Vital Name Observation Time Observation Value Comments Source Height 2020-06-29 20:44:00 156.21 cm [facility] Weight 2020-06-29 20:44:00 [facility] BMI Calculated 2020-06-29 20:44:00 Dada Miller Procedures This patient has no known procedures. Plan of Care Planned Activity Planned Date Details Comments Source Future Scheduled 2020-04-29 INFLUENZA VACCINE Pippa batista [facility] 00:00:00 [code = INFLUENZA VACCINE] Future Scheduled 2016 65+ PNEUMOCOCCAL [facility] Test 00:00:00 VACCINE (1 of 1 - PPSV23) [code = 65+ PNEUMOCOCCAL VACCINE (1 of 1 - PPSV23)] Future Scheduled 2001 [facility] 00:00:00 SCREENING [code = BREAST CANCER SCREENING] Future Scheduled 2001 COLONOSCOPY SCREENING Irwin bhagat [facility] Test 00:00:00 [code = COLONOSCOPY SCREENING] Future Scheduled 2001 SHINGLES VACCINES (#1) Raudel michel [facility] Test 00:00:00 [code = SHINGLES VACCINES (#1)] Encounters Start End Encounter Admission Attending Care Care Encounter Source Date/Time Date/Time Type Type Clinicians Facility Department ID 2020-06-30 2020-06-[address] [facility] [address] [id number] 09:56:00 23:59:00 Shabnam 02 Meena 2020-06-30 2020-06-30 Outpatient [facility] MED [id number] [facility] 09:56:00 09:56:00 Results Test Description Test Time Test Comments Results Result Comments Source HEMATOLOGY 2020-06-30 15:43:00 Test Item Value Reference Range Interpretation Comme nts PT (test code = PT) 14.1 s 12.0-14.[address] [id number] 15:43:00 Test Item Value Reference Range Interpretation Comments INR (test code = INR) 1.09 1 0.85-1.17 [facility], CAVAL FILTER [id number] 18:03:00Reason for Exam:->i26.99FINAL REPORT IVC filter removal. History: Filter no longer required Modality: Ultrasoundand fluoroscopy. Sedation: Moderate sedation was administered. 3 mg of Versed and 200 mcg of fentanyl IV was used for moderate sedation monitored under my direction. Total intra-service time of sedation was 90 minutes. Thepatient's vital signs were monitored throughout the procedure and recorded in the patient's medical record by the nurse. Vice Provost: Blake Bay MD. Almond Grinder: Jennifer Vines (fellow). Approach: Right internal jugular [...] The needle was removed and a 5 Scottish straight multi-sidehole catheter was advanced to the distal IVC for a DSA cavagram. A 10 Scottish angled tip Flexor sheath was advanced into the suprarenal IVC. Attempts weremade to snare the filter without success given documented within the caval wall. Subsequently, the 10 Scottish sheath was exchanged for a 16 Scottish sheath. Endobronchial forceps were then used to dislodge the filter from the caval wall. A 12 Scottish sheath was placed through the 16 Scottish sheath. A 15 mmAmplatz gooseneck snare was advanced through the sheath and used to capture the hook at the tip of the filter. The sheath was then advanced over the filter to collapse the legs of the filter, which wasthen removed intact. Post removal venogram demonstrates no evidence of extravasation. The sheath wasremoved and hemostasis was obtained with compression. Vital signs were monitored throughout the procedure by a nurse, and remained stable. The patient tolerated the procedure and left the department in the same condition. FINDINGS: Preremoval cavogram demonstrates leftward tilt of the filterwith token dated within the left caval wall. The filter was successfully repositioned using endobronchial forceps and subsequently removed using a gooseneck smear. Post removal, the cava is patent without evidence of contrast extravasation. IMPRESSION: Cavagram and IVC filter removal performed without complication. Signed: Blake Bay MDReport Verified Date/Time: 01/18/2019 18:03:40 Reading Location: [place] [address] Angio Body Reading Room W/PLT COUNT & AUTO [id number] 15:00:00 Test Item Value Reference Range Interpretation Comments WHITE BLOOD CELL COUNT (BEAKER) 13.3 K/ L 3.5-10.5 H (test code = 775) RED BLOOD CELL COUNT (BEAKER) 3.25 M/ L 3.93-5.22 L (test code = 761) HEMOGLOBIN (BEAKER) (test code = 10.2 GM/DL 11.2-15.7 L 410) HEMATOCRIT (BEAKER) (test code = 31.9 % 34.1-44.9 L 411) MEAN CORPUSCULAR VOLUME (BEAKER) 98.2 fL 79.4-94.8 H (test code = 753) MEAN CORPUSCULAR HEMOGLOBIN 31.4 pg 25.6-32.2 (BEAKER) (test code = 751) MEAN CORPUSCULAR HEMOGLOBIN CONC 32.0 GM/DL 32.2-35.5 L (BEAKER) (test code = 752) RED CELL DISTRIBUTION WIDTH 17.0 % 11.7-14.4 H (BEAKER) (test code = 412) PLATELET COUNT (BEAKER) (test code 79 K/CU MM 150-450 L = 756) MEAN PLATELET VOLUME (BEAKER) 10.9 fL 9.4-12.3 (test code = 754) NUCLEATED RED BLOOD CELLS (BEAKER) 0 /100 WBC 0-0 (test code = 413) (CELLAVISION MANUAL DIFF)2019-01-18 15:00:00 Test Item Value [...] Received comment: User comments: Slide comments:BASIC METABOLIC [id number] 13:07:00 Test Item Value Reference Range Interpretation [...] NOT APPLICABLE FOR DIALYSIS PATIEN TS. PROTHROMBIN TIME/[id number] 13:01:00 Test Item Value Reference Range Interpretation Comments PROTIME (BEAKER) (test code = 13.7 seconds 11.7-14.7 759) INR (BEAKER) (test code = 370) 1.0 <=5.9 RECOMMENDED COUMADIN/WARFARIN INR THERAPY RANGESSTANDARD DOSE: 2.0 - 3.0 Includes: PROPHYLAXIS forvenous thrombosis, systemic embolization; TREATMENT for venous thrombosis and/or pulmonary embolus.HIGH RISK: Target INR is 2.5-3.5 for patients with mechanical heart valves.FADY, CAVAL FILTER [id number] 13:44:00Reason for exam:->IVC filter placementFINAL REPORT Inferior [...] guide wire was advanced centrally. A 4 Scottish catheter was advanced to evaluate the inferior [...] cava filter below the renal veins. Signed: Nesha Quintanillaeport Verified Date/Time: 10/26/2018 13:44:07 Reading Location: [place] [address] Angio BodyReading Room C METABOLIC [id number] 21:43:00 Test Item Value Reference Range Interpretation [...] S NOT APPLICABLE FOR DIALYSIS PATIEN TS. PT/[id number] 21:41:00 Test Item Value Reference Range Interpretation [...] % 0-1 PERCENT (BEAKER) (test code = 1200)
--- NOTE | 2020-07-26 18:42 | ER ---
Nurse's Notes [facility] Name: Nesha Pringle Age: 70 yrs Sex: Female : 1950 Arrival Date: 07/26/2020 Time: 17:56 Bed 15 Private MD: Alina Wilson C Diagnosis: Hypokalemia;Hypomagnesemia;Abnormal electrocardiogram [ECG] [EKG] Presentation: 07/26 18:05 Chief complaint: Patient states: Called by Dr. Wilson, was told to come to the ED. ll1 Potassium and magnesium levels are low. States this has happened before. Coronavirus screen: Client denies travel out of the [place] in the last 14 days. At this time, the client does not indicate any symptoms associated with coronavirus-19. Ebola Screen: Patient denies travel to an Ebola-affected area in the 21 days before illness onset. Initial Sepsis Screen: Does the patient meet any 2 criteria? No. Patient's initial sepsis screen is negative. Does the patient have a suspected source of infection? No. Patient's initial sepsis screen is negative. Risk Assessment: Do you want to hurt yourself or someone else? Patient reports no desire to harm self or others. Onset of symptoms was July 26, 2020. 18:05 Method Of Arrival: Ambulatory ll1 18:05 Acuity: JAMES 3 ll1 Historical: - Allergies: 18:02 Codeine; ll1 - PMHx: 18:02 Thyroid problem; colon cancer; Hypertension; PE; ll1 - PSHx: 18:02 Hysterectomy; Bowel resection; BLADDER SLING; Lithotripsy; BRAIN; kidney surgery/tumor; ll1 - Immunization history:: Flu vaccine is not up to date. - Social history:: Smoking status: Patient/guardian denies using tobacco, the patient reports quitting approximately 16 years ago. Screenin:06 Abuse screen: Denies threats or abuse. Nutritional screening: No deficits noted. tw2 Tuberculosis screening: No symptoms or risk factors identified. Fall Risk None identified. Assessment: 18:03 General: Appears in no apparent distress. slender, well groomed, Behavior is calm, tw2 cooperative, appropriate for age. Pain: Denies pain. Neuro: Level of Consciousness is awake, alert, obeys commands, Oriented to person, place, time, situation. Cardiovascular: Heart tones S1 S2 Patient's skin is warm and dry. Respiratory: Airway is patent Respiratory effort is even, unlabored, Respiratory pattern is regular, symmetrical, Breath sounds are clear bilaterally. GI: No signs and/or symptoms were reported involving the gastrointestinal system. Abdomen is flat, Bowel sounds present X 4 quads. : No signs and/or symptoms were reported regarding the genitourinary system. EENT: No signs and/or symptoms were reported regarding the EENT system. Derm: No signs and/or symptoms reported regarding the dermatologic system. Musculoskeletal: Range of motion: intact in all extremities. 18:54 Reassessment: Patient appears in no apparent distress at this time. No changes from tw2 previously documented assessment. Patient and/or family updated on plan of care and expected duration. Pain level reassessed. Patient is alert, oriented x 3, equal unlabored respirations, skin warm/dry/pink. 19:00 Reassessment: Patient appears in no apparent distress at this time. Patient and/or jb4 family updated on plan of care and expected duration. Pain level reassessed. Patient is alert, oriented x 3, equal unlabored respirations, skin warm/dry/pink. 20:00 Reassessment: Patient appears in no apparent distress at this time. Patient and/or jb4 family updated on plan of care and expected duration. Pain level reassessed. Patient is alert, oriented x 3, equal unlabored respirations, skin warm/dry/pink. 20:10 Reassessment: accessed [facility]. jb4 21:25 Reassessment: Patient appears in no apparent distress at this time. Patient and/or jb4 family updated on plan of care and expected duration. Pain level reassessed. Patient is alert, oriented x 3, equal unlabored respirations, skin warm/dry/pink. Vital Signs: 18:05 BP 112 / 72; Pulse 88; Resp 17; Temp 98.2; Pulse Ox 97% ; Weight 52.62 kg; Height 5 ft. ll1 1 in. (154.94 cm); Pain 0/10; 18:53 BP 100 / 60; Pulse 74; Resp 14; Pulse Ox 95% on R/A; tw2 20:12 BP 101 / 59; Pulse 64; Resp 23; Pulse Ox 98% on R/A; jb4 21:00 BP 95 / 60; Pulse 65; Resp 20; Pulse Ox 99% on R/A; jb4 18:05 Body Mass Index 21.92 (52.62 kg, 154.94 cm) ll1 ED Course: 17:56 Patient arrived in ED. mr 17:56 Alina Wilson MD is Private Physician. mr 18:03 Arm band placed on Patient placed in an exam room, on a stretcher. ll1 18:03 Placed in gown. Bed in low position. Call light in reach. Adult w/ patient. Cardiac tw2 monitor on. Pulse ox on. NIBP on. Warm blanket given. 18:06 Triage completed. ll1 18:06 Adalberto Ortega PA is PHCP. jr8 18:06 Casi Villasenor MD is Attending Physician. jr8 18:10 Marley Ng RN is Primary Nurse. tw2 18:30 Inserted saline lock: 20 gauge in left antecubital area, using aseptic technique. tw2 ,using aseptic technique. per provider no blood work needed at this time. 18:41 Alina Wilson MD is Hospitalizing Provider. jr8 19:00 Report given to ANSELMO Hung. tw2 21:00 No provider procedures requiring assistance completed. Patient admitted, IV remains in jb4 place. 21:27 Primary Nurse role handed off by Marley Ng RN sg Administered Medications: 18:42 Drug: Magnesium Sulfate 2 grams Route: IVPB; Infused Over: 2 hrs; Site: left tw2 antecubital; 18:42 Drug: Potassium Chloride 20 mEq Route: IV; Rate: calculated rate; Site: left tw2 antecubital; 21:28 Follow up: Response: No adverse reaction; IV Status: Infusion continued upon admission jb4 18:42 Drug: Potassium Chloride 40 mEq Route: PO; tw2 18:59 Follow up: Response: No adverse reaction tw2 Outcome: 18:41 Decision to Hospitalize by Provider. jr8 21:27 Admitted to Med/surg accompanied by tech, via wheelchair, room 211, with chart, Report jb4 called to ANSELMO Chavira 21:27 Condition: stable 21:27 Discharge instructions given to patient, Instructed on the need for admit, Demonstrated understanding of instructions. 21:29 Patient left the ED. jb4 Signatures: Grupo Conti RN RN sg Rivera, Mary mr Adalberto Ortega PA PA jr8 Marley Ng, RN RN tw2 Jeff Carpio RN RN jb4 Mickey Cano, RN RN ll1 Corrections: (The following items were deleted from the chart) : 21:00 Admitted to Med/surg accompanied by tech, via wheelchair, room 211, with chart, jb4 Report called to ANSELMO Chavira : 21:00 Condition: stable jb4 jb4 : 21:00 Discharge instructions given to patient, Instructed on the need for admit, jb4 Demonstrated understanding of instructions, jb4
--- NOTE | 2020-07-26 18:42 | EDPHYS ---
Physician Documentation [facility] Name: Nesha Pringle Age: 70 yrs Sex: Female : 1950 Arrival Date: 07/26/2020 Time: 17:56 Bed 15 Private MD: Alina Wilson C ED Physician Casi Villasenor HPI: 07/26 18:32 This 70 yrs old Female presents to ER via Ambulatory with complaints of jr8 Abnormal Lab Results. 18:32 Patient undergoing chemotherapy for colon cancer. Labs were drawn for routine work up jr8 today and was called because magnesium and potassium were at critical low level. Was told to come to ED for infusion of electrolytes. PCP called and confirmed this as well . Severity of symptoms: At their worst the symptoms were mild in the emergency department the symptoms are unchanged. It is unknown whether or not the patient has had similar symptoms in the past. The patient has been recently seen by a physician:. Historical: - Allergies: 18:02 Codeine; ll1 - PMHx: 18:02 Thyroid problem; colon cancer; Hypertension; PE; ll1 - PSHx: 18:02 Hysterectomy; Bowel resection; BLADDER SLING; Lithotripsy; BRAIN; kidney surgery/tumor; ll1 - Immunization history:: Flu vaccine is not up to date. - Social history:: Smoking status: Patient/guardian denies using tobacco, the patient reports quitting approximately 16 years ago. ROS: 18:32 Eyes: Negative for injury, pain, redness, and discharge, ENT: Negative for injury, jr8 pain, and discharge, Neck: Negative for injury, pain, and swelling, Cardiovascular: Negative for chest pain, palpitations, and edema, Respiratory: Negative for shortness of breath, cough, wheezing, and pleuritic chest pain, Abdomen/GI: Negative for abdominal pain, nausea, vomiting, diarrhea, and constipation, Back: Negative for injury and pain, MS/Extremity: Negative for injury and deformity, Skin: Negative for injury, rash, and discoloration, Neuro: Negative for headache, weakness, numbness, tingling, and seizure. Exam: 18:32 Eyes: Pupils equal round and reactive to light, extra-ocular motions intact. Lids and jr8 lashes normal. Conjunctiva and sclera are non-icteric and not injected. Cornea within normal limits. Periorbital areas with no swelling, redness, or edema. ENT: Nares patent. No nasal discharge, no septal abnormalities noted. Tympanic membranes are normal and external auditory canals are clear. Oropharynx with no redness, swelling, or masses, exudates, or evidence of obstruction, uvula midline. Mucous membranes moist. Neck: Trachea midline, no thyromegaly or masses palpated, and no cervical lymphadenopathy. Supple, full range of motion without nuchal rigidity, or vertebral point tenderness. No Meningismus. Cardiovascular: Regular rate and rhythm with a normal S1 and S2. No gallops, murmurs, or rubs. Normal PMI, no JVD. No pulse deficits. Respiratory: Lungs have equal breath sounds bilaterally, clear to auscultation and percussion. No rales, rhonchi or wheezes noted. No increased work of breathing, no retractions or nasal flaring. Abdomen/GI: Soft, non-tender, with normal bowel sounds. No distension or tympany. No guarding or rebound. No evidence of tenderness throughout. Back: No spinal tenderness. No costovertebral tenderness. Full range of motion. Skin: Warm, dry with normal turgor. Normal color with no rashes, no lesions, and no evidence of cellulitis. MS/ Extremity: Pulses equal, no cyanosis. Neurovascular intact. Full, normal range of motion. Neuro: Awake and alert, GCS 15, oriented to person, place, time, and situation. Cranial nerves II-XII grossly intact. Motor strength 5/5 in all extremities. Sensory grossly intact. Cerebellar exam normal. Normal gait. Vital Signs: 18:05 BP 112 / 72; Pulse 88; Resp 17; Temp 98.2; Pulse Ox 97% ; Weight 52.62 kg; Height 5 ft. ll1 1 in. (154.94 cm); Pain 0/10; 18:53 BP 100 / 60; Pulse 74; Resp 14; Pulse Ox 95% on R/A; tw2 20:12 BP 101 / 59; Pulse 64; Resp 23; Pulse Ox 98% on R/A; jb4 21:00 BP 95 / 60; Pulse 65; Resp 20; Pulse Ox 99% on R/A; jb4 18:05 Body Mass Index 21.92 (52.62 kg, 154.94 cm) ll1 MDM: 18:06 Patient medically screened. jr8 18:32 Data reviewed: vital signs, nurses notes, lab test result(s). Data interpreted: Pulse jr8 oximetry: on room air is 97 %. Interpretation: normal. Counseling: I had a detailed discussion with the patient and/or guardian regarding: the historical points, exam findings, and any diagnostic results supporting the discharge/admit diagnosis, lab results, the need for further work-up and treatment in the hospital. ED course: Dr. Wilson called and accepted patient . 07/26 18:12 Order name: IV; Complete Time: 18:34 jr8 07/26 18:12 Order name: EKG - Nurse/Tech; Complete Time: 18:35 jr8 Administered Medications: 18:42 Drug: Magnesium Sulfate 2 grams Route: IVPB; Infused Over: 2 hrs; Site: left tw2 antecubital; 18:42 Drug: Potassium Chloride 20 mEq Route: IV; Rate: calculated rate; Site: left tw2 antecubital; 21:28 Follow up: Response: No adverse reaction; IV Status: Infusion continued upon admission jb4 18:42 Drug: Potassium Chloride 40 mEq Route: PO; tw2 18:59 Follow up: Response: No adverse reaction tw2 Disposition: 07/26/20 18:41 Hospitalization ordered by Alina Wilson for Observation. Preliminary diagnosis are Hypokalemia, Hypomagnesemia, Abnormal electrocardiogram [ECG] [EKG]. - Bed requested for Telemetry/MedSurg (observation). - Status is Observation. jb4 - Condition is Stable. - Problem is new. - Symptoms are unchanged. Signatures: Dispatcher [employer] EDUT Adalberto Ortega PA PA jr8 Amita Pagan RN RN tl1 Marley Ng RN RN tw2 Jeff Carpio RN RN jb4 Mickey Cano RN RN ll1 Corrections: (The following items were deleted from the chart) 18:42 18:41 Hospitalization Ordered by A Steve PARKER for Observation. Preliminary diagnosis is jr8 Hypokalemia; Hypomagnesemia. Bed requested for Telemetry/MedSurg (observation). Status is Observation. Condition is Stable. Problem is new. Symptoms are unchanged. [facility] [place] 18:50 18:13 CBC+H.LAB.BRZ ordered. EDUT EDUT 18:50 18:13 BASIC METABOLIC PANEL+C.LAB.BRZ ordered. EDMS EDMS 18:50 18:13 MAGNESIUM+C.LAB.BRZ ordered. EDMS EDMS 20:33 18:42 07/26/2020 18:41 Hospitalization Ordered by A Steve PARKER for Observation. tl1 Preliminary diagnosis is Hypokalemia; Hypomagnesemia; Abnormal electrocardiogram [ECG] [EKG]. Bed requested for Telemetry/MedSurg (observation). Status is Observation. Condition is Stable. Problem is new. Symptoms are unchanged. jr8 21:29 20:33 07/26/2020 18:41 Hospitalization Ordered by A Steve PARKER for Observation. jb4 Preliminary diagnosis is Hypokalemia; Hypomagnesemia; Abnormal electrocardiogram [ECG] [EKG]. Bed requested for Telemetry/MedSurg (observation). Status is Observation. Condition is Stable. Problem is new. Symptoms are unchanged. tl1
[2020-07-26] MEDS ORDERED: POTASSIUM CL SA 10 MEQ TAB PO ONE (18:49)
[2020-07-26] MEDS ORDERED: KCL 20 MEQ/100 mL IVPB 20 MEQ/100 ML BAG IV ONE (18:49)
[2020-07-26] MEDS ORDERED: Magnesium Sulfate 2gm IVPB 2 G/50 ML BAG IV ONE ×2 (18:49→22:06)
[2020-07-26] MEDS ORDERED: ONDANSETRON 4 MG/2 ML VIAL IV PRN (22:06)
[2020-07-26] MEDS ORDERED: HYDROCODONE/APAP 5/325 MG TAB PO PRN (22:06)
[2020-07-26] MEDS ORDERED: NA CHLORIDE 0.9% 1,000 ML IV SCH (22:06)
[2020-07-26 22:29] VITALS: BMI 21.8
[2020-07-26] MEDS: KCL 20 MEQ/100 mL IVPB 20 MEQ/100 ML BAG IV SCH (23:14)
[2020-07-27] MEDS: KCL 20 MEQ/100 mL IVPB 20 MEQ/100 ML BAG IV SCH (00:35)
[2020-07-27 05:55] LABS: Potassium 3.1 mmol/L (3.5-5.1)
[2020-07-27 05:58] LABS: Absolute Lymphocytes (CBC) 0.9 K/uL (0.7-4.9); Basophils % 0.5 % (0-1.3); Hematocrit 28.5 % (36.0-45.0); Lymphocytes % 16.6 % (15.3-44.8); MPV 8.8 fL (7.6-11.3); RBC Red Blood Cell Count 3.24 M/uL (3.86-4.86)
[2020-07-27] MEDS ORDERED: POTASSIUM CL SA 10 MEQ TAB PO ONE (07:20)
[2020-07-27 08:16] LABS: Thyroid Stimulating Hormone 71.7 uIU/mL (0.360-3.740)
[2020-07-27 08:20] VITALS: BP 127/66; TEMP 97.2
[2020-07-27 08:24] LABS: Blood Morphology Comment NOT SEEN (NOT SEEN); Platelet Estimate DECR
[2020-07-27 09:18] VITALS: O2SAT 95
[2020-07-27] MEDS ORDERED: HEPARIN 500 UNIT/5 ML SYR IV PRN (11:04)
--- NOTE | 2020-07-29 20:28 | SS ---
Date of Admission: 07/27/2020 Date of Discharge: 07/27/2020 Reason For Admission: Low potassium and low magnesium. History Of Present Illness: This is a 70-year-old pleasant female patient, who had outpatient routine blood work done yesterday on 07/26/2020 and her potassium level and magnesium level was reported to be critically low with potassium level 2.3 and magnesium level 0.8. Once we received this result, the patient was contacted and the patient was advised to come to emergency room. After she was evaluated, she was admitted to the hospital. I did contact the emergency room provider and informed him of this test results. When I saw her this morning, she denies any new complaints. Denies any vomiting or diarrhea. She was taking potassium and magnesium replacement on a daily basis, but recently she stopped taking it. She was also taking her levothyroxine, which she has stopped taking recently. She did not have any side effect with any of this medications. She has advanced cancer and her prognosis is poor and she has seen her oncologist yesterday and she was told that there is nothing else that can be done for her as far as treatment is concerned and at appropriate time in the future, she will consider to go on hospice care. Allergies: CODEINE. Medications: List reviewed. Review of Systems: Genitourinary: Right-sided nephrostomy tube in place. Constitutional: Fatigue. All other systems reviewed and negative. Social History: Negative for smoking and alcohol use. Family History: Significant for hypertension, diabetes mellitus, coronary artery disease. Past Surgical History: Breast implant, tubal ligation, hysterectomy, repair of cerebral aneurysm in 2008, cystocele repair, clipping of cerebral aneurysm in 2003, and right-sided nephrostomy tube placement earlier this month. Past Medical History: Significant for hypertension, hyperlipidemia, hypothyroidism, hypokalemia, hypomagnesemia, impaired fasting glucose, colon cancer, gastroesophageal reflux disease, cerebral aneurysm, depression, DVT of right leg with bilateral pulmonary embolism diagnosed in September 2018. Physical Examination: Vital Signs: Temperature 97.2, pulse 76, respiratory rate 16, blood pressure 127/66, oxygen saturation 98%. Height 5 feet 1 inch, weight 115 pounds. General: Awake, alert, oriented, not in distress. HEENT: Head atraumatic, normocephalic. Conjunctivae nonerythematous. Sclerae white. Mouth, no thrush or edema noted. Ears/Nose, no mass, lesion, discharge noted. Neck: Supple. No JVD, lymph nodes, bruit, thyromegaly noted. Lungs: Bilateral good equal air entry. Clear to auscultation. No rhonchi. No rales. Heart: Normal heart sounds. No murmur or gallop. Abdomen: Soft. Bowel sounds normal. No guarding, rigidity, tenderness, mass, hepatosplenomegaly, distention, or bruit noted. Extremities: No leg edema. No calf tenderness. Skin: No rash, ulcer, cellulitis. Lymphatics: No lymph node enlargement in neck, supraclavicular, infraclavicular region. Neuro: No focal neurological deficit. Chest: Unremarkable. External Genitalia: Deferred. Rectal: Deferred. Back: Presence of right-sided nephrostomy tube in the right posterior flank region. Normal appearing skin around it and clean dressing present over it. Laboratory Data: Yesterday, sodium 139, potassium 2.3, chloride 102, bicarb 27, BUN 13, creatinine 1.23, glucose 207, magnesium 0.8. Liver function tests unremarkable. TSH 104. This morning, sodium 144, potassium 3.1, chloride 110, bicarb 27, BUN 11, creatinine 0.8, glucose 132, magnesium 2.2. Repeat TSH 71. White count this morning 5.5, hemoglobin 9.8, platelets 91. Hospital Course: The patient was evaluated in the emergency room. Her electrolytes were corrected using electrolyte replacement protocol. This morning, potassium was still low, but better than yesterday, magnesium is normal, and replacement dose for potassium was given this morning. The patient is medically stable for discharge and I will go ahead and discharge her. She has her potassium, magnesium, and levothyroxine prescription at home, but she stopped using it recently and I have advised her to restart those medication as per discharge order. The patient was instructed to follow up with me next week at the office and at that time, we will repeat her blood work as well and make any correction on replacement doses if necessary. Final Diagnoses: 1. Hypokalemia. 2. Hypomagnesemia. 3. Anemia. 4. Thrombocytopenia. 5. Hypertension. 6. Hyperlipidemia. 7. Impaired fasting glucose. 8. Hypothyroidism. 9. Colon cancer. 10. Gastroesophageal reflux disease. Discharge Medications And Instructions: 1. Continue prior home medication. 2. The patient to restart taking following medications that she has at home: a. Potassium chloride 10 mEq, take 1 tablet by mouth 3 times a day. b. Magnesium oxide 400 mg, take 1 tablet by mouth 2 times a day. c. Levothyroxine 150 mcg, take 1 tablet by mouth daily. 3. Follow up at my office next week on 08/02/2020 and the patient to get blood tests done on the same day prior to seeing me, so we can follow up on results. ROBERT/KITTY Voice ID: [id number] Report ID: [id number] MTDNimo
== END 2020-07-27 11:40 | disposition home health service (06) ==
LOC: ER 17:53 → ERHOLD 19:04 → 2ND 21:07
PROVIDERS: ADMIT Internal Medicine; ATTEND Internal Medicine
DX: E87.6 Hypokalemia (principal); E83.42 Hypomagnesemia; C18.9 Malignant neoplasm of colon, unspecified; Z20.828 Contact with and (suspected) exposure to other viral communicable diseases; R94.31 Abnormal electrocardiogram [ECG] [EKG]; Z93.6 Other artificial openings of urinary tract status; I10 Essential (primary) hypertension; E78.5 Hyperlipidemia, unspecified; E03.9 Hypothyroidism, unspecified; R73.01 Impaired fasting glucose; K21.9 Gastro-esophageal reflux disease without esophagitis; F32.9 Major depressive disorder, single episode, unspecified; Z86.718 Personal history of other venous thrombosis and embolism; Z86.711 Personal history of pulmonary embolism; D63.0 Anemia in neoplastic disease; D69.6 Thrombocytopenia, unspecified; Z87.891 Personal history of nicotine dependence; Z92.21 Personal history of antineoplastic chemotherapy
CPT/HCPCS: 96365; 93005; 85025; 80048; 36415; 83735; 84443; 84439; 96375; 99285; 96366; U0002; J3480 ×3; J3475 ×2; J1642; J7030; G0378 ×3

== ENCOUNTER 2020-09-06 18:35 | Inpatient (IN) | payer OTHER ==
--- NOTE | 2020-09-06 20:51 | RAD REPORT ---
EXAM DESCRIPTION: RAD - Chest Single View - 09/06/2020 8:35 pm CLINICAL HISTORY: elevated WBC Chest pain. COMPARISON: Abdomen 1 View (KUB) dated 08/30/2020; Chest Single View dated 03/14/2020; Chest Pa And La t (2 Views) dated 03/17/2019; Chest Pa And Lat (2 Views) dated 01/21/2019; Abdomen Pelvis W Contrast dated 06/23/2020; CT-RAD THERAPY FIELD PELVIS dated 06/06/2020; Pelvis W/Wo Cont dated 05/03/2020; Abdomen Pelvis W Contrast dated 04/11/2020 FINDINGS: Portable technique limits examination quality. Multiple small nodules have developed in both lungs since the comparative chest radiograph, which whi ch are suspicious for metastasis. The heart is normal in size. Right-sided port catheter has tip in t he SVC.
[2020-09-06 21:16] LABS: Potassium 4.8 mmol/L (3.5-5.1)
--- OUTSIDE RECORDS SUMMARY | 2020-09-06 21:30 | XMS REPORT | Clinical Summary ---
:1950 Author Organization [facility] Address [address] [place] [id number] Care Team Providers Name Role Phone Unavailable [...] Date Last Done Comments BREAST CANCER SCREENING 1950 COLON CANCER SCREENING COLONOSCOPY 1950 MEDICARE ANNUAL WELLNESS (YEAR 2 or FIRST YEAR if no 08/30/2009 IPPE) PNEUMOCOCCAL 65+ YRS (1 of 1 - [id number] PCV13) 2016 INFLUENZA VACCINE (#1) 2020 Results Not on fileafter 09/06/2019 Insurance Payer Benefit Plan / Subscriber ID Effective Dates Phone Addre ss Type Group MEDICARE MEDICARE A B [id number] 2008-Presen Medicare t AETNA - MGD CARE AETNA INDEMNITY [id number] 2013-Present Comm NON CONTR Advance Directives For more information, please contact: [phone] Code Status Date Activated Date Inactivated Comments Full Code 01/18/2019 5:45 PM 01/18/2019 11:41 PM This code status was determined by: Patient Full Code 10/25/2018 7:49 PM 01/18/2019 7:33 AM This code status was determined by: Patient
--- OUTSIDE RECORDS SUMMARY | 2020-09-06 21:30 | XMS REPORT | Continuity of Care Document ---
:1950 Author Organization [facility] Information [place] Care Team Providers Name Role Phone [facility] Information [place] Unavailable Un available Problems Problem Status Onset Classification Date Comments Sourc e Date Reported BLADDER Active [facility]INOMA 0 [place] MALIGNANT Active [facility] NEOPLASM OF [place] COLON, UNSPECIFIED Medications Medication Details Route Status Patient Ordering Order Source Instructions Provider Date Senokot 8.6 mg =, Active MH PO, 020 [place] Bedtime, 0 Refill(s) apixaban 2.5 MG 2.5 mg = 1 Active Oral Tablet tab, PO, 020 [place] [Eliquis] BID, 0 Refill(s) tramadol 50 mg = 1 Active hydrochloride 50 tab, PO, 0[address] [place] Oral Tablet Q6H, 0 Refill(s) Allergies, Adverse Reactions, Alerts Substance Category Reaction Severity Reaction Status Date Comments S ource type Reported codeine Assertion Drug Active allergy [place] Immunizations Immunization Date Site Status Last Comments Source Given Updated influenza virus Left completed Elder P earland vaccine, 9 deltoid inactivated Results Order Name Results Value Reference Date Interpretation Comments Sanna rce Range HEMATOLOGY PT 14.1 12.0 - 14.7 2019 [place] HEMATOLOGY INR 1.09 0.85 - 1.17 2019 [place] Pathology Reports No Data Provided for This Section Diagnostic Reports Report Value Date Source Nephrostomy drain perc PROCEDURE INFORMATION: 06/30/2020 [place] morial [place] unilateral VR Exam: IR Right [...] per protocol prior to the procedure. 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 Hannah Preoperative diagnosis: Obstructive [...] record is permanently stored in the hospital GB Environmental system. The personal supervised moderate sedation time [...] kidney followed by placement of a 6 Namibian sheath. Small amount of contrast was administered confirming location within the clinton l collecting system. Subsequently, a 0.035 in wire was advanced into the renal collecting system followed by serial dilatation. An 8 Namibian multi purpose catheter was advanced over the [...] Date Comments Source Height 156.21 cm 06/29/2020 [facility] Weight 54.545 06/29/2020 [facility] BMI Calculated 22.35 06/29/2020 [facility] Encounters Location Location Encounter Encounter Reason Attending ADM DC Stat us Source Details Type Number For Provider Date Date Visit [facility] Outpatient [id number] Shabnam 06/30 07/01 [place] /[address] [facility] [place] [place] Procedures No Data Provided for This Section Assessment and Plan No Data Provided for This Section Plan of Care No Data Provided for This Section Social History Social History Date Source Social History TypeResponse 06/29/2020 [facility] Smoking Status Former smoker; Type: Cigarettes; Exposur e to Tobacco Smoke None; Cigarette Smoking Last 365 Days No; Reg Smoking Cessation Counseling No entered on: 06/29/20 Family History No Data Provided for This Section Advance Directives No Data Provided for This Section Functional Status No Data Provided for This Section
--- OUTSIDE RECORDS SUMMARY | 2020-09-06 21:30 | XMS REPORT | Clinical Summary ---
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
--- OUTSIDE RECORDS SUMMARY | 2020-09-06 21:31 | XMS REPORT | Continuity of Care Document ---
:1950 Author Organization [facility] t Address [address] [place] [address] Care Team Providers Name Role Phone Octavia [...] BLADDER Diagnosis Active 2019-092020-06-30 Me moria CARCINOMA 0 10:04:00 l BLADDER 00:00: [place] CARCINOMA 00 Active 06/29/2020 [facility] Pulmonary Pulmonary Disease Active [facility] MALIGNANT Diagnosis Active 2020-06-30 [facility] NEOPLASM 10:04:00 l OF COLON, [place] UNSPECIFIE MALIGNANT D NEOPLASM OF COLON, UNSPECIFIE D Active [facility] Allergies, Adverse Reactions, Alerts Allergy Allergy Status Severity Reaction(s) Onset Inactive Treating Comm ents Source Name Type Date Date Clinician Codeine Propensi Active [facility] - adverse 00:00: Medical reaction 00 Center s Codeine Propensi Active [facility] to 01-20 [facility] adverse 00:00: st reaction 00 s to drug codeine codeine Active [facility] Family History Family Member Diagnosis Comments Start Date Stop Date Source Natural father Diabetes [facility] Natural father Hypertension [facility] Natural father Stroke [facility] Natural father Stroke [facility] Natural mother Diabetes [facility] Natural mother Hypertension [facility] Natural brother Cancer [facility] Natural sister Stroke [facility] Social History Social Habit Start Date Stop Date Quantity Comments Source History of Current smoker [facility] tobacco use [facility] Cent[facility] Sex Assigned [facility] Tobacco use and 2019-01-18 2019-01-18 Never used [facility] - exposure 00:00:00 00:00:00 [facility] Alcohol intake 2019-01-18 2019-01-18 Current drinker [facility] cesilia kes - 00:00:00 00:00:00 of alcohol [facility] (finding) Alcohol Comment 2018-10-25 2018-10-25 social use [facility] - 00:00:00 00:00:00 [facility] Smoking Status Start Date Stop Date Source Former smoker 2019-01-18 00:00:00 2019-01-18 00:00:00 [facility] Never smoker [facility] Medications Ordered Filled Start Stop Current Ordering Indication Dosage Frequency Signature Comments Components Source Medication Medication Date Date Medication? Clinician (SIG) Name Name Senokot 2019-09 Yes 8.6 mg =, Memor [facility] 0-01 PO, l 20:51: Bedtime, 0 [place] 00 Refill(s) apixaban 2019-09 Yes 2.5 mg = 1 Mem oria 2.5 MG Oral 0-01 tab, PO, l Tablet 20:50: BID, 0 [place] [Eliquis] 00 Refill(s) tramadol 2019-09 Yes 50 mg = 1 Nikko chikis hydrochlori 0-01 tab, PO, l de 50 MG 20:50: Q6H, 0 [place] Oral Tablet 00 Refill(s) omeprazole Yes 20mg [...] 10 00 daily. Center MEQ tablet pravastatin 2018- Yes 40mg QD Take [address] (PRAVACHOL) 1-03 by mouth [facility] - 40 MG 00:00: daily. Medical tablet 00 Center Vital Signs Vital Name Observation Time Observation Value Comments Source Height 2020-06-29 20:44:00 156.21 cm [facility] Weight 2020-06-29 20:44:00 [facility] BMI Calculated 2020-06-29 20:44:00 Memori al [place] Procedures This patient has no known procedures. Plan of Care Planned Activity Planned Date Details Comments Source Future Scheduled 2020-05-30 INFLUENZA VACCINE (#1) [facility] Test 00:00:00 [code = INFLUENZA Medical Ce nter VACCINE (#1)] Future Scheduled 2020-04-29 INFLUENZA VACCINE [place] [facility] 00:00:00 [code = INFLUENZA VACCINE] Future Scheduled 2016 65+ PNEUMOCOCCAL [facility] Test 00:00:00 VACCINE (1 of 1 - PPSV23) [code = 65+ PNEUMOCOCCAL VACCINE (1 of 1 - PPSV23)] Future Scheduled 2016 PNEUMOCOCCAL 65+ [facility]RS [facility] - Test 00:00:00 (1 of 1 - Medical Center [id number] PCV13) [code = PNEUMOCOCCAL 65+ YRS (1 of 1 - [id number] PCV13)] Future Scheduled 2009-08-[address] [facility] [facility] - Test 00:00:00 WELLNESS (YEAR 2 or Medical Center FIRST YEAR if no IPPE) [code = MEDICARE ANNUAL WELLNESS (YEAR 2 or FIRST YEAR if no IPPE)] Future Scheduled 2001 BREAST CANCER [facility] 00:00:00 SCREENING [code = BREAST CANCER SCREENING] Future Scheduled 2001 COLONOSCOPY SCREENING [place] [place] [facility] 00:00:00 [code = COLONOSCOPY SCREENING] Future Scheduled 2001 SHINGLES VACCINES (#1) [place] [facility] [facility] 00:00:00 [code = SHINGLES VACCINES (#1)] Future Scheduled [address] 00:[facility]00 [facility] breast (procedure) [code = 371061573] Future Scheduled [address] [facility] Test 00[facility]00:00 [facility] colon (procedure) [code = 819753800] Encounters Start End Encounter Admission Attending Care Care Encounter Source Date/Time Date/Time Type Type Clinicians Facility Department ID 2020-06-30 2020-06-30 Outpatient [facility] [place] [id number] 09:56:00 23:59:00 Shabnam Santi Robledo 2020-06-30 2020-06-30 Outpatient [facility] [id number] 09:56:00 09:56:00 Results Test Description Test Time Test Comments Results Result Comments Source HEMATOLOGY 2020-06-30 15:43:00 Test Item Value Reference Range Interpretation Comme nts PT (test code = PT) 14.1 s 12.0-14.7 [id number] 15:43:00 Test Item Value Reference Range Interpretation Comments INR (test code = INR) 1.09 1 0.85-1.17 SUSAN Monique FILTER [id number] 18:03:00Reason for Exam:->i26.99FINAL REPORT IVC filter removal. [...] the patient's medical record by the nurse. Supervisor [place]: Blake Bay MD. Spring Inspector: Jennifer Vines (fellow). Approach: Right internal jugular [...] The needle was removed and a 5 Malawian straight multi-sidehole catheter was advanced to the distal IVC for a DSA cavagram. A 10 [place] angled tip Flexor sheath was advanced into the suprarenal IVC. Attempts weremade to snare the filter without success given documented within the caval wall. Subsequently, the 10 [place]ian sheath was exchanged for a 16 [place]awian sheath. Endobronchial forceps were then used to dislodge the filter from the caval wall. A 12 [place]awian sheath was placed through the 16 Malawian sheath. A 15 mmAmplatz gooseneck snare was [...] MDReport Verified Date/Time: 01/18/2019 18:03:40 Reading Location: [place] [id number] Angio Body Reading Room W/PLT COUNT & AUTO [id number] 15:00:00 Test Item Value Reference Range Interpretation [...] Received comment: User comments: Slide comments:BASIC METABOLIC [id number] 13:07:00 Test Item Value Reference Range Interpretation [...] NOT APPLICABLE FOR DIALYSIS PATIEN TS. PROTHROMBIN [id number] 13:01:00 Test Item Value Reference Range Interpretation Comments PROTIME (ACE) (test code = 13.7 seconds 11.7-14.7 759) INR (BEAKER) (test code = 370) 1.0 <=5.9 RECOMMENDED COUMADIN/WARFARIN INR THERAPY RANGESSTANDARD DOSE: 2.0 - 3.0 Includes: PROPHYLAXIS forvenous thrombosis, systemic embolization; TREATMENT for venous thrombosis and/or pulmonary embolus.HIGH RISK: Target INR is 2.5-3.5 for patients with mechanical heart valves.FADY, CAVAL FILTER [id number] 13:44:00Reason for exam:->IVC filter placementFINAL REPORT Inferior [...] guide wire was advanced centrally. A 4 Malawian catheter was advanced to evaluate the inferior [...] filter below the renal veins. Signed: Nesha Quintanilla MDReport Verified Date/Time: 10/26/2018 13:44:07 Reading Location: [place] [address] Angio BodyReading Room C METABOLIC [id number] 21:43:00 Test Item Value Reference Range Interpretation [...] S NOT APPLICABLE FOR DIALYSIS PATIEN TS. [id number] 21:41:00 Test Item Value Reference Range Interpretation [...] % 0-1 PERCENT (BEAKER) (test code = 2801)
[2020-09-06 21:44] LABS: Basophils % 0.4 % (0-1.3); Hematocrit 24.2 % (36.0-45.0); Lymphocytes % 3.9 % (15.3-44.8); MPV 7.6 fL (7.6-11.3); RBC Red Blood Cell Count 2.67 M/uL (3.86-4.86)
[2020-09-06] MEDS ORDERED: CEFTRIAXONE/SWI 1gm 1 GM/10 ML SYR ONE (22:56)
--- NOTE | 2020-09-06 22:59 | ER ---
Nurse's Notes [facility] Name: Nesha Pringle Age: 70 yrs Sex: Female : 1950 Arrival Date: 09/06/2020 Time: 18:42 Bed 2 Private MD: Diagnosis: Urinary tract infection, site not specified;Dehydration Presentation: 09/06 19:00 Chief complaint: Spouse and/or significant other states: had labs drawn by Dr. Steve flood today and he called and told her to come to ER bc her labs where abnormal, usually is her electrolytes, has hx of colon cancer and tumor on her abdomen. Coronavirus screen: At this time, the client does not indicate any symptoms associated with coronavirus-19. Ebola Screen: Patient negative for fever greater than or equal to 101.5 degrees Fahrenheit, and additional compatible Ebola Virus Disease symptoms Patient denies exposure to infectious person. Patient denies travel to an Ebola-affected area in the 21 days before illness onset. No symptoms or risks identified at this time. Initial Sepsis Screen: Does the patient meet any 2 criteria? No. Patient's initial sepsis screen is negative. Does the patient have a suspected source of infection? No. Patient's initial sepsis screen is negative. Risk Assessment: Do you want to hurt yourself or someone else? Patient reports no desire to harm self or others. Onset of symptoms was September 06, 2020. 19:00 Method Of Arrival: Wheelchair iw 19:00 Acuity: JAMES 3 iw Historical: - Allergies: 19:05 Codeine; iw - Home Meds: 19:05 amlodipine 5 mg tab 1 tab twice a day if needed [Active]; Xarelto 15 mg Oral tab 1 tab iw twice a day [Active]; Cholestyramine Light 4 gram Oral pwpk 1 packet 2 times per day [Active]; Eliquis 5 mg Oral tab 2 times per day [Active]; Integra Oral once daily [Active]; gabapentin 300 mg Oral cap twice a day [Active]; levothyroxine 137 mcg tab once daily [Active]; magnesium oxide 400 mg Oral cap daily [Active]; cholestyramine (bulk) miscellaneous [Active]; metoprolol tartrate 100 mg Oral tab 1 tab 2 times per day [Active]; Multiple Vitamins Oral tab [Active]; omeprazole 20 mg Oral cpDR 1 cap once daily [Active]; pravastatin 40 mg Oral tab 1 tab once daily [Active]; Sleep Aid (diphenhydramine) 25 mg Oral tab [Active]; oxybutynin chloride 5 mg Oral tr24 three times a day [Active]; ondansetron HCl 8 mg Oral tab [Active]; potassium chloride 10 mEq Oral cpER 1 cap 2 times per day [Active]; tramadol-acetaminophen 37.5-325 mg Oral tab [Active]; valacyclovir 500 mg Oral tab once daily [Active]; pantoprazole 40 mg Oral TbEC once daily [Active]; - PMHx: 19:05 colon cancer; PE; Hypertension; Thyroid problem; iw - PSHx: 19:05 Hysterectomy; Bowel resection; Bladder suspension; Lithotripsy; kidney surgery/tumor; iw BRAIN; - Immunization history:: Adult Immunizations up to date. - Family history:: not pertinent. - Social history:: Smoking status: Patient/guardian denies using. - Hospitalizations: : No recent hospitalization is reported. Screenin:00 Abuse screen: Denies threats or abuse. Denies injuries from another. Nutritional wh screening: No deficits noted. Tuberculosis screening: No symptoms or risk factors identified. Fall Risk None identified. Assessment: 20:00 General: Appears in no apparent distress. uncomfortable, Behavior is calm, cooperative, wh appropriate for age. Pain: Complains of pain in suprapubic area, right lower quadrant and left lower quadrant. Neuro: Level of Consciousness is awake, alert, obeys commands, Oriented to person, place, time, situation, Appropriate for age. Cardiovascular: Heart tones S1 S2. Respiratory: Airway is patent Respiratory effort is even, unlabored, Respiratory pattern is regular, symmetrical, Breath sounds are clear bilaterally. GI: Abdomen is flat, non-distended, Abd is soft Abdomen is tender to palpation in suprapubic area, right lower quadrant and left lower quadrant Reports lower abdominal pain. : nephrostomy tube on right kidney. EENT: No signs and/or symptoms were reported regarding the EENT system. Derm: Skin is intact, is healthy with good turgor, Skin is pink, warm \T\ dry. normal. Musculoskeletal: Circulation, motion, and sensation intact. 21:30 Reassessment: Patient appears in no apparent distress at this time. No changes from wh previously documented assessment. Patient and/or family updated on plan of care and expected duration. Pain level reassessed. Patient is alert, oriented x 3, equal unlabored respirations, skin warm/dry/pink. 23:00 Reassessment: Patient appears in no apparent distress at this time. Patient and/or wh family updated on plan of care and expected duration. Pain level reassessed. Patient is alert, oriented x 3, equal unlabored respirations, skin warm/dry/pink. Explained POC need for admit. 09/07 00:30 Reassessment: Patient appears in no apparent distress at this time. Patient and/or wh family updated on plan of care and expected duration. Pain level reassessed. Patient is alert, oriented x 3, equal unlabored respirations, skin warm/dry/pink. 02:00 Reassessment: Patient appears in no apparent distress at this time. Patient and/or wh family updated on plan of care and expected duration. Pain level reassessed. Patient is alert, oriented x 3, equal unlabored respirations, skin warm/dry/pink. Vital Signs: 09/06 19:00 BP 101 / 66; Pulse 108; Resp 16; Temp 97.3; Pulse Ox 100% on R/A; Weight 50.35 kg; iw Height 5 ft. 1 in. (154.94 cm); Pain 6/10; 20:30 BP 108 / 70; Pulse 86; Resp 16; Pulse Ox 95% on R/A; wh 22:00 BP 115 / 68; Pulse 85; Resp 15; Pulse Ox 93% on R/A; rv 23:00 BP 111 / 57; Pulse 86; Resp 16; Pulse Ox 94% on R/A; wh 09/07 00:00 BP 109 / 62; Pulse 89; Resp 18; Pulse Ox 95% on R/A; wh 01:00 BP 114 / 63; Pulse 96; Resp 18; Pulse Ox 93% on R/A; wh 02:00 BP 110 / 57; Pulse 96; Resp 18; Pulse Ox 94% on R/A; 09/06 19:00 Body Mass Index 20.97 (50.35 kg, 154.94 cm) ED Course: 09/06 18:42 Patient arrived in ED. rg4 19:02 Triage completed. iw 19:07 Arm band placed on. iw 19:46 Meño Borjas MD is Attending Physician. rn 20:00 Patient has correct armband on for positive identification. Placed in gown. Bed in low wh position. Call light in reach. Side rails up X 1. Pulse ox on. NIBP on. 20:03 Slava Borjas is Primary Nurse. 20:15 Accessed Port-a-Cath. using accessed w/ # 20 Pinedo needle, Clean \T\ dry. Dressing intact. 20:34 XRAY Chest (1 view) In Process Unspecified. EDMS 22:58 Alina Wilson MD is Hospitalizing Provider. rn 09/07 02:21 No provider procedures requiring assistance completed. Patient admitted, IV remains in place. Administered Medications: 09/06 22:46 Drug: Rocephin 1 grams Route: IV; Rate: calculated rate; Site: Port-a-cath; 23:20 Follow up: Response: No adverse reaction; IV Status: Completed infusion Outcome: 22:59 Decision to Hospitalize by Provider. rn 09/07 02:21 Admitted to ER Hold. Please see [facility] for further documentation. Condition: stable Instructed on the need for admit. 03:42 Patient left the ED. dm5 Signatures: Dispatcher [employer] EDVT Adelia Clemons RN ANSELMO dm5 Silvana Green, RN ANSELMO Meño Borjas MD MD rn Garcia, Rubi 4 Slava Borjas John Curiel RN RN rv Corrections: (The following items were deleted from the chart) 09/06 23:20 22:45 BP 111 / 57; Pulse 86bpm; Resp 16bpm; Pulse Ox 94% RA; rv wh
--- NOTE | 2020-09-06 22:59 | EDPHYS ---
Physician Documentation [facility] Name: Nesha Pringle Age: 70 yrs Sex: Female : 1950 Arrival Date: 09/06/2020 Time: 18:42 Bed 2 Private MD: ED Physician Meño Borjas HPI: 09/06 19:58 This 70 yrs old Female presents to ER via Wheelchair with complaints of rn Abnormal Lab Results. 19:58 Reports sent to ER for abnormal labs, unknown which lab. Reports abdominal cancer, not rn getting treatment, s/p right sided nephrostomy tube placement 3 weeks ago. Reports generalized fatigue, malaise. No cough/sob/chest pain. . Onset: The symptoms/episode began/occurred at an unknown time. Severity of symptoms: At their worst the symptoms were mild in the emergency department the symptoms are unchanged. The patient has experienced similar episodes in the past. The patient has been recently seen by a physician:. Historical: - Allergies: 19:05 Codeine; iw - Home Meds: 19:05 amlodipine 5 mg tab 1 tab twice a day if needed [Active]; Xarelto 15 mg Oral tab 1 tab iw twice a day [Active]; Cholestyramine Light 4 gram Oral pwpk 1 packet 2 times per day [Active]; Eliquis 5 mg Oral tab 2 times per day [Active]; Integra Oral once daily [Active]; gabapentin 300 mg Oral cap twice a day [Active]; levothyroxine 137 mcg tab once daily [Active]; magnesium oxide 400 mg Oral cap daily [Active]; cholestyramine (bulk) miscellaneous [Active]; metoprolol tartrate 100 mg Oral tab 1 tab 2 times per day [Active]; Multiple Vitamins Oral tab [Active]; omeprazole 20 mg Oral cpDR 1 cap once daily [Active]; pravastatin 40 mg Oral tab 1 tab once daily [Active]; Sleep Aid (diphenhydramine) 25 mg Oral tab [Active]; oxybutynin chloride 5 mg Oral tr24 three times a day [Active]; ondansetron HCl 8 mg Oral tab [Active]; potassium chloride 10 mEq Oral cpER 1 cap 2 times per day [Active]; tramadol-acetaminophen 37.5-325 mg Oral tab [Active]; valacyclovir 500 mg Oral tab once daily [Active]; pantoprazole 40 mg Oral TbEC once daily [Active]; - PMHx: 19:05 colon cancer; PE; Hypertension; Thyroid problem; iw - PSHx: 19:05 Hysterectomy; Bowel resection; Bladder suspension; Lithotripsy; kidney surgery/tumor; iw BRAIN; - Immunization history:: Adult Immunizations up to date. - Family history:: not pertinent. - Social history:: Smoking status: Patient/guardian denies using. - Hospitalizations: : No recent hospitalization is reported. ROS: 19:58 Constitutional: Negative for fever, chills Eyes: Negative for injury, pain, redness, rn and discharge, Neck: Negative for injury, pain, and swelling, Cardiovascular: Negative for chest pain, palpitations, and edema, Respiratory: Negative for shortness of breath, cough, wheezing, and pleuritic chest pain, Abdomen/GI: Negative for abdominal pain, nausea, vomiting, diarrhea, and constipation, Back: Negative for injury and pain, : Negative for injury, bleeding, discharge, and swelling, MS/Extremity: Negative for injury and deformity, Skin: Negative for injury, rash, and discoloration, Neuro: Negative for headache, numbness, tingling, and seizure. Exam: 20:01 Constitutional: Thin female, slow movements Head/Face: Normocephalic, atraumatic. director e learning: Tachycardic, regular Respiratory: Speaking full sentences. No increased work of breathing, no retractions or nasal flaring. Abdomen/GI: soft, + mild bilateral lower abd tenderness (baseline 2/2 cancer pt states) Skin: Warm, dry MS/ Extremity: Pulses equal, no cyanosis. Neuro: Awake and alert, GCS 15 Vital Signs: 19:00 BP 101 / 66; Pulse 108; Resp 16; Temp 97.3; Pulse Ox 100% on R/A; Weight 50.35 kg; iw Height 5 ft. 1 in. (154.94 cm); Pain 6/10; 20:30 BP 108 / 70; Pulse 86; Resp 16; Pulse Ox 95% on R/A; wh 22:00 BP 115 / 68; Pulse 85; Resp 15; Pulse Ox 93% on R/A; rv 23:00 BP 111 / 57; Pulse 86; Resp 16; Pulse Ox 94% on R/A; wh 12/10 00:00 BP 109 / 62; Pulse 89; Resp 18; Pulse Ox 95% on R/A; 01:00 BP 114 / 63; Pulse 96; Resp 18; Pulse Ox 93% on R/A; 02:00 BP 110 / 57; Pulse 96; Resp 18; Pulse Ox 94% on R/A; 09/06 19:00 Body Mass Index 20.97 (50.35 kg, 154.94 cm) iw MDM: 09/06 19:46 Patient medically screened. rn 22:57 Differential Diagnosis sepsis, UTI, viral syndrome. Data reviewed: vital signs, nurses rn notes, lab test result(s), radiologic studies, plain films, and as a result, I will admit patient. Counseling: I had a detailed discussion with the patient and/or guardian regarding: the historical points, exam findings, and any diagnostic results supporting the discharge/admit diagnosis, lab results, radiology results, the need for further work-up and treatment in the hospital. Response to treatment: the patient's symptoms have mildly improved after treatment, and as a result, I will admit patient. Admission orders: after a detailed discussion of the patient's condition and case, the admit orders are written by me. ED course: Elevated WBC/procal, + UTI with nitrate + on side of nephrostomy tube, given rocephin, will admit to Dr. Wilson. Stable vitals. . 09/06 19:56 Order name: CBC with Diff rn 09/06 19:56 Order name: Basic Metabolic Panel rn 09/06 19:56 Order name: Urine Culture rn 09/06 19:56 Order name: Urine Microscopic Only rn 09/06 19:56 Order name: Magnesium rn 09/06 19:56 Order name: Procalcitonin rn 09/06 19:56 Order name: Blood Culture Adult (2) rn 09/06 21:17 Order name: Basic Metabolic Panel; Complete Time: 21:42 EDMS 09/06 21:17 Order name: Magnesium; Complete Time: 21:42 EDMS 09/06 21:54 Order name: Procalcitonin; Complete Time: 22:18 EDOK 09/06 22:34 Order name: Urine Dipstick--Ancillary (enter results) mw2 09/06 23:44 Order name: Urine Microscopic Only EDOK 09/07 00:17 Order name: COVID-19 09/07 01:03 Order name: CORONAVIRUS EDMS 09/06 19:56 Order name: IV Start; Complete Time: 20:24 rn 09/06 19:56 Order name: Urine Dipstick-Ancillary (obtain specimen): obtain one from nephrostomy rn tube and one from bladder; Complete Time: 22:35 09/06 19:56 Order name: EKG; Complete Time: 19:58 rn 09/06 19:56 Order name: EKG - Nurse/Tech; Complete Time: 20:24 rn 09/06 20:01 Order name: XRAY Chest (1 view) rn 09/07 01:13 Order name: Urine Dipstick-Ancillary EDOK 09/07 02:19 Order name: SARS-COV-2 RT PCR EDOK Administered Medications: 22:46 Drug: Rocephin 1 grams Route: IV; Rate: calculated rate; Site: Port-a-cath; 23:20 Follow up: Response: No adverse reaction; IV Status: Completed infusion Disposition: 09/06/20 22:59 Hospitalization ordered by Alina Wilson for Inpatient Admission. Preliminary diagnosis are Urinary tract infection, site not specified, Dehydration. - Bed requested for Telemetry/MedSurg (Inpatient). - Status is Inpatient Admission. dm5 - Condition is Stable. - Problem is new. - Symptoms have improved. Signatures: Dispatcher [employer] EDMS Adelia Clemons RN RN dm5 Silvana Green RN Meño Ding MD MD rn Lasagna, Tonya, RN RN peri1 Slava Borjas John Curiel RN RN rv Corrections: (The following items were deleted from the chart) 20:02 19:58 Constitutional: Negative for fever, chills Eyes: Negative for injury, pain, rn redness, and discharge, Neck: Negative for injury, pain, and swelling, Cardiovascular: Negative for chest pain, palpitations, and edema, Respiratory: Negative for shortness of breath, cough, wheezing, and pleuritic chest pain, Abdomen/GI: Negative for abdominal pain, nausea, vomiting, diarrhea, and constipation, rn 09/07 01:57 09/06 22:59 Hospitalization Ordered by Alina Wilson MD for Inpatient Admission. Preliminary rv diagnosis is Urinary tract infection, site not specified; Dehydration. Bed requested for Telemetry/MedSurg (Inpatient). Status is Inpatient Admission. Condition is Stable. Problem is new. Symptoms have improved. rn 09/07 03:08 01:57 09/06/2020 22:59 Hospitalization Ordered by A Steve PARKER for Inpatient Admission. tl1 Preliminary diagnosis is Urinary tract infection, site not specified; Dehydration. Bed requested for [facility] ER HOLD. Status is Inpatient Admission. Condition is Stable. Problem is new. Symptoms have improved. rv 03:42 03:08 09/06/2020 22:59 Hospitalization Ordered by A Steve PARKER for Inpatient Admission. dm5 Preliminary diagnosis is Urinary tract infection, site not specified; Dehydration. Bed requested for Telemetry/MedSurg (Inpatient). Status is Inpatient Admission. Condition is Stable. Problem is new. Symptoms have improved. tl1
[2020-09-06 23:24] LABS: Blood Morphology Comment NOT SEEN (NOT SEEN); Platelet Estimate ADEQ
[2020-09-06 23:43] LABS: Urine Bacteria >50 /HPF (<20); Urine RBC <5 /HPF (NONE SEEN); Urine Urothelial Cells <5 /HPF (NONE SEEN)
[2020-09-07 01:13] LABS: Urine Blood TRACE (NEG); Urine Glucose TRACE (NEG); Urine Protein 3+ (NEG)
[2020-09-07] MEDS ORDERED: ONDANSETRON 4 MG/2 ML VIAL IV PRN (02:02)
[2020-09-07] MEDS: NA CHLORIDE 0.9% 1,000 ML IV SCH ×2 (02:02→12:09)
[2020-09-07] MEDS ORDERED: ACETAMINOPHEN 500 MG TAB PO PRN (02:02)
[2020-09-07 02:14] VITALS: BMI 20.9
[2020-09-07 03:40] LABS: Absolute Lymphocytes (CBC) 1.6 K/uL (0.7-4.9); Basophils % 0.5 % (0-1.3); Hematocrit 25.2 % (36.0-45.0); Lymphocytes % 6.6 % (15.3-44.8); MPV 7.3 fL (7.6-11.3); RBC Red Blood Cell Count 2.75 M/uL (3.86-4.86)
[2020-09-07 03:50] LABS: Potassium 4.6 mmol/L (3.5-5.1)
[2020-09-07] MEDS: CEFTRIAXONE/SWI 1gm 1 GM/10 ML SYR IV SCH ×2 (08:01→20:26)
[2020-09-07] MEDS: HYDROCODONE/APAP 5/325 MG TAB PO PRN ×3 (08:05→20:27)
[2020-09-07] MEDS ORDERED: CEFTRIAXONE 1 GM/NS 50 ML 1 GM/50 ML BAG IV SCH (09:00)
--- NOTE | 2020-09-07 10:58 | EKG ---
Test Date: 2020-09-06 Test Time: 20:28:05 Family Life Counselor: MEASUREMENT RESULTS: Intervals: Rate: 99 WV: 134 QRSD: 76 QT: 338 QTc: 433 [place]: P: 75 WV: 134 QRS: 12 T: 65 INTERPRETIVE STATEMENTS: Normal sinus rhythm Normal ECG Compared to ECG 07/26/2020 18:27:20 Myocardial infarct finding no longer present Electronically Signed On 09-07-20 10:56:24 MIGRATORY GAME [employer] BIOLOGIST by Dany Barbour
--- NOTE | 2020-09-07 21:31 | HP ---
Date of Admission: 09/07/2020 Chief Complaint: Abnormal labs. History Of Present Illness: This is a 70-year-old female patient who had blood work done as outpatient at [facility] yesterday and her WBC count was reported as 26. I was contacted with this abnormal blood work and subsequently we contacted the patient and requested her to come to emergency room, and after she arrived to our emergency room, she was evaluated and admitted to the hospital with urinary tract infection problem. The patient has nephrostomy tube in the right kidney and she also urinates on her own and in last few days she has been having some burning sensation with urination as she describes. Denies any fever or chills. No nausea, no vomiting. The patient has lost significant amount of weight lately and she has very poor appetite. Allergies: TO CODEINE. Medications: List reviewed. Review of Systems: Genitourinary: As mentioned above. Constitutional: As mentioned above. Musculoskeletal: Right hip pain. All other systems reviewed and negative. Social History: Negative for smoking or alcohol use. Family History: Significant for hypertension, diabetes, coronary artery disease. Past Surgical History: Breast implant, tubal ligation, hysterectomy, repair of cerebral aneurysm in 2008, cystocele repair, clipping of cerebral aneurysm in 2003. Past Medical History: Significant for hypertension, hyperlipidemia, hypothyroidism, hypokalemia, hypomagnesemia, impaired fasting glucose, colon cancer, gastroesophageal reflux disease, cerebral aneurysm, depression, DVT of right leg with bilateral pulmonary embolism diagnosed in September 2018. Physical Examination: Vital Signs: Height 5 feet 1 inch, weight 111 pounds, temperature 97, pulse 95, respiratory rate 18, blood pressure 106/51. General: The patient appears lot weaker than her normal selves, not in any respiratory distress. HEENT: Head atraumatic, normocephalic. Conjunctivae nonerythematous. Sclerae white. Mouth, no thrush or edema noted. Ears/Nose, no mass, lesion, discharge noted. Neck: Supple. No JVD, lymph nodes, bruit, thyromegaly noted. Lungs: Bilateral good equal air entry. Clear to auscultation. No rhonchi. No rales. Heart: Normal heart sounds, no murmur or gallop. Abdomen: Presence of nephrostomy tube in the right posterior flank region. Surrounding skin appears normal. Abdomen otherwise soft. No guarding, rigidity, tenderness, or distention. Bowel sounds normoactive. Extremities: No leg edema. No calf tenderness. Skin: No rash, ulcer, cellulitis. Lymphatics: No lymph node enlargement in neck, supraclavicular, infraclavicular region. Neuro: No focal neurological deficit. Chest: Unremarkable. External Genitalia: Deferred. Rectal: Deferred. Laboratory Data: Yesterday white count upon arrival 25.1, hemoglobin 8.1, and platelet count 315. This morning, platelet count is 299, hemoglobin is 8.3. Yesterday sodium 133, potassium 4.8, chloride 101, bicarb 24, BUN 23, creatinine 0.88. This morning, sodium 135, potassium 4.6 chloride 101, bicarb 26, BUN 23, creatinine 0.92, glucose 120. Yesterday, procalcitonin 1.16. Urinalysis from yesterday; positive for nitrite, esterase 3+, wbc 20-50, bacteria more than 50. COVID-19 test came back negative. Chest x-ray shows multiple bilateral pulmonary nodules consistent with metastatic disease and this is new compared to prior x-ray from February of this year. Impression: 1. Acute pyelonephritis. 2. Colon cancer with metastatic disease to lung. 3. Anemia. 4. Hypertension. 5. Hypothyroidism. 6. Hyperlipidemia. 7. Hypokalemia. 8. Hypomagnesemia. 9. Gastroesophageal reflux disease. 10. Impaired fasting glucose. 11. History of deep vein thrombosis and pulmonary embolism. Plan: Admit the patient to hospital for further evaluation and management of this problem. The patient is appropriate for inpatient and is expected to spend 2 midnights in hospital. We will continue IV fluid, IV antibiotics. Home medications will be ordered and we will continue that. We will monitor blood work, electrolytes and white count. Follow up on culture results and make adjustment on antibiotic as it becomes necessary. Unfortunately, the patient's chemotherapy was discontinued 2-3 months ago as it was not helping, and we had discussion with the patient in the past about consideration of hospice care at appropriate time. So today, I did bring up this discussion with her. She has given some thoughts to hospice care also as she reports. We had a long discussion today regarding care planning and advanced care planning. She does not want any CPR defibrillation or ventilator support in the event of cardiopulmonary arrest and would want us to keep her comfortable and let the God and nature take its course and DNR order was written in the chart. We also had discussion regarding hospice care and it is our recommendation for her to go home with hospice care, and after our discussion today, the patient understands and agrees with that plan. We will request Social Service to assist us with hospice care using agency of her choice. Hospice diagnosis will be colon cancer with metastatic disease. Overall, prognosis is poor and life expectancy is less than 6 months if the disease continues to progress the way it is expected. Total time spent today on discussion of advanced care planning was 20 minutes. ROBERT/KITTY Voice ID: [id number] TROY
[2020-09-08] MEDS: NA CHLORIDE 0.9% 1,000 ML IV SCH ×3 (00:41→20:46)
[2020-09-08] MEDS: HYDROCODONE/APAP 5/325 MG TAB PO PRN ×4 (00:43→20:57)
[2020-09-08] MEDS: DOCUSATE NA/SENNA CONC 1 TAB PO SCH (07:45)
[2020-09-08] MEDS: CEFTRIAXONE/SWI 1gm 1 GM/10 ML SYR IV SCH ×2 (07:45→20:46)
[2020-09-08 08:18] LABS: Magnesium 1.7 mg/dL (1.8-2.4); Potassium 3.8 mmol/L (3.5-5.1)
[2020-09-08 08:29] LABS: Absolute Lymphocytes (CBC) 0.9 K/uL (0.7-4.9); Basophils % 0.7 % (0-1.3); Lymphocytes % 6.1 % (15.3-44.8); MPV 7.9 fL (7.6-11.3); RBC Red Blood Cell Count 2.53 M/uL (3.86-4.86)
[2020-09-08] MEDS ORDERED: MAGNESIUM SULFATE 1 gm IVPB 1 GM/100 ML BAG IV ONE (16:00)
--- NOTE | 2020-09-08 18:23 | PN ---
Date of Progress Note: 09/08/2020 Subjective: The patient was seen this morning for followup. No new complaints or problems reported by the patient. She was lying in bed, not in distress, denies any new complaints. Continues to have very poor appetite. Objective: Vital Signs: Reviewed. HEENT: Unremarkable. Lungs: Clear to auscultation. Heart: Sounds normal. Abdomen: Soft. Bowel sounds normal. No guarding, rigidity, tenderness, or distention. Extremities: No leg edema. Laboratory Data: White count 15, hemoglobin 7.7, platelets 250. Sodium 138, potassium 3.8, chloride 109, bicarb 22, BUN 18, creatinine 0.82, glucose 92, magnesium 1.7. Urine culture growing gram-nega tive rods. Impression: 1.Acute pyelonephritis. 2.Anemia. 3.Colon cancer with metastatic disease. 4.Hypomagnesemia. Plan: We are awaiting on the final report on the urine culture. Once that is available, then we shellie l plan to discharge her to go home with appropriate antibiotic and this probably will happen tomorrow . So far, preliminary report is gram-negative rods on the urine culture. We will continue current a ntibiotics. The patient was requesting some stool softener, which was ordered. Social Service is as sisting the patient with hospice care arrangements and the patient has not decided the name of the hospital for behavioral medicine agency yet, but soon as she decides, Social Service will be able to assist her with that. The patient's hemoglobin is low, but in view of her terminal condition, there is no need for blood transf usion. Magnesium is low and we will replace it per electrolyte replacement protocol. I will see her tomorrow for followup. ROBERT/MODL Voice ID: [id number] Report ID: [id number]
[2020-09-08 21:02] VITALS: O2SAT 98
[2020-09-09] MEDS: CEFTRIAXONE/SWI 1gm 1 GM/10 ML SYR IV SCH (07:40)
[2020-09-09] MEDS: DOCUSATE NA/SENNA CONC 1 TAB PO SCH (07:41)
[2020-09-09] MEDS: HYDROCODONE/APAP 5/325 MG TAB PO PRN (07:41)
[2020-09-09] MEDS: NA CHLORIDE 0.9% 1,000 ML IV SCH (07:42)
[2020-09-09 09:00] VITALS: BP 118/58; TEMP 97.6
[2020-09-09] MEDS ORDERED: HEPARIN 500 UNIT/5 ML SYR IV PRN ×2 (11:00)
--- NOTE | 2020-09-09 11:46 | DS ---
Date of Discharge: 09/09/2020 Subjective: Patient was seen this morning for followup. She was sitting at bedside eating her breakfast. Objective: HEENT: Unremarkable. Lungs: Clear to auscultation. Heart: Sounds normal. Abdomen: Soft. Bowel sounds normal. No guarding, rigidity, tenderness, or distention. Extremities: No leg edema. Laboratory Data: Upon admission, sodium 133, potassium 4.8, chloride 101, bicarb 24, BUN 23, creatinine 0.88, glucose 131. Last chemistry yesterday sodium 138, potassium 3.8, chloride 109, bicarb 22, BUN 18, creatinine 0.82, glucose 92, magnesium 1.7, which was corrected and repeat magnesium this morning is 2.0. Urine culture grew Klebsiella. CBC; initial white count 25.1, hemoglobin 8.1, platelets 315. This was on 09/06/2020 and yesterday white count 15, hemoglobin 7.7, platelets 250. COVID-19 test negative. Hospital Course: A 70-year-old female patient admitted to the hospital with abnormal blood test. Please see dictated H and P for more information. Patient does have problem with urinary tract infection, which was determined to be acute pyelonephritis and she was admitted to the hospital, IV antibiotic ceftriaxone was started, which she has tolerated very well. Urine culture results finally came back today growing Klebsiella and it is sensitive to multiple different antibiotics. We will plan to discharge her to go home today with oral antibiotic, which will be Levaquin according to culture results. The patient overall has improved. Her prognosis is poor as we have noted during this hospital stay that her chest x-ray has now shown multiple bilateral pulmonary metastatic nodules. This is from her colon cancer. She was made aware of all this and we did have a long discussion regarding her advanced directives and hospice care was recommended, which after talking to her family. She was agreeable and Social Service was consulted and they helped us make arrangements for patient to go home with hospice care using agency of her choice and today she will be discharged to go home with hospice and hospice medical staff credentialing coordinator to take over her care upon discharge. Discharge Medications And Instructions: 1. Continue all prior home medication. 2. Levaquin 500 mg p.o. daily for 10 days and hospice medical staff credentialing coordinator to take over her care upon discharge. Final Diagnoses: 1. Acute pyelonephritis. 2. Colon cancer with metastatic disease to lung. 3. Anemia, unspecified, chronic. 4. Hypomagnesemia. 5. Hypertension. 6. Hypothyroidism. 7. Hyperlipidemia. 8. Hypokalemia. 9. Gastroesophageal reflux disease. 10. Impaired fasting glucose. 11. History of DVT and pulmonary embolism. Code status was do not resuscitate. ROBERT/MODL Voice ID: [id number] Report ID: [id number] [facility]
== END 2020-09-09 11:25 | disposition hospice, home (50) | DRG 690 ==
LOC: ER 18:35 → ERHOLD 09-07 00:15 → 4TH 09-07 03:08
PROVIDERS: ADMIT Internal Medicine; ATTEND Internal Medicine
DX: N10 Acute pyelonephritis (principal); C18.9 Malignant neoplasm of colon, unspecified; C78.00 Secondary malignant neoplasm of unspecified lung; E03.9 Hypothyroidism, unspecified; K21.9 Gastro-esophageal reflux disease without esophagitis; E87.6 Hypokalemia; E78.5 Hyperlipidemia, unspecified; E83.42 Hypomagnesemia; I10 Essential (primary) hypertension; D64.9 Anemia, unspecified; M25.551 Pain in right hip; B96.1 Klebsiella pneumoniae [K. pneumoniae] as the cause of diseases classified elsewhere; R73.01 Impaired fasting glucose; Z66 Do not resuscitate; Z88.5 Allergy status to narcotic agent; Z79.01 Long term (current) use of anticoagulants; Z79.890 Hormone replacement therapy; Z79.899 Other long term (current) drug therapy; Z86.718 Personal history of other venous thrombosis and embolism; Z98.51 Tubal ligation status; Z86.711 Personal history of pulmonary embolism; Z90.710 Acquired absence of both cervix and uterus; Z20.828 Contact with and (suspected) exposure to other viral communicable diseases
CPT/HCPCS: 36415; 71045; 80048; 81003; 81015; 83735; 84145; 85025; 87040; 87077; 87086; 87088; 87186; 93005; 96365; 99285; J0696; J1642; J2405; J3475; J7030; U0003